=== PATIENT | female | born 1965 | race Caucasian/White ===

== ENCOUNTER 2018-03-03 23:07 | Observation (INO) | payer MEDICARE, MEDICAID, SELFPAY ==
[2018-03-03] MEDS: Normal Saline 250 ML IV (23:58)
[2018-03-04] MEDS: Ondansetron 4 MG/2 ML VIAL (00:45)
[2018-03-04] MEDS: Furosemide 20 MG TAB PO (03:15)
[2018-03-04 07:25] VITALS: BP 114/46; PULSE 58; RESP 16; TEMP 36.3; O2SAT 94
[2018-03-04] MEDS: Normal Saline Flush 10 ML SYR IVP (09:42)
[2018-03-04 11:35] VITALS: BP 121/53; PULSE 62; RESP 18; TEMP 36.7; O2SAT 96
[2018-03-04 14:34] LABS: ALT 41 U/L (12-78); AST 103 U/L (15-37); Albumin 1.8 g/dL (3.4-5.0); Alkaline Phosphatase 138 U/L (46-116); Anion Gap 5.5 mmol/L (3-11); BUN 9 mg/dL (7-18); Bilirubin, Total 2.4 mg/dL (0.2-1.0); CO2 24.5 mmol/L (21.0-32.0); CREATININE 0.89 mg/dL (0.55-1.02); Chloride 109 mmol/L (98-107); Glucose 105 mg/dL (70-100); Lipase 314 U/L (73-393); Potassium 3.5 mmol/L (3.5-5.1); Sodium 139 mmol/L (136-145)
[2018-03-04 14:36] LABS: HCT 41.6 % (36.0-46.0); HGB 13.6 g/dL (12.0-15.5); INR 2.6 (1.0-3.5); Mean Corpuscular Volume 91.8 fL (80-95); Prothrombin Time 24.6 sec (9.3-10.8); RBC 4.53 m/cumm (4.00-5.20); White Blood Cell Count 6.29 k/cumm (4.4-10.8)
[2018-03-04 14:37] LABS: Absolute Basophil Count 0.02 k/cumm (0.0-0.2); Absolute Lymphocyte Count 0.53 k/cumm (1.2-3.4); Absolute Monocyte Count 0.43 k/cumm (0.11-0.7); Basophils % 0.3; Eosinophils % 1.6; Immature Grans % 0.2; Lymphocytes % 8.4; Mean Corp. HGB Concentration 32.7 g/dL (32.0-36.0); Monocytes % 6.8; Neutrophils % 82.7; RBC Distribution Width 17.5 % (11.7-14.6)
[2018-03-04 14:39] LABS: Clarity Sl Cloudy; Platelet Count 55 x1000/uL (130-400); Specific Gravity 1.015 (1.005-1.025)
[2018-03-04 14:40] LABS: Bilirubin Small (Negative); Blood Large (Negative); Glucose Negative (Negative); Ketones Negative (Negative); Leukocyte Esterase TR (Negative); Nitrite Negative (Negative); Urobilinogen 0.2 EU/dL (Up TO 0.2)
[2018-03-04 14:41] LABS: Bacteria Moderate HPF (Negative); C & S Indicated? No/Sq. Contamination; Casts Negative LPF (Negative); Crystals Negative HPF (Negative); Epithelial Cells Many HPF (Negative); Mucus Negative (Negative)
--- NOTE | 2018-03-04 15:07 | IN_ITS ---
Date of service: 03/04/18 PT Notes Inpatient Physical Therapy Evaluation Referring Doctor: Dr. Pickadr PT Orders: PT CONSULT: Evaluate and treat Precautions: Falls Patient Profile/Admitting Diagnosis: Patient is a 52-year-old female admitted with colitis PMHX: Refer to the problem list in Dr. Pickard H&P Social History/Home Situation: Lives with her parents, is on Social Security disability Current Functional Limitations: Independent with dressing meals, her mother assist her with bathing. It is on the first floor,. She has railings entering the house Equipment Owned/DME: Shower seat in the tub with grab bars, has flexible shower hose. Subjective: Glory complaints of intermittent right lower quadrant discomfort. Objective: General Observation: Pleasant cooperative no abnormal pain behavior noted. Mental Status: Alert and oriented ?3 Pain: Intermittent right lower quadrant pain. Rates his #4-5 on a VAS. Vital Signs: Resting pulse is 17 bpm; 19 bpm following ambulation. Her resting respiratory rate is 14 breaths per minute; 24 breaths per minute following ambulation. ROM: Right Upper Extremity: Within normal limits Left Upper Extremity: Within normal limits Right Lower Extremity: Within normal limits Left Lower Extremity: Within normal limits Strength: Has full motor control throughout strength. Her strength is generally rated - 5/5 throughout Sensation: Intact to light touch and proprioception. Bed Mobility/Transfers: Independent with assuming the supine sitting to standing positions Gait: Ambulates independently without an assistive device for approximately 30 feet. Her respiratory rate increases to 24 breaths per minute following ambulation as noted above. Balance: A Haskins balance test was performed and she scored 48/56. Fall risk is a score of 45 and below Static Sitting: Normal Dynamic Sitting: Normal Static Standing: Normal Dynamic Standing: Normal Special Tests: Mobility Limitations Standardized Measure [facility] AM-PAC 6 clicks Basic Mobility Inpatient Short Form: Raw Score: 18 standardized Score: 43.63 CMS Score: 46.58% [facility] Modifier: CK Informed Consent/Education: Patient instructed in purpose of PT consult and plan of care. Assessment: Patient is a 52 next field female year old referred to physical therapy services with the diagnosis of colitis []. Patient presents with clinical signs and symptoms consistent with diagnosis as demonstrated by the following impairment level findings: Deconditioned and shortness of breath with distance walking. Impairments are contributing to the following functional limitations: AMPAC score. Patient is assessed as a X low 16260 complexity based on the following: History: Colitis Examination: Poor endurance and shortness of breath with walking Presentation: Evolving Decision Making: Low based on her clinical findings Goals: Goals X1 week 1. Supine-Sit independent 2. Sit-Supine independent 3. Sit-Stand independent 4. Stand-Sit independent 5. Bed-Chair independent 6. Chair-Bed independent 7. Gait independent with distances greater than 100 feet 8. Stairs 9. Independent with home exercise program 10. Balance Plan of Care/Treatment Plan: 1-2x/day, 7 days/week x 1 week. Plan of care has been reviewed with the BOARD LINING MACHINE OPERATOR providing the service under Physical Therapy direction. Initiate Physical Therapy intervention for strengthening, bed mobility, transfers, gait, stairs, balance training, use of assistive device. DISCHARGE RECOMMENDATIONS: [] Home G Codes in the area mobility of walking and moving around: current status [id number] [CK]; projected status GP [id number]. Discharge status (if discharging) GP [id number] CK. Disclaimer: This note was created using [employer] voice recognition software. It was reviewed for major content. However, there may be multiple small discrepancies and errors due to the voice recognition aspects of the software.
--- NOTE | 2018-03-04 17:59 | HPE_ITS ---
Date of service: 03/04/18 Time of Service: 06:28 Assessment and Plan (1) Acute abdominal pain: Current visit: No Status: Acute Is a 52-year-old lady who was admitted for abdominal pain with recurrence of diarrhea by history with C. difficile of stool in the past with colitis on CT scan secondary to C. difficile infection. She appears overall well though she states that she was having loose stools returned off vancomycin and and had more abdominal pain. She will be observed with clear fluids and restarting vancomycin p.o. while retesting her stool for C. difficile. If she has no diarrhea persisting abdominal pain is minimal she should go home for continued outpatient follow-up. Problem details: Clear fluid diet with symptom control and follow-up stool evaluation for C. difficile. (2) Diarrhea: Current visit: No Status: Acute This is been recurrent in this lady of the last month or so with the C. difficile infection and CT scan changes of colitis. Recheck for C. difficile antigen and restart oral vancomycin for now and adjust therapy to test and symptoms. Clear fluids with bowel rest for now. Problem details: This problem is recurring off oral vancomycin for 2 weeks. Recheck stool for C. difficile and consider continuing vancomycin p.o. as an outpatient with close follow-up. She does not appear to be acutely ill and should be able to be evaluated during this observation period. (3) Clostridium difficile colitis: Start date: 12/12/17 Current visit: No Status: Acute There is been a problem for the last month or so with this patient status post Keflex treatment for probable cellulitis of the left lung probably with chronic skin changes. We will repeat tests for C. difficile though obtain a stool since admission to the ED. Continue vancomycin orally for now with bowel rest and clear fluid diet. Problem details: C. difficile which need to be checked for clearing and oral vancomycin p.o. for now awaiting this test. If the test is positive continue oral vancomycin and follow-up as an outpatient with oral hydration. If negative consider stopping Vancomycin. History of Present Illness Chief Complaint: Abdominal pain with recurrent diarrhea. Narrative: This is a 52-year-old lady who is a poor historian and appears much older than stated age. Who had cellulitis of her left lower treatment which has chronic peripheral edema and venous stasis changes in December 2017. She received Keflex as an outpatient and after treatment began to have diarrhea which was severe with abdominal pain and was diagnosed with C. difficile colitis. She was hospitalized during that same month with records unavailable other than an old ED visit January 15, 2018 and the patient confused as to the timing of hospitalizations. She tested positive for C. difficile in December when she was treated with IV Flagyl and sent home on oral vancomycin and with recurrence of abdominal pain with fever and diarrhea in January 2018 with her second visit to the ED at [facility]. She states she was rehospitalized that ED visit January 15, 2018 but there was no bed for admission at [facility] and she was sent to [facility] where she received IV fluids and IV Flagyl again during the hospitalization and was discharged on oral vancomycin. With his ED visit the night prior to observation the patient had been off vancomycin for 2 weeks and began to have loose stools with abdominal pain and cramping 2 days prior to presentation. This time she does not have fever. Her stools were not as severe and in the ED when they tried to obtain C. difficile antigen test she was not producing stool which will be done later during this observation. She did receive IV fluids in the emergency room and is not on IV fluids now because of being fluid overloaded and being on Lasix chronically with some history of hypokalemia secondary to Lasix use. She usually is very sedentary and was living with family moving back with her parents recently appearing to require increased care at home. She is morbidly obese and not very active with chronic leg edema bilaterally over her ankles with the left leg which was thought to be cellulitis with the chronic skin changes from venous stasis with hyperpigmentation and erythema as well as atrophy of the skin. At the time I saw the patient she was comfortable though as stated the main poor historian and fatigued from the overnight workup in the ED. Review of Systems Review of Systems As per history of present illness the patient has had the GI symptoms recently. She denies any bloody stools. Her edema has been stable. Her respiratory status has been stable. She has chronic arthritis and poor mobility from her morbid obesity and arthritis. She has no focal neurological complaints. [facility] Family History Other Diabetes Secondary hypercoagulability disorder Medical History Edema extremities (Acute) Hyperlipidemia (Acute) Liver cirrhosis secondary to nonalcoholic steatohepatitis ([place]) (Acute) Morbid obesity (Acute) Secondary hypercoagulability disorder (Acute) Asthma (Chronic) Depression (Chronic) Osteoarthritis (Chronic) Social History household members: other details: Patient was living with her son and now lives with her parents marital status: Never but lives with father of her children who is . 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 She presently is on disability for psychiatric disease mostly but also physical deconditioning from her morbid obesity. Surgical History History of bilateral tubal ligation (Acute) Female Reproductive History Menstrual control method: permanent sterilization Total pregnancies: 3 Meds Home Medications Medication Instructions Recorded Confirmed Type albuterol sulfate 2 puff .ROUTE PRN PRN 03/15/15 12/13/17 History cholecalciferol (vitamin D3) 2,000 units PO DAILY 03/15/15 12/13/17 History escitalopram oxalate [Lexapro] 20 mg PO DAILY 03/15/15 12/13/17 History fluticasone-salmeterol [Advair HFA] 2 puff .ROUTE BID 03/15/15 12/13/17 History potassium chloride [Klor-Con M20] 20 meq PO DAILY 03/15/15 12/13/17 History warfarin [Coumadin] 2.5 - 5 mg PO DIRECTED 03/15/15 12/13/17 History topiramate 25 mg PO BID 03/23/17 12/13/17 History fluticasone-salmeterol [Advair 03/04/18 History Diskus] Allergies Allergy/AdvReac Type Severity Reaction Status Date / Time cephalexin monohydrate AdvReac Diarrhea Unverified 01/15/18 18:33 [From Keflex] Exam Narrative Exam Narrative: General: Patient appears older than stated age, flattened affect with poor eye contact slightly garbled speech though think she was very drowsy from the night. She appears to be in no acute distress and is alert and oriented to person place. HEENT: Normocephalic, coarsened features over her face with slight tightness, eyes pupils equal and reactive to light symmetrically and extraocular movement intact, sclera anicteric. Ears normal. Neck: Supple without JVD. Back: Stooped posture with no CVA tenderness. Lungs: Bronchovesicular breath sounds diffusely with fair aeration but no focal rales or rhonchi. No expiratory wheeze. Heart: Regular rate and rhythm with distant heart sounds. Breast: Exam deferred. Abdomen: Obese, soft with tenderness diffusely but no guarding or rebound. No palpable splenomegaly. Genitalia and rectal exam: Deferred. Extremities: Chronic nonpitting edema 2+ in the right and 3+ on left with hyperpigmented slightly erythematous skin of the left leg with atrophic skin. No ulcerations. No cyanosis or clubbing. Peripheral pulses are decreased over both lower extremity with fair capillary refill. Skin: Skin to the left lower extremity and generally unkempt skin with morbid obese body and intertriginous folds dry. Skin has reed color and slightly pale. Neuro: No focal motor deficits of the patient. The overall lack of ambulation or mobility at home. [place] nerves II through XII grossly intact. No sensory deficits noted. No Babinski's. DTRs and symmetrical. Results Labs : 03/03/18 23:58 03/03/18 23:58 Abnormal lab results 03/03/18 03/03/18 03/03/18 Range/Units 23:58 23:58 23:58 RDW 17.5 H (11.7-14.6) % Plt Count 55 L (130-400) x1000/uL Absolute Lymphocytes 0.53 L (1.2-3.4) k/cumm PT 24.6 H (9.3-10.8) sec Chloride 109 H (98-107) mmol/L Glucose 105 H (70-100) mg/dL Calcium 8.0 L (8.5-10.1) mg/dL Total Bilirubin 2.4 H (0.2-1.0) mg/dL AST 103 H (15-37) U/L Alkaline Phosphatase 138 H (46-116) U/L Albumin 1.8 L (3.4-5.0) g/dL Urine Protein (Negative) mg/dL Urine Blood (Negative) Urine Bilirubin (Negative) Urine RBC (0-2) 03/03/18 Range/Units 23:58 RDW (11.7-14.6) % Plt Count (130-400) x1000/uL Absolute Lymphocytes (1.2-3.4) k/cumm PT (9.3-10.8) sec Chloride (98-107) mmol/L Glucose (70-100) mg/dL Calcium (8.5-10.1) mg/dL Total Bilirubin (0.2-1.0) mg/dL AST (15-37) U/L Alkaline Phosphatase (46-116) U/L Albumin (3.4-5.0) g/dL Urine Protein Trace H (Negative) mg/dL Urine Blood Large H (Negative) Urine Bilirubin Small H (Negative) Urine RBC 10-20 H (0-2) Diabetes panel 03/03/18 Range/Units 23:58 Sodium 139 (136-145) mmol/L Potassium 3.5 (3.5-5.1) mmol/L Chloride 109 H (98-107) mmol/L Carbon Dioxide 24.5 (21.0-32.0) mmol/L BUN 9 (7-18) mg/dL Creatinine 0.89 (0.55-1.02) mg/dL Glucose 105 H (70-100) mg/dL Calcium 8.0 L (8.5-10.1) mg/dL AST 103 H (15-37) U/L ALT 41 (12-78) U/L Alkaline Phosphatase 138 H (46-116) U/L Total Protein 7.0 (6.4-8.2) g/dL Albumin 1.8 L (3.4-5.0) g/dL Calcium panel 03/03/18 Range/Units 23:58 Calcium 8.0 L (8.5-10.1) mg/dL Albumin 1.8 L (3.4-5.0) g/dL Pituitary panel 03/03/18 Range/Units 23:58 Sodium 139 (136-145) mmol/L Potassium 3.5 (3.5-5.1) mmol/L Chloride 109 H (98-107) mmol/L Carbon Dioxide 24.5 (21.0-32.0) mmol/L BUN 9 (7-18) mg/dL Creatinine 0.89 (0.55-1.02) mg/dL Glucose 105 H (70-100) mg/dL Calcium 8.0 L (8.5-10.1) mg/dL Adrenal panel 03/03/18 Range/Units 23:58 Sodium 139 (136-145) mmol/L Potassium 3.5 (3.5-5.1) mmol/L Chloride 109 H (98-107) mmol/L Carbon Dioxide 24.5 (21.0-32.0) mmol/L BUN 9 (7-18) mg/dL Creatinine 0.89 (0.55-1.02) mg/dL Glucose 105 H (70-100) mg/dL Calcium 8.0 L (8.5-10.1) mg/dL Total Bilirubin 2.4 H (0.2-1.0) mg/dL AST 103 H (15-37) U/L ALT 41 (12-78) U/L Alkaline Phosphatase 138 H (46-116) U/L Total Protein 7.0 (6.4-8.2) g/dL Albumin 1.8 L (3.4-5.0) g/dL Laboratory Tests 03/03/18 03/03/18 03/03/18 23:58 23:58 23:58 WBC 6.29 RBC 4.53 Hgb 13.6 Hct 41.6 MCV 91.8 MCH 30.0 MCHC 32.7 RDW 17.5 H Plt Count 55 L MPV 11.0 Immature Gran % 0.2 Neutrophils % 82.7 Lymphocytes % 8.4 Monocytes % 6.8 Eosinophils % 1.6 Basophils % 0.3 Absolute Neutrophils 5.20 Absolute Lymphocytes 0.53 L Absolute Monocytes 0.43 Absolute Eosinophils 0.10 Absolute Basophils 0.02 PT 24.6 H INR 2.6 Sodium 139 Potassium 3.5 Chloride 109 H Carbon Dioxide 24.5 Anion Gap 5.5 BUN 9 Creatinine 0.89 Estimated GFR/1.73 m2 >= 60.00 Glucose 105 H Calcium 8.0 L Total Bilirubin 2.4 H AST 103 H ALT 41 Alkaline Phosphatase 138 H Total Protein 7.0 Albumin 1.8 L Lipase 314 Urine Color Urine Clarity Urine pH Ur Specific [place] Urine Protein Urine Ketones Urine Blood Urine Nitrite Urine Bilirubin Urine Urobilinogen Ur Leukocyte Esterase Urine RBC Urine WBC Ur Epithelial Cells Urine Crystals Urine Bacteria Urine Casts Urine Mucus Ur Culture Indicated? Urine Glucose 03/03/18 23:58 WBC RBC Hgb Hct MCV MCH MCHC RDW Plt Count MPV Immature Gran % Neutrophils % Lymphocytes % Monocytes % Eosinophils % Basophils % Absolute Neutrophils Absolute Lymphocytes Absolute Monocytes Absolute Eosinophils Absolute Basophils PT INR Sodium Potassium Chloride Carbon Dioxide Anion Gap BUN Creatinine Estimated GFR/1.73 m2 Glucose Calcium Total Bilirubin AST ALT Alkaline Phosphatase Total Protein Albumin Lipase Urine Color Yellow Urine Clarity Sl cloudy Urine pH 7.0 Ur Specific [place] 1.015 Urine Protein Trace H Urine Ketones Negative Urine Blood Large H Urine Nitrite Negative Urine Bilirubin Small H Urine Urobilinogen 0.2 Ur Leukocyte Esterase Tr Urine RBC 10-20 H Urine WBC 10-20 Ur Epithelial Cells Many Urine Crystals Negative Urine Bacteria Moderate Urine Casts Negative Urine Mucus Negative Ur Culture Indicated? No/sq. contamination Urine Glucose Negative
--- NOTE | 2018-03-04 18:00 | W.PM.DS.N ---
DS: Diagnosis Discharge Diagnosis (1) Abdominal pain: Status: Acute Asessment and Plan: Patient presented with abdominal pain. She was fearful she had a recurrence of C. difficile colitis. Repeat testing of her stool showed no evidence of C. difficile colitis. Her abdominal pain was improved and she was taking p.o. well. (2) Clostridium difficile colitis: Status: Acute Asessment and Plan: Patient had several episodes of C. difficile colitis and completed a long-term course of vancomycin. Currently no evidence of C. difficile colitis (3) Nonalcoholic steatohepatitis ([place]): Status: Chronic Asessment and Plan: Cirrhosis is stable. No evidence of decompensated liver failure at this time. Discharge Plan Discharge Details Reason For Visit: weakness Admit Date/Time: 03/04/18 03:26 Admit Provider: Aamir Villarreal Attending Provider: Aamir Villarreal Primary Care Provider: Gavi Adames Disposition Patient Disposition: HOME Condition: Fair Discharge Instructions Activity:: Activity as Tolerated Equipment/Supplies:: No Equipment Needed Diet:: As Tolerated Discharge Orders Discharge Orders: Discharge Order (Routine); Ordered 03/04/18 Ordered By: Balta Pickard Discharge Data Discharge Date/Time-TO BE ENTERED AT DEPARTURE: 03/04/18 15:04 DS: Summary Status at Discharge Functional status at discharge: independent ambulation Overall status at discharge: patient is back to baseline Time Spent with Patient Greater than 30 minutes Exam Narrative Exam Narrative: Her exam on the day of discharge was benign. She is morbidly obese her abdomen was overall soft and nontender to palpation no guarding or rebound. DS: Data Completed studies during hospitalization [Text1]: Procedures COLONOSCOPY (10/18/00) Labs on day of discharge: Labs from last 24 hours 03/03/18 03/03/18 03/03/18 23:58 23:58 23:58 WBC 6.29 RBC 4.53 Hgb 13.6 Hct 41.6 MCV 91.8 MCH 30.0 MCHC 32.7 RDW 17.5 H Plt Count 55 L MPV 11.0 Immature Gran % 0.2 Neutrophils % 82.7 Lymphocytes % 8.4 Monocytes % 6.8 Eosinophils % 1.6 Basophils % 0.3 Absolute Neutrophils 5.20 Absolute Lymphocytes 0.53 L Absolute Monocytes 0.43 Absolute Eosinophils 0.10 Absolute Basophils 0.02 PT INR Sodium 139 Potassium 3.5 Chloride 109 H Carbon Dioxide 24.5 Anion Gap 5.5 BUN 9 Creatinine 0.89 Estimated GFR/1.73 m2 >= 60.00 Glucose 105 H Calcium 8.0 L Total Bilirubin 2.4 H AST 103 H ALT 41 Alkaline Phosphatase 138 H Total Protein 7.0 Albumin 1.8 L Lipase 314 Urine Color Yellow Urine Clarity Sl cloudy Urine pH 7.0 Ur Specific [place] 1.015 Urine Protein Trace H Urine Ketones Negative Urine Blood Large H Urine Nitrite Negative Urine Bilirubin Small H Urine Urobilinogen 0.2 Ur Leukocyte Esterase Tr Urine RBC 10-20 H Urine WBC 10-20 Ur Epithelial Cells Many Urine Crystals Negative Urine Bacteria Moderate Urine Casts Negative Urine Mucus Negative Ur Culture Indicated? No/sq. contamination Urine Glucose Negative 03/03/18 23:58 WBC RBC Hgb Hct MCV MCH MCHC RDW Plt Count MPV Immature Gran % Neutrophils % Lymphocytes % Monocytes % Eosinophils % Basophils % Absolute Neutrophils Absolute Lymphocytes Absolute Monocytes Absolute Eosinophils Absolute Basophils PT 24.6 H INR 2.6 Sodium Potassium Chloride Carbon Dioxide Anion Gap BUN Creatinine Estimated GFR/1.73 m2 Glucose Calcium Total Bilirubin AST ALT Alkaline Phosphatase Total Protein Albumin Lipase Urine Color Urine Clarity Urine pH Ur Specific [place] Urine Protein Urine Ketones Urine Blood Urine Nitrite Urine Bilirubin Urine Urobilinogen Ur Leukocyte Esterase Urine RBC Urine WBC Ur Epithelial Cells Urine Crystals Urine Bacteria Urine Casts Urine Mucus Ur Culture Indicated? Urine Glucose Date of service: 03/04/18 Time of Service: 18:01
--- NOTE | 2018-03-04 20:01 | DI.CT_ITS ---
SYMPTOMS/DIAGNOSIS: NAUSEA, DIARRHEA, ABDOMINAL PAIN X [address] OF THE ABDOMEN AND PELVIS: Comparison is made with January,. The exam is limited by the patient's body habitus. IV contrast was administered. A cirrhotic liver and enlarged spleen, as well as cholelithiasis, are again noted. There is no biliary dilatation. There is no evidence of acute cholecystitis. The kidneys, adrenals , bladder and uterus are unremarkable. There is a question of minimal stranding around the pancreas, as well as in the mesentery. Clinical correlation is recommended. There has been some interval improvement in the amount of inflammation involving the colon since the previous exam. Diverticulosis is again noted. There is no free air, or free fluid or abnormal bowel distention. A fatty-containing hernia is noted just above the level of the umbilicus. Scoliosis and degenerative changes are again noted in the spine. There is a filter in the IVC, which appears unchanged in position. The appendix appears normal. IMPRESSION: Limited exam due to patient body habitus and lack of oral contrast. There is a question of mild stranding around the pancreas. Clinical correlation is recommended. There is also a question of some inflammation involving the ascending colon and mesentery.
[2018-03-04] MEDS: Omnipaque 350 MG/ML 100 ML BTL IJ (20:12)
[2018-03-04] MEDS: Omnipaque 350 MG/ML 50 ML BTL IJ (20:14)
--- NOTE | 2018-03-05 02:31 | HPE_ITS ---
PFSH Family History Other Diabetes Secondary hypercoagulability disorder Medical History Edema extremities (Acute) Hyperlipidemia (Acute) Liver cirrhosis secondary to nonalcoholic steatohepatitis ([place]) (Acute) Morbid obesity (Acute) Secondary hypercoagulability disorder (Acute) Asthma (Chronic) Depression (Chronic) Osteoarthritis (Chronic) Social History household members: other details: Patient was living with her son and now lives with her parents marital status: Never but lives with father of her children who is . 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 She presently is on disability for psychiatric disease mostly but also physical deconditioning from her morbid obesity. Surgical History History of bilateral tubal ligation (Acute) Meds Home Medications Medication Instructions Recorded Confirmed Type albuterol sulfate 2 puff .ROUTE PRN PRN 03/15/15 12/13/17 History cholecalciferol (vitamin D3) 2,000 units PO DAILY 03/15/15 12/13/17 History escitalopram oxalate [Lexapro] 20 mg PO DAILY 03/15/15 12/13/17 History fluticasone-salmeterol [Advair HFA] 2 puff .ROUTE BID 03/15/15 12/13/17 History potassium chloride [Klor-Con M20] 20 meq PO DAILY 03/15/15 12/13/17 History warfarin [Coumadin] 2.5 - 5 mg PO DIRECTED 03/15/15 12/13/17 History topiramate 25 mg PO BID 03/23/17 12/13/17 History fluticasone-salmeterol [Advair 03/04/18 History Diskus] Allergies Allergy/AdvReac Type Severity Reaction Status Date / Time cephalexin monohydrate AdvReac Diarrhea Unverified 01/15/18 18:33 [From Keflex] Results Labs : 03/03/18 23:58 03/03/18 23:58 Abnormal lab results 03/03/18 03/03/18 03/03/18 Range/Units 23:58 23:58 23:58 RDW 17.5 H (11.7-14.6) % Plt Count 55 L (130-400) x1000/uL Absolute Lymphocytes 0.53 L (1.2-3.4) k/cumm PT 24.6 H (9.3-10.8) sec Chloride 109 H (98-107) mmol/L Glucose 105 H (70-100) mg/dL Calcium 8.0 L (8.5-10.1) mg/dL Total Bilirubin 2.4 H (0.2-1.0) mg/dL AST 103 H (15-37) U/L Alkaline Phosphatase 138 H (46-116) U/L Albumin 1.8 L (3.4-5.0) g/dL Urine Protein (Negative) mg/dL Urine Blood (Negative) Urine Bilirubin (Negative) Urine RBC (0-2) 03/03/18 Range/Units 23:58 RDW (11.7-14.6) % Plt Count (130-400) x1000/uL Absolute Lymphocytes (1.2-3.4) k/cumm PT (9.3-10.8) sec Chloride (98-107) mmol/L Glucose (70-100) mg/dL Calcium (8.5-10.1) mg/dL Total Bilirubin (0.2-1.0) mg/dL AST (15-37) U/L Alkaline Phosphatase (46-116) U/L Albumin (3.4-5.0) g/dL Urine Protein Trace H (Negative) mg/dL Urine Blood Large H (Negative) Urine Bilirubin Small H (Negative) Urine RBC 10-20 H (0-2) Diabetes panel 03/03/18 Range/Units 23:58 Sodium 139 (136-145) mmol/L Potassium 3.5 (3.5-5.1) mmol/L Chloride 109 H (98-107) mmol/L Carbon Dioxide 24.5 (21.0-32.0) mmol/L BUN 9 (7-18) mg/dL Creatinine 0.89 (0.55-1.02) mg/dL Glucose 105 H (70-100) mg/dL Calcium 8.0 L (8.5-10.1) mg/dL AST 103 H (15-37) U/L ALT 41 (12-78) U/L Alkaline Phosphatase 138 H (46-116) U/L Total Protein 7.0 (6.4-8.2) g/dL Albumin 1.8 L (3.4-5.0) g/dL Calcium panel 03/03/18 Range/Units 23:58 Calcium 8.0 L (8.5-10.1) mg/dL Albumin 1.8 L (3.4-5.0) g/dL Pituitary panel 03/03/18 Range/Units 23:58 Sodium 139 (136-145) mmol/L Potassium 3.5 (3.5-5.1) mmol/L Chloride 109 H (98-107) mmol/L Carbon Dioxide 24.5 (21.0-32.0) mmol/L BUN 9 (7-18) mg/dL Creatinine 0.89 (0.55-1.02) mg/dL Glucose 105 H (70-100) mg/dL Calcium 8.0 L (8.5-10.1) mg/dL Adrenal panel 03/03/18 Range/Units 23:58 Sodium 139 (136-145) mmol/L Potassium 3.5 (3.5-5.1) mmol/L Chloride 109 H (98-107) mmol/L Carbon Dioxide 24.5 (21.0-32.0) mmol/L BUN 9 (7-18) mg/dL Creatinine 0.89 (0.55-1.02) mg/dL Glucose 105 H (70-100) mg/dL Calcium 8.0 L (8.5-10.1) mg/dL Total Bilirubin 2.4 H (0.2-1.0) mg/dL AST 103 H (15-37) U/L ALT 41 (12-78) U/L Alkaline Phosphatase 138 H (46-116) U/L Total Protein 7.0 (6.4-8.2) g/dL Albumin 1.8 L (3.4-5.0) g/dL Laboratory Tests 03/03/18 03/03/18 03/03/18 23:58 23:58 23:58 WBC 6.29 RBC 4.53 Hgb 13.6 Hct 41.6 MCV 91.8 MCH 30.0 MCHC 32.7 RDW 17.5 H Plt Count 55 L MPV 11.0 Immature Gran % 0.2 Neutrophils % 82.7 Lymphocytes % 8.4 Monocytes % 6.8 Eosinophils % 1.6 Basophils % 0.3 Absolute Neutrophils 5.20 Absolute Lymphocytes 0.53 L Absolute Monocytes 0.43 Absolute Eosinophils 0.10 Absolute Basophils 0.02 PT 24.6 H INR 2.6 Sodium 139 Potassium 3.5 Chloride 109 H Carbon Dioxide 24.5 Anion Gap 5.5 BUN 9 Creatinine 0.89 Estimated GFR/1.73 m2 >= 60.00 Glucose 105 H Calcium 8.0 L Total Bilirubin 2.4 H AST 103 H ALT 41 Alkaline Phosphatase 138 H Total Protein 7.0 Albumin 1.8 L Lipase 314 Urine Color Urine Clarity Urine pH Ur Specific [place] Urine Protein Urine Ketones Urine Blood Urine Nitrite Urine Bilirubin Urine Urobilinogen Ur Leukocyte Esterase Urine RBC Urine WBC Ur Epithelial Cells Urine Crystals Urine Bacteria Urine Casts Urine Mucus Ur Culture Indicated? Urine Glucose 03/03/18 23:58 WBC RBC Hgb Hct MCV MCH MCHC RDW Plt Count MPV Immature Gran % Neutrophils % Lymphocytes % Monocytes % Eosinophils % Basophils % Absolute Neutrophils Absolute Lymphocytes Absolute Monocytes Absolute Eosinophils Absolute Basophils PT INR Sodium Potassium Chloride Carbon Dioxide Anion Gap BUN Creatinine Estimated GFR/1.73 m2 Glucose Calcium Total Bilirubin AST ALT Alkaline Phosphatase Total Protein Albumin Lipase Urine Color Yellow Urine Clarity Sl cloudy Urine pH 7.0 Ur Specific [place] 1.015 Urine Protein Trace H Urine Ketones Negative Urine Blood Large H Urine Nitrite Negative Urine Bilirubin Small H Urine Urobilinogen 0.2 Ur Leukocyte Esterase Tr Urine RBC 10-20 H Urine WBC 10-20 Ur Epithelial Cells Many Urine Crystals Negative Urine Bacteria Moderate Urine Casts Negative Urine Mucus Negative Ur Culture Indicated? No/sq. contamination Urine Glucose Negative
--- NOTE | 2018-03-05 09:45 | PDOC.CMDIS ---
LACE Index Scoring Tool - Questions: Length of Stay (in days): 1 Acuity (Admit via E.D.?): Yes Comorbidities: Diabetes w/o Complication E.D. Visits: 3 - Answers: Total Score: 8 Risk of Readmission: Low Risk Care Management Discharge Reason for Hospitalization: Diarrhea Discharge Plan: Home and no service needed. Parents will transport by car when medically cleared for discharge. Patient/Family Education Needs: Discharge instructions
--- NOTE | 2018-03-05 10:54 | PT.INIE ---
PT Notes Inpatient Physical Therapy Evaluation Referring Doctor: Dr. Pickard PT Orders: PT CONSULT: Evaluate and treat Precautions: Falls Patient Profile/Admitting Diagnosis: Patient is a 52-year-old female admitted with colitis PMHX: Refer to the problem list in Dr. Pickard H&P Social History/Home Situation: Lives with her parents, is on Social Security disability Current Functional Limitations: Independent with dressing meals, her mother assist her with bathing. It is on the first floor,. She has railings entering the house Equipment Owned/DME: Shower seat in the tub with grab bars, has flexible shower hose. Subjective: Glory complaints of intermittent right lower quadrant discomfort. Objective: General Observation: Pleasant cooperative no abnormal pain behavior noted. Mental Status: Alert and oriented ?3 Pain: Intermittent right lower quadrant pain. Rates his #4-5 on a VAS. Vital Signs: Resting pulse is 17 bpm; 19 bpm following ambulation. Her resting respiratory rate is 14 breaths per minute; 24 breaths per minute following ambulation. ROM: Right Upper Extremity: Within normal limits Left Upper Extremity: Within normal limits Right Lower Extremity: Within normal limits Left Lower Extremity: Within normal limits Strength: Has full motor control throughout strength. Her strength is generally rated -5/5 throughout Sensation: Intact to light touch and proprioception. Bed Mobility/Transfers: Independent with assuming the supine sitting to standing positions Gait: Ambulates independently without an assistive device for approximately 30 feet. Her respiratory rate increases to 24 breaths per minute following ambulation as noted above. Balance: A Hasknis balance test was performed and she scored 48/56. Fall risk is a score of 45 and below Static Sitting: Normal Dynamic Sitting: Normal Static Standing: Normal Dynamic Standing: Normal Special Tests: Mobility Limitations Standardized Measure [facility] AM-PAC 6 clicks Basic Mobility Inpatient Short Form: Raw Score: 18 standardized Score: 43.63 CMS Score: 46.58% [facility] Modifier: CK Informed Consent/Education: Patient instructed in purpose of PT consult and plan of care. Assessment: Patient is a 52 next field female year old referred to physical therapy services with the diagnosis of colitis []. Patient presents with clinical signs and symptoms consistent with diagnosis as demonstrated by the following impairment level findings: Deconditioned and shortness of breath with distance walking. Impairments are contributing to the following functional limitations: AMPAC score. Patient is assessed as a X low 20811 complexity based on the following: History: Colitis Examination: Poor endurance and shortness of breath with walking Presentation: Evolving Decision Making: Low based on her clinical findings Goals: Goals X1 week 1. Supine-Sit independent 2. Sit-Supine independent 3. Sit-Stand independent 4. Stand-Sit independent 5. Bed-Chair independent 6. Chair-Bed independent 7. Gait independent with distances greater than 100 feet 8. Stairs 9. Independent with home exercise program 10. Balance Plan of Care/Treatment Plan: 1-2x/day, 7 days/week x 1 week. Plan of care has been reviewed with the HAM STRIPPER providing the service under Physical Therapy direction. Initiate Physical Therapy intervention for strengthening, bed mobility, transfers, gait, stairs, balance training, use of assistive device. DISCHARGE RECOMMENDATIONS: [] Home G Codes in the area mobility of walking and moving around: current status [id number] [CK]; projected status GP [id number]. Discharge status (if discharging) GP [id number] CK. Disclaimer: This note was created using [employer] voice recognition software. It was reviewed for major content. However, there may be multiple small discrepancies and errors due to the voice recognition aspects of the software. Intake Vital Signs 03/04/18 07:25 03/04/18 11:35 03/04/18 15:47 Height 5 ft 7 in BP 114/46 L 121/53 L Respiration 16 18 Pulse 58 L 62 Temp 36.3 C L 36.7 C Temp Source Tympanic Tympanic Pulse Oximetry (%) 94 L 96 Oxygen Flow Rate 0 0
--- NOTE | 2018-03-05 10:58 | IN_ITS ---
PT Notes Inpatient Physical Therapy Evaluation Referring Doctor: Dr. Pickard PT Orders: PT CONSULT: Evaluate and treat Precautions: Falls Patient Profile/Admitting Diagnosis: Patient is a 52-year-old female admitted with colitis PMHX: Refer to the problem list in Dr. Pickard H&P Social History/Home Situation: Lives with her parents, is on Social Security disability Current Functional Limitations: Independent with dressing meals, her mother assist her with bathing. It is on the first floor,. She has railings entering the house Equipment Owned/DME: Shower seat in the tub with grab bars, has flexible shower hose. Subjective: Glory complaints of intermittent right lower quadrant discomfort. Objective: General Observation: Pleasant cooperative no abnormal pain behavior noted. Mental Status: Alert and oriented ?3 Pain: Intermittent right lower quadrant pain. Rates his #4-5 on a VAS. Vital Signs: Resting pulse is 17 bpm; 19 bpm following ambulation. Her resting respiratory rate is 14 breaths per minute; 24 breaths per minute following ambulation. ROM: Right Upper Extremity: Within normal limits Left Upper Extremity: Within normal limits Right Lower Extremity: Within normal limits Left Lower Extremity: Within normal limits Strength: Has full motor control throughout strength. Her strength is generally rated -5/ 5 throughout Sensation: Intact to light touch and proprioception. Bed Mobility/Transfers: Independent with assuming the supine sitting to standing positions Gait: Ambulates independently without an assistive device for approximately 30 feet. Her respiratory rate increases to 24 breaths per minute following ambulation as noted above. Balance: A Haskins balance test was performed and she scored 48/56. Fall risk is a score of 45 and below Static Sitting: Normal Dynamic Sitting: Normal Static Standing: Normal Dynamic Standing: Normal Special Tests: Mobility Limitations Standardized Measure [facility] AM-PAC 6 clicks Basic Mobility Inpatient Short Form: Raw Score: 18 standardized Score: 43.63 CMS Score: 46.58% [facility] Modifier: CK Informed Consent/Education: Patient instructed in purpose of PT consult and plan of care. Assessment: Patient is a 52 next field female year old referred to physical therapy services with the diagnosis of colitis []. Patient presents with clinical signs and symptoms consistent with diagnosis as demonstrated by the following impairment level findings: Deconditioned and shortness of breath with distance walking. Impairments are contributing to the following functional limitations: AMPAC score. Patient is assessed as a X low 00999 complexity based on the following: History: Colitis Examination: Poor endurance and shortness of breath with walking Presentation: Evolving Decision Making: Low based on her clinical findings Goals: Goals X1 week 1. Supine-Sit independent 2. Sit-Supine independent 3. Sit-Stand independent 4. Stand-Sit independent 5. Bed-Chair independent 6. Chair-Bed independent 7. Gait independent with distances greater than 100 feet 8. Stairs 9. Independent with home exercise program 10. Balance Plan of Care/Treatment Plan: 1-2x/day, 7 days/week x 1 week. Plan of care has been reviewed with the [employer] providing the service under Physical Therapy direction. Initiate Physical Therapy intervention for strengthening, bed mobility, transfers, gait, stairs, balance training, use of assistive device. DISCHARGE RECOMMENDATIONS: [] Home G Codes in the area mobility of walking and moving around: current status [id number] [CK]; projected status GP [id number]. Discharge status (if discharging) GP [id number] CK. Disclaimer: This note was created using [employer] voice recognition software. It was reviewed for major content. However, there may be multiple small discrepancies and errors due to the voice recognition aspects of the software. Intake Vital Signs 3 l l l l 03/04/18 07:25 l l 03/04/18 11:35 l l 03/04/18 15:47 l l Height 5 ft 7 in l l BP 114/46 L 121/53 L l l Respiration 16 18 l l Pulse 58 L 62 l l Temp 36.3 C L 36.7 C l l Temp Source Tympanic Tympanic l l Pulse Oximetry (%) 94 L 96 l l Oxygen Flow Rate 0 0
--- NOTE | 2018-03-07 08:16 | PT.INDS ---
PT Notes Inpatient Physical Therapy Discharge Summary Date: 03/07/18 Dates of service: 03/04/18 Pt was seen for PT eval only 03/04/18 see note for details. Pt was discharged to home. Pt did not meet therapy goals due to discharge. Goals X1 week 1. Supine-Sit independent 2. Sit-Supine independent 3. Sit-Stand independent 4. Stand-Sit independent 5. Bed-Chair independent 6. Chair-Bed independent 7. Gait independent with distances greater than 100 feet 8. Stairs 9. Independent with home exercise program 10. Balance Pt did not meet goals due to discharge. DISCHARGE RECOMMENDATIONS:Home G Codes in the area mobility of walking and moving around; projected status GP [id number]. Discharge status (if discharging) GP Deb Faust PT
--- NOTE | 2018-03-07 08:19 | INDS_ITS ---
PT Notes Inpatient Physical Therapy Discharge Summary Date: 03/07/18 Dates of service: 03/04/18 Pt was seen for PT eval only 03/04/18 see note for details. Pt was discharged to home. Pt did not meet therapy goals due to discharge. Goals X1 week 1. Supine-Sit independent 2. Sit-Supine independent 3. Sit-Stand independent 4. Stand-Sit independent 5. Bed-Chair independent 6. Chair-Bed independent 7. Gait independent with distances greater than 100 feet 8. Stairs 9. Independent with home exercise program 10. Balance Pt did not meet goals due to discharge. DISCHARGE RECOMMENDATIONS:Home G Codes in the area mobility of walking and moving around; projected status GP [id number]. Discharge status (if discharging) GP Deb Faust PT
--- NOTE | 2018-03-22 14:59 | PT.INIE ---
Date of service: 03/04/18 Time of Service: 10:00 PT Notes Inpatient Physical Therapy Evaluation Referring Doctor: Dr. Pickard PT Orders: PT CONSULT: Evaluate and treat Precautions: Falls Patient Profile/Admitting Diagnosis: Patient is a 52-year-old female admitted with colitis PMHX: Refer to the problem list in Dr. Pickard H&P Social History/Home Situation: Lives with her parents, is on Social Security disability Current Functional Limitations: Independent with dressing meals, her mother assist her with bathing. It is on the first floor,. She has railings entering the house Equipment Owned/DME: Shower seat in the tub with grab bars, has flexible shower hose. Subjective: Glory complaints of intermittent right lower quadrant discomfort. Objective: General Observation: Pleasant cooperative no abnormal pain behavior noted. Mental Status: Alert and oriented ?3 Pain: Intermittent right lower quadrant pain. Rates his #4-5 on a VAS. Vital Signs: Resting pulse is 17 bpm; 19 bpm following ambulation. Her resting respiratory rate is 14 breaths per minute; 24 breaths per minute following ambulation. ROM: Right Upper Extremity: Within normal limits Left Upper Extremity: Within normal limits Right Lower Extremity: Within normal limits Left Lower Extremity: Within normal limits Strength: Has full motor control throughout strength. Her strength is generally rated -5/5 throughout Sensation: Intact to light touch and proprioception. Bed Mobility/Transfers: Independent with assuming the supine sitting to standing positions Gait: Ambulates independently without an assistive device for approximately 30 feet. Her respiratory rate increases to 24 breaths per minute following ambulation as noted above. Balance: A Haskins balance test was performed and she scored 48/56. Fall risk is a score of 45 and below Static Sitting: Normal Dynamic Sitting: Normal Static Standing: Normal Dynamic Standing: Normal Special Tests: Mobility Limitations Standardized Measure [facility] AM-PAC 6 clicks Basic Mobility Inpatient Short Form: Raw Score: 18 standardized Score: 43.63 CMS Score: 46.58% [facility] Modifier: CK Informed Consent/Education: Patient instructed in purpose of PT consult and plan of care. Assessment: Patient is a 52 next field female year old referred to physical therapy services with the diagnosis of colitis []. Patient presents with clinical signs and symptoms consistent with diagnosis as demonstrated by the following impairment level findings: Deconditioned and shortness of breath with distance walking. Impairments are contributing to the following functional limitations: AMPAC score. Patient is assessed as a X low [id number] complexity based on the following: History: Colitis Examination: Poor endurance and shortness of breath with walking Presentation: Evolving Decision Making: Low based on her clinical findings Goals: Goals X1 week 1. Supine-Sit independent 2. Sit-Supine independent 3. Sit-Stand independent 4. Stand-Sit independent 5. Bed-Chair independent 6. Chair-Bed independent 7. Gait independent with distances greater than 100 feet 8. Stairs 9. Independent with home exercise program 10. Balance Plan of Care/Treatment Plan: 1-2x/day, 7 days/week x 1 week. Plan of care has been reviewed with the COUNTERINTELLIGENCE/HUMINT SPECIALIST providing the service under Physical Therapy direction. Initiate Physical Therapy intervention for strengthening, bed mobility, transfers, gait, stairs, balance training, use of assistive device. DISCHARGE RECOMMENDATIONS: [] Home G Codes in the area mobility of walking and moving around: current status [id number] [CK]; projected status GP [id number]. Discharge status (if discharging) GP [id number] CK. Disclaimer: This note was created using [employer] voice recognition software. It was reviewed for major content. However, there may be multiple small discrepancies and errors due to the voice recognition aspects of the software.
== END 2018-03-04 15:04 | disposition home or self-care (01) ==
LOC: ER 03-04 12:17 → MS 03-04 15:48
PROVIDERS: Admitting Provider Family Medicine; Emergency Provider Physician Assistant; PCP Family Medicine; Visit Provider Family Medicine
DX: R10.9 Unspecified abdominal pain (principal); A04.72 Enterocolitis due to Clostridium difficile, not specified as recurrent; K75.81 Nonalcoholic steatohepatitis (NASH); E66.01 Morbid (severe) obesity due to excess calories
CPT/HCPCS: 36415; 80053; 83690; 96361; 96374; 96375; 97161; 99220; 99239; 99285; 74177; 81003; 81015; 85025; 85610; 87324; J2405; J3490; Q9967

== ENCOUNTER 2018-03-10 12:06 | Outpatient (CLI) | payer MEDICARE, MEDICAID, SELFPAY ==
[2018-03-10 13:09] LABS: INR 2.4 (1.0-3.5); Prothrombin Time 22.3 sec (9.3-10.8)
== END 2018-03-10 12:26 ==
PROVIDERS: PCP Family Medicine; Visit Provider Family Medicine
DX: K52.9 Noninfective gastroenteritis and colitis, unspecified (principal); R53.1 Weakness
CPT/HCPCS: 36415; 85610

== ENCOUNTER 2018-03-11 11:59 | Emergency (ER) | payer MEDICARE, MEDICAID, SELFPAY ==
[2018-03-11 12:08] VITALS: BP 155/66; PULSE 69; RESP 20; TEMP 36.7; O2SAT 96
[2018-03-11 13:25] LABS: Abs Immature Grans 0.01 k/cumm (0.0-0.09); Absolute Basophil Count 0.02 k/cumm (0.0-0.2); Absolute Eosinophil Count 0.11 k/cumm (0.0-0.7); Absolute Lymphocyte Count 0.85 k/cumm (1.2-3.4); Absolute Monocyte Count 1.07 k/cumm (0.11-0.7); Absolute Neutrophil Count 4.19 k/cumm (1.2-6.7); Basophils % 0.3; Eosinophils % 1.8; HCT 38.6 % (36.0-46.0); HGB 12.7 g/dL (12.0-15.5); Immature Grans % 0.2; Lymphocytes % 13.6; Mean Corp. HGB Concentration 32.9 g/dL (32.0-36.0); Mean Corpuscular Hemoglobin 30.5 pg (27.0-33.0); Mean Corpuscular Volume 92.8 fL (80-95); Mean Platelet Volume 11.4 fL (8.0-11.0); Monocytes % 17.1; RBC 4.16 m/cumm (4.00-5.20); RBC Distribution Width 17.2 % (11.7-14.6); White Blood Cell Count 6.25 k/cumm (4.4-10.8)
[2018-03-11 13:40] LABS: ALT 28 U/L (12-78); AST 63 U/L (15-37); Albumin 1.5 g/dL (3.4-5.0); Alkaline Phosphatase 121 U/L (46-116); Anion Gap 5.2 mmol/L (3-11); BUN 9 mg/dL (7-18); Bilirubin, Total 2.2 mg/dL (0.2-1.0); CO2 24.8 mmol/L (21.0-32.0); CREATININE 1.05 mg/dL (0.55-1.02); Calcium 7.8 mg/dL (8.5-10.1); Chloride 108 mmol/L (98-107); Estimated GFR 54.61 (mL/min/1.73m2); Glucose 109 mg/dL (70-100); Lipase 114 U/L (73-393); Potassium 3.6 mmol/L (3.5-5.1); Sodium 138 mmol/L (136-145); Total Protein 6.1 g/dL (6.4-8.2)
[2018-03-11 13:41] LABS: INR 2.7 (1.0-3.5); PTT Activated 40.5 sec (21.0-31.4); Prothrombin Time 25.8 sec (9.3-10.8)
[2018-03-11 13:43] LABS: Platelet Count 64 x1000/uL (130-400)
[2018-03-11 13:44] LABS: Anisocytosis 1+; Diff Comment Diff Reviewed
[2018-03-11] MEDS: Normal Saline 1,000 ML 1000 ML IV (13:58)
--- NOTE | 2018-03-11 14:36 | DI.CT_ITS ---
SYMPTOM/DIAGNOSIS: LLQ ABD PAIN, DIARRHEA, HEME + ABDOMEN AND PELVIC CT: Comparison is made with 03/03/18. Images were performed from the lung bases through the ischial tuberosities after IV and without oral contrast. The exam is limited by the patient's body habitus. The lung bases show mild respiratory motion but are otherwise clear. The liver again has a cirrhotic appearance. The spleen is enlarged, unchanged. Varices are identified. There is again question of mild inhomogeneity of the pancreas which could be artifactual and could reflect mild pancreatitis. Multiple calcified stones are again demonstrated in the gallbladder. There is no gallbladder wall thickening or biliary dilatation. There is a normal quantity of stool. There is no evidence of bowel obstruction. There is questionable bowel wall thickening. An IVC filter is unchanged. The uterus and ovaries are unremarkable. There is no change in a fatty containing hernia just inferior to the umbilicus. IMPRESSION: Stable findings of cirrhosis and splenomegaly. There is cholelithiasis without evidence of acute cholecystitis or biliary dilatation. No definite acute abnormality is seen. The exam is limited by the patient's body habitus.
[2018-03-11] MEDS: Omnipaque 350 MG/ML 100 ML BTL IJ (15:20)
--- NOTE | 2018-03-11 15:50 | DI.VRAD_ITS ---
EXAM: CT Abdomen and Pelvis With Intravenous Contrast CLINICAL HISTORY: 52 years old, female; Pain; Abdominal pain; Localized; Left lower quadrant (llq); Patient HX: Llq abdominal pain, diarrhea, heme + TECHNIQUE: Axial computed tomography images of the abdomen and pelvis with intravenous contrast. Coronal and sagittal reformatted images were created and reviewed. COMPARISON: CT - ABD PELVIS WITH CONTRAST 03/04/2018 12:58 AM FINDINGS: Irregularity to the liver with irregular margins and slight inhomogeneity seen with intrinsic liver disease. Splenomegaly most likely are presenting portal hypertension with low. The varices in the splenic hilum. Cholelithiasis. Small fat-containing anterior abdominal wall hernia in the mid pelvis. Mild prominence to the colon wall which could represent a diffuse mild colitis however this can be seen in portal hypertension. Further clinical correlation is needed. A focal colitis is not seen. No evidence of bowel obstruction. No change in partially fragmented inferior vena cava filter. Persistent inhomogeneity to the pancreas, the possibility of pancreatitis cannot be excluded. No abscess or other abnormal fluid collection. No obstructive uropathy. IMPRESSION: Findings suggesting intrinsic liver disease with secondary portal hypertension. Cannot entirely exclude a mild diffuse colitis however this may be due to the portal hypertension. Persistent mild inhomogeneity to the pancreas. Pancreatitis cannot entirely be excluded. Dictated and Authenticated by: Tim Ricardo MD. Ordering:MARK MOONEY MD
--- NOTE | 2018-03-11 17:18 | W.ED.GENAD ---
Discharge Plan Disposition Patient Disposition: HOME Condition: Good Discharge Details Chief Complaint: Abd Prob Clinical Impression: C. difficile diarrhea Reason For Visit: ab Primary Care Provider: Gavi Adames ED Provider: Shade Quezada Home Meds and New Rx's Prescriptions: New vancomycin 125 mg capsule 125 mg PO QID 14 Days Qty: 56 RF: 0 No Action warfarin [Coumadin] 7.5 MG tablet 2.5 - 5 mg PO DIRECTED RF: 0 potassium chloride [Klor-Con M20] 20 MEQ tablet,ER particles/crystals 20 meq PO DAILY RF: 0 albuterol sulfate 8.5 GM HFA aerosol inhaler 2 puff .Route PRN PRNRF: 0 escitalopram oxalate [Lexapro] 20 MG tablet 20 mg PO DAILY RF: 0 fluticasone-salmeterol [Advair HFA] 60 PUFF HFA aerosol inhaler 2 puff .Route BID RF: 0 cholecalciferol (vitamin D3) 1,000 UNITS tablet 2,000 units PO DAILY RF: 0 topiramate 25 MG tablet 25 mg PO BID RF: 0 ranitidine HCl [Zantac] 150 MG tablet 150 mg PO DAILY Qty: 30 RF: 0 ibuprofen 400 MG tablet 400 mg PO DAILY AM PRNQty: 0 RF: 0 furosemide 20 MG tablet 20 mg PO BID PRNQty: 0 RF: 0 fluticasone-salmeterol [Advair Diskus] 500-50 mcg/dose Blister With Device RF: 0 Discharge Instructions Instructions: Clostridium Difficile Infection (ED) Additional Instructions: Please take the vancomycin as directed. Please use good handwashing techniques at all time. Please follow-up with your internet and e business project manager at your scheduled appointment later next week for potential evaluation for fecal transplant versus other options for this diarrhea. If you notice any worsening of your symptoms, or any new symptoms such as vomiting, diarrhea, fever, chills, shortness of breath, chest pain, numbness, weakness, or fainting , please return immediately to the emergency department for reevaluation. Please follow up with your primary care provider as soon as possible for reassessment and reevaluation. As always, it was a pleasure participating in your medical care today. Referrals: Gavi Adames MD [Primary Care Provider] - Medical Decision Making MDM Narrative Medical decision making narrative: This is a 52-year-old female with a past medical history of tubal ligation, warfarin use for PEs, liver cirrhosis, and multiple episodes of C. difficile. She is recently here 1 week ago where she was concern for her diarrhea, but per testing there is no evidence of Clostridium difficile. She is discharged home on no antibiotics. She did receive antibiotics while here in the hospital prophylactically. Since then she has had diarrhea consistently every day with roughly 6 episodes per day. She came in today to be evaluated as she has a relative who has immunosuppression coming to stay at their house. She wanted to be checked out for any infectious etiology. Physical exam demonstrates mild generalized tenderness in the abdomen, particularly in the lower abdominal quadrants bilaterally. No guarding or rebound. Patient's laboratory workup demonstrates no significant leukocytosis, and a severe left shift or bandemia. INR is therapeutic. Electrolytes are normal, kidney function is normal. The patient's CT scan of the abdomen demonstrates potential mild diffuse colitis, no evidence of an abscess. With no significant abdominal pain, no white count, no fever, no tachycardia, feel that the patient's colitis is very mild. C. difficile testing was performed, and it has returned positive for both toxin and antigen. The only mild colitis at this point I do feel that oral vancomycin is reasonable. Patient is able to tolerate p.o. well and does appear clinically well. No evidence of toxic megacolon on exam or CT scan. We have recommended to the patient that she avoid contact with her immunocompromise family member. We discussed red flags which to return, as well as the importance of close follow-up with her internet and e business project manager at her scheduled appointment so is her primary care provider. We have given her first dose of vancomycin here in the ED, she will need the remainder of the prescription at the pharmacy for which I have already called and confirmed that they do a vancomycin in stock. I have extensively reviewed the treatment plan and discharge instructions with the patient and their family. I have addressed all patient concerns at this time. The patient and family was made aware of what symptoms to monitor for that would warrant a return to the emergency department. Discussed the plan with the patient and family, they demonstrate verbal understanding and agreement with our assessment and plan at this time. CT scan demonstrates findings suggesting intrinsic liver disease with secondary portal hypertension. Cannot entirely exclude mild diffuse colitis however this may be due to portal hypertension. Persistent mild in homogeneity to the pancreas. Pancreatitis cannot entirely be excluded. Lab Data Lab Results 03/11/18 03/11/18 03/11/18 Range/Units 13:20 13:20 13:20 WBC 6.25 (4.4-10.8) k/cumm RBC 4.16 (4.00-5.20) m/cumm Hgb 12.7 (12.0-15.5) g/dL Hct 38.6 (36.0-46.0) % MCV 92.8 (80-95) fL MCH 30.5 (27.0-33.0) pg MCHC 32.9 (32.0-36.0) g/dL RDW 17.2 H (11.7-14.6) % Plt Count 64 L (130-400) x1000/uL MPV 11.4 H (8.0-11.0) fL Immature Gran % 0.2 Neutrophils % 67.0 Lymphocytes % 13.6 Monocytes % 17.1 Eosinophils % 1.8 Basophils % 0.3 Absolute Neutrophils 4.19 (1.2-6.7) k/cumm Absolute Lymphocytes 0.85 L (1.2-3.4) k/cumm Absolute Monocytes 1.07 H (0.11-0.7) k/cumm Absolute Eosinophils 0.11 (0.0-0.7) k/cumm Absolute Basophils 0.02 (0.0-0.2) k/cumm Differential Comment Diff reviewed RBC Morphology See below Anisocytosis 1+ PT 25.8 H (9.3-10.8) sec INR 2.7 (1.0-3.5) APTT 40.5 H (21.0-31.4) sec Sodium 138 (136-145) mmol/L Potassium 3.6 (3.5-5.1) mmol/L Chloride 108 H (98-107) mmol/L Carbon Dioxide 24.8 (21.0-32.0) mmol/L Anion Gap 5.2 (3-11) mmol/L BUN 9 (7-18) mg/dL Creatinine 1.05 H (0.55-1.02) mg/dL Estimated GFR/1.73 m2 54.61 (mL/min/1.73m2) Glucose 109 H (70-100) mg/dL Calcium 7.8 L (8.5-10.1) mg/dL Total Bilirubin 2.2 H (0.2-1.0) mg/dL AST 63 H (15-37) U/L ALT 28 (12-78) U/L Alkaline Phosphatase 121 H (46-116) U/L Total Protein 6.1 L (6.4-8.2) g/dL Albumin 1.5 L (3.4-5.0) g/dL Lipase 114 (73-393) U/L HPI - General Adult General Date/Time Provider Initiated Documentation: 03/11/18 12:31. HPI Narrative: This is a 52-year-old female with past medical history of morbid obesity, nonalcoholic liver cirrhosis, pulmonary embolisms for which he takes warfarin, tubal ligation, multiple episodes of C. difficile, most recent being in January for which she received a prolonged treatment phase of antibiotics. One week ago she was here in the ED for evaluation of diarrhea. She was given prophylactic antibiotics at that time, admitted to the floor, (this was during the downtime/[employer] transition) however her culture results came back negative for Clostridium difficile and she was discharged home. Since then the patient states that she has had constant diarrhea with roughly 6-7 episodes per day. She has mild crampiness in the lower abdomen which she describes is mildly achy. She does have an appointment with a internet and e business project manager coming up within the next 2 weeks, however she has a family member who is planning on coming to the house who has MS and who is on immunosuppressants, they wanted to come to the ER to get checked out to see if she had any infectious etiology as to the cause of her diarrhea prior to him arriving. She denies any vomiting, melena, hematemesis, hematochezia, acholic stool. She denies any antibiotics and she was discharged. She has no other complaints at this time. Related Data Home Medications Medication Instructions Recorded Confirmed albuterol sulfate 2 puff .ROUTE PRN PRN 03/15/15 03/11/18 cholecalciferol (vitamin D3) 2,000 units PO DAILY 03/15/15 03/11/18 escitalopram oxalate [Lexapro] 20 mg PO DAILY 03/15/15 03/11/18 fluticasone-salmeterol [Advair HFA] 2 puff .ROUTE BID 09/12/15 09/08/18 potassium chloride [Klor-Con M20] 20 meq PO DAILY 03/15/15 03/11/18 warfarin [Coumadin] 2.5 - 5 mg PO DIRECTED 03/15/15 03/11/18 topiramate 25 mg PO BID 03/23/17 03/11/18 fluticasone-salmeterol [Advair 03/04/18 Diskus] Previous Rx's Medication Instructions Recorded furosemide 20 mg PO BID PRN #0 12/20/17 ibuprofen 400 mg PO DAILY AM PRN #0 12/20/17 ranitidine HCl [Zantac] 150 mg PO DAILY #30 tab 12/20/17 vancomycin 125 mg PO QID 14 Days #56 cap 03/11/18 Allergies Allergy/AdvReac Type Severity Reaction Status Date / Time cephalexin monohydrate AdvReac Diarrhea Unverified 03/11/18 12:12 [From [facility]] General Stated Complaint: Abd Prob RAJAN: 3 Review of Systems Review of Systems 10 point review of systems was performed, pertinent positives and negatives are noted in the history of present illness. [facility] Female Reproductive History Menstrual control method: permanent sterilization Exam Narrative Exam Narrative: 1.Const: Well-nourished, Well-developed, appearing stated age. Morbidly obese 2.Eyes: PERRL, no conjunctival injection, and symmetrical lids. 3.ENT: Atraumatic external nose and ears. Moist MM. Neck: Symmetric, trachea midline, No thyromegaly. 4.CVS: +S1/S2, No murmurs or gallops. Peripheral pulses 2+ and equal in all extremities. Brisk capillary refill in all extremities. 5.RESP: Unlabored respiratory effort. Clear to auscultation bilaterally. No wheezes rales or rhonchi 6.GI: Soft, Nondistended, No hepatosplenomegaly. No guarding or rebound. Mild diffuse abdominal tenderness. No focality. Rectal exam was performed with female nurse at bedside. No evidence of melena. Bedside stool Hemoccult was negative for any significant bleeding. 7.MSK: Normocephalic/Atraumatic, Extremities w/o deformity or ttp No cyanosis or clubbing, Normal movement of all extremities 8.Skin: Warm, Dry. No rashes or lesions. 9.Neuro: clam bed laborer II-XII grossly intact. Sensation grossly intact, no focal neurologic deficits. 10.Psych: (AAO) x3. Appropriate mood and affect Course Vital Signs Temperature 36.7 C 03/11/18 12:08 Pulse 69 03/11/18 12:08 Respiratory Rate 20 03/11/18 12:08 Blood Pressure 155/66 H 03/11/18 12:08 Pulse Oximetry 96 03/11/18 12:08 Temperature 36.7 C 03/11/18 12:08 Pulse 69 03/11/18 12:08 Respiratory Rate 20 03/11/18 12:08 Blood Pressure 155/66 H 03/11/18 12:08 Pulse Oximetry 96 03/11/18 12:08 Lab/Test Results Lab/Test Results: Laboratory Tests 03/11/18 03/11/18 03/11/18 13:20 13:20 13:20 WBC 6.25 RBC 4.16 Hgb 12.7 Hct 38.6 MCV 92.8 MCH 30.5 MCHC 32.9 RDW 17.2 H Plt Count 64 L MPV 11.4 H Immature Gran % 0.2 Neutrophils % 67.0 Lymphocytes % 13.6 Monocytes % 17.1 Eosinophils % 1.8 Basophils % 0.3 Absolute Neutrophils 4.19 Absolute Lymphocytes 0.85 L Absolute Monocytes 1.07 H Absolute Eosinophils 0.11 Absolute Basophils 0.02 Differential Comment Diff reviewed RBC Morphology See below Anisocytosis 1+ PT 25.8 H INR 2.7 APTT 40.5 H Sodium 138 Potassium 3.6 Chloride 108 H Carbon Dioxide 24.8 Anion Gap 5.2 BUN 9 Creatinine 1.05 H Estimated GFR/1.73 m2 54.61 Glucose 109 H Calcium 7.8 L Total Bilirubin 2.2 H AST 63 H ALT 28 Alkaline Phosphatase 121 H Total Protein 6.1 L Albumin 1.5 L Lipase 114
[2018-03-11 17:32] VITALS: BP 168/72; PULSE 69; RESP 20; TEMP 37; O2SAT 96
[2018-03-14 10:47] LABS: Campylobacter PCR SEE COMMENTS; Salmonella PCR SEE COMMENTS; Shiga Toxin PCR SEE COMMENTS; Shigella/Enteroinvasive Ecoli SEE COMMENTS
== END 2018-03-11 17:48 | disposition home or self-care (01) ==
PROVIDERS: Emergency Provider Student in an Organized Health Care Education/Training Program; PCP Family Medicine
DX: A04.72 Enterocolitis due to Clostridium difficile, not specified as recurrent (principal)
CPT/HCPCS: 36415; 80053; 83690; 87505; 99285; 74177; 85025; 85610; 85730; 87324; 99284; J3490

== ENCOUNTER 2018-05-19 12:54 | Inpatient (IN) | payer MEDICARE, MEDICAID, SELFPAY ==
[2018-05-19] VITALS (40 sets, daily range): BP systolic 76–156; BP diastolic 42–115; PULSE 59–81; RESP 12–34; TEMP 36.9–37.9; O2SAT 89–100
--- NOTE | 2018-05-19 13:08 | DI.RAD_ITS ---
SYMPTOMS/DIAGNOSIS: SHORTNESS OF BREATH, ? ACUTE DISEASE PA AND LATERAL CHEST: Comparison 01/15/18. There is slight patient motion artifact present. The heart size and pulmonary vasculature are stable and within normal limits. The lungs are clear. No effusions or pneumothoraces are identified. The bones are intact with mild degenerative change present. IMPRESSION: No acute pulmonary process.
--- NOTE | 2018-05-19 13:14 | W.ED.GENAD ---
Discharge Plan Disposition Patient Disposition: [facility] INPATIENT Condition: Stable Discharge Details Chief Complaint: GenMedical Clinical Impression: Fever, Diarrhea, Bandemia, Back pain, Bacteriuria, Thrombocytopenia Primary Care Provider: Gavi Adames ED Provider: Bethany Bell Home Meds and New Rx's Prescriptions: No Action warfarin [Coumadin] 7.5 MG tablet 2.5 - 5 mg PO DIRECTED RF: 0 potassium chloride [Klor-Con M20] 20 MEQ tablet,ER particles/crystals 20 meq PO BID RF: 0 albuterol sulfate 8.5 GM HFA aerosol inhaler 2 puff .Route PRN PRNRF: 0 escitalopram oxalate [Lexapro] 20 MG tablet 20 mg PO DAILY RF: 0 fluticasone-salmeterol [Advair HFA] 60 PUFF HFA aerosol inhaler 2 puff .Route BID RF: 0 cholecalciferol (vitamin D3) 1,000 UNITS tablet 2,000 units PO DAILY RF: 0 topiramate 25 MG tablet 50 mg PO BID RF: 0 ibuprofen 400 MG tablet 400 mg PO DAILY AM PRNQty: 0 RF: 0 fluticasone-salmeterol [Advair Diskus] 500-50 mcg/dose Blister With Device RF: 0 oxybutynin chloride 10 mg Tablet Extended Release 24hr 1 tab PO DAILY RF: 0 triamcinolone acetonide 0.1 % Cream 1 applic TOPICAL BID RF: 0 spironolactone 25 mg Tablet 25 mg PO DAILY RF: 0 vancomycin [Vancocin] 125 mg Capsule 125 mg PO QID RF: 0 simvastatin 40 mg Tablet 40 mg PO QPM RF: 0 magnesium oxide 400 mg Capsule 400 mg PO DAILY RF: 0 melatonin 10 mg Capsule 20 mg PO HS PRNRF: 0 furosemide 20 MG tablet 40 mg PO DAILY RF: 0 Medical Decision Making 53-year-old female with morbid obesity,chf, PE on Coumadin, liver cirrhosis, and 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 States symptom presentation appears consistent with previous episodes of C. difficile. Patient called PCP office today and was sent here for eval. Dr. Adames sent a fax which notes that patient is being followed by GI specialist Dr. Marcelino at [place] and there is possible plan for a fecal transplant. Blood pressure mildly hypertensive, remainder vitals within normal limits, afebrile. Patient appears to have dyspnea on exertion and generalized weakness but appears nontoxic. Differential diagnosis includes C. difficile colitis, acute abdominal process, AAA, dehydration. Suspect headache, fever, shortness of breath appears due to generalized weakness, dehydration which likely due to diarrhea. She denies any neck pain and no signs of meningismus, so doubt meningitis. Doubt ACS but due to patient's age and morbid obesity, will do a cardiac workup including troponin, chest x-ray, BNP. Will place an IV, bolus IV fluids, labs, urinalysis, CT abdomen and pelvis. 1505 -- Labs reviewed and notes a platelet count 46 - platelets have been 50s-60s in the past and she denies bleeding. White blood cell count 5.89, bands 11. INR therapeutic at 3.8. Creatinine 1.19, GFR 47. Magnesium 1.7. Total bili 3.8. BNP 391. Albumin 1.4. Urinalysis notes 20-50 WBCs but appears contaminated. 1525 -- d/w radiologist -cholelithiasis and gallbladder wall thickening noted. Cirrhosis, varices, large spleen noted; otherwise no acute abdominal or vascular abnormality. Will obtain an abdomen ultrasound as this patient had epigastric tenderness to r/o cholecystitis. 1545 -- GB US negative for cholecystitis. Will give dose of morphine and give another bolus IVF. C diff screen negative. 1645 -- patient feels better after morphine. She states her headache and right lower back pain have improved. As patient has 11 bands, and I am unsure of the source of infection at this time, will admit for further workup. Differential diagnosis can include another diarrheal illness, UTI, pyelonephritis, etc. Will obtain a straight cath urine and give a dose of gentamicin. 1715 -- d/w hospitalist - accepts pt for admission. HPI General Mode of arrival: ambulatory. Date/Time Provider Initiated Documentation: 05/19/18 13:08. Limitations to Documentation: no limitations. Information obtained by: patient. HPI Narrative: Patient is a 53-year-old female with a history of morbid obesity, diastolic heart failure, pulmonary embolism on Coumadin who presents with fever, headache and right lower back pain for the past 4 days as well as diarrhea since last night. Patient was first diagnosed with C. difficile colitis in December 2017 and has been taking vancomycin since then. She states she had a break from the diarrhea for the past 2 weeks and had more formed stool until last night. States she has had approximately 8 episodes of watery brown diarrhea but no bleeding. She admits to nausea and lower abdominal pain but denies any vomiting. She had a temp today of 100.9. She last took Tylenol at 9 AM. She also admits to shortness of breath worse with exertion and better with rest. She admits to decreased urine output. She denies chest pain. Past medical history: Morbid obesity, pulmonary embolism, GERD, obstructive sleep apnea, chronic diastolic heart failure Surgical history: Tubal ligation Social history: Former tobacco user Medications: See list Allergies: Cephalexin (diarrhea) PCP: Dr. Adames Related Data Home Medications Medication Instructions Recorded Confirmed albuterol sulfate 2 puff .ROUTE PRN PRN 03/15/15 05/19/18 cholecalciferol (vitamin D3) 2,000 units PO DAILY 03/15/15 05/19/18 escitalopram oxalate [Lexapro] 20 mg PO DAILY 03/15/15 05/19/18 fluticasone-salmeterol [Advair HFA] 2 puff .ROUTE BID 03/15/15 03/11/18 potassium chloride [Klor-Con M20] 20 meq PO BID 03/15/15 05/19/18 warfarin [Coumadin] 2.5 - 5 mg PO DIRECTED 03/15/15 05/19/18 topiramate 50 mg PO BID 03/23/17 05/19/18 ibuprofen 400 mg PO DAILY AM PRN #0 12/20/17 05/19/18 fluticasone-salmeterol [Advair 03/04/18 Diskus] furosemide 40 mg PO DAILY 05/19/18 05/19/18 magnesium oxide 400 mg PO DAILY 05/19/18 05/19/18 melatonin 20 mg PO HS PRN 05/19/18 05/19/18 oxybutynin chloride 1 tab PO DAILY 05/19/18 05/19/18 simvastatin 40 mg PO QPM 05/19/18 05/19/18 spironolactone 25 mg PO DAILY 05/19/18 05/19/18 triamcinolone acetonide 1 applic TOPICAL BID 05/19/18 05/19/18 vancomycin [Vancocin] 125 mg PO QID 05/19/18 05/19/18 Previous Rx's Medication Instructions Recorded ibuprofen 400 mg PO DAILY AM PRN #0 12/20/17 Allergies Allergy/AdvReac Type Severity Reaction Status Date / Time cephalexin monohydrate AdvReac Diarrhea Unverified 05/19/18 13:10 [From [address]] General Stated Complaint: GenMedical RAJAN: 3 Review of Systems Review of Systems All systems reviewed & are unremarkable except as noted in HPI and below Constitutional Denies chills, Denies excessive sweating, Denies fatigue, Reports fever(s), Reports headache(s), Denies weakness and Denies weight loss Eyes Reports system reviewed and no additional complaints, except as docu and Denies blurry vision ENT Denies vertigo, Denies dizziness, Denies otalgia, Reports headache(s), Denies nasal congestion, Denies sore throat and Denies throat swelling Cardiovascular Denies chest pain, Denies syncope, Denies rapid heart rate and Reports dyspnea Respiratory Reports dyspnea Gastrointestinal Reports abdominal pain, Reports diarrhea, Reports nausea and Denies vomiting Genitourinary Denies hematuria, Denies dysuria and Denies flank pain Musculoskeletal Denies back pain and Denies joint swelling Integumentary/Breasts Denies lesions and Denies rash Neurologic Denies behavioral changes, Denies confusion, Denies vertigo, Denies dizziness, Denies syncope, Reports headache(s) and Denies weakness Psychiatric Denies behavioral changes, Denies confusion and Denies depression Endocrine Denies excessive sweating and Denies fatigue Hematologic/Lymphatic Denies easy bruising and Denies lymphadenopathy Allergic/Immunologic Denies throat swelling PFSH Family History Other Diabetes Secondary hypercoagulability disorder Medical History Edema extremities (Acute) Hyperlipidemia (Acute) Liver cirrhosis secondary to nonalcoholic steatohepatitis ([place]) (Acute) Morbid obesity (Acute) Secondary hypercoagulability disorder (Acute) Asthma (Chronic) Depression (Chronic) Osteoarthritis (Chronic) Social History household members: other details: Patient was living with her son and now lives with her parents lives independently: No number of children: 3 Smoking/Tobacco Use Status: Former Tobacco Use additional social history: 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 She presently is on disability for psychiatric disease mostly but also physical deconditioning from her morbid obesity. Surgical History History of bilateral tubal ligation (Acute) Female Reproductive History Menstrual control method: permanent sterilization Exam Const General: cooperative Nutritional Appearance: obese morbidly obese Orientation: alert, awake and oriented x3 HENMT Head: normal to inspection Ears: hearing grossly normal bilaterally and external ears normal General nose exam: external nose normal Face and sinus: normal facial exam Eyes General: appearance normal, both eyes and all related structures Eyelids: eyelids normal EOM: EOM intact bilaterally Neck Neck: normal visual inspection Chest Chest: normal inspection of the chest Resp Effort & Inspection: other (dyspnea on exertion after walking back to room ) Auscultation: clear to auscultation bilaterally Cardio Rate: regular rate Rhythm: regular rhythm GI Inspection: normal to inspection Palpation: soft, not firm, no guarding, no hepatosplenomegaly, no masses and tender in the epigastrum and suprapubicly Auscultation: normal bowel sounds Back/Spine/Pelvis Back: no CVA tenderness Thoracic/Lumbar Spine: paraspinal tenderness (Right lumbar paraspinal region w/o ecchymoses, edema, erythema, rash) and No lumbar spinal tenderness Skin General skin exam: no rashes or lesions noted Neuro General: alert and awake Cognition: normal cognition Speech: speech normal Gait: normal gait Motor: muscle tone normal throughout Sensory Exam: no sensory deficits noted Extrem General: normal to inspection, full ROM and normal capillary refill Psych Appearance: grossly normal Mental Status: mental status grossly normal Speech and Movement: speech and movement normal Affect: normal affect Thought Process: normal Course Vital Signs Temperature 98.4 F 05/19/18 12:58 Pulse 68 05/19/18 12:58 Respiratory Rate 16 05/19/18 12:58 Blood Pressure 156/65 H 05/19/18 12:58 Pulse Oximetry 96 05/19/18 12:58 Temperature 98.4 F 05/19/18 12:58 Temperature Source Skin 05/19/18 12:58 Pulse 68 11/16/18 12:58 Respiratory Rate 16 05/19/18 12:58 Respiratory Effort 05/19/18 13:08 Blood Pressure 156/65 H 05/19/18 12:58 Blood Pressure Position Sitting 05/19/18 12:58 Pulse Oximetry 96 05/19/18 12:58 Oxygen Delivery Method Room Air 05/19/18 12:58 Oxygen Flow Rate 0 05/19/18 12:58
--- NOTE | 2018-05-19 13:20 | ED.GENADUL_ITS ---
Discharge Plan Disposition Patient Disposition: [facility] INPATIENT Condition: Stable Discharge Details Chief Complaint: GenMedical Clinical Impression: Fever, Diarrhea, Bandemia, Back pain, Bacteriuria, Thrombocytopenia Primary Care Provider: Gavi Adames ED Provider: Bethany Bell Home Meds and New Rx's Prescriptions: No Action warfarin [Coumadin] 7.5 MG tablet 2.5 - 5 mg PO DIRECTED RF: 0 potassium chloride [Klor-Con M20] 20 MEQ tablet,ER particles/crystals 20 meq PO BID RF: 0 albuterol sulfate 8.5 GM HFA aerosol inhaler 2 puff .Route PRN PRNRF: 0 escitalopram oxalate [Lexapro] 20 MG tablet 20 mg PO DAILY RF: 0 fluticasone-salmeterol [Advair HFA] 60 PUFF HFA aerosol inhaler 2 puff .Route BID RF: 0 cholecalciferol (vitamin D3) 1,000 UNITS tablet 2,000 units PO DAILY RF: 0 topiramate 25 MG tablet 50 mg PO BID RF: 0 ibuprofen 400 MG tablet 400 mg PO DAILY AM PRNQty: 0 RF: 0 fluticasone-salmeterol [Advair Diskus] 500-50 mcg/dose Blister With Device RF: 0 oxybutynin chloride 10 mg Tablet Extended Release 24hr 1 tab PO DAILY RF: 0 triamcinolone acetonide 0.1 % Cream 1 applic TOPICAL BID RF: 0 spironolactone 25 mg Tablet 25 mg PO DAILY RF: 0 vancomycin [Vancocin] 125 mg Capsule 125 mg PO QID RF: 0 simvastatin 40 mg Tablet 40 mg PO QPM RF: 0 magnesium oxide 400 mg Capsule 400 mg PO DAILY RF: 0 melatonin 10 mg Capsule 20 mg PO HS PRNRF: 0 furosemide 20 MG tablet 40 mg PO DAILY RF: 0 Medical Decision Making 53-year-old female with morbid obesity,chf, PE on Coumadin, liver cirrhosis, and 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 States symptom presentation appears consistent with previous episodes of C. difficile. Patient called PCP office today and was sent here for eval. Dr. Adames sent a fax which notes that patient is being followed by GI specialist Dr. Marcelino at [place] and there is possible plan for a fecal transplant. Blood pressure mildly hypertensive, remainder vitals within normal limits, afebrile. Patient appears to have dyspnea on exertion and generalized weakness but appears nontoxic. Differential diagnosis includes C. difficile colitis, acute abdominal process, AAA, dehydration. Suspect headache, fever, shortness of breath appears due to generalized weakness, dehydration which likely due to diarrhea. She denies any neck pain and no signs of meningismus, so doubt meningitis. Doubt ACS but due to patient's age and morbid obesity, will do a cardiac workup including troponin , chest x-ray, BNP. Will place an IV, bolus IV fluids, labs, urinalysis, CT abdomen and pelvis. 1505 -- Labs reviewed and notes a platelet count 46 - platelets have been 50s- 60s in the past and she denies bleeding. White blood cell count 5.89, bands 11. INR therapeutic at 3.8. Creatinine 1.19, GFR 47. Magnesium 1.7. Total bili 3.8. BNP 391. Albumin 1.4. Urinalysis notes 20-50 WBCs but appears contaminated. 1525 -- d/w radiologist -cholelithiasis and gallbladder wall thickening noted. Cirrhosis, varices, large spleen noted; otherwise no acute abdominal or vascular abnormality. Will obtain an abdomen ultrasound as this patient had epigastric tenderness to r/o cholecystitis. 1545 -- GB US negative for cholecystitis. Will give dose of morphine and give another bolus IVF. C diff screen negative. 1645 -- patient feels better after morphine. She states her headache and right lower back pain have improved. As patient has 11 bands, and I am unsure of the source of infection at this time, will admit for further workup. Differential diagnosis can include another diarrheal illness, UTI, pyelonephritis, etc. Will obtain a straight cath urine and give a dose of gentamicin. 1715 -- d/w hospitalist - accepts pt for admission. HPI General Mode of arrival: ambulatory . Date/Time Provider Initiated Documentation: 05/19/18 13:08 . Limitations to Documentation: no limitations . Information obtained by: patient . HPI Narrative: Patient is a 53-year-old female with a history of morbid obesity , diastolic heart failure, pulmonary embolism on Coumadin who presents with fever, headache and right lower back pain for the past 4 days as well as diarrhea since last night. Patient was first diagnosed with C. difficile colitis in December 2017 and has been taking vancomycin since then. She states she had a break from the diarrhea for the past 2 weeks and had more formed stool until last night. States she has had approximately 8 episodes of watery brown diarrhea but no bleeding. She admits to nausea and lower abdominal pain but denies any vomiting. She had a temp today of 100.9. She last took Tylenol at 9 AM. She also admits to shortness of breath worse with exertion and better with rest. She admits to decreased urine output. She denies chest pain. Past medical history: Morbid obesity, pulmonary embolism, GERD, obstructive sleep apnea, chronic diastolic heart failure Surgical history: Tubal ligation Social history: Former tobacco user Medications: See list Allergies: Cephalexin (diarrhea) PCP: Dr. Adames Related Data Home Medications Medication Instructions Recorded Confirmed albuterol sulfate 2 puff .ROUTE PRN PRN 03/15/15 05/19/18 cholecalciferol (vitamin D3) 2,000 units PO DAILY 03/15/15 05/19/18 escitalopram oxalate [Lexapro] 20 mg PO DAILY 03/15/15 05/19/18 fluticasone-salmeterol [Advair HFA] 2 puff .ROUTE BID 03/15/15 03/11/18 potassium chloride [Klor-Con M20] 20 meq PO BID 03/15/15 05/19/18 warfarin [Coumadin] 2.5 - 5 mg PO DIRECTED 03/15/15 05/19/18 topiramate 50 mg PO BID 03/23/17 05/19/18 ibuprofen 400 mg PO DAILY AM PRN #0 12/20/17 05/19/18 fluticasone-salmeterol [Advair 03/04/18 Diskus] furosemide 40 mg PO DAILY 05/19/18 05/19/18 magnesium oxide 400 mg PO DAILY 05/19/18 05/19/18 melatonin 20 mg PO HS PRN 05/19/18 05/19/18 oxybutynin chloride 1 tab PO DAILY 05/19/18 05/19/18 simvastatin 40 mg PO QPM 05/19/18 05/19/18 spironolactone 25 mg PO DAILY 05/19/18 05/19/18 triamcinolone acetonide 1 applic TOPICAL BID 05/19/18 05/19/18 vancomycin [Vancocin] 125 mg PO QID 05/19/18 05/19/18 Previous Rx's Medication Instructions Recorded ibuprofen 400 mg PO DAILY AM PRN #0 12/20/17 Allergies Allergy/AdvReac Type Severity Reaction Status Date / Time cephalexin monohydrate AdvReac Diarrhea Unverified 05/19/18 13:10 [From [facility]] General Stated Complaint: GenMedical RAJAN: 3 Review of Systems Review of Systems All systems reviewed & are unremarkable except as noted in HPI and below Constitutional Denies chills, Denies excessive sweating, Denies fatigue, Reports fever(s), Reports headache(s), Denies weakness and Denies weight loss Eyes Reports system reviewed and no additional complaints, except as docu and Denies blurry vision ENT Denies vertigo, Denies dizziness, Denies otalgia, Reports headache(s), Denies nasal congestion, Denies sore throat and Denies throat swelling Cardiovascular Denies chest pain, Denies syncope, Denies rapid heart rate and Reports dyspnea Respiratory Reports dyspnea Gastrointestinal Reports abdominal pain, Reports diarrhea, Reports nausea and Denies vomiting Genitourinary Denies hematuria, Denies dysuria and Denies flank pain Musculoskeletal Denies back pain and Denies joint swelling Integumentary/Breasts Denies lesions and Denies rash Neurologic Denies behavioral changes, Denies confusion, Denies vertigo, Denies dizziness, Denies syncope, Reports headache(s) and Denies weakness Psychiatric Denies behavioral changes, Denies confusion and Denies depression Endocrine Denies excessive sweating and Denies fatigue Hematologic/Lymphatic Denies easy bruising and Denies lymphadenopathy Allergic/Immunologic Denies throat swelling PFSH Family History Other Diabetes Secondary hypercoagulability disorder Medical History Edema extremities (Acute) Hyperlipidemia (Acute) Liver cirrhosis secondary to nonalcoholic steatohepatitis ([place]) (Acute) Morbid obesity (Acute) Secondary hypercoagulability disorder (Acute) Asthma (Chronic) Depression (Chronic) Osteoarthritis (Chronic) Social History household members: other details: Patient was living with her son and now lives with her parents lives independently: No number of children: 3 Smoking/Tobacco Use Status: Former Tobacco Use additional social history: 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 She presently is on disability for psychiatric disease mostly but also physical deconditioning from her morbid obesity. Surgical History History of bilateral tubal ligation (Acute) Female Reproductive History Menstrual control method: permanent sterilization Exam Const General: cooperative Nutritional Appearance: obese morbidly obese Orientation: alert, awake and oriented x3 HENMT Head: normal to inspection Ears: hearing grossly normal bilaterally and external ears normal General nose exam: external nose normal Face and sinus: normal facial exam Eyes General: appearance normal, both eyes and all related structures Eyelids: eyelids normal EOM: EOM intact bilaterally Neck Neck: normal visual inspection Chest Chest: normal inspection of the chest Resp Effort & Inspection: other (dyspnea on exertion after walking back to room ) Auscultation: clear to auscultation bilaterally Cardio Rate: regular rate Rhythm: regular rhythm GI Inspection: normal to inspection Palpation: soft, not firm, no guarding, no hepatosplenomegaly, no masses and tender in the epigastrum and suprapubicly Auscultation: normal bowel sounds Back/Spine/Pelvis Back: no CVA tenderness Thoracic/Lumbar Spine: paraspinal tenderness (Right lumbar paraspinal region w/ o ecchymoses, edema, erythema, rash) and No lumbar spinal tenderness Skin General skin exam: no rashes or lesions noted Neuro General: alert and awake Cognition: normal cognition Speech: speech normal Gait: normal gait Motor: muscle tone normal throughout Sensory Exam: no sensory deficits noted Extrem General: normal to inspection, full ROM and normal capillary refill Psych Appearance: grossly normal Mental Status: mental status grossly normal Speech and Movement: speech and movement normal Affect: normal affect Thought Process: normal Course Vital Signs Temperature 98.4 F 05/19/18 12:58 Pulse 68 05/19/18 12:58 Respiratory Rate 16 05/19/18 12:58 Blood Pressure 156/65 H 05/19/18 12:58 Pulse Oximetry 96 05/19/18 12:58 Temperature 98.4 F 05/19/18 12:58 Temperature Source Skin 05/19/18 12:58 Pulse 68 11/16/18 12:58 Respiratory Rate 16 05/19/18 12:58 Respiratory Effort 05/19/18 13:08 Blood Pressure 156/65 H 05/19/18 12:58 Blood Pressure Position Sitting 05/19/18 12:58 Pulse Oximetry 96 05/19/18 12:58 Oxygen Delivery Method Room Air 05/19/18 12:58 Oxygen Flow Rate 0 05/19/18 12:58
[2018-05-19 13:33] LABS: HCT 38.8 % (36.0-46.0); HGB 13.1 g/dL (12.0-15.5); Mean Corp. HGB Concentration 33.8 g/dL (32.0-36.0); Mean Corpuscular Hemoglobin 31.7 pg (27.0-33.0); Mean Corpuscular Volume 93.9 fL (80-95); Mean Platelet Volume 11.8 fL (8.0-11.0); RBC 4.13 m/cumm (4.00-5.20); White Blood Cell Count 5.89 k/cumm (4.4-10.8)
[2018-05-19] MEDS: Normal Saline 250 ML 500 ML IV (13:45)
[2018-05-19 13:48] LABS: INR 3.8 (1.0-3.5); Prothrombin Time 35.5 sec (9.3-10.8)
[2018-05-19 14:00] LABS: Absolute Basophil Count 0.06 k/cumm (0.0-0.2); Absolute Lymphocyte Count 0.65 k/cumm (1.2-3.4); Absolute Monocyte Count 0.41 k/cumm (0.11-0.7); Absolute Neutrophil Count 4.77 k/cumm (1.2-6.7); Atypical Lymphocytes % 5; Diff Comment Manual Differential; Platelet Count 46 x1000/uL (130-400)
[2018-05-19 14:01] LABS: Anisocytosis 2+; Polychromasia Present
[2018-05-19 14:22] LABS: ALT 48 U/L (12-78); AST 127 U/L (15-37); Albumin 1.4 g/dL (3.4-5.0); Alkaline Phosphatase 102 U/L (46-116); Anion Gap 6.9 mmol/L (3-11); BUN 17 mg/dL (7-18); Bilirubin, Total 3.8 mg/dL (0.2-1.0); CO2 24.1 mmol/L (21.0-32.0); CREATININE 1.19 mg/dL (0.55-1.02); Calcium 8.2 mg/dL (8.5-10.1); Chloride 106 mmol/L (98-107); Estimated GFR 47.09 (mL/min/1.73m2); Glucose 107 mg/dL (70-100); Magnesium 1.7 mg/dL (1.8-2.4); NT-proBNP 391 pg/mL; Potassium 3.5 mmol/L (3.5-5.1); Sodium 137 mmol/L (136-145); Total Protein 5.8 g/dL (6.4-8.2); Troponin I 0.03 ng/mL (0.00-0.06)
[2018-05-19 14:45] LABS: Bilirubin Large (Negative); Blood Moderate (Negative); Clarity Cloudy; Glucose Negative (Negative); Ketones Negative (Negative); Leukocyte Esterase Negative (Negative); Nitrite Negative (Negative); Specific Gravity >= 1.030 (1.005-1.025); Urobilinogen 0.2 EU/dL (Up TO 0.2); pH 5.5 (5-8)
[2018-05-19 15:02] LABS: Epithelial Cells Many HPF (Negative); Other Cells Few Renal (Negative); RBC 20-50 (0-2); WBC 20-50 HPF (0-5)
[2018-05-19 15:03] LABS: Bacteria Moderate HPF (Negative); C & S Indicated? No/Sq. Contamination; Casts 3-5 Coarse Granular LPF (Negative); Crystals Negative HPF (Negative); Mucus Moderate (Negative)
[2018-05-19] MEDS: Omnipaque 350 MG/ML 100 ML BTL 75 ML IJ (15:20)
--- NOTE | 2018-05-19 15:20 | DI.CT_ITS ---
SYMPTOMS/DIAGNOSIS: LOWER ABD PAIN, ? ACUTE PROCESS, H/O CHRONIC C DIFF COLITIS , DIARRHEA CT SCAN OF THE ABDOMEN AND PELVIS: Due to the patient's size there is artifact present. Dependent atelectatic changes are in the lung bases. The liver has a lobulated contour. There is an enlarged left lobe. The spleen is enlarged measuring almost 20 cm craniocaudally. Varices are seen in the upper abdomen. The findings are all consistent with hepatic cirrhosis. There are multiple stones seen within the gallbladder. There does appear to be gallbladder wall thickening. No definite biliary ductal dilatation is seen. The pancreas is unremarkable as are the adrenal glands. The kidneys show normal and symmetric enhancement. There is a nonobstructing 2 mm stone in the mid pole of the left kidney. The urinary bladder is intact. The reproductive organs are unremarkable as visualized. The patient appears to be status post bilateral tubal ligation. The abdominal aorta is of normal caliber. No aneurysmal dilatation is seen. No significant abdominal or pelvic adenopathy, ascites or pneumoperitoneum is present. Note is made of a moderate sized fat containing umbilical hernia. The bowel shows no evidence of obstruction or inflammation. Degenerative changes are seen throughout the spine. IMPRESSION: 1. Cholelithiasis with gallbladder wall thickening. This raises the question of acute cholecystitis. Right upper quadrant ultrasound may be obtained for further evaluation. 2. Findings consistent with hepatic cirrhosis and splenomegaly. These findings were discussed with Dr. Bell of the emergency department on the date of the examination.
--- NOTE | 2018-05-19 15:29 | DI.US_ITS ---
SYMPTOMS/DIAGNOSIS: CHOLELITHIASIS, GB WALL THICKENING, ? CHOLECYSTITIS LIMITED ABDOMINAL ULTRASOUND: There are multiple mobile stones seen within the gallbladder. There is gallbladder wall thickening up to 1 cm. No pericholecystic fluid is seen. The common duct is within normal limits at .6 cm. No definite stones are seen within the duct. IMPRESSION: Cholelithiasis and gallbladder wall thickening. No biliary ductal dilatation. The findings were discussed with Dr. Bell of the emergency department on the date of the examination.
[2018-05-19] MEDS: Normal Saline 500 ML IV (16:00)
[2018-05-19] MEDS: MORPHine 10 MG/ML VIAL 4 MG IVP (16:05)
[2018-05-19] MEDS: Normal Saline 250 ML IV (16:49)
[2018-05-19 17:57] LABS: Bilirubin Moderate (Negative); Blood Large (Negative); Clarity Clear; Glucose Negative (Negative); Ketones Negative (Negative); Leukocyte Esterase Negative (Negative); Nitrite Negative (Negative); Specific Gravity 1.015 (1.005-1.025); Urobilinogen 0.2 EU/dL (Up TO 0.2)
[2018-05-19 18:08] LABS: Bacteria Negative HPF (Negative); C & S Indicated? Yes; Casts Negative LPF (Negative); Crystals Negative HPF (Negative); Epithelial Cells Negative HPF (Negative); Mucus Negative (Negative); Other Cells Negative (Negative); RBC >50 (0-2); WBC 20-50 HPF (0-5)
--- NOTE | 2018-05-19 18:08 | W.PM.HP.N ---
Date of service: 05/19/18 Time of Service: 18:08 Assessment and Plan (1) Fever: Current visit: No Status: Acute Fever, or at any rate patient report of fever. I think there is probably some infectious issue here but unclear what specifically in this regard the bandemia is noted and certainly of concern although the patient is hemodynamically stable and appears nontoxic at any rate 1 would consider flare of C. difficile though negative serology is reassured UTI certainly possible with flank pain and pyuria, though as mentioned we need to see a cathed urine patient may have simply a nonspecific viral syndrome. 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 She comes to the emergency room tonight with a variety of symptoms over the last 4 days. This includes fever, anorexia, right flank pain, diffuse abdominal discomfort, several episodes of diarrhea, headache and general malaise. In the emergency room initial evaluation of note for patient's being afebrile and labs showing normal white count but with 11% bandemia, CT of the abdomen showing cholelithiasis but no shift signs of an stool specimen negative for C. difficile antigen and toxin. Initial urinalysis showed hematuria and pyuria but was contaminated and a cath urine is pending. Review of Systems Review of Systems All systems reviewed & are unremarkable except as noted in HPI and below PFSH Family History Other Diabetes Secondary hypercoagulability disorder Medical History Edema extremities (Acute) Hyperlipidemia (Acute) Liver cirrhosis secondary to nonalcoholic steatohepatitis ([place]) (Acute) Morbid obesity (Acute) Secondary hypercoagulability disorder (Acute) Asthma (Chronic) Depression (Chronic) Osteoarthritis (Chronic) Social History household members: other details: Patient was living with her son and now lives with her parents lives independently: No number of children: 3 Smoking/Tobacco Use Status: Former Tobacco Use additional social history: 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 She presently is on disability for psychiatric disease mostly but also physical deconditioning from her morbid obesity. Surgical History History of bilateral tubal ligation (Acute) Female Reproductive History Menstrual control method: permanent sterilization Meds Home Medications Medication Instructions Recorded Confirmed Type albuterol sulfate 2 puff .ROUTE PRN PRN 03/15/15 05/19/18 History cholecalciferol (vitamin D3) 2,000 units PO DAILY 03/15/15 05/19/18 History escitalopram oxalate [Lexapro] 20 mg PO DAILY 03/15/15 05/19/18 History fluticasone-salmeterol [Advair HFA] 2 puff .ROUTE BID 03/15/15 03/11/18 History potassium chloride [Klor-Con M20] 20 meq PO BID 03/15/15 05/19/18 History warfarin [Coumadin] 2.5 - 5 mg PO DIRECTED 03/15/15 05/19/18 History topiramate 50 mg PO BID 03/23/17 05/19/18 History ibuprofen 400 mg PO DAILY AM PRN #0 12/20/17 05/19/18 Rx fluticasone-salmeterol [Advair 03/04/18 History Diskus] furosemide 40 mg PO DAILY 05/19/18 05/19/18 History magnesium oxide 400 mg PO DAILY 05/19/18 05/19/18 History melatonin 20 mg PO HS PRN 05/19/18 05/19/18 History oxybutynin chloride 1 tab PO DAILY 05/19/18 05/19/18 History simvastatin 40 mg PO QPM 05/19/18 05/19/18 History spironolactone 25 mg PO DAILY 05/19/18 05/19/18 History triamcinolone acetonide 1 applic TOPICAL BID 05/19/18 05/19/18 History vancomycin [Vancocin] 125 mg PO QID 05/19/18 05/19/18 History Allergies Allergy/AdvReac Type Severity Reaction Status Date / Time cephalexin monohydrate AdvReac Diarrhea Unverified 05/19/18 13:10 [From Keflex] Exam Narrative Exam Narrative: Temp 37 blood pressure 156/65, pulse in the 60s, respirations 18. HEENT is unremarkable. Neck is supple. Lungs are diminished but clear. Heart is distant but regular rate and rhythm there is perhaps right CVA tenderness. Pelvic and rectal exams are deferred external extremities shows chronic lymphedema neurological patient is alert and oriented and moves all 4 extremities. Results Labs : 05/19/18 13:20 05/19/18 13:50 Laboratory Results - last 24 hr 05/19/18 05/19/18 05/19/18 13:20 13:20 13:20 WBC 5.89 RBC 4.13 Hgb 13.1 Hct 38.8 MCV 93.9 MCH 31.7 MCHC 33.8 RDW 18.0 H Plt Count 46 L MPV 11.8 H Immature Gran % 0.0 Neutrophils % 70.0 Lymphocytes % 6.0 Monocytes % 7.0 Eosinophils % 0.0 Basophils % 1.0 Absolute Neutrophils 4.77 Band Neutrophils 11.0 Absolute Lymphocytes 0.65 L Absolute Monocytes 0.41 Absolute Eosinophils 0.00 Absolute Basophils 0.06 Differential Comment Manual differential Atypical Lymphocytes 5 RBC Morphology See below Polychromasia Present Anisocytosis 2+ PT 35.5 H INR 3.8 H Sodium Cancelled Potassium Cancelled Chloride Cancelled Carbon Dioxide Cancelled Anion Gap Cancelled BUN Cancelled Creatinine Cancelled Estimated GFR/1.73 m2 Cancelled Glucose Cancelled Calcium Cancelled Magnesium Cancelled Total Bilirubin Cancelled AST Cancelled ALT Cancelled Alkaline Phosphatase Cancelled Troponin I Cancelled NT-Pro-B Natriuret Pep Cancelled Total Protein Cancelled Albumin Cancelled Urine Color Urine Clarity Urine pH Ur Specific [place] Urine Protein Urine Ketones Urine Blood Urine Nitrite Urine Bilirubin Urine Urobilinogen Ur Leukocyte Esterase Urine RBC Urine WBC Ur Epithelial Cells Urine Crystals Urine Bacteria Urine Casts Urine Mucus Urine Other Ur Culture Indicated? Urine Glucose 05/19/18 05/19/18 05/19/18 13:50 14:25 17:45 WBC RBC Hgb Hct MCV MCH MCHC RDW Plt Count MPV Immature Gran % Neutrophils % Lymphocytes % Monocytes % Eosinophils % Basophils % Absolute Neutrophils Band Neutrophils Absolute Lymphocytes Absolute Monocytes Absolute Eosinophils Absolute Basophils Differential Comment Atypical Lymphocytes RBC Morphology Polychromasia Anisocytosis PT INR Sodium 137 Potassium 3.5 Chloride 106 Carbon Dioxide 24.1 Anion Gap 6.9 BUN 17 Creatinine 1.19 H Estimated GFR/1.73 m2 47.09 Glucose 107 H Calcium 8.2 L Magnesium 1.7 L Total Bilirubin 3.8 H AST 127 H ALT 48 Alkaline Phosphatase 102 Troponin I 0.03 NT-Pro-B Natriuret Pep 391 H Total Protein 5.8 L Albumin 1.4 L Urine Color [place] Urine Clarity Cloudy Clear Urine pH 5.5 6.0 Ur Specific [place] >= 1.030 H 1.015 Urine Protein 100 H 30 H Urine Ketones Negative Negative Urine Blood Moderate H Large H Urine Nitrite Negative Negative Urine Bilirubin Large H Moderate H Urine Urobilinogen 0.2 0.2 Ur Leukocyte Esterase Negative Negative Urine RBC 20-50 H Urine WBC 20-50 Ur Epithelial Cells Many Urine Crystals Negative Urine Bacteria Moderate Urine Casts 3-5 coarse granular Urine Mucus Moderate Urine Other Few renal Ur Culture Indicated? No/sq. contamination Urine Glucose Negative Negative Last Vital Signs Temp 36.9 C 05/19/18 12:58 Pulse 68 05/19/18 12:58 Resp 18 05/19/18 15:10 BP 156/65 H 05/19/18 12:58 Pulse Ox 96 05/19/18 12:58
[2018-05-19] MEDS: Lactated Ringers 1,000 ML 100 ML IV (20:17)
[2018-05-19] MEDS: Vancomycin 125 MG CAP PO (20:18)
[2018-05-19] MEDS: Topiramate 25 MG TAB 50 MG PO (20:18)
[2018-05-19] MEDS: Potassium Chloride 20 MEQ TABCR PO (20:18)
[2018-05-19] MEDS: AMPICILLIN/SULBACTAM 1.5 GM in Normal Saline 50 ML IVPB (20:37)
[2018-05-20 00:10] VITALS: BP 123/56; PULSE 62; RESP 16; TEMP 37.7; O2SAT 96
[2018-05-20] MEDS: AMPICILLIN/SULBACTAM 1.5 GM in Normal Saline 50 ML IVPB ×2 (02:08→08:23)
[2018-05-20] MEDS: Normal Saline Flush 10 ML SYR IVP ×3 (02:46→15:46)
[2018-05-20 07:30] VITALS: BP 116/72; PULSE 65; RESP 20; TEMP 38; O2SAT 100
[2018-05-20 07:57] LABS: INR 3.3 (1.0-3.5); Prothrombin Time 31.2 sec (9.3-10.8)
--- NOTE | 2018-05-20 08:05 | PDOC.CMIN ---
Care Management Initial Assess REASON FOR HOSPITALIZATION:: Fever: abdominal pain PAST MEDICAL HISTORY/PAST SURGICAL HISTORY:: Asthma, Depression, Edema extremities, Hyperlipidemia, lver cirrhoisis secondary to nonalcoholic steatohepatitis ([place]), Morbid obesity, osteoarthritis, secondary hypercoagulability disorder, warfarin-inducted coagulopathy, hypokalemia, chonic diastolic heart failure, GERD, hx of PE, acute kidney injury, bilat tubal ligation, C-Diff, colitis, PREVIOUS FUNCTIONAL STATUS/SOCIAL/FAMILY SUPPORTS:: Michelle resides with her mother, Janie in [place], [place]. On her last admission she resided with her daughter, Minnie in [facility] but her daughter is working three jobs and unable to provide her much support. Michelle shares that she remains homeless and is thankful to be living with her mother. She shares that her cats are still with her daughter at this time. CURRENT FUNCTIONAL STATUS:: Michelle reports being in pain and reports she may have a kidney stone. Her mother and daughter, Nuha are at her bedside. Michelle shares she has been in pain for about four days. ADVANCE DIRECTIVES:: None on file at [facility]-document provided to Michelle. Has patient been provided with information about the portal?: Yes Did the patient sign up for the portal?: No CODE STATUS:: Full Code INSURANCE COVERAGE / FINANCIAL ISSUES:: Medicare. Medicaid CURRENT HOME/COMMUNITY SERVICES/EQUIPMENT:: Unable to attain; Michelle was discharged from [facility] in December with referrals for [facility] as well as was trying to secure a commode for use. PRIMARY CARE PHYSICIAN:: Gavi Adames POTENTIAL DISCHARGE NEEDS:: Evaluation of further needs; discussion around current and needed community based supports; [facility] referral, follow up appointment with PCP. PATIENT/FAMILY EDUCATION NEEDS:: Review discharge instructions, discuss [facility] [employer]. ANTICIPATED BARRIERS TO DISCHARGE:: None identified. TRANSPORTATION:: Via private vehicle with family. PLAN:: Michelle will return home when ready per MD. Undetermined if she will have recommendations for increased services; CM will continue to follow. She will follow up with her PCP and plan of care as prescribed.
--- NOTE | 2018-05-20 08:16 | INITIAL_ITS ---
Care Management Initial Assess REASON FOR HOSPITALIZATION:: Fever: abdominal pain PAST MEDICAL HISTORY/PAST SURGICAL HISTORY:: Asthma, Depression, Edema extremities, Hyperlipidemia, lver cirrhoisis secondary to nonalcoholic steatohepatitis ([place]), Morbid obesity, osteoarthritis, secondary hypercoagulability disorder, warfarin-inducted coagulopathy, hypokalemia, chonic diastolic heart failure, GERD, hx of PE, acute kidney injury, bilat tubal ligation, C-Diff, colitis, PREVIOUS FUNCTIONAL STATUS/SOCIAL/FAMILY SUPPORTS:: Michelle resides with her mother, Janie in [place], [place]. On her last admission she resided with her daughter, Minnie in [facility] but her daughter is working three jobs and unable to provide her much support. Michelle shares that she remains homeless and is thankful to be living with her mother. She shares that her cats are still with her daughter at this time. CURRENT FUNCTIONAL STATUS:: Michelle reports being in pain and reports she may have a kidney stone. Her mother and daughter, Nuha are at her bedside. Michelle shares she has been in pain for about four days. ADVANCE DIRECTIVES:: None on file at [facility]-document provided to Michelle. Has patient been provided with information about the portal?: Yes Did the patient sign up for the portal?: No CODE STATUS:: Full Code INSURANCE COVERAGE / FINANCIAL ISSUES:: Medicare. Medicaid CURRENT HOME/COMMUNITY SERVICES/EQUIPMENT:: Unable to attain; Michelle was discharged from [facility] in December with referrals for [facility] as well as was trying to secure a commode for use. PRIMARY CARE PHYSICIAN:: Gavi Adames POTENTIAL DISCHARGE NEEDS:: Evaluation of further needs; discussion around current and needed community based supports; [facility] referral, follow up appointment with PCP. PATIENT/FAMILY EDUCATION NEEDS:: Review discharge instructions, discuss Ask Me [employer]. ANTICIPATED BARRIERS TO DISCHARGE:: None identified. TRANSPORTATION:: Via private vehicle with family. PLAN:: Michelle will return home when ready per MD. Undetermined if she will have recommendations for increased services; CM will continue to follow. She will follow up with her PCP and plan of care as prescribed.
[2018-05-20] MEDS: Oxybutynin-CR 5 MG TABCR 10 MG PO (08:21)
[2018-05-20] MEDS: Lactated Ringers 1,000 ML 100 ML IV ×2 (08:21→20:23)
[2018-05-20] MEDS: Potassium Chloride 20 MEQ TABCR PO ×2 (08:21→20:22)
[2018-05-20] MEDS: Vancomycin 125 MG CAP PO ×4 (08:21→20:22)
[2018-05-20] MEDS: Escitalopram 20 MG TAB PO (08:21)
[2018-05-20] MEDS: Topiramate 25 MG TAB 50 MG PO ×2 (08:21→20:22)
[2018-05-20 08:38] LABS: HCT 38.8 % (36.0-46.0); HGB 13.1 g/dL (12.0-15.5); Mean Corp. HGB Concentration 33.8 g/dL (32.0-36.0); Mean Corpuscular Hemoglobin 31.6 pg (27.0-33.0); Mean Corpuscular Volume 93.5 fL (80-95); Mean Platelet Volume 11.4 fL (8.0-11.0); RBC 4.15 m/cumm (4.00-5.20); RBC Distribution Width 18.2 % (11.7-14.6); White Blood Cell Count 5.43 k/cumm (4.4-10.8)
[2018-05-20 08:51] LABS: Anion Gap 7.4 mmol/L (3-11); BUN 17 mg/dL (7-18); CO2 23.6 mmol/L (21.0-32.0); CREATININE 1.18 mg/dL (0.55-1.02); Calcium 8.3 mg/dL (8.5-10.1); Chloride 107 mmol/L (98-107); Estimated GFR 47.56 (mL/min/1.73m2); Glucose 82 mg/dL (70-100); Sodium 138 mmol/L (136-145)
[2018-05-20 08:56] LABS: ALT 52 U/L (12-78); AST 129 U/L (15-37); Absolute Eosinophil Count 0.11 k/cumm (0.0-0.7); Absolute Lymphocyte Count 0.87 k/cumm (1.2-3.4); Absolute Monocyte Count 0.81 k/cumm (0.11-0.7); Absolute Neutrophil Count 3.64 k/cumm (1.2-6.7); Albumin 1.5 g/dL (3.4-5.0); Alkaline Phosphatase 102 U/L (46-116); Anisocytosis 2+; Atypical Lymphocytes % 4; Bilirubin, Direct 2.32 mg/dL (0.00-0.20); Bilirubin, Total 3.2 mg/dL (0.2-1.0); Diff Comment Manual Differential; Platelet Count 45 x1000/uL (130-400); Total Protein 5.7 g/dL (6.4-8.2)
[2018-05-20 08:57] LABS: Poikilocytes 1+; Polychromasia Present
[2018-05-20 10:20] VITALS: O2SAT 92
[2018-05-20 10:40] VITALS: TEMP 36.1
[2018-05-20] MEDS: Spironolactone 25 MG TAB PO (10:40)
[2018-05-20] MEDS: Magnesium Oxide 400 MG TAB PO (10:40)
[2018-05-20] MEDS: Lactobacillus Acidophilus CAP 1 CAP PO ×3 (10:40→20:22)
[2018-05-20] MEDS: CEFEPIME 2 GM in Normal Saline 100 ML IVPB ×2 (12:37→20:21)
[2018-05-20] MEDS: Budesonide/Formoterol 160/4.5 6 GM 60 PUFF INH IH ×2 (12:38→20:20)
--- NOTE | 2018-05-20 13:19 | PHARADMIT ---
Addendum entered by Leti Spears 05/27/18 11:25: Pharmacy Note Subjective pt needs 2 weeks antibiotics for proteus mirabilis in blood and urine Objective pain 0, INR 2.7 Assessment Iv Cipro switched to PO, warfarin held last night due to nosebleeds(MDA), warfarin is to be continued, vanco PO continues Plan pt to be discharged Original Note: Addendum entered by Beltran Adams III 05/26/18 10:00: Pharmacy Note Subjective Abd pain 9/10 overnight, Zero presently. (Cholecystits?) Experiencing multiple nose bleeds while on ASA/Warfarin, Surgilube to nares). Rash on right arm MD not concerned Objective VS-OK INR-2.7 Mag-1.6 other labs-WNL BM yesterday. Assessment IV Cipro continues, (blood-Proteus sensitive) Plan MD was hoping for no pain and possible discharge Original Note: Addendum entered by Beltran Adams III 05/24/18 11:27: Pharmacy Note Subjective Still no infection source Objective VS-OK Pain: 9/10 (bowel) INR-2.2 BS-91 Last BM 05/22 Assessment Warfarin restarted, Cefepime continues as does PO Vancomycin. Plan Awaiting identification of organisms Original Note: Addendum entered by Beltran Adams III 05/22/18 16:48: Pharmacy Note Subjective Urine/blood show Gram neg rods, source uknown. (? Ureteal stone) Objective VS-OK Mag-1.6 Plts-44 INR-2.8 Had BM today. Assessment Cefepime continues Plan awaiting HYDA scan results. Original Note: Admission Pharmacy Clinical Review fever Code Status Full Code Current Weight 161.5 kg Renally Cleared and Narrow Therapeutic Index Meds Crcl ~86.4 mL/min using adjusted body weight current meds okay QTc Value / Action Taken QTc 469 BP Control, Fever BP 116/72 Tmax 38.0 Electrolytes reviewed mag 1.7 DVT Prophylaxis no, INR was 3.8 on admit Opiate Usage / Scheduled Bowel Regimen Ordered prn/no Plt/SCr for Heparin / Enoxaparin plt 45 SCr 1.18 INR for Warfarin INR 3.3 H/H stable, WBC/Bands h/h 13.1/38.8 wbc 5.43 Antibiotic appropriateness cefepime Cultures and Sensitivities blood and urine culture growing gram negative ramila, one blood culture still pending, C.diff negative Surgical ABX d/c within 24 hr n/a DM control / Insulin Dosing BG 82 none Heart Failure (Check EF%) (ASHLEIGH's, B-Block, Diuretics) spironolactone, furosemide(home med) IV to PO Switch n/a Home Meds Reviewed -oxybutynin may enhance the ulcerogenic effect of potassium -ibuprofen may diminish the diuretic effect of furosemide -increased risk of bleeding due to use of warfarin, escitalopram, and ibuprofen together -potassium may increase the risk of hyperkalemia when used with spironolactone Home Meds Not Ordered advair(has symbicort ordered), furosemide, ibuprofen, triamcinolone(topical), warfarin Comments
--- NOTE | 2018-05-20 15:08 | W.PM.PROGNOT ---
Date of Service Date of service: 05/20/18 Time of Service: 15:12 Assessment and Plan (1) Fever: Current visit: No Status: Acute Unsure of source, but patient now with GNR growth both on blood and urine cultures, but with negative LE and Nitrite on Urinalysis even on repeat study. Given right flank pain consideration was given for potential right sided retained ureteral stone as cause for both pain and infection. However, review of CT and Ultrasound with evidence of a nonobstructive 2mm stone in the left kidney but no hydronephrosis or evidence of other stones. Also potential for systemic infection that is now infecting the urine - patient with evidence of GB wall thickening and gallstones, which may at best represent chronic cholecystitis per review of imaging with surgery. C.Diff negative - PCR is pending. Of note, patient remains on oral vancomycin. Given potential Gram Negative Bacteremia antibiotic regimen was expanded to IV Cefepime. Monitor culture results and sensitivities. Plan on further discussion with both ID and surgery following outcome of the above. (2) Acute abdominal pain: Current visit: No Status: Acute As above. Also on prn morphine. (3) Chronic diastolic heart failure: Current visit: No Status: Chronic Holding lasix at this time, but will resume Spironolactone. Monitor fluid status. (4) LUDY (obstructive sleep apnea): Current visit: No Status: Chronic Restart nightly CPAP. (5) GERD (gastroesophageal reflux disease): Current visit: No Status: Chronic Avoid PPI therapy in setting of recurrent C.Diff. Start H2 micah now. (6) Nonalcoholic steatohepatitis (HAYWOOD): Current visit: No Status: Chronic Noted - possibly based on chronic fatty liver disease. (7) History of pulmonary embolism: Current visit: No Status: Chronic On chronic anticoagulation with Coumadin currently on hold due to supratherapeutic INR. Monitor INR daily. (8) DVT prophylaxis: Current visit: Yes Status: Acute Monitor daily INR and resume coumadin when appropriate. Subjective Interval history since last seen: 53-year-old Obese woman with a prior medical history of HAYWOOD/Cirrhosis, Recurrent C.Diff, and Diastolic Heart Failure admitted from [facility] ED on 05/19 with reported fever and abdominal pain. Ms. Arthur has a prior history of recurrent C. difficile colitis for which she remains on oral Vancomycin. She reported to the emergency department with multiple complaints that included fever, anorexia, right flank pain with somewhat diffuse abdominal discomfort, several episodes of diarrhea, headache and general malaise. Evaluation in the emergency room was noteworthy for fever, normal WBC but with 11% bandemia, and a CT of the abdomen and subsequent ultrasound that showed cholelithiasis with Gall Bladder wall thickening. Her urinalysis was also positive for pyuria, but with negative Leukocyte Esterase and Nitrite. Following admission the patient's blood culture shows evidence of bacteremia with a GNR, which is also growing in patient's urine. Today she reports continued abdominal discomfort. No other events reported, other than that the patient is tolerating oral intake well. She is currently afebrile. Exam Narrative Exam Narrative: General: Patient appears uncomfortable but not acutely ill or toxic, AAOX3, morbidly obese Neck: Supple CV: Regular, nontachycardic, S1S2, No rubs, murmurs, or gallops. Pulmonary: Clear to auscultation bilaterally, no crackles, wheezing, or rhonchi Abdomen: + Bowel Sounds, soft, obese in contour but nondistended, Right flank pain on plapation, mild discomfort withpalpation of lower abdomen/suprapubic region. Exam somewhat limited secondary to body habitus. Vascular: +1-2 b/l LE edema with chronic hyperpigmentation noted bilaterally Psych: Normal mood and affect. Objective Objective Clinical Data: Abnormal lab results 05/19/18 05/20/18 05/20/18 Range/Units 17:45 07:35 07:35 RDW (11.7-14.6) % Plt Count (130-400) x1000/uL MPV (8.0-11.0) fL Absolute Lymphocytes (1.2-3.4) k/cumm Absolute Monocytes (0.11-0.7) k/cumm PT 31.2 H (9.3-10.8) sec Creatinine 1.18 H (0.55-1.02) mg/dL Calcium 8.3 L (8.5-10.1) mg/dL Total Bilirubin (0.2-1.0) mg/dL Conjugated Bilirubin (0.00-0.20) mg/dL AST (15-37) U/L Total Protein (6.4-8.2) g/dL Albumin (3.4-5.0) g/dL Urine Protein 30 H (Negative) mg/dL Urine Blood Large H (Negative) Urine Bilirubin Moderate H (Negative) Urine RBC >50 H (0-2) 05/20/18 05/20/18 Range/Units 07:35 07:35 RDW 18.2 H (11.7-14.6) % Plt Count 45 L (130-400) x1000/uL MPV 11.4 H (8.0-11.0) fL Absolute Lymphocytes 0.87 L (1.2-3.4) k/cumm Absolute Monocytes 0.81 H (0.11-0.7) k/cumm PT (9.3-10.8) sec Creatinine (0.55-1.02) mg/dL Calcium (8.5-10.1) mg/dL Total Bilirubin 3.2 H (0.2-1.0) mg/dL Conjugated Bilirubin 2.32 H (0.00-0.20) mg/dL AST 129 H (15-37) U/L Total Protein 5.7 L (6.4-8.2) g/dL Albumin 1.5 L (3.4-5.0) g/dL Urine Protein (Negative) mg/dL Urine Blood (Negative) Urine Bilirubin (Negative) Urine RBC (0-2) Vital Signs Temperature 36.1 C L 05/20/18 10:40 Temperature Source Tympanic 05/20/18 10:40 Pulse 65 05/20/18 07:30 Pulse Rhythm Regular 05/19/18 19:42 Pulse 69 05/19/18 19:00 Respiratory Rate 20 05/20/18 07:30 Respiratory Effort 05/19/18 19:42 Respiratory Depth Shallow 05/19/18 19:42 Respiratory Pattern Tachypnea 05/19/18 19:42 Blood Pressure 116/72 05/20/18 07:30 Blood Pressure Mean 54 05/19/18 18:02 Blood Pressure Position Sitting 05/19/18 12:58 Pulse Oximetry 92 L 05/20/18 10:20 Oxygen Delivery Method Room Air 05/20/18 10:20 Oxygen Flow Rate 0 05/20/18 10:20 Pain Level 3 05/20/18 09:22 Intake & Output 05/19/18 05/20/18 05/20/18 23:59 11:59 23:59 Intake Total 1162 / 1162 1580 / 1580 340 / 340 Output Total 600 / 600 Balance 1162 / 1162 980 / 980 340 / 340 Weight 161.5 kg Intake: IV 1162 / 1162 1100 / 1100 100 / 100 Oral 480 / 480 240 / 240 Output: Urine 600 / 600 Other: Urine Color Dark Daphney Urine Appearance Cloudy Sediment Laboratory Results WBC 5.43 k/cumm (4.4-10.8) 05/20/18 07:35 RBC 4.15 m/cumm (4.00-5.20) 05/20/18 07:35 Hgb 13.1 g/dL (12.0-15.5) 05/20/18 07:35 Hct 38.8 % (36.0-46.0) 05/20/18 07:35 MCV 93.5 fL (80-95) 05/20/18 07:35 MCH 31.6 pg (27.0-33.0) 05/20/18 07:35 MCHC 33.8 g/dL (32.0-36.0) 05/20/18 07:35 RDW 18.2 % (11.7-14.6) H 05/20/18 07:35 Plt Count 45 x1000/uL (130-400) L 05/20/18 07:35 MPV 11.4 fL (8.0-11.0) H 05/20/18 07:35 Immature Gran % 0.0 05/20/18 07:35 Neutrophils % 60.0 05/20/18 07:35 Lymphocytes % 12.0 05/20/18 07:35 Monocytes % 15.0 05/20/18 07:35 Eosinophils % 2.0 05/20/18 07:35 Basophils % 0.0 05/20/18 07:35 Absolute Neutrophils 3.64 k/cumm (1.2-6.7) 05/20/18 07:35 Band Neutrophils 7.0 % 05/20/18 07:35 Absolute Lymphocytes 0.87 k/cumm (1.2-3.4) L 05/20/18 07:35 Absolute Monocytes 0.81 k/cumm (0.11-0.7) H 05/20/18 07:35 Absolute Eosinophils 0.11 k/cumm (0.0-0.7) 05/20/18 07:35 Absolute Basophils 0.00 k/cumm (0.0-0.2) 05/20/18 07:35 Differential Comment Manual differential 05/20/18 07:35 Atypical Lymphocytes 4 05/20/18 07:35 RBC Morphology See below 05/20/18 07:35 Polychromasia Present 05/20/18 07:35 Poikilocytosis 1+ 05/20/18 07:35 Anisocytosis 2+ 05/20/18 07:35 PT 31.2 sec (9.3-10.8) H 05/20/18 07:35 INR 3.3 (1.0-3.5) 05/20/18 07:35 Sodium 138 mmol/L (136-145) 05/20/18 07:35 Potassium 4.0 mmol/L (3.5-5.1) 05/20/18 07:35 Chloride 107 mmol/L (98-107) 05/20/18 07:35 Carbon Dioxide 23.6 mmol/L (21.0-32.0) 05/20/18 07:35 Anion Gap 7.4 mmol/L (3-11) 05/20/18 07:35 BUN 17 mg/dL (7-18) 05/20/18 07:35 Creatinine 1.18 mg/dL (0.55-1.02) H 05/20/18 07:35 Estimated GFR/1.73 m2 47.56 (mL/min/1.73m2) 05/20/18 07:35 Glucose 82 mg/dL (70-100) 05/20/18 07:35 Calcium 8.3 mg/dL (8.5-10.1) L 05/20/18 07:35 Magnesium 1.7 mg/dL (1.8-2.4) L 05/19/18 13:50 Total Bilirubin 3.2 mg/dL (0.2-1.0) H 05/20/18 07:35 Conjugated Bilirubin 2.32 mg/dL (0.00-0.20) H 05/20/18 07:35 AST 129 U/L (15-37) H 05/20/18 07:35 ALT 52 U/L (12-78) 05/20/18 07:35 Alkaline Phosphatase 102 U/L (46-116) 05/20/18 07:35 Troponin I 0.03 ng/mL (0.00-0.06) 05/19/18 13:50 NT-Pro-B Natriuret Pep 391 pg/mL (-299) H 05/19/18 13:50 Total Protein 5.7 g/dL (6.4-8.2) L 05/20/18 07:35 Albumin 1.5 g/dL (3.4-5.0) L 05/20/18 07:35 Urine Color Daphnye (Yellow) 05/19/18 17:45 Urine Clarity Clear 05/19/18 17:45 Urine pH 6.0 (5-8) 05/19/18 17:[address] [place] 1.015 (1.005-1.025) 05/19/18 17:45 Urine Protein 30 mg/dL (Negative) H 05/19/18 17:45 Urine Ketones Negative mg/dL (Negative) 05/19/18 17:45 Urine Blood Large (Negative) H 05/19/18 17:45 Urine Nitrite Negative (Negative) 05/19/18 17:45 Urine Bilirubin Moderate (Negative) H 05/19/18 17:45 Urine Urobilinogen 0.2 EU/dL (Up TO 0.2) 05/19/18 17:45 Ur Leukocyte Esterase Negative (Negative) 05/19/18 17:45 Urine RBC >50 (0-2) H 05/19/18 17:45 Urine WBC 20-50 HPF (0-5) 05/19/18 17:45 Ur Epithelial Cells Negative HPF (Negative) 05/19/18 17:45 Urine Crystals Negative HPF (Negative) 05/19/18 17:45 Urine Bacteria Negative HPF (Negative) 05/19/18 17:45 Urine Casts Negative LPF (Negative) 05/19/18 17:45 Urine Mucus Negative (Negative) 05/19/18 17:45 Urine Other Negative (Negative) 05/19/18 17:45 Ur Culture Indicated? Yes 05/19/18 17:45 Urine Glucose Negative mg/dL (Negative) 05/19/18 17:45 Blood Culture ( Age => 10 Yrs) Preliminary 05/20/18-1017 05/20/18 Pediatric bottle positive; gram stain shows GRAM NEGATIVE RODS. Gram stain results called to and read back from Peyman Brennan RN at 0912 by JOSE F.MARKO Organism 1 GRAM NEGATIVE JOE Urine Culture Preliminary 05/20/18-1005 Day 1 Result ISOLATES BELOW ISOLATE 1 COLONY COUNT >100,000 COLONIES/ML ISOLATE 1 APPEARANCE Gram Negative Joe ISOLATE 1 ACTION ID AND SUSCEPTIBILITY TO FOLLOW Organism 1 GRAM NEGATIVE JOE COLONY COUNT >100,000 COLONIES/ML C Difficile Screen Final 05/19/18-1542 C Difficile Antigen Negative C Difficile Toxin Negative Interpretation Negative for toxigenic Clostridium difficile Objective Narrative Objective Narrative: xam(s) a US:US abdomen limited SYMPTOMS/DIAGNOSIS: CHOLELITHIASIS, GB WALL THICKENING, ? CHOLECYSTITIS LIMITED ABDOMINAL ULTRASOUND: There are multiple mobile stones seen within the gallbladder. There is gallbladder wall thickening up to 1 cm. No pericholecystic fluid is seen. The common duct is within normal limits at .6 cm. No definite stones are seen within the duct. IMPRESSION: Cholelithiasis and gallbladder wall thickening. No biliary ductal dilatation. Exam(s) a CT:CT abdomen & pelvis CTA SYMPTOMS/DIAGNOSIS: LOWER ABD PAIN, ? ACUTE PROCESS, H/O CHRONIC C DIFF COLITIS, DIARRHEA CT SCAN OF THE ABDOMEN AND PELVIS: Due to the patient's size there is artifact present. Dependent atelectatic changes are in the lung bases. The liver has a lobulated contour. There is an enlarged left lobe. The spleen is enlarged measuring almost 20 cm craniocaudally. Varices are seen in the upper abdomen. The findings are all consistent with hepatic cirrhosis. There are multiple stones seen within the gallbladder. There does appear to be gallbladder wall thickening. No definite biliary ductal dilatation is seen. The pancreas is unremarkable as are the adrenal glands. The kidneys show normal and symmetric enhancement. There is a nonobstructing 2 mm stone in the mid pole of the left kidney. The urinary bladder is intact. The reproductive organs are unremarkable as visualized. The patient appears to be status post bilateral tubal ligation. The abdominal aorta is of normal caliber. No aneurysmal dilatation is seen. No significant abdominal or pelvic adenopathy, ascites or pneumoperitoneum is present. Note is made of a moderate sized fat containing umbilical hernia. The bowel shows no evidence of obstruction or inflammation. Degenerative changes are seen throughout the spine. IMPRESSION: 1. Cholelithiasis with gallbladder wall thickening. This raises the question of acute cholecystitis. Right upper quadrant ultrasound may be obtained for further evaluation. 2. Findings consistent with hepatic cirrhosis and splenomegaly. Exam(s) a RAD:XR chest 2V PA & lateral SYMPTOMS/DIAGNOSIS: SHORTNESS OF BREATH, ? ACUTE DISEASE PA AND LATERAL CHEST: Comparison 01/15/18. There is slight patient motion artifact present. The heart size and pulmonary vasculature are stable and within normal limits. The lungs are clear. No effusions or pneumothoraces are identified. The bones are intact with mild degenerative change present. IMPRESSION: No acute pulmonary process.
[2018-05-20 16:15] VITALS: BP 131/72; PULSE 71; RESP 12; TEMP 37; O2SAT 94
[2018-05-20] MEDS: Normal Saline Flush 10 ML SYR (20:20)
[2018-05-20] MEDS: Simvastatin 40 MG TAB PO (20:22)
[2018-05-20] MEDS: Albuterol/Ipratropium 3 ML UPD VIAL UPD (20:22)
[2018-05-21 00:52] VITALS: BP 119/70; PULSE 70; RESP 24; TEMP 36.7; O2SAT 94
[2018-05-21] MEDS: CEFEPIME 2 GM in Normal Saline 100 ML IVPB ×3 (04:13→19:53)
[2018-05-21] MEDS: Lactated Ringers 1,000 ML 100 ML IV (07:07)
[2018-05-21 07:56] LABS: Abs Immature Grans 0.01 k/cumm (0.0-0.09); Absolute Basophil Count 0.04 k/cumm (0.0-0.2); Absolute Eosinophil Count 0.13 k/cumm (0.0-0.7); Absolute Lymphocyte Count 1.04 k/cumm (1.2-3.4); Absolute Monocyte Count 0.94 k/cumm (0.11-0.7); Absolute Neutrophil Count 2.31 k/cumm (1.2-6.7); Basophils % 0.9; Eosinophils % 2.9; HCT 34.6 % (36.0-46.0); HGB 11.4 g/dL (12.0-15.5); Immature Grans % 0.2; Lymphocytes % 23.3; Mean Corp. HGB Concentration 32.9 g/dL (32.0-36.0); Mean Corpuscular Hemoglobin 30.9 pg (27.0-33.0); Mean Corpuscular Volume 93.8 fL (80-95); Neutrophils % 51.7; RBC 3.69 m/cumm (4.00-5.20); White Blood Cell Count 4.47 k/cumm (4.4-10.8)
[2018-05-21 07:57] LABS: ALT 39 U/L (12-78); AST 79 U/L (15-37); Albumin 1.2 g/dL (3.4-5.0); Alkaline Phosphatase 88 U/L (46-116); Anion Gap 6.1 mmol/L (3-11); BUN 14 mg/dL (7-18); Bilirubin, Total 2.4 mg/dL (0.2-1.0); CO2 24.9 mmol/L (21.0-32.0); CREATININE 1.04 mg/dL (0.55-1.02); Calcium 7.7 mg/dL (8.5-10.1); Chloride 105 mmol/L (98-107); Estimated GFR 55.02 (mL/min/1.73m2); Glucose 81 mg/dL (70-100); INR 2.9 (1.0-3.5); Potassium 3.5 mmol/L (3.5-5.1); Sodium 136 mmol/L (136-145); Total Protein 5.3 g/dL (6.4-8.2)
[2018-05-21 08:05] LABS: Anisocytosis 1+; Diff Comment PLT Morph Reviewed; Platelet Count 44 x1000/uL (130-400)
[2018-05-21 08:06] LABS: Poikilocytes 1+
[2018-05-21] MEDS: Vancomycin 125 MG CAP PO ×4 (08:43→19:54)
[2018-05-21] MEDS: Spironolactone 25 MG TAB PO (08:43)
[2018-05-21] MEDS: Escitalopram 20 MG TAB PO (08:44)
[2018-05-21] MEDS: Lactobacillus Acidophilus CAP 1 CAP PO ×3 (08:44→19:55)
[2018-05-21] MEDS: Magnesium Oxide 400 MG TAB PO ×2 (08:44)
[2018-05-21] MEDS: Potassium Chloride 20 MEQ TABCR PO ×3 (08:45→19:54)
[2018-05-21] MEDS: Topiramate 25 MG TAB 50 MG PO ×2 (08:45→19:55)
[2018-05-21] MEDS: Oxybutynin-CR 5 MG TABCR 10 MG PO (08:45)
[2018-05-21 08:56] VITALS: BP 123/57; PULSE 60; RESP 16; TEMP 36; O2SAT 97
--- NOTE | 2018-05-21 09:54 | PDOC.CMPRO ---
- If Service Date Differs Date of service: 05/21/18 Time of Service: 09:54 Care Management Progress Note S/O: Michelle is sitting on the edge of her bed when CM visits this morning. She is engaged in conversation and is talkative. Michelle reports that she continues to have abdominal pain and is SOB. She currently has an order for clear liquids which she is tolerating well. Per MD, Michelle will need two weeks of antibiotics. Question of cholecystectomy with concerns due to Michelle's BMI of 55.8. Michelle utilizes a CPAP at home which will need to be brought in. A: 53 year old female admitted with fever. P: Michelle will discharge home when medically ready per MD. Anticipate patient will discharge with no services and follow up wither her PCP. Michelle will transport via private vehicle with her family. CM will continue to offer support to patient, family, and care team regarding discharge planning and disposition.
[2018-05-21 10:00] VITALS: O2SAT 97
[2018-05-21] MEDS: Budesonide/Formoterol 160/4.5 6 GM 60 PUFF INH IH ×2 (10:13→19:55)
[2018-05-21] MEDS: Normal Saline Flush 10 ML SYR IVP ×3 (13:13→20:03)
[2018-05-21] MEDS: Potassium Chloride 10 MEQ TABCR PO (16:16)
[2018-05-21 16:19] VITALS: BP 132/78; PULSE 54; RESP 18; TEMP 36.4; O2SAT 95
--- NOTE | 2018-05-21 18:06 | PGE_ITS ---
Date of Service Date of service: 05/21/18 Time of Service: 18:02 Assessment and Plan (1) Fever: Current visit: No Status: Acute Unsure of source, but patient now with GNR growth both on blood and urine cultures, but with negative LE and Nitrite on Urinalysis even on repeat study. Given right flank pain consideration was given for potential right sided retained ureteral stone as cause for both pain and infection. However, review of CT and Ultrasound with evidence of a nonobstructive 2mm stone in the left kidney but no hydronephrosis or evidence of other stones. Also potential for systemic infection that is now infecting the urine - patient with evidence of GB wall thickening and gallstones, which may at best represent chronic cholecystitis per review of imaging with surgery. C.Diff negative - PCR is pending. Of note, patient remains on oral vancomycin. Given potential Gram Negative Bacteremia antibiotic regimen was expanded to IV Cefepime. Plan on checking a nuclear Hepatobiliary scan in the morning when imaging is available. Monitor culture results and sensitivities. Plan on further discussion with both ID and surgery following outcome of the above. (2) Acute abdominal pain: Current visit: No Status: Acute As above. Also on prn morphine. (3) Chronic diastolic heart failure: Current visit: No Status: Chronic Holding lasix at this time with plans on reinitiation tomorrow. Continue Spironolactone. Monitor fluid status. (4) LUDY (obstructive sleep apnea): Current visit: No Status: Chronic Continue nightly CPAP. (5) GERD (gastroesophageal reflux disease): Current visit: No Status: Chronic Avoid PPI therapy in setting of recurrent C.Diff. Previously started H2 micah now. (6) Nonalcoholic steatohepatitis (HAYWOOD): Current visit: No Status: Chronic Noted - possibly based on chronic fatty liver disease. (7) History of pulmonary embolism: Current visit: No Status: Chronic On chronic anticoagulation with Coumadin currently on hold due to prior supratherapeutic INR. Monitor INR daily. (8) DVT prophylaxis: Current visit: Yes Status: Acute Monitor daily INR and resume coumadin when appropriate. Subjective Interval history since last seen: 53-year-old Obese woman with a prior medical history of HAYWOOD/Cirrhosis, Recurrent C.Diff, and Diastolic Heart Failure admitted from [facility] ED on 05/19 with reported fever and abdominal pain. Ms. Arthur has a prior history of recurrent C. difficile colitis for which she remains on oral Vancomycin. She reported to the emergency department with multiple complaints that included fever, anorexia, right flank pain with somewhat diffuse abdominal discomfort, several episodes of diarrhea, headache and general malaise. Evaluation in the emergency room was noteworthy for fever , normal WBC but with 11% bandemia, and a CT of the abdomen and subsequent ultrasound that showed cholelithiasis with Gall Bladder wall thickening. Her urinalysis was also positive for pyuria, but with negative Leukocyte Esterase and Nitrite. Following admission the patient's blood culture shows evidence of bacteremia with a GNR, which is also growing in patient's urine. Today she reports decrease in abdominal discomfort and nausea, requesting increase in diet. No other events reported, other than that the patient continuing to tolerate oral intake well. She is currently afebrile. Exam Narrative Exam Narrative: General: Patient appears more comfortable, not acutely ill or toxic, AAOX3, morbidly obese Neck: Supple CV: Regular, nontachycardic, S1S2, No rubs, murmurs, or gallops. Pulmonary: Clear to auscultation bilaterally, no crackles, wheezing, or rhonchi Abdomen: + Bowel Sounds, soft, obese in contour but nondistended, Right flank pain on plapation, mild discomfort withpalpation of lower abdomen/suprapubic region. Exam somewhat limited secondary to body habitus. Vascular: +1-2 b/l LE edema with chronic hyperpigmentation noted bilaterally Psych: Normal mood and affect. Objective Objective Clinical Data: Abnormal lab results 05/21/18 05/21/18 05/21/18 Range/Units 07:22 07:22 07:22 RBC 3.69 L (4.00-5.20) m/cumm Hgb 11.4 L (12.0-15.5) g/dL Hct 34.6 L (36.0-46.0) % RDW 18.0 H (11.7-14.6) % Plt Count 44 L (130-400) x1000/uL Absolute Lymphocytes 1.04 L (1.2-3.4) k/cumm Absolute Monocytes 0.94 H (0.11-0.7) k/cumm PT 27.0 H (9.3-10.8) sec Creatinine 1.04 H (0.55-1.02) mg/dL Calcium 7.7 L (8.5-10.1) mg/dL Total Bilirubin 2.4 H (0.2-1.0) mg/dL Conjugated Bilirubin 1.60 H (0.00-0.20) mg/dL AST 79 H (15-37) U/L Total Protein 5.3 L (6.4-8.2) g/dL Albumin 1.2 L (3.4-5.0) g/dL Vital Signs Temperature 36.4 C L 05/21/18 16:19 Temperature Source Tympanic 05/21/18 16:19 Pulse 54 L 05/21/18 16:19 Pulse Rhythm Regular 05/21/18 08:35 Pulse 69 05/19/18 19:00 Respiratory Rate 18 05/21/18 16:19 Respiratory Effort Non-Labored 05/21/18 08:35 Respiratory Depth Normal 05/21/18 08:35 Respiratory Pattern Normal 05/21/18 08:35 Blood Pressure 132/78 05/21/18 16:19 Blood Pressure Mean 54 05/19/18 18:02 Blood Pressure Position Sitting 05/19/18 12:58 Pulse Oximetry 95 05/21/18 16:19 Oxygen Delivery Method Room Air 05/21/18 16:19 Oxygen Flow Rate 1 05/21/18 16:38 Pain Level 5 05/21/18 14:12 Comment 05/21/18 08:56 Intake & Output 05/20/18 05/21/18 05/21/18 23:59 11:59 23:59 Intake Total 2820 / 2820 1745 / 1745 380 / 380 Output Total 450 / 450 1500 / 1500 750 / 750 Balance 2370 / 2370 245 / 245 -370 / -370 Intake: IV 1200 / 1200 1495 / 1495 130 / 130 Oral 1620 / 1620 250 / 250 250 / 250 Output: Urine 450 / 450 1500 / 1500 750 / 750 Other: Urine Color Light Daphney Straw Straw Urine Appearance Clear Clear Clear Urine Odor None Comment toilet x 1 Voiding Methods Bedside Commode Bedside Commode Bedside Commode Laboratory Results WBC 4.47 k/cumm (4.4-10.8) 05/21/18 07:22 RBC 3.69 m/cumm (4.00-5.20) L 05/21/18 07:22 Hgb 11.4 g/dL (12.0-15.5) L 05/21/18 07:22 Hct 34.6 % (36.0-46.0) L 05/21/18 07:22 MCV 93.8 fL (80-95) 05/21/18 07:22 MCH 30.9 pg (27.0-33.0) 05/21/18 07:22 MCHC 32.9 g/dL (32.0-36.0) 05/21/18 07:22 RDW 18.0 % (11.7-14.6) H 05/21/18 07:22 Plt Count 44 x1000/uL (130-400) L 05/21/18 07:22 MPV fL (8.0-11.0) 05/21/18 07:22 Immature Gran % 0.2 05/21/18 07:22 Neutrophils % 51.7 05/21/18 07:22 Lymphocytes % 23.3 05/21/18 07:22 Monocytes % 21.0 05/21/18 07:22 Eosinophils % 2.9 05/21/18 07:22 Basophils % 0.9 05/21/18 07:22 Absolute Neutrophils 2.31 k/cumm (1.2-6.7) 05/21/18 07:22 Band Neutrophils 7.0 % 05/20/18 07:35 Absolute Lymphocytes 1.04 k/cumm (1.2-3.4) L 05/21/18 07:22 Absolute Monocytes 0.94 k/cumm (0.11-0.7) H 05/21/18 07:22 Absolute Eosinophils 0.13 k/cumm (0.0-0.7) 05/21/18 07:22 Absolute Basophils 0.04 k/cumm (0.0-0.2) 05/21/18 07:22 Differential Comment Plt morph reviewed 05/21/18 07:22 Atypical Lymphocytes 4 05/20/18 07:35 RBC Morphology See below 05/21/18 07:22 Polychromasia Present 05/20/18 07:35 Poikilocytosis 1+ 05/21/18 07:22 Anisocytosis 1+ 05/21/18 07:22 PT 27.0 sec (9.3-10.8) H 05/21/18 07:22 INR 2.9 (1.0-3.5) 05/21/18 07:22 Sodium 136 mmol/L (136-145) 05/21/18 07:22 Potassium 3.5 mmol/L (3.5-5.1) 05/21/18 07:22 Chloride 105 mmol/L (98-107) 05/21/18 07:22 Carbon Dioxide 24.9 mmol/L (21.0-32.0) 05/21/18 07:22 Anion Gap 6.1 mmol/L (3-11) 05/21/18 07:22 BUN 14 mg/dL (7-18) 05/21/18 07:22 Creatinine 1.04 mg/dL (0.55-1.02) H 05/21/18 07:22 Estimated GFR/1.73 m2 55.02 (mL/min/1.73m2) 05/21/18 07:22 Glucose 81 mg/dL (70-100) 05/21/18 07:22 Calcium 7.7 mg/dL (8.5-10.1) L 05/21/18 07:22 Magnesium 1.7 mg/dL (1.8-2.4) L 05/19/18 13:50 Total Bilirubin 2.4 mg/dL (0.2-1.0) H 05/21/18 07:22 Conjugated Bilirubin 1.60 mg/dL (0.00-0.20) H 05/21/18 07:22 AST 79 U/L (15-37) H 05/21/18 07:22 ALT 39 U/L (12-78) 05/21/18 07:22 Alkaline Phosphatase 88 U/L (46-116) 05/21/18 07:22 Troponin I 0.03 ng/mL (0.00-0.06) 05/19/18 13:50 NT-Pro-B Natriuret Pep 391 pg/mL (-299) H 05/19/18 13:50 Total Protein 5.3 g/dL (6.4-8.2) L 05/21/18 07:22 Albumin 1.2 g/dL (3.4-5.0) L 05/21/18 07:22 Urine Color Daphney (Yellow) 05/19/18 17:45 Urine Clarity Clear 05/19/18 17:45 Urine pH 6.0 (5-8) 05/19/18 17:45 Ur Specific [place] 1.015 (1.005-1.025) 05/19/18 17:45 Urine Protein 30 mg/dL (Negative) H 05/19/18 17:45 Urine Ketones Negative mg/dL (Negative) 05/19/18 17:45 Urine Blood Large (Negative) H 05/19/18 17:45 Urine Nitrite Negative (Negative) 05/19/18 17:45 Urine Bilirubin Moderate (Negative) H 05/19/18 17:45 Urine Urobilinogen 0.2 EU/dL (Up TO 0.2) 05/19/18 17:45 Ur Leukocyte Esterase Negative (Negative) 05/19/18 17:45 Urine RBC >50 (0-2) H 05/19/18 17:45 Urine WBC 20-50 HPF (0-5) 05/19/18 17:45 Ur Epithelial Cells Negative HPF (Negative) 05/19/18 17:45 Urine Crystals Negative HPF (Negative) 05/19/18 17:45 Urine Bacteria Negative HPF (Negative) 05/19/18 17:45 Urine Casts Negative LPF (Negative) 05/19/18 17:45 Urine Mucus Negative (Negative) 05/19/18 17:45 Urine Other Negative (Negative) 05/19/18 17:45 Ur Culture Indicated? Yes 05/19/18 17:45 Urine Glucose Negative mg/dL (Negative) 05/19/18 17:45
[2018-05-21] MEDS: Simvastatin 40 MG TAB PO (19:54)
[2018-05-21 23:48] VITALS: BP 125/66; PULSE 60; RESP 20; TEMP 37.3; O2SAT 96
[2018-05-22] MEDS: CEFEPIME 2 GM in Normal Saline 100 ML IVPB ×3 (04:13→20:17)
[2018-05-22] MEDS: Normal Saline Flush 10 ML SYR IVP ×4 (04:14→21:24)
[2018-05-22 07:22] LABS: Abs Immature Grans 0.02 k/cumm (0.0-0.09); Absolute Basophil Count 0.02 k/cumm (0.0-0.2); Absolute Eosinophil Count 0.16 k/cumm (0.0-0.7); Absolute Lymphocyte Count 0.94 k/cumm (1.2-3.4); Absolute Monocyte Count 0.93 k/cumm (0.11-0.7); Absolute Neutrophil Count 2.08 k/cumm (1.2-6.7); Basophils % 0.5; Eosinophils % 3.9; HCT 36.6 % (36.0-46.0); HGB 12.1 g/dL (12.0-15.5); Immature Grans % 0.5; Lymphocytes % 22.7; Mean Corp. HGB Concentration 33.1 g/dL (32.0-36.0); Mean Corpuscular Volume 93.8 fL (80-95); Mean Platelet Volume 10.2 fL (8.0-11.0); Monocytes % 22.4; RBC Distribution Width 17.5 % (11.7-14.6); White Blood Cell Count 4.15 k/cumm (4.4-10.8)
[2018-05-22 07:25] VITALS: BP 155/76; PULSE 57; RESP 19; TEMP 36.8; O2SAT 97
[2018-05-22 07:39] LABS: ALT 44 U/L (12-78); AST 92 U/L (15-37); Albumin 1.4 g/dL (3.4-5.0); Alkaline Phosphatase 105 U/L (46-116); Bilirubin, Direct 1.87 mg/dL (0.00-0.20); Bilirubin, Total 2.8 mg/dL (0.2-1.0); Magnesium 1.6 mg/dL (1.8-2.4)
[2018-05-22] MEDS: Budesonide/Formoterol 160/4.5 6 GM 60 PUFF INH IH ×2 (07:40→20:16)
[2018-05-22 07:41] LABS: INR 2.8 (1.0-3.5)
[2018-05-22 08:14] LABS: Platelet Count 47 x1000/uL (130-400)
[2018-05-22 08:15] LABS: Diff Comment PLT Morph Reviewed
[2018-05-22 08:16] LABS: Anisocytosis 1+; Polychromasia Present
[2018-05-22 08:17] LABS: Poikilocytes 1+
[2018-05-22] MEDS: Lactobacillus Acidophilus CAP 1 CAP PO ×3 (08:49→20:11)
[2018-05-22] MEDS: Spironolactone 25 MG TAB PO (08:49)
[2018-05-22] MEDS: Potassium Chloride 20 MEQ TABCR PO ×2 (08:49→20:11)
[2018-05-22] MEDS: Escitalopram 20 MG TAB PO (08:49)
[2018-05-22] MEDS: Magnesium Oxide 400 MG TAB PO (08:49)
[2018-05-22] MEDS: Oxybutynin-CR 5 MG TABCR 10 MG PO (08:49)
[2018-05-22] MEDS: Topiramate 25 MG TAB 50 MG PO ×2 (08:50→20:11)
[2018-05-22] MEDS: Vancomycin 125 MG CAP PO ×4 (08:50→20:11)
[2018-05-22] MEDS: Furosemide 40 MG TAB PO (09:44)
--- NOTE | 2018-05-22 10:48 | CMPROGNOTE_ITS ---
- If Service Date Differs Date of service: 05/22/18 Time of Service: 10:46 Care Management Progress Note S/O: Michelle is lying in bed when this writer technical publications visits this morning. She states that she has not been able to eat as she has a HIDA Scan today. Michelle states that she is unsure of the time of the scan, though is hopeful it is early as she is hungry. Michelle's mom is visiting with her this morning as well, both are pleasant throughout discussion. Reviewed CM role, and DC plan which remains unchanged at this time. A: 53 year old female admitted 05/19/18 with fever. P: Michelle will discharge home when medically ready per MD. Anticipate patient will discharge with no services and follow up wither her PCP. Michelle will transport via private vehicle with her family. CM will continue to offer support to patient, family, and care team regarding discharge planning and disposition.
--- NOTE | 2018-05-22 10:48 | W.PM.PROGNOT ---
Date of Service Date of service: 05/22/18 Time of Service: 10:48 Assessment and Plan (1) Fever: Current visit: No Status: Acute Urine and blood cultures growing gram negative rods, however infectious source remains unkown. Initially presumed to be secondary to ureteral stone, although this was shown to be non-obstructive on imaging. It is possible this is related to chronic cholecystitis with systemic infection resulting in + urine cultures. Continue IV cefepime. HIDA scan pending. (2) Acute abdominal pain: Current visit: No Status: Acute As above. Also on prn morphine. (3) Chronic diastolic heart failure: Current visit: No Status: Chronic Lasix resumed this morning. Will continue to monitor for HF symptoms. (4) LUDY (obstructive sleep apnea): Current visit: No Status: Chronic Continue nightly CPAP. (5) GERD (gastroesophageal reflux disease): Current visit: No Status: Chronic Continue H2 micah (6) Nonalcoholic steatohepatitis (HAYWOOD): Current visit: No Status: Chronic Likely secondary to chronic fatty liver disease. (7) History of pulmonary embolism: Current visit: No Status: Chronic On chronic anticoagulation with Coumadin currently on hold due to prior supratherapeutic INR. Monitor INR daily. (8) DVT prophylaxis: Current visit: Yes Status: Acute Monitor daily INR and resume coumadin when appropriate. Subjective Patient reports: no new complaints Interval history since last seen: Michelle is a 53 yo woman with morbid obesity, HAYWOOD/Cirrhosis, recurrent C Diff currently being treated with po vancomycin and HFpEF who was admitted with abd pain and fever. Bloodwork in the ER showed bandemia without leukocytosis. CT of the abdomen showed gallbladder thickening consistent with cholelithiasis which surgery believes is chronic. They recommended treatment with abx and outpatient cholecystectomy. Blood and urine cultures grew gram negative rods. Today Michelle reports fatigue. Apparently has not been sleeping well. Is waiting for a HIDA scan this morning and has been NPO. Continues to have some epigastric and R upper quadrant discomfort, otherwise nausea and vomiting has resolved. Was tolerating PO intake fine yesterday. has been NPO since midnight. Had a few episodes of diarrhea, however nothing today. Exam Narrative Exam Narrative: General: Patient appears comfortable, not acutely ill or toxic, AAOX3, morbidly obese Neck: Supple CV: Regular, nontachycardic, S1S2, No rubs, murmurs, or gallops. Pulmonary: Clear to auscultation bilaterally, no crackles, wheezing, or rhonchi Abdomen: + Bowel Sounds, soft, obese in contour but nondistended, Right upper quadrant discomfort on plapation, mild discomfort with palpation of epigastric area. Exam somewhat limited secondary to body habitus. Vascular: +1-2 b/l LE edema with chronic hyperpigmentation noted bilaterally Psych: Normal mood and affect. Objective Objective Clinical Data: Abnormal lab results 05/22/18 05/22/18 05/22/18 Range/Units 06:30 06:30 06:30 WBC 4.15 L (4.4-10.8) k/cumm RBC 3.90 L (4.00-5.20) m/cumm RDW 17.5 H (11.7-14.6) % Plt Count 47 L (130-400) x1000/uL Absolute Lymphocytes 0.94 L (1.2-3.4) k/cumm Absolute Monocytes 0.93 H (0.11-0.7) k/cumm PT 26.0 H (9.3-10.8) sec Magnesium 1.6 L (1.8-2.4) mg/dL Total Bilirubin 2.8 H (0.2-1.0) mg/dL Conjugated Bilirubin 1.87 H (0.00-0.20) mg/dL AST 92 H (15-37) U/L Total Protein 6.0 L (6.4-8.2) g/dL Albumin 1.4 L (3.4-5.0) g/dL Vital Signs Temperature 36.8 C 05/22/18 07:25 Temperature Source Tympanic 05/22/18 07:25 Pulse 57 L 05/22/18 07:25 Pulse Rhythm Regular 05/22/18 08:50 Pulse 69 05/19/18 19:00 Respiratory Rate 19 05/22/18 07:25 Respiratory Effort Non-Labored 05/22/18 08:50 Respiratory Depth Normal 05/22/18 08:50 Respiratory Pattern Normal 05/22/18 08:50 Blood Pressure 155/76 H 05/22/18 07:25 Blood Pressure Mean 54 05/19/18 18:02 Blood Pressure Position Sitting 05/19/18 12:58 Pulse Oximetry 97 05/22/18 07:25 Oxygen Delivery Method Nasal Cannula 05/22/18 07:25 Oxygen Flow Rate 1 05/22/18 07:25 Pain Level 8 05/22/18 07:25 Comment 05/21/18 08:56 Intake & Output 05/21/18 05/21/18 05/22/18 11:59 23:59 11:59 Intake Total 1745 / 1745 480 / 480 280 / 280 Output Total 1500 / 1500 1600 / 1600 1100 / 1100 Balance 245 / 245 -1120 / -1120 -820 / -820 Intake: IV 1495 / 1495 230 / 230 100 / 100 Oral 250 / 250 250 / 250 180 / 180 Output: Urine 1500 / 1500 1600 / 1600 1100 / 1100 Other: Urine Color Straw Angier Light Daphney Urine Appearance Clear Clear Clear Urine Odor None Strong Comment urine with few tiny blood streaks. Stool Size Moderate Stool Characteristics Liquid Brown Voiding Methods Bedside Commode Bedside Commode Bedside Commode Laboratory Results WBC 4.15 k/cumm (4.4-10.8) L 05/22/18 06:30 RBC 3.90 m/cumm (4.00-5.20) L 05/22/18 06:30 Hgb 12.1 g/dL (12.0-15.5) 05/22/18 06:30 Hct 36.6 % (36.0-46.0) 05/22/18 06:30 MCV 93.8 fL (80-95) 05/22/18 06:30 MCH 31.0 pg (27.0-33.0) 05/22/18 06:30 MCHC 33.1 g/dL (32.0-36.0) 05/22/18 06:30 RDW 17.5 % (11.7-14.6) H 05/22/18 06:30 Plt Count 47 x1000/uL (130-400) L 05/22/18 06:30 MPV 10.2 fL (8.0-11.0) 05/22/18 06:30 Immature Gran % 0.5 05/22/18 06:30 Neutrophils % 50.0 05/22/18 06:30 Lymphocytes % 22.7 05/22/18 06:30 Monocytes % 22.4 05/22/18 06:30 Eosinophils % 3.9 05/22/18 06:30 Basophils % 0.5 05/22/18 06:30 Absolute Neutrophils 2.08 k/cumm (1.2-6.7) 05/22/18 06:30 Band Neutrophils 7.0 % 05/20/18 07:35 Absolute Lymphocytes 0.94 k/cumm (1.2-3.4) L 05/22/18 06:30 Absolute Monocytes 0.93 k/cumm (0.11-0.7) H 05/22/18 06:30 Absolute Eosinophils 0.16 k/cumm (0.0-0.7) 05/22/18 06:30 Absolute Basophils 0.02 k/cumm (0.0-0.2) 05/22/18 06:30 Differential Comment Plt morph reviewed 05/22/18 06:30 Atypical Lymphocytes 4 05/20/18 07:35 RBC Morphology See below 05/22/18 06:30 Polychromasia Present 05/22/18 06:30 Poikilocytosis 1+ 05/22/18 06:30 Anisocytosis 1+ 05/22/18 06:30 PT 26.0 sec (9.3-10.8) H 05/22/18 06:30 INR 2.8 (1.0-3.5) 05/22/18 06:30 Sodium 136 mmol/L (136-145) 05/21/18 07:22 Potassium 3.5 mmol/L (3.5-5.1) 05/21/18 07:22 Chloride 105 mmol/L (98-107) 05/21/18 07:22 Carbon Dioxide 24.9 mmol/L (21.0-32.0) 05/21/18 07:22 Anion Gap 6.1 mmol/L (3-11) 05/21/18 07:22 BUN 14 mg/dL (7-18) 05/21/18 07:22 Creatinine 1.04 mg/dL (0.55-1.02) H 05/21/18 07:22 Estimated GFR/1.73 m2 55.02 (mL/min/1.73m2) 05/21/18 07:22 Glucose 81 mg/dL (70-100) 05/21/18 07:22 Calcium 7.7 mg/dL (8.5-10.1) L 05/21/18 07:22 Magnesium 1.6 mg/dL (1.8-2.4) L 05/22/18 06:30 Total Bilirubin 2.8 mg/dL (0.2-1.0) H 05/22/18 06:30 Conjugated Bilirubin 1.87 mg/dL (0.00-0.20) H 05/22/18 06:30 AST 92 U/L (15-37) H 05/22/18 06:30 ALT 44 U/L (12-78) 05/22/18 06:30 Alkaline Phosphatase 105 U/L (46-116) 05/22/18 06:30 Troponin I 0.03 ng/mL (0.00-0.06) 05/19/18 13:50 NT-Pro-B Natriuret Pep 391 pg/mL (-299) H 05/19/18 13:50 Total Protein 6.0 g/dL (6.4-8.2) L 05/22/18 06:30 Albumin 1.4 g/dL (3.4-5.0) L 05/22/18 06:30 Urine Color Daphney (Yellow) 05/19/18 17:45 Urine Clarity Clear 05/19/18 17:45 Urine pH 6.0 (5-8) 05/19/18 17:45 Ur Specific [place] 1.015 (1.005-1.025) 05/19/18 17:45 Urine Protein 30 mg/dL (Negative) H 05/19/18 17:45 Urine Ketones Negative mg/dL (Negative) 05/19/18 17:45 Urine Blood Large (Negative) H 05/19/18 17:45 Urine Nitrite Negative (Negative) 05/19/18 17:45 Urine Bilirubin Moderate (Negative) H 05/19/18 17:45 Urine Urobilinogen 0.2 EU/dL (Up TO 0.2) 05/19/18 17:45 Ur Leukocyte Esterase Negative (Negative) 05/19/18 17:45 Urine RBC >50 (0-2) H 05/19/18 17:45 Urine WBC 20-50 HPF (0-5) 05/19/18 17:45 Ur Epithelial Cells Negative HPF (Negative) 05/19/18 17:45 Urine Crystals Negative HPF (Negative) 05/19/18 17:45 Urine Bacteria Negative HPF (Negative) 05/19/18 17:45 Urine Casts Negative LPF (Negative) 05/19/18 17:45 Urine Mucus Negative (Negative) 05/19/18 17:45 Urine Other Negative (Negative) 05/19/18 17:45 Ur Culture Indicated? Yes 05/19/18 17:45 Urine Glucose Negative mg/dL (Negative) 05/19/18 17:45
[2018-05-22 11:17] LABS: Campylobacter PCR SEE COMMENTS; Salmonella PCR SEE COMMENTS; Shiga Toxin PCR SEE COMMENTS; Shigella/Enteroinvasive Ecoli SEE COMMENTS
[2018-05-22 11:30] LABS: Anion Gap 7.4 mmol/L (3-11); BUN 13 mg/dL (7-18); CO2 24.6 mmol/L (21.0-32.0); Calcium 8.4 mg/dL (8.5-10.1); Chloride 106 mmol/L (98-107); Estimated GFR 51.57 (mL/min/1.73m2); Glucose 74 mg/dL (70-100); Potassium 3.9 mmol/L (3.5-5.1); Sodium 138 mmol/L (136-145)
--- NOTE | 2018-05-22 14:00 | DI.NM_ITS ---
SYMPTOM/DIAGNOSIS: SUSPECTED CHOLECYSTITIS HEPATOBILIARY SCAN: The study was conducted according to the usual protocol with an intravenous administration of 4.0 mCi Tc99 Mebrofenin. There is a region of photopenia involving the lateral margin of the right hepatic lobe which is certainly suggestive of a focal hepatic abnormality. The recent CT revealed findings consistent with cirrhosis with no gross localized abnormalities seen at that time. There is pharmaceutical in the gallbladder at approximately 26 minutes. Activity is identified in the proximal small bowel on the delayed images at 90 minutes. SUMMARY: No evidence of acute cholecystitis. A recent CT revealed changes consistent with cirrhosis and on the nuclear medicine examination an area of photopenia in the lateral border of the right hepatic lobe could represent a localized mass. Further assessment of this patient with an MRI is recommended.
[2018-05-22 17:34] VITALS: BP 142/89; PULSE 63; RESP 24; TEMP 37.2; O2SAT 95
--- NOTE | 2018-05-22 18:55 | DI.VRAD_ITS ---
EXAM: [facility] Hepatobiliary Imaging including Gallbladder When Present With Pharmacological intervention EXAM DATE/TIME: 05/22/2018 6:00 PM CLINICAL HISTORY: 53 years old, female; Pain; Ruq pain; Patient HX: Ruq pain x 4 days. TECHNIQUE: Frontal dynamic images of the abdomen and pelvis were obtained over 60 minutes following the intravenous administration of 4 mCi Tc99m mebrofenin. COMPARISON: Vascular^CTA ABD PEL (Adult) 05/19/2018 3:02 PM FINDINGS: Liver: Unremarkable. Homogeneous radiotracer uptake. Gallbladder: Unremarkable. Clearly visualized. Tracer uptake within the gallbladder is seen at approximately 20 minutes. Bile Ducts: Unremarkable. Clearly visualized. Stomach and bowel: Unremarkable. Radiotracer activity is seen in the small bowel. IMPRESSION: Unremarkable study. No evidence of acute cholecystitis. Dictated and Authenticated by: Antoine Avalos MD. Ordering:RADHA EMERY MD
[2018-05-22] MEDS: Simvastatin 40 MG TAB PO (20:19)
[2018-05-22 21:01] VITALS: BP 132/68; PULSE 61; RESP 20; TEMP 37.3; O2SAT 97
[2018-05-22 23:36] VITALS: BP 130/69; PULSE 61; RESP 16; TEMP 37.4; O2SAT 96
[2018-05-23] MEDS: Normal Saline Flush 10 ML SYR IVP ×6 (03:45→19:23)
[2018-05-23] MEDS: CEFEPIME 2 GM in Normal Saline 100 ML IVPB ×2 (03:45→16:06)
[2018-05-23 07:24] LABS: Abs Immature Grans 0.08 k/cumm (0.0-0.09); Absolute Basophil Count 0.02 k/cumm (0.0-0.2); Absolute Eosinophil Count 0.19 k/cumm (0.0-0.7); Absolute Lymphocyte Count 1.45 k/cumm (1.2-3.4); Absolute Neutrophil Count 2.89 k/cumm (1.2-6.7); Basophils % 0.4; Eosinophils % 3.4; HCT 36.8 % (36.0-46.0); HGB 12.1 g/dL (12.0-15.5); Immature Grans % 1.4; Lymphocytes % 26.2; Mean Corp. HGB Concentration 32.9 g/dL (32.0-36.0); Mean Corpuscular Hemoglobin 30.8 pg (27.0-33.0); Mean Corpuscular Volume 93.6 fL (80-95); Monocytes % 16.3; Neutrophils % 52.3; RBC 3.93 m/cumm (4.00-5.20); RBC Distribution Width 17.6 % (11.7-14.6); White Blood Cell Count 5.53 k/cumm (4.4-10.8)
[2018-05-23 07:25] VITALS: BP 128/66; PULSE 63; RESP 20; TEMP 36.4; O2SAT 97
[2018-05-23 07:25] LABS: INR 2.5 (1.0-3.5); Prothrombin Time 23.7 sec (9.3-10.8)
[2018-05-23] MEDS: Escitalopram 20 MG TAB PO (07:36)
[2018-05-23] MEDS: Topiramate 25 MG TAB 50 MG PO ×2 (07:36→19:57)
[2018-05-23] MEDS: Oxybutynin-CR 5 MG TABCR 10 MG PO (07:36)
[2018-05-23] MEDS: Potassium Chloride 20 MEQ TABCR PO ×2 (07:36→19:58)
[2018-05-23] MEDS: Lactobacillus Acidophilus CAP 1 CAP PO ×3 (07:36→19:57)
[2018-05-23] MEDS: Magnesium Oxide 400 MG TAB PO (07:36)
[2018-05-23] MEDS: Spironolactone 25 MG TAB PO ×2 (07:36→19:58)
[2018-05-23] MEDS: Furosemide 40 MG TAB PO (07:36)
[2018-05-23] MEDS: Vancomycin 125 MG CAP PO ×4 (07:36→19:57)
[2018-05-23 07:38] LABS: Anion Gap 7.7 mmol/L (3-11); BUN 14 mg/dL (7-18); CO2 24.3 mmol/L (21.0-32.0); CREATININE 1.16 mg/dL (0.55-1.02); Calcium 8.1 mg/dL (8.5-10.1); Chloride 104 mmol/L (98-107); Glucose 87 mg/dL (70-100); Potassium 3.7 mmol/L (3.5-5.1); Sodium 136 mmol/L (136-145)
[2018-05-23 07:45] VITALS: O2SAT 94
[2018-05-23] MEDS: Budesonide/Formoterol 160/4.5 6 GM 60 PUFF INH IH ×2 (07:47→20:01)
[2018-05-23 07:56] LABS: ALT 47 U/L (12-78); AST 102 U/L (15-37); Albumin 1.4 g/dL (3.4-5.0); Alkaline Phosphatase 118 U/L (46-116); Bilirubin, Direct 1.85 mg/dL (0.00-0.20); Bilirubin, Total 3.2 mg/dL (0.2-1.0); Magnesium 1.4 mg/dL (1.8-2.4); Total Protein 6.2 g/dL (6.4-8.2)
[2018-05-23 08:16] LABS: Platelet Count 57 x1000/uL (130-400)
[2018-05-23] MEDS: MAGNESIUM SULFATE 2 GM/50 ML BAG IVPB (09:35)
--- NOTE | 2018-05-23 11:42 | PDOC.CMPRO ---
- If Service Date Differs Date of service: 05/23/18 Time of Service: 11:42 Care Management Progress Note S/O: Michelle is sitting up on the edge of her bed when this marine underwriter visits this morning. She states that she is feeling well and has been able to tolerate her diet. Michelle had a HIDA scan yesterday which showed no acute changes. Michelle continues on IV antibiotics at this time. A: 53 year old female admitted 05/19/18 with fever. P: Michelle will discharge home when medically ready per MD. Anticipate patient will discharge with no services and follow up wither her PCP. Michelle will transport via private vehicle with her family. CM will continue to offer support to patient, family, and care team regarding discharge planning and disposition.
--- NOTE | 2018-05-23 12:39 | CMPROGNOTE_ITS ---
- If Service Date Differs Date of service: 05/23/18 Time of Service: 11:42 Care Management Progress Note S/O: Michelle is sitting up on the edge of her bed when this pattern chart writer visits this morning. She states that she is feeling well and has been able to tolerate her diet. Michelle had a HIDA scan yesterday which showed no acute changes. Michelle continues on IV antibiotics at this time. A: 53 year old female admitted 05/19/18 with fever. P: Michelle will discharge home when medically ready per MD. Anticipate patient will discharge with no services and follow up wither her PCP. Michelle will transport via private vehicle with her family. CM will continue to offer support to patient, family, and care team regarding discharge planning and disposition.
--- NOTE | 2018-05-23 14:55 | CHAPLAIN ---
Michelle was resting in bed when I visited. She said daughter, Neelam would be in to visit later this afternoon when she finished working in [employer]. Michelle was experience cramping in her fingers and toes while I was speaking with her. She said her hand are more painful than her feet. I explained my role and offered support.
--- NOTE | 2018-05-23 15:46 | PGE_ITS ---
Date of Service Date of service: 05/23/18 Time of Service: 15:31 Assessment and Plan (1) Fever: Current visit: No Status: Acute Urine and blood cultures growing gram negative rods. We still do not have exact organism or sensitivities. Midline was placed given we will likely need 2 weeks of IV therapy with bacteremia. Infectious source remains unclear. Initially presumed to be secondary to ureteral stone, although this was shown to be non-obstructive on imaging. Concern for chronic cholecystitis with systemic infection resulting in + urine cultures, but right upper quadrant ultrasound as well as HIDA scan both negative for cholecystitis. CT did not show abdominal abscess or to just other infectious source. Pain pattern in association with bowel changes suggest large bowel as the source for the pain, though we did not see findings consistent with diverticulitis or colitis on CT. I think for now, we have to assume that N is the source given the positive urine cultures. Continue cefepime. (2) Acute abdominal pain: Current visit: No Status: Acute As above. There may be a functional component of the abdominal pain, but this would not explain the fevers of the culture. Continue prn morphine. (3) Chronic diastolic heart failure: Current visit: No Status: Chronic Back on furosemide. I will increase spironolactone to help with hypokalemia. We will continue to monitor for HF symptoms. (4) LUDY (obstructive sleep apnea): Current visit: No Status: Chronic Continue nightly CPAP. (5) GERD (gastroesophageal reflux disease): Current visit: No Status: Chronic Continue H2 micah. She is at risk for significant GI bleed with varices noted on CT related to cirrhosis. (6) Cirrhosis of liver: Current visit: Yes Status: Acute Nonalcoholic, secondary to steatohepatitis. LFTs are concerning including low albumin and elevated bilirubin, but do appear stable and likely reflect her chronic cirrhosis. Child Torres score at least 9, without counting INR given warfarin therapy, suggesting poor long-term prognosis related to her cirrhosis. Varices also noted on CT scan. Her pulse is already in the 60s, so I will not initiate beta-micah therapy at this point. I am adjusting her diuretics as above. (7) History of pulmonary embolism: Current visit: No Status: Chronic On chronic anticoagulation with Coumadin currently on hold due to prior supratherapeutic INR, restart today at 2.5 mg as INR back in therapeutic range. Monitor INR daily. (8) DVT prophylaxis: Current visit: Yes Status: Acute Monitor daily INR and resume coumadin when appropriate. Subjective Patient reports: still having pain and fever; denies no new complaints, diarrhea , blood in stool and vomiting Interval history since last seen: Still feels feverish at night, but no fevers today. She is eating and drinking some. She continues to have pain in the right upper quadrant. This pain does get relieved with the bowel movement, and when it comes it seems to be associated with changes in her bowels. She sometimes has it on the left side of the upper abdomen. She is not having pain with urination or hematuria. Exam Narrative Exam Narrative: General: Patient appears comfortable, not acutely ill or toxic, AAOX3, morbidly obese Neck: Supple CV: Regular, nontachycardic, S1S2, No rubs, murmurs, or gallops. Pulmonary: Clear to auscultation bilaterally, no crackles, wheezing, or rhonchi Abdomen: + Bowel Sounds, soft, obese in contour but nondistended, Right upper quadrant discomfort on plapation, mild discomfort with palpation of epigastric area. Exam somewhat limited secondary to body habitus. Vascular: +1-2 b/l LE edema with chronic hyperpigmentation noted bilaterally Psych: Normal mood and affect. Objective Objective Clinical Data: Abnormal lab results 05/23/18 05/23/18 05/23/18 Range/Units 06:20 06:20 06:20 RBC 3.93 L (4.00-5.20) m/cumm RDW 17.6 H (11.7-14.6) % Plt Count 57 L (130-400) x1000/uL Absolute Monocytes 0.90 H (0.11-0.7) k/cumm PT (9.3-10.8) sec Creatinine 1.16 H (0.55-1.02) mg/dL Calcium 8.1 L (8.5-10.1) mg/dL Magnesium 1.4 L (1.8-2.4) mg/dL Total Bilirubin 3.2 H (0.2-1.0) mg/dL Conjugated Bilirubin 1.85 H (0.00-0.20) mg/dL AST 102 H (15-37) U/L Alkaline Phosphatase 118 H (46-116) U/L Total Protein 6.2 L (6.4-8.2) g/dL Albumin 1.4 L (3.4-5.0) g/dL 05/23/18 Range/Units 06:20 RBC (4.00-5.20) m/cumm RDW (11.7-14.6) % Plt Count (130-400) x1000/uL Absolute Monocytes (0.11-0.7) k/cumm PT 23.7 H (9.3-10.8) sec Creatinine (0.55-1.02) mg/dL Calcium (8.5-10.1) mg/dL Magnesium (1.8-2.4) mg/dL Total Bilirubin (0.2-1.0) mg/dL Conjugated Bilirubin (0.00-0.20) mg/dL AST (15-37) U/L Alkaline Phosphatase (46-116) U/L Total Protein (6.4-8.2) g/dL Albumin (3.4-5.0) g/dL Vital Signs Temperature 36.4 C L 05/23/18 07:25 Temperature Source Tympanic 05/23/18 07:25 Pulse 63 05/23/18 07:25 Pulse Rhythm Regular 05/23/18 07:35 Pulse 69 05/19/18 19:00 Respiratory Rate 20 05/23/18 07:25 Respiratory Effort Non-Labored 05/23/18 07:35 Respiratory Depth Normal 05/23/18 07:35 Respiratory Pattern Normal 05/23/18 07:35 Blood Pressure 128/66 05/23/18 07:25 Blood Pressure Mean 54 05/19/18 18:02 Blood Pressure Position Sitting 05/19/18 12:58 Pulse Oximetry 94 L 05/23/18 07:45 Oxygen Delivery Method Room Air 05/23/18 07:45 Oxygen Flow Rate 0 05/23/18 07:45 Pain Level 8 05/23/18 14:59 Comment 05/21/18 08:56 Intake & Output 05/22/18 05/23/18 05/23/18 23:59 11:59 23:59 Intake Total 386.667 / 386.667 957.083 / 957.083 250 / 250 Output Total 2450 / 2450 1100 / 1100 Balance -2063.333 / -2063.333 -142.917 / -142.917 250 / 250 Intake: IV 146.667 / 146.667 147.083 / 147.083 Oral 240 / 240 810 / 810 250 / 250 Output: Urine 2450 / 2450 1100 / 1100 Other: Urine Color Straw Straw Urine Appearance Cloudy Clear Sediment Urine Odor Normal Normal Stool Size Moderate Stool Characteristics Liquid Voiding Methods Bedside Commode Bedside Commode Laboratory Results WBC 5.53 k/cumm (4.4-10.8) D 05/23/18 06:20 RBC 3.93 m/cumm (4.00-5.20) L 05/23/18 06:20 Hgb 12.1 g/dL (12.0-15.5) 05/23/18 06:20 Hct 36.8 % (36.0-46.0) 05/23/18 06:20 MCV 93.6 fL (80-95) 05/23/18 06:20 MCH 30.8 pg (27.0-33.0) 05/23/18 06:20 MCHC 32.9 g/dL (32.0-36.0) 05/23/18 06:20 RDW 17.6 % (11.7-14.6) H 05/23/18 06:20 Plt Count 57 x1000/uL (130-400) L 05/23/18 06:20 MPV 11.0 fL (8.0-11.0) 05/23/18 06:20 Immature Gran % 1.4 05/23/18 06:20 Neutrophils % 52.3 05/23/18 06:20 Lymphocytes % 26.2 05/23/18 06:20 Monocytes % 16.3 05/23/18 06:20 Eosinophils % 3.4 05/23/18 06:20 Basophils % 0.4 05/23/18 06:20 Absolute Neutrophils 2.89 k/cumm (1.2-6.7) 05/23/18 06:20 Band Neutrophils 7.0 % 05/20/18 07:35 Absolute Lymphocytes 1.45 k/cumm (1.2-3.4) 05/23/18 06:20 Absolute Monocytes 0.90 k/cumm (0.11-0.7) H 05/23/18 06:20 Absolute Eosinophils 0.19 k/cumm (0.0-0.7) 05/23/18 06:20 Absolute Basophils 0.02 k/cumm (0.0-0.2) 05/23/18 06:20 Differential Comment Plt morph reviewed 05/22/18 06:30 Atypical Lymphocytes 4 05/20/18 07:35 RBC Morphology See below 05/22/18 06:30 Polychromasia Present 05/22/18 06:30 Poikilocytosis 1+ 05/22/18 06:30 Anisocytosis 1+ 05/22/18 06:30 PT 23.7 sec (9.3-10.8) H 05/23/18 06:20 INR 2.5 (1.0-3.5) 05/23/18 06:20 Sodium 136 mmol/L (136-145) 05/23/18 06:20 Potassium 3.7 mmol/L (3.5-5.1) 05/23/18 06:20 Chloride 104 mmol/L (98-107) 05/23/18 06:20 Carbon Dioxide 24.3 mmol/L (21.0-32.0) 05/23/18 06:20 Anion Gap 7.7 mmol/L (3-11) 05/23/18 06:20 BUN 14 mg/dL (7-18) 05/23/18 06:20 Creatinine 1.16 mg/dL (0.55-1.02) H 05/23/18 06:20 Estimated GFR/1.73 m2 48.50 (mL/min/1.73m2) 05/23/18 06:20 Glucose 87 mg/dL (70-100) 05/23/18 06:20 Calcium 8.1 mg/dL (8.5-10.1) L 05/23/18 06:20 Magnesium 1.4 mg/dL (1.8-2.4) L 05/23/18 06:20 Total Bilirubin 3.2 mg/dL (0.2-1.0) H 05/23/18 06:20 Conjugated Bilirubin 1.85 mg/dL (0.00-0.20) H 05/23/18 06:20 AST 102 U/L (15-37) H 05/23/18 06:20 ALT 47 U/L (12-78) 05/23/18 06:20 Alkaline Phosphatase 118 U/L (46-116) H 05/23/18 06:20 Troponin I 0.03 ng/mL (0.00-0.06) 05/19/18 13:50 NT-Pro-B Natriuret Pep 391 pg/mL (-299) H 05/19/18 13:50 Total Protein 6.2 g/dL (6.4-8.2) L 05/23/18 06:20 Albumin 1.4 g/dL (3.4-5.0) L 05/23/18 06:20 Urine Color Daphney (Yellow) 05/19/18 17:45 Urine Clarity Clear 05/19/18 17:45 Urine pH 6.0 (5-8) 05/19/18 17:45 Ur Specific [place] 1.015 (1.005-1.025) 05/19/18 17:45 Urine Protein 30 mg/dL (Negative) H 05/19/18 17:45 Urine Ketones Negative mg/dL (Negative) 05/19/18 17:45 Urine Blood Large (Negative) H 05/19/18 17:45 Urine Nitrite Negative (Negative) 05/19/18 17:45 Urine Bilirubin Moderate (Negative) H 05/19/18 17:45 Urine Urobilinogen 0.2 EU/dL (Up TO 0.2) 05/19/18 17:45 Ur Leukocyte Esterase Negative (Negative) 05/19/18 17:45 Urine RBC >50 (0-2) H 05/19/18 17:45 Urine WBC 20-50 HPF (0-5) 05/19/18 17:45 Ur Epithelial Cells Negative HPF (Negative) 05/19/18 17:45 Urine Crystals Negative HPF (Negative) 05/19/18 17:45 Urine Bacteria Negative HPF (Negative) 05/19/18 17:45 Urine Casts Negative LPF (Negative) 05/19/18 17:45 Urine Mucus Negative (Negative) 05/19/18 17:45 Urine Other Negative (Negative) 05/19/18 17:45 Ur Culture Indicated? Yes 05/19/18 17:45 Urine Glucose Negative mg/dL (Negative) 05/19/18 17:45 Stool Campylobacter PCR See comments 05/19/18 14:25 Stool Salmonella PCR See comments 05/19/18 14:25 Stool Shigella PCR See comments 05/19/18 14:25 Shiga Toxin (PCR) See comments 05/19/18 14:25
[2018-05-23 18:51] VITALS: BP 143/72; PULSE 66; RESP 20; TEMP 36.2; O2SAT 93
[2018-05-23] MEDS: Simvastatin 40 MG TAB PO (19:58)
[2018-05-23 20:51] VITALS: BP 130/77; PULSE 58; RESP 20; TEMP 36.3; O2SAT 97
[2018-05-23 23:59] VITALS: BP 122/80; PULSE 72; RESP 22; TEMP 36.8; O2SAT 92
[2018-05-24] MEDS: CEFEPIME 2 GM in Normal Saline 100 ML IVPB ×2 (00:14→11:14)
[2018-05-24] MEDS: Normal Saline Flush 10 ML SYR IVP ×5 (00:15→23:10)
[2018-05-24 07:37] LABS: INR 2.2 (1.0-3.5); Prothrombin Time 21.3 sec (9.3-10.8)
[2018-05-24 07:39] VITALS: BP 124/78; PULSE 62; RESP 19; TEMP 36.2; O2SAT 94
[2018-05-24 07:41] LABS: Anion Gap 3.7 mmol/L (3-11); BUN 13 mg/dL (7-18); CO2 27.3 mmol/L (21.0-32.0); CREATININE 1.09 mg/dL (0.55-1.02); Chloride 105 mmol/L (98-107); Estimated GFR 52.11 (mL/min/1.73m2); Glucose 91 mg/dL (70-100); Magnesium 1.7 mg/dL (1.8-2.4); Potassium 3.7 mmol/L (3.5-5.1); Sodium 136 mmol/L (136-145)
[2018-05-24 08:00] VITALS: O2SAT 96
[2018-05-24] MEDS: Budesonide/Formoterol 160/4.5 6 GM 60 PUFF INH IH ×2 (08:01→19:36)
[2018-05-24] MEDS: Oxybutynin-CR 5 MG TABCR 10 MG PO (08:36)
[2018-05-24] MEDS: Magnesium Oxide 400 MG TAB PO ×2 (08:36→19:38)
[2018-05-24] MEDS: Furosemide 40 MG TAB PO (08:36)
[2018-05-24] MEDS: Vancomycin 125 MG CAP PO ×4 (08:36→19:39)
[2018-05-24] MEDS: Lactobacillus Acidophilus CAP 1 CAP PO ×3 (08:36→19:38)
[2018-05-24] MEDS: Spironolactone 25 MG TAB PO (08:37)
[2018-05-24] MEDS: Potassium Chloride 20 MEQ TABCR PO (08:37)
[2018-05-24] MEDS: Topiramate 25 MG TAB 50 MG PO ×2 (08:37→19:38)
[2018-05-24] MEDS: Escitalopram 20 MG TAB PO (08:37)
[2018-05-24] MEDS: MAGNESIUM SULFATE 2 GM/50 ML BAG IVPB (08:42)
--- NOTE | 2018-05-24 13:07 | PGE_ITS ---
Date of Service Date of service: 05/24/18 Time of Service: 12:54 Assessment and Plan (1) Fever: Current visit: No Status: Acute Urine and blood cultures growing Proteus, sensitive to all antibiotics other than nitrofurantoin, which is not an option for systemic infection. I will stop the cefepime, and treat with IV ampicillin to narrow the spectrum. Monitor to sure she is still responding to this, repeat white count tomorrow. I do think the source was urinary given her presentation and a typical organism on the cultures. (2) Acute abdominal pain: Current visit: No Status: Acute After reviewing the history again and discussing history of recurrent C. difficile infection, I think her pain is related to her diarrhea in this setting. Ischemic bowel is in the differential, but this would be more likely in the area of the splenic flexure. Multiple modalities of imaging do not suggest cholecystitis. CT scan did not suggest ischemic bowel, abscess, active colitis, or other acute inflammatory process in the right upper quadrant, and she did not have a white count. Continue to monitor and treat with prn morphine. She is improving. (3) Chronic diastolic heart failure: Current visit: No Status: Chronic Back on furosemide. I will increase spironolactone again to help with hypokalemia, ratio appropriate for cirrhosis. We will continue to monitor for HF symptoms. (4) LUDY (obstructive sleep apnea): Current visit: No Status: Chronic Continue nightly CPAP. (5) GERD (gastroesophageal reflux disease): Current visit: No Status: Chronic Continue H2 micah. She is at risk for significant GI bleed with varices noted on CT related to cirrhosis. (6) Cirrhosis of liver: Current visit: Yes Status: Acute Nonalcoholic, secondary to steatohepatitis. I am adjusting her diuretics as above. (7) History of pulmonary embolism: Current visit: No Status: Chronic On chronic anticoagulation with Coumadin was hold due to prior supratherapeutic INR, restarted yesterday at 2.5 mg as INR back in therapeutic range. INR trending down so will give 5 mg a day.. (8) DVT prophylaxis: Current visit: Yes Status: Acute Monitor daily INR on Coumadin. Subjective Patient reports: no new complaints, pain is less, tolerating liquids well, tolerating a regular diet and diarrhea; denies blood in stool, nausea, vomiting and shortness of breath Interval history since last seen: Still having epigastric and right upper quadrant pain. She feels the pain more when she has loose stools. Stools are loose and sometimes watery. She has had these off and on for months related to Clostridium difficile infection. She does have a plan fecal transplant with GI as an outpatient, and has been on vancomycin to hold her over per her combat control manager Dr. Huynh. She still feels sweaty at night. The pain with urination has improved since admission. Overall, she is feeling better. Exam Narrative Exam Narrative: General: Patient appears comfortable, not acutely ill or toxic, AAOX3, morbidly obese Neck: Supple CV: Regular, nontachycardic, S1S2, No rubs, murmurs, or gallops. Pulmonary: Clear to auscultation bilaterally, no crackles, wheezing, or rhonchi Abdomen: + Bowel Sounds, soft, obese in contour but nondistended, Right upper quadrant discomfort on plapation, mild discomfort with palpation of epigastric area. Exam somewhat limited secondary to body habitus. Vascular: +1-2 b/l LE edema with chronic hyperpigmentation noted bilaterally, but worse on the left Psych: Normal mood and affect. Objective Objective Clinical Data: Abnormal lab results 05/24/18 05/24/18 Range/Units 07:10 07:10 PT 21.3 H (9.3-10.8) sec Creatinine 1.09 H (0.55-1.02) mg/dL Calcium 8.0 L (8.5-10.1) mg/dL Magnesium 1.7 L (1.8-2.4) mg/dL Vital Signs Temperature 36.2 C L 05/24/18 07:39 Temperature Source Tympanic 05/24/18 07:39 Pulse 62 05/24/18 07:39 Pulse Rhythm Regular 05/24/18 11:49 Pulse 69 05/19/18 19:00 Respiratory Rate 19 05/24/18 07:39 Respiratory Effort 05/24/18 11:49 Respiratory Depth Shallow 05/24/18 11:49 Respiratory Pattern Normal 05/24/18 11:49 Blood Pressure 124/78 05/24/18 07:39 Blood Pressure Mean 54 05/19/18 18:02 Blood Pressure Position Sitting 05/19/18 12:58 Pulse Oximetry 96 05/24/18 08:00 Oxygen Delivery Method Room Air 05/24/18 08:00 Oxygen Flow Rate 0 05/24/18 08:00 Pain Level 9 05/24/18 01:03 Comment 05/21/18 08:56 Intake & Output 05/23/18 05/24/18 05/24/18 23:59 11:59 23:59 Intake Total 862.917 / 045.113 5653 / 1500 Output Total 600 / 600 250 / 250 Balance 862.917 / 862.917 900 / 900 -250 / -250 Intake: IV 132.917 / 132.917 100 / 100 Oral 730 / 730 1400 / 1400 Output: Urine 600 / 600 250 / 250 Other: Urine Color Light Daphney Light Daphney Urine Appearance Clear Clear Clear Urine Odor Normal Normal Comment some pain prior to urination Stool Size Small Stool Characteristics Soft Formed Voiding Methods Bedside Commode Bedside Commode Laboratory Results WBC 5.53 k/cumm (4.4-10.8) D 05/23/18 06:20 RBC 3.93 m/cumm (4.00-5.20) L 05/23/18 06:20 Hgb 12.1 g/dL (12.0-15.5) 05/23/18 06:20 Hct 36.8 % (36.0-46.0) 05/23/18 06:20 MCV 93.6 fL (80-95) 05/23/18 06:20 MCH 30.8 pg (27.0-33.0) 05/23/18 06:20 MCHC 32.9 g/dL (32.0-36.0) 05/23/18 06:20 RDW 17.6 % (11.7-14.6) H 05/23/18 06:20 Plt Count 57 x1000/uL (130-400) L 05/23/18 06:20 MPV 11.0 fL (8.0-11.0) 05/23/18 06:20 Immature Gran % 1.4 05/23/18 06:20 Neutrophils % 52.3 05/23/18 06:20 Lymphocytes % 26.2 05/23/18 06:20 Monocytes % 16.3 05/23/18 06:20 Eosinophils % 3.4 05/23/18 06:20 Basophils % 0.4 05/23/18 06:20 Absolute Neutrophils 2.89 k/cumm (1.2-6.7) 05/23/18 06:20 Band Neutrophils 7.0 % 05/20/18 07:35 Absolute Lymphocytes 1.45 k/cumm (1.2-3.4) 05/23/18 06:20 Absolute Monocytes 0.90 k/cumm (0.11-0.7) H 05/23/18 06:20 Absolute Eosinophils 0.19 k/cumm (0.0-0.7) 05/23/18 06:20 Absolute Basophils 0.02 k/cumm (0.0-0.2) 05/23/18 06:20 Differential Comment Plt morph reviewed 05/22/18 06:30 Atypical Lymphocytes 4 05/20/18 07:35 RBC Morphology See below 05/22/18 06:30 Polychromasia Present 05/22/18 06:30 Poikilocytosis 1+ 05/22/18 06:30 Anisocytosis 1+ 05/22/18 06:30 PT 21.3 sec (9.3-10.8) H 05/24/18 07:10 INR 2.2 (1.0-3.5) 05/24/18 07:10 Sodium 136 mmol/L (136-145) 05/24/18 07:10 Potassium 3.7 mmol/L (3.5-5.1) 05/24/18 07:10 Chloride 105 mmol/L (98-107) 05/24/18 07:10 Carbon Dioxide 27.3 mmol/L (21.0-32.0) 05/24/18 07:10 Anion Gap 3.7 mmol/L (3-11) 05/24/18 07:10 BUN 13 mg/dL (7-18) 05/24/18 07:10 Creatinine 1.09 mg/dL (0.55-1.02) H 05/24/18 07:10 Estimated GFR/1.73 m2 52.11 (mL/min/1.73m2) 05/24/18 07:10 Glucose 91 mg/dL (70-100) 05/24/18 07:10 Calcium 8.0 mg/dL (8.5-10.1) L 05/24/18 07:10 Magnesium 1.7 mg/dL (1.8-2.4) L 05/24/18 07:10 Total Bilirubin 3.2 mg/dL (0.2-1.0) H 05/23/18 06:20 Conjugated Bilirubin 1.85 mg/dL (0.00-0.20) H 05/23/18 06:20 AST 102 U/L (15-37) H 05/23/18 06:20 ALT 47 U/L (12-78) 05/23/18 06:20 Alkaline Phosphatase 118 U/L (46-116) H 05/23/18 06:20 Troponin I 0.03 ng/mL (0.00-0.06) 05/19/18 13:50 NT-Pro-B Natriuret Pep 391 pg/mL (-299) H 05/19/18 13:50 Total Protein 6.2 g/dL (6.4-8.2) L 05/23/18 06:20 Albumin 1.4 g/dL (3.4-5.0) L 05/23/18 06:20 Urine Color Daphney (Yellow) 05/19/18 17:45 Urine Clarity Clear 05/19/18 17:45 Urine pH 6.0 (5-8) 05/19/18 17:45 Ur Specific [place] 1.015 (1.005-1.025) 05/19/18 17:45 Urine Protein 30 mg/dL (Negative) H 05/19/18 17:45 Urine Ketones Negative mg/dL (Negative) 05/19/18 17:45 Urine Blood Large (Negative) H 05/19/18 17:45 Urine Nitrite Negative (Negative) 05/19/18 17:45 Urine Bilirubin Moderate (Negative) H 05/19/18 17:45 Urine Urobilinogen 0.2 EU/dL (Up TO 0.2) 05/19/18 17:45 Ur Leukocyte Esterase Negative (Negative) 05/19/18 17:45 Urine RBC >50 (0-2) H 05/19/18 17:45 Urine WBC 20-50 HPF (0-5) 05/19/18 17:45 Ur Epithelial Cells Negative HPF (Negative) 05/19/18 17:45 Urine Crystals Negative HPF (Negative) 05/19/18 17:45 Urine Bacteria Negative HPF (Negative) 05/19/18 17:45 Urine Casts Negative LPF (Negative) 05/19/18 17:45 Urine Mucus Negative (Negative) 05/19/18 17:45 Urine Other Negative (Negative) 05/19/18 17:45 Ur Culture Indicated? Yes 05/19/18 17:45 Urine Glucose Negative mg/dL (Negative) 05/19/18 17:45 Stool Campylobacter PCR See comments 05/19/18 14:25 Stool Salmonella PCR See comments 05/19/18 14:25 Stool Shigella PCR See comments 05/19/18 14:25 Shiga Toxin (PCR) See comments 05/19/18 14:25
--- NOTE | 2018-05-24 13:34 | PDOC.CMPRO ---
- If Service Date Differs Date of service: 05/24/18 Time of Service: 13:34 Care Management Progress Note S/O: Michelle is sitting up in bed when this chief writer visits this morning. She states that she believes her mom Janie will be in to see her either today or tomorrow for Thanksgiving. Michelle continues to receive IV antibiotics at this time. Reviewed CM role and DC plan with Michelle which remain unchanged at this time. A: 53 year old female admitted 05/19/18 with fever. P: Michelle will discharge home when medically ready per MD. Anticipate patient will discharge with no services and follow up wither her PCP. Michelle will transport via private vehicle with her family. CM will continue to offer support to patient, family, and care team regarding discharge planning and disposition.
[2018-05-24] MEDS: Warfarin 5 MG TAB PO (13:45)
[2018-05-24] MEDS: CIPROFLOXACIN 400 MG/200 ML BAG 200 MG IVPB (13:46)
--- NOTE | 2018-05-24 15:00 | PT.INIE ---
Date of service: 05/24/18 Time of Service: 15:00 PT Notes Inpatient Physical Therapy Evaluation Date: 05/24/18 Referring Doctor: Joey Moon PT Orders: PT CONSULT: strengthening Precautions: Standard precautions Patient Profile/Admitting Diagnosis: Pt is a 53yr old female admitted with fever and abdominal pain PMHX: recurrent c. difficile, asthma, obstructive sleep apnea, morbid obesity, osteoarthritis, lower extremity edema, pulmonary embolism, diastolic heart failure, acute kidney injury, depression, liver cirrhosis, hyperlipidemia, hypokalemia, hypercoagulability disorder, hypokalemia, gastroesophageal reflux disease, tubal ligation Social History/Home Situation: Lives with her mother in a house, 3 steps with railing to enter, one level inside home. Baseline mobility independent gait with FWW, independent with ADLS Equipment Owned/DME: FWW, commode, shower chair Subjective: Pt sitting at edge of bed, states she feels that she has gotten weaker since she has been in the hospital and she would like to increase her strength and mobility so she can return home. Reports her left hip is weak, shares she is short of breath at home but does not use oxygen. Objective: General Observation: IV L UE, edema bilateral LE's Mental Status: A& O x3 Pain: no c/o pain Vital Signs: on room air 02 sats 95% after exertion, pt short of breath, recovers with rest break ROM: Right Upper Extremity: AROM WNL Left Upper Extremity: AROM WNL Right Lower Extremity: AROM WNL Left Lower Extremity: AROM WNL Strength: Right Upper Extremity: 5/5 throughout Left Upper Extremity: 5/5 throughout Right Lower Extremity: 4/5 hip flexion, 5/5 quad, 5/5 DF/PF Left Lower Extremity: 3/5 hip flexion, 5/5 quad, 5/5 DF/PF Bed Mobility/Transfers: Sit-stand: SBA with bariatric FWW Stand-sit: SBA Gait: SBA with bariatric FWW 20ftx2, pt short of breath with exertion, 02 sats 95% on room air. Reports left hip weakness. Pt left at edge of bed at end of session. Balance: Static Sitting: normal Dynamic Sitting: nnormal Static Standing: fair Dynamic Standing: fair Special Tests: Mobility Limitations [facility] Basic Mob[facility] In[facility] Short Form: Raw Score: 18 Standardized Score: 43.63 CMS Score: 46.58% CMS Modifier: CK Informed Consent/Education: Patient instructed in purpose of PT consult and plan of care. Assessment: Pt is a 53yr old female admitted with fever and abdominal pain in setting of recurrent c. difficile, asthma, obstructive sleep apnea, morbid obesity, osteoarthritis, lower extremity edema, pulmonary embolism, diastolic heart failure. Patient presents with the following impairment level findings: dyspnea on exertion, decreased left hip strength, decreased strength with transfers and gait mobility requiring bariatric FWW for gait stability,decreased static and dynamic standing balance. Pt will benefit from skilled therapy intervention in hospital setting for strengthening and progressive mobility training. Anticipate return to home setting when medically cleared. Impairments are contributing to the following functional limitations: AMPAC score CMS Score: 46.58% Patient is assessed as Moderate 62852 complexity based on the following: History: see above Examination:see above Presentation: evolving Decision Making: AMPAC score CMS Score: 46.58% Goals: Goals X1 week 1. Supine-Sit : independent 2. Sit-Supine : independent 3. Sit-Stand : independent with bariatric FWW 4. Stand-Sit : independent 5. Bed-Chair : supervision with bariatric FWW 6. Chair-Bed : supervision with bariatric FWW 7. Gait : SBA with bariatric FWW 50ftx2 8. Stairs: up/down 3 steps with railing, SBA Plan of Care/Treatment Plan: 1-2x/day, 7 days/week x 1 week. Plan of care has been reviewed with the LOGISTICS SPECIALIST providing the service under Physical Therapy direction. Initiate Physical Therapy intervention for strengthening, bed mobility, transfers, gait, stairs, balance training, use of assistive device. DISCHARGE RECOMMENDATIONS: Home, pt has all DME TREATMENT CODE/TIME: 25min IE 1500 G Codes in the area mobility of walking and moving around: current status [id number] -CK; projected status GP [id number]. Discharge status (if discharging) GP [id number] CK based on AMPAC score CMS Score: 46.58% Deb Faust PT.
--- NOTE | 2018-05-24 15:14 | IN_ITS ---
Date of service: 05/24/18 Time of Service: 15:00 PT Notes Inpatient Physical Therapy Evaluation Date: 05/24/18 Referring Doctor: Joey Moon PT Orders: PT CONSULT: strengthening Precautions: Standard precautions Patient Profile/Admitting Diagnosis: Pt is a 53yr old female admitted with fever and abdominal pain PMHX: recurrent c. difficile, asthma, obstructive sleep apnea, morbid obesity, osteoarthritis, lower extremity edema, pulmonary embolism, diastolic heart failure, acute kidney injury, depression, liver cirrhosis, hyperlipidemia, hypokalemia, hypercoagulability disorder, hypokalemia, gastroesophageal reflux disease, tubal ligation Social History/Home Situation: Lives with her mother in a house, 3 steps with railing to enter, one level inside home. Baseline mobility independent gait with FWW, independent with ADLS Equipment Owned/DME: FWW, commode, shower chair Subjective: Pt sitting at edge of bed, states she feels that she has gotten weaker since she has been in the hospital and she would like to increase her strength and mobility so she can return home. Reports her left hip is weak, shares she is short of breath at home but does not use oxygen. Objective: General Observation: IV L UE, edema bilateral LE's Mental Status: A& O x3 Pain: no c/o pain Vital Signs: on room air 02 sats 95% after exertion, pt short of breath, recovers with rest break ROM: Right Upper Extremity: AROM WNL Left Upper Extremity: AROM WNL Right Lower Extremity: AROM WNL Left Lower Extremity: AROM WNL Strength: Right Upper Extremity: 5/5 throughout Left Upper Extremity: 5/5 throughout Right Lower Extremity: 4/5 hip flexion, 5/5 quad, 5/5 DF/PF Left Lower Extremity: 3/5 hip flexion, 5/5 quad, 5/5 DF/PF Bed Mobility/Transfers: Sit-stand: SBA with bariatric FWW Stand-sit: SBA Gait: SBA with bariatric FWW 20ftx2, pt short of breath with exertion, 02 sats 95% on room air. Reports left hip weakness. Pt left at edge of bed at end of session. Balance: Static Sitting: normal Dynamic Sitting: nnormal Static Standing: fair Dynamic Standing: fair Special Tests: Mobility Limitations [facility] Mob[facility] In[facility] Short Form: Raw Score: 18 Standardized Score: 43.63 CMS Score: 46.58% CMS Modifier: CK Informed Consent/Education: Patient instructed in purpose of PT consult and plan of care. Assessment: Pt is a 53yr old female admitted with fever and abdominal pain in setting of recurrent c. difficile, asthma, obstructive sleep apnea, morbid obesity, osteoarthritis, lower extremity edema, pulmonary embolism, diastolic heart failure. Patient presents with the following impairment level findings: dyspnea on exertion, decreased left hip strength, decreased strength with transfers and gait mobility requiring bariatric FWW for gait stability, decreased static and dynamic standing balance. Pt will benefit from skilled therapy intervention in hospital setting for strengthening and progressive mobility training. Anticipate return to home setting when medically cleared. Impairments are contributing to the following functional limitations: AMPAC score CMS Score: 46.58% Patient is assessed as Moderate 48180 complexity based on the following: History: see above Examination:see above Presentation: evolving Decision Making: AMPAC score CMS Score: 46.58% Goals: Goals X1 week 1. Supine-Sit : independent 2. Sit-Supine : independent 3. Sit-Stand : independent with bariatric FWW 4. Stand-Sit : independent 5. Bed-Chair : supervision with bariatric FWW 6. Chair-Bed : supervision with bariatric FWW 7. Gait : SBA with bariatric FWW 50ftx2 8. Stairs: up/down 3 steps with railing, SBA Plan of Care/Treatment Plan: 1-2x/day, 7 days/week x 1 week. Plan of care has been reviewed with the MARKETING DIRECTOR ASSISTED LIVING providing the service under Physical Therapy direction. Initiate Physical Therapy intervention for strengthening, bed mobility, transfers, gait, stairs, balance training, use of assistive device. DISCHARGE RECOMMENDATIONS: Home, pt has all DME TREATMENT CODE/TIME: 25min IE 1500 G Codes in the area mobility of walking and moving around: current status [id number] -CK; projected status GP [id number]. Discharge status (if discharging) GP [id number] CK based on AMPAC score CMS Score: 46.58% Deb Faust PT.
[2018-05-24 16:27] VITALS: BP 145/73; PULSE 58; RESP 20; TEMP 35.8; O2SAT 97
[2018-05-24] MEDS: Spironolactone 25 MG TAB 50 MG PO (19:37)
[2018-05-24] MEDS: Simvastatin 40 MG TAB PO (19:37)
[2018-05-24] MEDS: Melatonin 3 MG TAB 21 MG PO (21:25)
--- NOTE | 2018-05-25 01:25 | NUR.NOTE ---
Nursing Note: Pt was found by HEAD WORKER having a nose bleed. The HEAD WORKER notified the nurse. This marine underwriter went to assess the patient and found the front of the patient's gown covered in blood and the patient holding pressure to her nose. This marine underwriter switched tissues and held pressure to the patient's nose while doing so, it was noticed the blood was coming out of the tear duct of the right eye. Pressure was held for 5 minutes. when reassessed the patient's nose immediately started bleeding again, blood was no longer coming out of her tear duct. Pressure was then held for 10 minutes. When reassessed patients nose started bleeding after about 2 minutes with no pressure. Pressure was held for 15 minutes with ice. When reassessed patient's nose had stopped bleeding. Will continue to monitor.
[2018-05-25] MEDS: CIPROFLOXACIN 400 MG/200 ML BAG 200 MG IVPB ×2 (02:23→14:11)
[2018-05-25] MEDS: Normal Saline Flush 10 ML SYR IVP (02:24)
[2018-05-25 02:41] VITALS: BP 123/53; PULSE 67; RESP 20; TEMP 36.9; O2SAT 94
[2018-05-25 07:15] VITALS: O2SAT 95
[2018-05-25] MEDS: Budesonide/Formoterol 160/4.5 6 GM 60 PUFF INH IH ×2 (07:15→20:18)
[2018-05-25 07:29] LABS: INR 2.2 (1.0-3.5); Prothrombin Time 20.6 sec (9.3-10.8)
--- NOTE | 2018-05-25 07:52 | CMPROGNOTE_ITS ---
Care Management Progress Note S/O: Michelle is up ambulating with use of FWW, she reports looking forward to seeing family today for Thanksgiving; she remains on IV ABX at this time. Per MD she could be ready for discharge as soon as tomorrow. No change to overall plan. A: 53 year old female admitted to [facility] 05/19/18 with fever. P: Michelle will discharge back to her mother's home when medically ready per MD. She will resume community based supports and follow up wither her PCP. Michelle will transport via private vehicle with her family. will continue to offer support to patient, family, and care team regarding discharge planning and disposition.
[2018-05-25 09:10] VITALS: BP 134/63; PULSE 60; RESP 20; TEMP 36.8; O2SAT 97
[2018-05-25] MEDS: Spironolactone 25 MG TAB 50 MG PO ×2 (09:31→16:18)
[2018-05-25] MEDS: Potassium Chloride 20 MEQ TABCR PO (09:31)
[2018-05-25] MEDS: Lactobacillus Acidophilus CAP 1 CAP PO ×3 (09:31→20:17)
[2018-05-25] MEDS: Vancomycin 125 MG CAP PO ×4 (09:31→20:18)
[2018-05-25] MEDS: Oxybutynin-CR 5 MG TABCR 10 MG PO (09:31)
[2018-05-25] MEDS: Escitalopram 20 MG TAB PO (09:31)
[2018-05-25] MEDS: Furosemide 40 MG TAB PO (09:31)
[2018-05-25] MEDS: Topiramate 25 MG TAB 50 MG PO ×2 (09:32→20:18)
[2018-05-25] MEDS: Magnesium Oxide 400 MG TAB PO ×2 (09:32→20:17)
--- NOTE | 2018-05-25 12:54 | W.PM.PROGNOT ---
Date of Service Date of service: 05/25/18 Time of Service: 12:54 Assessment and Plan (1) Fever: Current visit: No Status: Acute Urine and blood cultures growing Proteus, now status post 1 day off of cefepime. Decided to treat with ciprofloxacin given history of reaction to cephalexin. Given blood infection, I will continue IV, though we may be able to finish the course orally with the floroquinolone given its oral bioavailability. Will review with ID before making this long-term plan. Does appear she is continuing to improve on this, repeat white count tomorrow. I do think the source was urinary given her presentation and a typical organism on the cultures. (2) Acute abdominal pain: Current visit: No Status: Acute Multiple modalities of imaging do not suggest cholecystitis. CT scan did not suggest ischemic bowel, abscess, active colitis, or other acute inflammatory process in the right upper quadrant, and she did not have a white count. Continue to monitor. She is improving. (3) Chronic diastolic heart failure: Current visit: No Status: Chronic Back on furosemide and increased dose of spironolactone to help with hypokalemia. She is diuresing well according to ends and outs, so though I see more signs of edema today we will not adjust her medication, other than change the timing of the spironolactone to earlier in the afternoon as it does appear to be causing a notable diuresis. Follow BMP tomorrow. (4) LUDY (obstructive sleep apnea): Current visit: No Status: Chronic Continue nightly CPAP. (5) GERD (gastroesophageal reflux disease): Current visit: No Status: Chronic Continue H2 micah. She is at risk for significant GI bleed with varices noted on CT related to cirrhosis. (6) Cirrhosis of liver: Current visit: Yes Status: Acute Nonalcoholic, secondary to steatohepatitis. Continue diuretics as above. (7) History of pulmonary embolism: Current visit: No Status: Chronic On chronic anticoagulation with Coumadin, was held due to prior supratherapeutic INR, restarted 05/23 at 2.5 mg as INR back in therapeutic range. She did have a nosebleed, but it was self-limited. Will give 5 mg a day as this does maintain her INR yesterday. We will have to be careful with her INR while on ciprofloxacin. (8) Rash: Current visit: Yes Status: Acute Unclear cause. Does not appear to be cellulitis or thrombophlebitis. Localized currently, may have been local exposure. Will monitor, if spreads consider allergic reaction to ciprofloxacin. He also has Candidal infection in her pannus, will give nystatin. (9) DVT prophylaxis: Current visit: Yes Status: Acute Monitor daily INR on Coumadin. Subjective Patient reports: pain is less and tolerating a regular diet; denies nausea, vomiting, shortness of breath and fever Interval history since last seen: Still having abdominal pain across the epigastrium, but it is a little better. No longer with pain with urination. Her stools are still loose, but better than when she came in. No fevers, but still some sweats at night. This has not gotten worse over the past day. She just noticed this morning rash on her right forearm. It seemed to start while she was leaning on it on the tray. It felt a little wet, then she saw some redness, but she does not think she got something on her skin. She also mentions a rash in her left pannus and the pain is feeling a little harder. She would like to not have to take her diuretic before bed. She did have a nosebleed this morning. The IV line in her left arm also feels a little sore, especially when occasions going in. Exam Narrative Exam Narrative: General: Patient appears comfortable, not acutely ill or toxic, AAOX3, morbidly obese CV: Regular, nontachycardic, S1S2, No rubs, murmurs, or gallops. Pulmonary: Clear to auscultation bilaterally, no crackles, wheezing, or rhonchi Abdomen: + Bowel Sounds, soft, obese in contour but nondistended, less right upper quadrant to epigastric discomfort on palpation. Vascular: +2 b/l LE edema with chronic hyperpigmentation noted bilaterally, but worse on the left with some weeping the left bailey and some edema noted in the pannus. Skin: [place] to red patch beneath left side of pannus. Blanching pink nonpalpable patch on ulnar aspect of right forearm extending just proximal to elbow on medial aspect of arm. No cords or associated lymphadenopathy. Not tender. Psych: Normal mood and affect. Objective Objective Clinical Data: Abnormal lab results 05/25/18 Range/Units 07:00 PT 20.6 H (9.3-10.8) sec Vital Signs Temperature 36.8 C 05/25/18 09:10 Temperature Source Tympanic 05/25/18 09:10 Pulse 60 05/25/18 09:10 Pulse Rhythm Regular 05/25/18 11:15 Pulse 69 05/19/18 19:00 Respiratory Rate 20 05/25/18 09:10 Respiratory Effort 05/25/18 11:15 Respiratory Depth Shallow 05/25/18 11:15 Respiratory Pattern Normal 05/25/18 11:15 Blood Pressure 134/63 05/25/18 09:10 Blood Pressure Mean 54 05/19/18 18:02 Blood Pressure Position Sitting 05/19/18 12:58 Pulse Oximetry 97 05/25/18 09:10 Oxygen Delivery Method Room Air 05/25/18 09:10 Oxygen Flow Rate 0 05/25/18 09:10 Pain Level 9 05/25/18 10:57 Comment 05/21/18 08:56 Intake & Output 05/24/18 05/25/18 05/25/18 23:59 11:59 23:59 Intake Total 1290 / 1290 Output Total 1750 / 1750 2450 / 2450 Balance -460 / -460 -2450 / -2450 Intake: IV 300 / 300 Oral 990 / 990 Output: Urine 1750 / 1750 2450 / 2450 Other: Urine Color Light Daphney Dark Daphney Urine Appearance Clear Clear Urine Odor Normal Strong Comment patient self toilets flushes before it can be measured more in the toilet un measured Stool Size Small Small Stool Characteristics Soft Soft Formed Formed Voiding Methods Bedside Commode Toilet Laboratory Results WBC 5.53 k/cumm (4.4-10.8) D 05/23/18 06:20 RBC 3.93 m/cumm (4.00-5.20) L 05/23/18 06:20 Hgb 12.1 g/dL (12.0-15.5) 05/23/18 06:20 Hct 36.8 % (36.0-46.0) 05/23/18 06:20 MCV 93.6 fL (80-95) 05/23/18 06:20 MCH 30.8 pg (27.0-33.0) 05/23/18 06:20 MCHC 32.9 g/dL (32.0-36.0) 05/23/18 06:20 RDW 17.6 % (11.7-14.6) H 05/23/18 06:20 Plt Count 57 x1000/uL (130-400) L 05/23/18 06:20 MPV 11.0 fL (8.0-11.0) 05/23/18 06:20 Immature Gran % 1.4 05/23/18 06:20 Neutrophils % 52.3 05/23/18 06:20 Lymphocytes % 26.2 05/23/18 06:20 Monocytes % 16.3 05/23/18 06:20 Eosinophils % 3.4 05/23/18 06:20 Basophils % 0.4 05/23/18 06:20 Absolute Neutrophils 2.89 k/cumm (1.2-6.7) 05/23/18 06:20 Band Neutrophils 7.0 % 05/20/18 07:35 Absolute Lymphocytes 1.45 k/cumm (1.2-3.4) 05/23/18 06:20 Absolute Monocytes 0.90 k/cumm (0.11-0.7) H 05/23/18 06:20 Absolute Eosinophils 0.19 k/cumm (0.0-0.7) 05/23/18 06:20 Absolute Basophils 0.02 k/cumm (0.0-0.2) 05/23/18 06:20 Differential Comment Plt morph reviewed 05/22/18 06:30 Atypical Lymphocytes 4 05/20/18 07:35 RBC Morphology See below 05/22/18 06:30 Polychromasia Present 05/22/18 06:30 Poikilocytosis 1+ 05/22/18 06:30 Anisocytosis 1+ 05/22/18 06:30 PT 20.6 sec (9.3-10.8) H 05/25/18 07:00 INR 2.2 (1.0-3.5) 05/25/18 07:00 Sodium 136 mmol/L (136-145) 05/24/18 07:10 Potassium 3.7 mmol/L (3.5-5.1) 05/24/18 07:10 Chloride 105 mmol/L (98-107) 05/24/18 07:10 Carbon Dioxide 27.3 mmol/L (21.0-32.0) 05/24/18 07:10 Anion Gap 3.7 mmol/L (3-11) 05/24/18 07:10 BUN 13 mg/dL (7-18) 05/24/18 07:10 Creatinine 1.09 mg/dL (0.55-1.02) H 05/24/18 07:10 Estimated GFR/1.73 m2 52.11 (mL/min/1.73m2) 05/24/18 07:10 Glucose 91 mg/dL (70-100) 05/24/18 07:10 Calcium 8.0 mg/dL (8.5-10.1) L 05/24/18 07:10 Magnesium 1.7 mg/dL (1.8-2.4) L 05/24/18 07:10 Total Bilirubin 3.2 mg/dL (0.2-1.0) H 05/23/18 06:20 Conjugated Bilirubin 1.85 mg/dL (0.00-0.20) H 05/23/18 06:20 AST 102 U/L (15-37) H 05/23/18 06:20 ALT 47 U/L (12-78) 05/23/18 06:20 Alkaline Phosphatase 118 U/L (46-116) H 05/23/18 06:20 Troponin I 0.03 ng/mL (0.00-0.06) 05/19/18 13:50 NT-Pro-B Natriuret Pep 391 pg/mL (-299) H 05/19/18 13:50 Total Protein 6.2 g/dL (6.4-8.2) L 05/23/18 06:20 Albumin 1.4 g/dL (3.4-5.0) L 05/23/18 06:20 Urine Color Daphney (Yellow) 05/19/18 17:45 Urine Clarity Clear 05/19/18 17:45 Urine pH 6.0 (5-8) 05/19/18 17:45 Ur Specific [place] 1.015 (1.005-1.025) 05/19/18 17:45 Urine Protein 30 mg/dL (Negative) H 05/19/18 17:45 Urine Ketones Negative mg/dL (Negative) 05/19/18 17:45 Urine Blood Large (Negative) H 05/19/18 17:45 Urine Nitrite Negative (Negative) 05/19/18 17:45 Urine Bilirubin Moderate (Negative) H 05/19/18 17:45 Urine Urobilinogen 0.2 EU/dL (Up TO 0.2) 05/19/18 17:45 Ur Leukocyte Esterase Negative (Negative) 05/19/18 17:45 Urine RBC >50 (0-2) H 05/19/18 17:45 Urine WBC 20-50 HPF (0-5) 05/19/18 17:45 Ur Epithelial Cells Negative HPF (Negative) 05/19/18 17:45 Urine Crystals Negative HPF (Negative) 05/19/18 17:45 Urine Bacteria Negative HPF (Negative) 05/19/18 17:45 Urine Casts Negative LPF (Negative) 05/19/18 17:45 Urine Mucus Negative (Negative) 05/19/18 17:45 Urine Other Negative (Negative) 05/19/18 17:45 Ur Culture Indicated? Yes 05/19/18 17:45 Urine Glucose Negative mg/dL (Negative) 05/19/18 17:45 Stool Campylobacter PCR See comments 05/19/18 14:25 Stool Salmonella PCR See comments 05/19/18 14:25 Stool Shigella PCR See comments 05/19/18 14:25 Shiga Toxin (PCR) See comments 05/19/18 14:25
[2018-05-25] MEDS: Warfarin 5 MG TAB PO (14:12)
[2018-05-25 15:58] VITALS: BP 150/72; PULSE 60; RESP 20; TEMP 36.5; O2SAT 97
[2018-05-25] MEDS: Nystatin POWDER 60 GM JAR TP ×2 (16:18→20:18)
--- NOTE | 2018-05-25 17:24 | NUR.NOTE ---
Nursing Note: patient has 3 concerns today, first about 1030 patient presents with a nose bleed it takes with direct pressure and ice , about 12 minutes to control the bleeding. patient did get a now dose 5 mg warfarin sodium on the 21. this was brought to the providers attention. Also prior to lunch, she started to present with a rash on her right arm. Her allergies and new medications received were checked, and the question of the reaction to cipro was brought to the providers attention. the provider wants to continue cipro and monitor the rash, and he felt with patient s medical history the nose bleed would be self limiting and worth with patients hx of pe. Patient also questioned if her pain medication could be changed from MS to either APAP or motrin. She has had a family hx of addiction and expresses concern. due to hx of cirrohis of the liver apap would not be ordered, provider will be asked about the motrin
[2018-05-25 19:30] VITALS: BP 112/68; PULSE 59; RESP 20; TEMP 37; O2SAT 97
[2018-05-25] MEDS: Simvastatin 40 MG TAB PO (20:18)
[2018-05-26] VITALS: BP 115/67; PULSE 69; RESP 19; TEMP 37; O2SAT 92
[2018-05-26] MEDS: Normal Saline Flush 10 ML SYR IVP ×3 (00:21→14:36)
[2018-05-26] MEDS: CIPROFLOXACIN 400 MG/200 ML BAG 200 MG IVPB (02:10)
[2018-05-26 07:45] VITALS: BP 130/83; PULSE 55; RESP 20; TEMP 36.8; O2SAT 96
[2018-05-26 07:57] LABS: Abs Immature Grans 0.21 k/cumm (0.0-0.09); HCT 35.1 % (36.0-46.0); HGB 11.3 g/dL (12.0-15.5); Mean Corp. HGB Concentration 32.2 g/dL (32.0-36.0); Mean Corpuscular Volume 96.2 fL (80-95); Mean Platelet Volume 10.1 fL (8.0-11.0); Platelet Count 92 x1000/uL (130-400); RBC 3.65 m/cumm (4.00-5.20); RBC Distribution Width 17.5 % (11.7-14.6); White Blood Cell Count 6.95 k/cumm (4.4-10.8)
[2018-05-26 08:05] LABS: INR 2.7 (1.0-3.5); Prothrombin Time 25.9 sec (9.3-10.8)
[2018-05-26 08:24] LABS: ALT 57 U/L (12-78); AST 119 U/L (15-37); Albumin 1.4 g/dL (3.4-5.0); Alkaline Phosphatase 115 U/L (46-116); Anion Gap 5.7 mmol/L (3-11); BUN 13 mg/dL (7-18); Bilirubin, Total 2.8 mg/dL (0.2-1.0); CO2 27.3 mmol/L (21.0-32.0); CREATININE 1.05 mg/dL (0.55-1.02); Chloride 106 mmol/L (98-107); Estimated GFR 54.41 (mL/min/1.73m2); Glucose 71 mg/dL (70-100); Magnesium 1.6 mg/dL (1.8-2.4); Potassium 3.7 mmol/L (3.5-5.1); Sodium 139 mmol/L (136-145); Total Protein 6.4 g/dL (6.4-8.2)
[2018-05-26 08:26] LABS: Absolute Eosinophil Count 0.42 k/cumm (0.0-0.7); Absolute Lymphocyte Count 1.39 k/cumm (1.2-3.4); Absolute Monocyte Count 0.49 k/cumm (0.11-0.7); Absolute Neutrophil Count 4.45 k/cumm (1.2-6.7); Atypical Lymphocytes % 1
[2018-05-26 08:27] LABS: Diff Comment Manual Differential
[2018-05-26 08:28] LABS: Anisocytosis 3+; Poikilocytes 1+
[2018-05-26] MEDS: Escitalopram 20 MG TAB PO (09:07)
[2018-05-26] MEDS: Magnesium Oxide 400 MG TAB PO ×2 (09:07→19:45)
[2018-05-26] MEDS: Nystatin POWDER 60 GM JAR TP ×3 (09:07→19:45)
[2018-05-26] MEDS: Spironolactone 25 MG TAB 50 MG PO ×2 (09:08→15:04)
[2018-05-26] MEDS: Oxybutynin-CR 5 MG TABCR 10 MG PO (09:08)
[2018-05-26] MEDS: Furosemide 40 MG TAB PO (09:08)
[2018-05-26] MEDS: Topiramate 25 MG TAB 50 MG PO ×2 (09:08→19:45)
[2018-05-26] MEDS: Lactobacillus Acidophilus CAP 1 CAP PO ×3 (09:08→19:45)
[2018-05-26] MEDS: Vancomycin 125 MG CAP PO ×4 (09:08→19:45)
[2018-05-26] MEDS: Potassium Chloride 20 MEQ TABCR PO (09:09)
[2018-05-26] MEDS: Budesonide/Formoterol 160/4.5 6 GM 60 PUFF INH IH ×2 (09:53→19:46)
--- NOTE | 2018-05-26 09:53 | PT.INTREAT ---
Date of service: 05/26/18 Time of Service: 09:30 PT Notes Inpatient Physical Therapy Treatment Note Date: 05/26/18 PRECAUTIONS: standard precautions SUBJECTIVE: Pt lying in bed, states she has been getting up to bathroom with nursing with walker. Reports she feels stronger today. OBJECTIVE: PAIN: no c/o pain BED MOBILITY/TRANSFERS Rolling L/R: independent Supine-sit: independent Sit-stand: independent with bariatric FWW Stand-sit: independent GAIT Assistive Device: bariatric FWW Assist: supervision Distance: 50ftx2 Deviation: steady step through gait pattern, no loss of balance. No shortness of breath with exertion. Pt instructed in pacing and energy conservation techniques with activity, pt applied them without difficulty. Pt returned to room and sitting at edge of bed, prefers to sit at bedside. RT in room with patient. THEREX: Performed ankle pumps x 20 reps, LAQ and hip flexion x 10 reps. Pt tires easily with therex due to LE weakness 2nd deconditioning, particularly left hip. Will benefit from continued strengthening. ASSESSMENT: Pt performing transfers independently with use of bariatric FWW, progressed gait distance with no shortness of breath on room air. PLAN: Progress gait distance Progress strengthening Progress to stair training TREATMENT CODE/TIME: 24 TAx1 TP x1 9:30 Deb Faust PT
--- NOTE | 2018-05-26 11:18 | W.PM.PROGNOT ---
Date of Service Date of service: 05/26/18 Time of Service: 11:00 Assessment and Plan (1) Urinary tract infection: Current visit: Yes Status: Acute Urine and blood cultures both positive for 2 strains Proteus mirabilis both sensitive to Cipro day 3 which she has been down stepped to. She has remained fever free with normal white count. (2) Cirrhosis of liver: Current visit: Yes Status: Acute Stable (3) DVT prophylaxis: Current visit: Yes Status: Acute Is fully anticoagulated on Coumadin (4) Rash: Current visit: Yes Status: Acute Improved, will continue to monitor (5) Clostridium difficile colitis: Current visit: No Status: Acute Continue oral vancomycin, no diarrhea (6) GERD (gastroesophageal reflux disease): Current visit: No Status: Chronic Stable on ranitidine (7) History of pulmonary embolism: Current visit: No Status: Chronic Continue Coumadin will decrease dose and closely follow INR while on Cipro (8) Acute abdominal pain: Current visit: No Status: Acute Is tolerating a regular diet. Abdominal exam is benign. 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 Her antibiotics have been narrowed to cipro. she is tolerating oral fluids and food. hemodynamically she has been stable, with no ongoing fevers. white count remains normal. she has had some nose bleeds overnight, states she gets them intermittently. has improved with moisture. no new c/o Exam Const General: cooperative and no acute distress Nutritional Appearance: obese Orientation: alert, awake and oriented x3 HENOK Mouth: moist mucous membranes Chest Chest: normal inspection of the chest Resp Effort & Inspection: normal respiratory effort Auscultation: clear to auscultation bilaterally Cardio Rate: regular rate Rhythm: regular rhythm GI Palpation: soft Auscultation: normal bowel sounds Skin General skin exam: no rashes or lesions noted Neuro General: alert, awake and oriented x3 Cognition: normal cognition Speech: speech normal Extrem General: normal to inspection and full ROM Objective Objective Clinical Data: Abnormal lab results 05/26/18 05/26/18 05/26/18 Range/Units 06:20 06:20 06:20 RBC 3.65 L (4.00-5.20) m/cumm Hgb 11.3 L (12.0-15.5) g/dL Hct 35.1 L (36.0-46.0) % MCV 96.2 H (80-95) fL RDW 17.5 H (11.7-14.6) % Plt Count 92 L D (130-400) x1000/uL PT 25.9 H (9.3-10.8) sec Creatinine 1.05 H (0.55-1.02) mg/dL Calcium 8.0 L (8.5-10.1) mg/dL Magnesium 1.6 L (1.8-2.4) mg/dL Total Bilirubin 2.8 H (0.2-1.0) mg/dL AST 119 H (15-37) U/L Albumin 1.4 L (3.4-5.0) g/dL Vital Signs Temperature 36.8 C 05/26/18 07:45 Temperature Source Tympanic 05/26/18 07:45 Pulse 55 L 05/26/18 07:45 Pulse Rhythm Regular 05/25/18 19:44 Pulse 69 05/19/18 19:00 Respiratory Rate 20 05/26/18 07:45 Respiratory Effort Non-Labored 05/25/18 19:44 Respiratory Depth Normal 05/25/18 19:44 Respiratory Pattern Normal 05/25/18 19:44 Blood Pressure 130/83 05/26/18 07:45 Blood Pressure Mean 54 05/19/18 18:02 Blood Pressure Position Sitting 05/19/18 12:58 Pulse Oximetry 96 05/26/18 07:45 Oxygen Delivery Method Room Air 05/26/18 07:45 Oxygen Flow Rate 0 05/26/18 07:45 Pain Level 0 05/26/18 07:45 Comment 05/21/18 08:56 Intake & Output 05/25/18 05/25/18 05/26/18 11:59 23:59 11:59 Intake Total 560 / 560 1080 / 1080 1290 / 1290 Output Total 2450 / 2450 700 / 700 2150 / 2150 Balance -1890 / -1890 380 / 380 -860 / -860 Intake: IV 200 / 200 200 / 200 200 / 200 Oral 360 / 360 880 / 880 1090 / 1090 Output: Urine 2450 / 2450 700 / 700 2150 / 2150 Other: Urine Color Dark Daphney Straw Straw Urine Appearance Clear Clear Clear Urine Odor Strong Normal Comment more in the toilet un measured Stool Size Small Large Stool Characteristics Soft Soft Formed Liquid Voiding Methods Toilet Toilet Bedside Commode Bedside Commode Laboratory Results WBC 6.95 k/cumm (4.4-10.8) 05/26/18 06:20 RBC 3.65 m/cumm (4.00-5.20) L 05/26/18 06:20 Hgb 11.3 g/dL (12.0-15.5) L 05/26/18 06:20 Hct 35.1 % (36.0-46.0) L 05/26/18 06:20 MCV 96.2 fL (80-95) H 05/26/18 06:20 MCH 31.0 pg (27.0-33.0) 05/26/18 06:20 MCHC 32.2 g/dL (32.0-36.0) 05/26/18 06:20 RDW 17.5 % (11.7-14.6) H 05/26/18 06:20 Plt Count 92 x1000/uL (130-400) L D 05/26/18 06:20 MPV 10.1 fL (8.0-11.0) 05/26/18 06:20 Immature Gran % See Differential 05/26/18 06:20 Neutrophils % 61.0 05/26/18 06:20 Lymphocytes % 19.0 05/26/18 06:20 Monocytes % 7.0 05/26/18 06:20 Eosinophils % 6.0 05/26/18 06:20 Basophils % 0.0 05/26/18 06:20 Absolute Neutrophils 4.45 k/cumm (1.2-6.7) 05/26/18 06:20 Band Neutrophils 3.0 % 05/26/18 06:20 Absolute Lymphocytes 1.39 k/cumm (1.2-3.4) 05/26/18 06:20 Absolute Monocytes 0.49 k/cumm (0.11-0.7) 05/26/18 06:20 Absolute Eosinophils 0.42 k/cumm (0.0-0.7) 05/26/18 06:20 Absolute Basophils 0.00 k/cumm (0.0-0.2) 05/26/18 06:20 Metamyelocytes 3.0 % 05/26/18 06:20 Differential Comment Manual differential 05/26/18 06:20 Atypical Lymphocytes 1 05/26/18 06:20 RBC Morphology See below 05/26/18 06:20 Polychromasia Present 05/22/18 06:30 Poikilocytosis 1+ 05/26/18 06:20 Anisocytosis 3+ 05/26/18 06:20 PT 25.9 sec (9.3-10.8) H 05/26/18 06:20 INR 2.7 (1.0-3.5) 05/26/18 06:20 Sodium 139 mmol/L (136-145) 05/26/18 06:20 Potassium 3.7 mmol/L (3.5-5.1) 05/26/18 06:20 Chloride 106 mmol/L (98-107) 05/26/18 06:20 Carbon Dioxide 27.3 mmol/L (21.0-32.0) 05/26/18 06:20 Anion Gap 5.7 mmol/L (3-11) 05/26/18 06:20 BUN 13 mg/dL (7-18) 05/26/18 06:20 Creatinine 1.05 mg/dL (0.55-1.02) H 05/26/18 06:20 Estimated GFR/1.73 m2 54.41 (mL/min/1.73m2) 05/26/18 06:20 Glucose 71 mg/dL (70-100) 05/26/18 06:20 Calcium 8.0 mg/dL (8.5-10.1) L 05/26/18 06:20 Magnesium 1.6 mg/dL (1.8-2.4) L 05/26/18 06:20 Total Bilirubin 2.8 mg/dL (0.2-1.0) H 05/26/18 06:20 Conjugated Bilirubin 1.85 mg/dL (0.00-0.20) H 05/23/18 06:20 AST 119 U/L (15-37) H 05/26/18 06:20 ALT 57 U/L (12-78) 05/26/18 06:20 Alkaline Phosphatase 115 U/L (46-116) 05/26/18 06:20 Troponin I 0.03 ng/mL (0.00-0.06) 05/19/18 13:50 NT-Pro-B Natriuret Pep 391 pg/mL (-299) H 05/19/18 13:50 Total Protein 6.4 g/dL (6.4-8.2) 05/26/18 06:20 Albumin 1.4 g/dL (3.4-5.0) L 05/26/18 06:20 Urine Color Daphney (Yellow) 05/19/18 17:45 Urine Clarity Clear 05/19/18 17:45 Urine pH 6.0 (5-8) 05/19/18 17:45 Ur Specific [place] 1.015 (1.005-1.025) 05/19/18 17:45 Urine Protein 30 mg/dL (Negative) H 05/19/18 17:45 Urine Ketones Negative mg/dL (Negative) 05/19/18 17:45 Urine Blood Large (Negative) H 05/19/18 17:45 Urine Nitrite Negative (Negative) 05/19/18 17:45 Urine Bilirubin Moderate (Negative) H 05/19/18 17:45 Urine Urobilinogen 0.2 EU/dL (Up TO 0.2) 05/19/18 17:45 Ur Leukocyte Esterase Negative (Negative) 05/19/18 17:45 Urine RBC >50 (0-2) H 05/19/18 17:45 Urine WBC 20-50 HPF (0-5) 05/19/18 17:45 Ur Epithelial Cells Negative HPF (Negative) 05/19/18 17:45 Urine Crystals Negative HPF (Negative) 05/19/18 17:45 Urine Bacteria Negative HPF (Negative) 05/19/18 17:45 Urine Casts Negative LPF (Negative) 05/19/18 17:45 Urine Mucus Negative (Negative) 05/19/18 17:45 Urine Other Negative (Negative) 05/19/18 17:45 Ur Culture Indicated? Yes 05/19/18 17:45 Urine Glucose Negative mg/dL (Negative) 05/19/18 17:45 Stool Campylobacter PCR See comments 05/19/18 14:25 Stool Salmonella PCR See comments 05/19/18 14:25 Stool Shigella PCR See comments 05/19/18 14:25 Shiga Toxin (PCR) See comments 05/19/18 14:25
[2018-05-26] MEDS: MAGNESIUM SULFATE 2 GM/50 ML BAG IVPB (12:07)
--- NOTE | 2018-05-26 14:30 | PT.INNT ---
Date of service: 05/26/18 Time of Service: 14:30 PT Notes PHYSICAL THERAPY NOTE 05/26/18 Attempted to see for therapy session, pt in bed sleeping soundly, did not disturb. Will continue therapy 05/27. Deb Faust PT
--- NOTE | 2018-05-26 15:14 | PDOC.CMPRO ---
- If Service Date Differs Date of service: 05/26/18 Time of Service: 15:14 Care Management Progress Note S/O: Michelle is doing well when this mortgage underwriter visits this afternoon. CM spoke with OLIMPIA Levine, whom states that Michelle has transitioned to PO Cipro and will potentially be ready to DC home tomorrow. Michelle states that her mom Janie will be caring for her at time of DC, and she is calling her today to alert her that she will potentially be ready for DC tomorrow. A: 53 year old female admitted to [facility] 05/19/18 with fever. P: Michelle will discharge back to her mother's home when medically ready per MD. She will resume community based supports and follow up wither her PCP. Michelle will transport via private vehicle with her family. CM will continue to offer support to patient, family, and care team regarding discharge planning and disposition.
--- NOTE | 2018-05-26 15:22 | CMPROGNOTE_ITS ---
- If Service Date Differs Date of service: 05/26/18 Time of Service: 15:14 Care Management Progress Note S/O: Michelle is doing well when this principal technical writer visits this afternoon. CM spoke with OLIMPIA Levine, whom states that Michelle has transitioned to PO Cipro and will potentially be ready to DC home tomorrow. Michelle states that her mom Janie will be caring for her at time of DC, and she is calling her today to alert her that she will potentially be ready for DC tomorrow. A: 53 year old female admitted to [facility] 05/19/18 with fever. P: Michelle will discharge back to her mother's home when medically ready per MD. She will resume community based supports and follow up wither her PCP. Michelle will transport via private vehicle with her family. CM will continue to offer support to patient, family, and care team regarding discharge planning and disposition.
[2018-05-26 16:35] VITALS: BP 132/69; PULSE 59; RESP 20; TEMP 37; O2SAT 98
[2018-05-26] MEDS: Simvastatin 40 MG TAB PO (19:45)
[2018-05-26] MEDS: Ciprofloxacin 500 MG TAB PO (19:45)
[2018-05-26] MEDS: Melatonin 3 MG TAB 21 MG PO (22:32)
[2018-05-27 04:27] VITALS: BP 132/72; PULSE 61; RESP 20; TEMP 37; O2SAT 94
[2018-05-27] MEDS: Normal Saline Flush 10 ML SYR IVP ×2 (05:00→08:16)
[2018-05-27 07:35] LABS: Abs Immature Grans 0.15 k/cumm (0.0-0.09); Absolute Basophil Count 0.05 k/cumm (0.0-0.2); Absolute Eosinophil Count 0.24 k/cumm (0.0-0.7); Absolute Lymphocyte Count 1.31 k/cumm (1.2-3.4); Absolute Monocyte Count 1.04 k/cumm (0.11-0.7); Absolute Neutrophil Count 5.43 k/cumm (1.2-6.7); Basophils % 0.6; Eosinophils % 2.9; HCT 33.4 % (36.0-46.0); HGB 10.9 g/dL (12.0-15.5); Immature Grans % 1.8; Lymphocytes % 15.9; Mean Corp. HGB Concentration 32.6 g/dL (32.0-36.0); Mean Corpuscular Hemoglobin 30.9 pg (27.0-33.0); Mean Corpuscular Volume 94.6 fL (80-95); Monocytes % 12.7; Neutrophils % 66.1; RBC 3.53 m/cumm (4.00-5.20); RBC Distribution Width 17.7 % (11.7-14.6); White Blood Cell Count 8.22 k/cumm (4.4-10.8)
[2018-05-27 07:37] VITALS: BP 124/55; PULSE 61; RESP 20; TEMP 36.6; O2SAT 97
[2018-05-27 07:37] LABS: Platelet Count 89 x1000/uL (130-400)
[2018-05-27 07:38] LABS: INR 2.7 (1.0-3.5); Prothrombin Time 25.9 sec (9.3-10.8)
[2018-05-27 07:41] LABS: ALT 60 U/L (12-78); AST 133 U/L (15-37); Albumin 1.4 g/dL (3.4-5.0); Alkaline Phosphatase 118 U/L (46-116); Anion Gap 4.7 mmol/L (3-11); BUN 15 mg/dL (7-18); Bilirubin, Total 2.4 mg/dL (0.2-1.0); CO2 26.3 mmol/L (21.0-32.0); Calcium 8.3 mg/dL (8.5-10.1); Chloride 107 mmol/L (98-107); Glucose 78 mg/dL (70-100); Sodium 138 mmol/L (136-145); Total Protein 6.3 g/dL (6.4-8.2)
[2018-05-27] MEDS: Topiramate 25 MG TAB 50 MG PO (08:09)
[2018-05-27] MEDS: Potassium Chloride 20 MEQ TABCR PO (08:10)
[2018-05-27] MEDS: Spironolactone 25 MG TAB 50 MG PO (08:10)
[2018-05-27] MEDS: Furosemide 40 MG TAB PO (08:10)
[2018-05-27] MEDS: Oxybutynin-CR 5 MG TABCR 10 MG PO (08:10)
[2018-05-27] MEDS: Lactobacillus Acidophilus CAP 1 CAP PO (08:10)
[2018-05-27] MEDS: Escitalopram 20 MG TAB PO (08:10)
[2018-05-27] MEDS: Ciprofloxacin 500 MG TAB PO (08:10)
[2018-05-27] MEDS: Magnesium Oxide 400 MG TAB PO (08:10)
[2018-05-27] MEDS: Vancomycin 125 MG CAP PO ×2 (08:10→11:21)
[2018-05-27] MEDS: Nystatin POWDER 60 GM JAR TP (08:11)
[2018-05-27] MEDS: Budesonide/Formoterol 160/4.5 6 GM 60 PUFF INH IH (08:22)
--- NOTE | 2018-05-27 08:22 | PDOC.CMDIS ---
- If Service Date Differs Date of service: 05/27/18 Time of Service: 08:22 LACE Index Scoring Tool - Questions: Length of Stay (in days): 7 - 13 Acuity (Admit via E.D.?): Yes Comorbidities: Liver or Renal Disease E.D. Visits: 6 - Answers: Total Score: 17 Risk of Readmission: High Risk Care Management Discharge Reason for Hospitalization: Fever: abdominal pain Discharge Plan: Michelle will return home today and complete a course of oral antibiotics. No barriers to returning home her mom will transport her. Michelle will resume her community supports and no addtional services needed at this time. Patient/Family Education Needs: Discharge education, limitations, follow-up plan of care. Ask me 3 discussion and self-management. Services Needed at Discharge: DME Agency
--- NOTE | 2018-05-27 11:05 | DSE_ITS ---
Date of service: 05/27/18 Time of Service: 10:00 DS: Diagnosis Discharge Diagnosis (1) Urinary tract infection: Status: Acute (2) Cirrhosis of liver: Status: Acute (3) DVT prophylaxis: Status: Acute (4) Rash: Status: Acute (5) Clostridium difficile colitis: Status: Acute (6) GERD (gastroesophageal reflux disease): Status: Chronic (7) History of pulmonary embolism: Status: Chronic (8) Acute abdominal pain: Status: Acute Discharge Plan Disposition Patient Disposition: HOME Condition: Stable Discharge Details Reason For Visit: FEVER Admit Date/Time: 05/19/18 18:20 Admit Provider: Aamir Aj Attending Provider: Jacky Do Primary Care Provider: Gavi Adames [facility] Course Hospital Course: Patient is a 53-year-old female with multiple medical problems including recurrent C. difficile colitis for which she is on vancomycin. She comes to the emergency room with complaints of fever, anorexia, right flank pain, diffuse abdominal discomfort, several episodes of diarrhea, headache and general malaise. In the emergency room initial evaluation of note for patient' s being afebrile and labs showing normal white count but with 11% bandemia, CT of the abdomen showing cholelithiasis but no shift signs of an stool specimen negative for C. difficile antigen and toxin. She was placed empirically on a broad spectrum antibiotic pending further work up and evaluation. Differentials included UTI, a flare of cdiff and possible cholecystitis. She was admitted to med/surg under hospitalist services. Her urine and blood both grew 2 strains of proteus mirabilis and antibiotics were narrowed to cipro, which both are senstive to. She did undergo a HIDA scan and gall bladder disease was excluded, but there was evidence of a localized mass on right hepatic lobe and recommendations are for further assessment with MRI, this will be deferred to primary care provider as outpatient work up. She also experienced several nose bleeds while hospitalized, which were easily controlled with direct pressure. Her coumadin was placed on hold for goal of 2- 2.5. Today she is 2.7, she will be advised to hold her coumadin for one more day and to have her INR drawn on tuesday morning with resumption of coumadin as directed by her primary care provider. She will also need to complete 7 more days of cipro to complete a 14 day course. She has a blood culture from that showed no growth. Home Meds and New Rx's Prescriptions: New furosemide 40 mg Tablet 40 mg PO DAILY Qty: 30 RF: 0 ciprofloxacin HCl 500 mg Tablet 500 mg PO BID Qty: 15 RF: 0 spironolactone 25 mg Tablet 50 mg PO BID@0830,1600 Qty: 120 RF: 0 ranitidine HCl 150 mg Tablet 150 mg PO BID Qty: 60 RF: 0 acidophilus-pectin, citrus 25 million cell -100 mg Tablet 1 cap PO TID Qty: 90 RF: 0 Continue potassium chloride [Klor-Con M20] 20 MEQ tablet,ER particles/crystals 20 meq PO BID RF: 0 albuterol sulfate 8.5 GM HFA aerosol inhaler 2 puff .Route PRN PRNRF: 0 escitalopram oxalate [Lexapro] 20 MG tablet 20 mg PO DAILY RF: 0 fluticasone-salmeterol [Advair HFA] 60 PUFF HFA aerosol inhaler 2 puff .Route BID RF: 0 cholecalciferol (vitamin D3) 1,000 UNITS tablet 2,000 units PO DAILY RF: 0 topiramate 25 MG tablet 50 mg PO BID RF: 0 ibuprofen 400 MG tablet 400 mg PO DAILY AM PRNQty: 0 RF: 0 fluticasone-salmeterol [Advair Diskus] 500-50 mcg/dose Blister With Device RF: 0 oxybutynin chloride 10 mg Tablet Extended Release 24hr 1 tab PO DAILY RF: 0 triamcinolone acetonide 0.1 % Cream 1 applic TOPICAL BID RF: 0 spironolactone 25 mg Tablet 25 mg PO DAILY RF: 0 vancomycin [Vancocin] 125 mg Capsule 125 mg PO QID RF: 0 simvastatin 40 mg Tablet 40 mg PO QPM RF: 0 magnesium oxide 400 mg Capsule 400 mg PO DAILY RF: 0 melatonin 10 mg Capsule 20 mg PO HS PRNRF: 0 Discontinued warfarin [Coumadin] 7.5 MG tablet 2.5 - 5 mg PO DIRECTED RF: 0 furosemide 20 MG tablet 40 mg PO DAILY RF: 0 Discharge Instructions Instructions: Urinary Tract Infection in Women (DC), Bacteremia (DC) Additional Instructions: hold your coumadin until directed by your primary care provider Continue antibiotics for 7 more days to complete a 14 day course. Blood work for Tuesday, May 29, 2018: CBC, PT/INR, CMP Call your primary care providers office Tuesday, May 29, 2018 for a follow up appointment in 2-3 days Stand Alone Forms: Nursing Discharge Form Activity:: Activity as Tolerated Equipment/Supplies:: No Equipment Needed Diet:: Normal Diet Discharge Orders Discharge Orders: Discharge Order (Routine); Ordered 05/27/18 Ordered By: Julianna Peters Discharge Data Discharge Date/Time-TO BE ENTERED AT DEPARTURE: 05/27/18 13:25 Exam Const General: cooperative, no acute distress, disheveled and ill appearing chronically Nutritional Appearance: obese Resp Effort & Inspection: normal respiratory effort Auscultation: clear to auscultation bilaterally Cardio Rate: regular rate Rhythm: regular rhythm GI Inspection: large pannus and obesity Palpation: soft Neuro General: alert, awake and oriented x3 Cognition: normal cognition Speech: speech normal Extrem General: edema Laterality: bilateral DS: Data Vitals/I&O Vitals and I&O: Vital Signs Temperature 36.6 C 05/27/18 07:37 Temperature Source Tympanic 05/27/18 07:37 Pulse 61 05/27/18 07:37 Pulse Rhythm Regular 05/27/18 08:10 Pulse 69 05/19/18 19:00 Respiratory Rate 20 05/27/18 07:37 Respiratory Effort Non-Labored 05/27/18 08:10 Respiratory Depth Normal 05/27/18 08:10 Respiratory Pattern Normal 05/27/18 08:10 Blood Pressure 124/55 L 05/27/18 07:37 Blood Pressure Mean 54 05/19/18 18:02 Blood Pressure Position Sitting 05/19/18 12:58 Pulse Oximetry 97 05/27/18 07:37 Oxygen Delivery Method Room Air 05/27/18 07:37 Oxygen Flow Rate 0 05/27/18 07:37 Pain Level 0 05/27/18 07:37 Comment 05/21/18 08:56 Intake & Output 05/26/18 05/26/18 05/27/18 11:59 23:59 11:59 Intake Total 1290 / 1290 240 / 240 510 / 510 Output Total 2150 / 2150 600 / 600 Balance -860 / -860 240 / 240 -90 / -90 Intake: IV 200 / 200 10 / 10 Oral 1090 / 1090 240 / 240 500 / 500 Output: Urine 2150 / 2150 600 / 600 Other: Urine Color Straw Yellow Urine Appearance Clear Clear Clear Urine Odor Normal Stool Size Moderate Small Moderate Stool Characteristics Soft Soft Soft Formed Formed Voiding Methods Bedside Commode Bedside Commode Toilet Labs on day of discharge: Labs from last 24 hours 05/27/18 05/27/18 05/27/18 07:13 07:13 07:13 WBC 8.22 RBC 3.53 L Hgb 10.9 L Hct 33.4 L MCV 94.6 MCH 30.9 MCHC 32.6 RDW 17.7 H Plt Count 89 L MPV 10.0 Immature Gran % 1.8 Neutrophils % 66.1 Lymphocytes % 15.9 Monocytes % 12.7 Eosinophils % 2.9 Basophils % 0.6 Absolute Neutrophils 5.43 Absolute Lymphocytes 1.31 Absolute Monocytes 1.04 H Absolute Eosinophils 0.24 Absolute Basophils 0.05 PT 25.9 H INR 2.7 Sodium 138 Potassium 4.0 Chloride 107 Carbon Dioxide 26.3 Anion Gap 4.7 BUN 15 Creatinine 0.90 Estimated GFR/1.73 m2 >= 60.00 Glucose 78 Calcium 8.3 L Total Bilirubin 2.4 H AST 133 H ALT 60 Alkaline Phosphatase 118 H Total Protein 6.3 L Albumin 1.4 L PFSH Family History Other Diabetes Secondary hypercoagulability disorder Medical History Edema extremities (Acute) Hyperlipidemia (Acute) Liver cirrhosis secondary to nonalcoholic steatohepatitis ([place]) (Acute) Morbid obesity (Acute) Secondary hypercoagulability disorder (Acute) Asthma (Chronic) Depression (Chronic) Osteoarthritis (Chronic) Social History household members: other details: Patient was living with her son and now lives with her parents lives independently: No number of children: 3 Smoking/Tobacco Use Status: Former Tobacco Use additional social history: 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 She presently is on disability for psychiatric disease mostly but also physical deconditioning from her morbid obesity. 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 She presently is on disability for psychiatric disease mostly but also physical deconditioning from her morbid obesity. Female Reproductive History Menstrual control method: permanent sterilization
[2018-05-27] MEDS: Bacitracin 1 PACKET (11:35)
--- NOTE | 2018-05-30 08:15 | PT.INDS ---
Date of service: 05/30/18 Time of Service: 08:15 PT Notes Inpatient Physical Therapy Discharge Summary Date: 05/30/18 for 05/27/18 Dates of Service: 05/24/18-05/26/18 SUBJECTIVE: NT OBJECTIVE: 05/24/18-05/26/18 Bed Mobility/Transfers: Supine-sit: independent Sit-supine: independent Sit-stand: independent Stand-sit: independent Gait: supervision with bariatric FWW [id number] Balance: Static Sitting: normal Dynamic Sitting: normal Static Standing: fair Dynamic Standing: fair Assessment: Pt is a 53yr old female admitted with fever and abdominal pain in setting of recurrent c. difficile, asthma, obstructive sleep apnea, morbid obesity, osteoarthritis, lower extremity edema, pulmonary embolism, diastolic heart failure. Patient was seen for 2 PT visits. Progressed from SBA transfers to independent, from SBA gait with bariatric FWW 20ftx2 to 50ftx2. Pt was discharged to home setting 05/27 Goals: Goals X1 week 1. Supine-Sit : independent 2. Sit-Supine : independent 3. Sit-Stand : independent with bariatric FWW 4. Stand-Sit : independent 5. Bed-Chair : supervision with bariatric FWW 6. Chair-Bed : supervision with bariatric FWW 7. Gait : SBA with bariatric FWW 50ftx2 8. Stairs: up/down 3 steps with railing, SBA Pt met goals # 1, 2, 3, 4, 7 DISCHARGE RECOMMENDATIONS: Home, pt has all DME G Codes in the area mobility of walking and moving around:projected status GP [id number]. Discharge status (if discharging) GP [id number] CK Deb Faust PT.
--- NOTE | 2018-05-30 08:18 | INDS_ITS ---
Date of service: 05/30/18 Time of Service: 08:15 PT Notes Inpatient Physical Therapy Discharge Summary Date: 05/30/18 for 05/27/18 Dates of Service: 05/24/18-05/26/18 SUBJECTIVE: NT OBJECTIVE: 05/24/18-05/26/18 Bed Mobility/Transfers: Supine-sit: independent Sit-supine: independent Sit-stand: independent Stand-sit: independent Gait: supervision with bariatric FWW [id number] Balance: Static Sitting: normal Dynamic Sitting: normal Static Standing: fair Dynamic Standing: fair Assessment: Pt is a 53yr old female admitted with fever and abdominal pain in setting of recurrent c. difficile, asthma, obstructive sleep apnea, morbid obesity, osteoarthritis, lower extremity edema, pulmonary embolism, diastolic heart failure. Patient was seen for 2 PT visits. Progressed from SBA transfers to independent, from SBA gait with bariatric FWW 20ftx2 to 50ftx2. Pt was discharged to home setting 05/27 Goals: Goals X1 week 1. Supine-Sit : independent 2. Sit-Supine : independent 3. Sit-Stand : independent with bariatric FWW 4. Stand-Sit : independent 5. Bed-Chair : supervision with bariatric FWW 6. Chair-Bed : supervision with bariatric FWW 7. Gait : SBA with bariatric FWW 50ftx2 8. Stairs: up/down 3 steps with railing, SBA Pt met goals # 1, 2, 3, 4, 7 DISCHARGE RECOMMENDATIONS: Home, pt has all DME G Codes in the area mobility of walking and moving around:projected status GP [id number]. Discharge status (if discharging) GP [id number] CK Deb Faust PT.
--- NOTE | 2018-05-30 15:30 | PDOC.CMPRO ---
- If Service Date Differs Date of service: 05/30/18 Time of Service: 15:30 Care Management Progress Note CM contacted DI to follow up outpatient MRI. Per DI pcp was contacted and they will obtain prior auth from provider to complete the procedure as outpatient. DI will contact patient to set up once auth is approved. CM updated hospitalist.
== END 2018-05-27 13:25 | disposition home or self-care (01) | DRG 864 ==
LOC: ER 19:25 → MS 05-22 10:15
PROVIDERS: Family Medicine; Nurse Practitioner Acute Care; Admitting Provider General Practice; Emergency Provider Physician Assistant; PCP Family Medicine; Visit Provider Internal Medicine
DX: R50.9 Fever, unspecified (principal); N39.0 Urinary tract infection, site not specified; R78.81 Bacteremia; D68.69 Other thrombophilia; I50.32 Chronic diastolic (congestive) heart failure; Z68.43 Body mass index [BMI] 50.0-59.9, adult; D68.32 Hemorrhagic disorder due to extrinsic circulating anticoagulants; A04.71 Enterocolitis due to Clostridium difficile, recurrent; R16.0 Hepatomegaly, not elsewhere classified; R10.9 Unspecified abdominal pain; R79.1 Abnormal coagulation profile; T45.515A Adverse effect of anticoagulants, initial encounter; R21 Rash and other nonspecific skin eruption; K21.9 Gastro-esophageal reflux disease without esophagitis; Z86.711 Personal history of pulmonary embolism; B96.4 Proteus (mirabilis) (morganii) as the cause of diseases classified elsewhere; K75.81 Nonalcoholic steatohepatitis (NASH); K74.69 Other cirrhosis of liver; F32.9 Major depressive disorder, single episode, unspecified; G47.33 Obstructive sleep apnea (adult) (pediatric); Z79.01 Long term (current) use of anticoagulants; E66.9 Obesity, unspecified; K80.20 Calculus of gallbladder without cholecystitis without obstruction; R04.0 Epistaxis
CPT/HCPCS: 36415; 36569; 78227; 80048; 80053; 80076; 87040; 87077; 87505; 93005; 94640; 96361; 96365; 96375; 97110; 97162; 97530; 99222; 99232; 99233; 99238; 99285; 71046; 74174; 76705; 81003; 81015; 83735; 83880; 84484; 85025; 85610; 87086; 87186; 87324; 93010; J0295; J0744; J1580; J2270; J3490; J7620

== ENCOUNTER 2018-05-29 02:01 | Outpatient (CLI) | payer MEDICARE, MEDICAID, SELFPAY ==
[2018-05-29 14:11] LABS: Abs Immature Grans 0.08 k/cumm (0.0-0.09); Absolute Basophil Count 0.05 k/cumm (0.0-0.2); Absolute Eosinophil Count 0.24 k/cumm (0.0-0.7); Absolute Lymphocyte Count 1.38 k/cumm (1.2-3.4); Absolute Monocyte Count 1.17 k/cumm (0.11-0.7); Absolute Neutrophil Count 5.55 k/cumm (1.2-6.7); Basophils % 0.6; Eosinophils % 2.8; HCT 37.9 % (36.0-46.0); HGB 12.5 g/dL (12.0-15.5); Immature Grans % 0.9; Lymphocytes % 16.3; Mean Corpuscular Hemoglobin 31.6 pg (27.0-33.0); Mean Corpuscular Volume 95.9 fL (80-95); Mean Platelet Volume 10.4 fL (8.0-11.0); Monocytes % 13.8; Neutrophils % 65.6; Platelet Count 107 x1000/uL (130-400); RBC 3.95 m/cumm (4.00-5.20); White Blood Cell Count 8.47 k/cumm (4.4-10.8)
[2018-05-29 14:28] LABS: INR 2.3 (1.0-3.5)
[2018-05-29 15:29] LABS: ALT 81 U/L (12-78); AST 177 U/L (15-37); Albumin 1.8 g/dL (3.4-5.0); Alkaline Phosphatase 149 U/L (46-116); Anion Gap 8.6 mmol/L (3-11); BUN 14 mg/dL (7-18); Bilirubin, Direct 2.18 mg/dL (0.00-0.20); Bilirubin, Total 3.6 mg/dL (0.2-1.0); CO2 24.4 mmol/L (21.0-32.0); Calcium 8.4 mg/dL (8.5-10.1); Chloride 108 mmol/L (98-107); Estimated GFR 51.57 (mL/min/1.73m2); Glucose 84 mg/dL (70-100); Potassium 4.1 mmol/L (3.5-5.1); Sodium 141 mmol/L (136-145); Total Protein 7.2 g/dL (6.4-8.2)
== END 2018-05-29 02:21 ==
PROVIDERS: Nurse Practitioner Acute Care; PCP Family Medicine; Visit Provider Internal Medicine
DX: N39.0 Urinary tract infection, site not specified (principal); K74.60 Unspecified cirrhosis of liver; A04.72 Enterocolitis due to Clostridium difficile, not specified as recurrent; K21.9 Gastro-esophageal reflux disease without esophagitis; R21 Rash and other nonspecific skin eruption; Z86.711 Personal history of pulmonary embolism
CPT/HCPCS: 36415; 80048; 80076; 85025; 85610

== ENCOUNTER 2018-08-10 09:54 | Outpatient (CLI) | payer MEDICARE, MEDICAID, SELFPAY ==
[2018-08-10 10:39] LABS: Abs Immature Grans 0.01 k/cumm (0.0-0.09); Absolute Basophil Count 0.04 k/cumm (0.0-0.2); Absolute Eosinophil Count 0.19 k/cumm (0.0-0.7); Absolute Neutrophil Count 2.13 k/cumm (1.2-6.7); Eosinophils % 4.7; HCT 40.4 % (36.0-46.0); HGB 12.9 g/dL (12.0-15.5); Immature Grans % 0.2; Lymphocytes % 29.5; Mean Corp. HGB Concentration 31.9 g/dL (32.0-36.0); Mean Corpuscular Hemoglobin 29.5 pg (27.0-33.0); Mean Corpuscular Volume 92.2 fL (80-95); Monocytes % 12.3; Neutrophils % 52.3; RBC 4.38 m/cumm (4.00-5.20); RBC Distribution Width 16.5 % (11.7-14.6); White Blood Cell Count 4.07 k/cumm (4.4-10.8)
[2018-08-10 10:50] LABS: Platelet Count 56 x1000/uL (130-400)
[2018-08-10 12:02] LABS: ALT 58 U/L (12-78); AST 144 U/L (15-37); Albumin 1.7 g/dL (3.4-5.0); Alkaline Phosphatase 131 U/L (46-116); Anion Gap 4.9 mmol/L (3-11); BUN 13 mg/dL (7-18); Bilirubin, Total 2.4 mg/dL (0.2-1.0); CO2 27.1 mmol/L (21.0-32.0); CREATININE 1.17 mg/dL (0.55-1.02); Calcium 8.1 mg/dL (8.5-10.1); Chloride 110 mmol/L (98-107); Estimated GFR 48.02 (mL/min/1.73m2); Glucose 78 mg/dL (70-100); Magnesium 1.6 mg/dL (1.8-2.4); PHOSPHORUS 3.1 mg/dL (2.6-4.7); Potassium 3.7 mmol/L (3.5-5.1); Sodium 142 mmol/L (136-145); Total Protein 6.5 g/dL (6.4-8.2)
[2018-08-10 12:26] LABS: Vitamin D 25 Total 95.1 ng/ml (30-100)
[2018-08-10 20:49] LABS: Ionized Calcium 1.08 mmol/L (1.12-1.32)
[2018-08-11 13:23] LABS: Parathyroid Hormone,Intact 40 pg/ml (19-88)
== END 2018-08-10 10:14 ==
PROVIDERS: PCP Family Medicine; Visit Provider Family Medicine
DX: E83.51 Hypocalcemia (principal)
CPT/HCPCS: 36415; 80053; 82306; 82330; 83735; 83970; 84100; 85025

== ENCOUNTER 2018-12-08 11:45 | Emergency (ER) | payer MEDICARE, MEDICAID, SELFPAY ==
[2018-12-08] VITALS (35 sets, daily range): BP systolic 97–129; BP diastolic 40–69; PULSE 51–64; RESP 8–31; TEMP 36.2–37.2; O2SAT 92–98
--- NOTE | 2018-12-08 12:06 | W.ED.GENAD ---
Discharge Plan Disposition Patient Disposition: HOME Condition: Stable Discharge Details Chief Complaint: SOB Clinical Impression: Atypical chest pain, Epigastric abdominal pain, Chronic shortness of breath Primary Care Provider: Gavi Adames ED Provider: Bethany Bell Home Meds and New Rx's Prescriptions: Continued potassium chloride [Klor-Con M20] 20 MEQ tablet,ER particles/crystals 20 meq PO BID RF: 0 albuterol sulfate 8.5 GM HFA aerosol inhaler 2 puff .Route PRN PRNRF: 0 escitalopram oxalate [Lexapro] 20 MG tablet 20 mg PO DAILY RF: 0 Advair HFA 60 PUFF HFA aerosol inhaler 2 puff .Route BID RF: 0 cholecalciferol (vitamin D3) 1,000 UNITS tablet 2,000 units PO DAILY RF: 0 topiramate 25 MG tablet 50 mg PO BID RF: 0 ibuprofen 400 MG tablet 400 mg PO DAILY AM PRNQty: 0 RF: 0 warfarin 2.5 mg Tablet 2.5 - 5 mg PO DIRECTED RF: 0 miconazole nitrate 2 % Cream 1 applic topical DIRECTED RF: 0 fluticasone propion-salmeterol [Advair Diskus] 500-50 mcg/dose Blister With Device 2 inh Inhalation BID RF: 0 oxybutynin chloride 10 mg Tablet Extended Release 24hr 1 tab PO DAILY RF: 0 triamcinolone acetonide 0.1 % Cream 1 applic TOPICAL BID RF: 0 spironolactone 25 mg Tablet 25 mg PO DAILY RF: 0 vancomycin [Vancocin] 125 mg Capsule 125 mg PO QID RF: 0 simvastatin 40 mg Tablet 40 mg PO QHS RF: 0 magnesium oxide 400 mg Capsule 400 mg PO DAILY RF: 0 melatonin 10 mg Capsule 20 mg PO HS PRNRF: 0 furosemide 40 mg Tablet 40 mg PO DAILY Qty: 30 RF: 0 ciprofloxacin HCl 500 mg Tablet 500 mg PO BID Qty: 15 RF: 0 spironolactone 25 mg Tablet 50 mg PO BID@0830,1600 Qty: 120 RF: 0 ranitidine HCl 150 mg Tablet 150 mg PO BID Qty: 60 RF: 0 acidophilus-pectin, citrus 25 million cell -100 mg Tablet 1 cap PO TID Qty: 90 RF: 0 Discharge Instructions Instructions: Chest Pain (ED), Dyspnea (ED), Epigastric Pain (ED) Additional Instructions: Call your GI doctor at [facility] and your primary care doctor on Tuesday morning to schedule a follow-up appointment for reevaluation. Return immediately to the emergency department with any worsening or new concerning symptoms. Discharge Data Discharge Date/Time-TO BE ENTERED AT DEPARTURE: 12/08/18 19:46 Discharge Physician: Bethany Bell Medical Decision Making 53-year-old female with a history of morbid obesity, pulmonary embolism on Coumadin, C. difficile colitis on vancomycin, Jesus, cirrhosis who presents with increasing shortness of breath and chest heaviness over the past several days, worse since last night. Also complaining of bilateral lower extremity edema and fatigue that is worsening over the past few days. No relief with increase of Lasix from 10 to 20 mg over the past week. Vitals within normal limits. Patient appears nontoxic. She is speaking in full sentences. Lungs clear to auscultation. She has 2+ pitting edema bilateral lower extremities. EKG notes a rate of 64, sinus, right bundle branch block and left anterior fascicular block with no acute change from previous. Differential diagnosis includes ACS, acute CHF exacerbation, pneumonia, fluid overload due to cirrhosis. Will place an IV, labs, chest x-ray. 1300 --discussed with radiology -patient has an outpatient echocardiogram scheduled for 2 PM today which was ordered due to her leg edema by her primary care doctor. This can be done in the emergency department if the orders changed for here. 1415 --labs reviewed. Normal white blood cell count. Platelets 42 which appears close to her baseline. INR 3.6. T bili 4.9, patient has normally been around 2. Troponin negative. Lipase within normal limits. BNP 344. Chest x-ray negative. Patient states she feels slightly better. Urinalysis notes positive nitrite but appears consistent with contamination. Due to elevated T bili and complaint of epigastric pain, will obtain abdominal ultrasound Echo reviewed and notes an EF of 60 to 65% with normal systolic function. 1645 --abdominal ultrasound notes gallstones and gallbladder sludge with positive Perez sign, cholecystitis not excluded. Also notes cirrhosis and splenomegaly. Findings discussed with surgery -in the setting of normal white blood cell count, no fever, recommend to obtain CT abdomen and pelvis to determine if there is a common bile duct stone. If positive for common bile duct stone, recommends transfer to tertiary facility for ERCP. If no common bile duct stone, her elevated T bili which has been progressively increasing over the last few years may be due to her cirrhosis and would recommend follow-up with surgery. Patient is followed by GI at [facility]. 1830 --CT reviewed and negative for acute findings. CT chest negative for PE. CT abdomen notes gallstones without cholecystitis wall thickening in the gallbladder which could be related to gallbladder or liver disease. No noted CBD stones. Patient states she is feeling better and is requesting to go home. Patient is instructed to call her GI doctor at [facility] to schedule follow-up appointment for reevaluation and for recheck of her bilirubin. She is instructed to call her primary care doctor on Tuesday morning to schedule a follow-up appointment for reevaluation and to return here immediately with any worsening or new concerning symptoms. Medical Records Medical records reviewed: Yes I reviewed the patient's medical records. Imaging Data Radiologic Study: Radiologist's impression: AP AND LATERAL CHEST: Comparison is made with 05/19/18. There is poor inspiration. The cardiac silhouette appears within normal limits. Given the projection, pulmonary vasculature is unremarkable. No focal consolidating infiltrates or effusions are seen. Age related degenerative changes are seen in the spine. IMPRESSION: No acute pulmonary process. Radiologic Study #2: Radiologist's impression: Date of study: 12/08/2018 Transthoracic Echocardiography M-mode, complete 2D, complete spectral Doppler, and color Doppler *STUDY CONCLUSIONS* Summary: 1. Left ventricle: The cavity size was normal. Wall thickness was increased in a pattern of moderate LVH. Systolic function was normal. The estimated ejection fraction was 60-65%. Wall motion was normal; there were no regional wall motion abnormalities. Doppler parameters are consistent with high ventricular filling pressure. 2. Right ventricle: The cavity size was dilated. Systolic function was normal. 3. Left atrium: The atrium was moderately dilated. 4. Mitral valve: Mildly calcified annulus. Mildly thickened leaflets. There was mild regurgitation. 5. Inferior vena cava: The vessel was patent and normal in size. The respirophasic diameter changes were in the normal range (greater than Radiologic Study #3: Radiologist's impression: CT Angiography Chest With Contrast EXAM DATE/TIME: 12/08/2018 5:32 PM CLINICAL HISTORY: 53 years old, female; Abdominal pain; Generalized; Patient HX: Chest pain, SOB, abd pain, h/o cirrhosis TECHNIQUE: Imaging protocol: Axial computed tomographic angiography images of the chest with intravenous contrast using CT angiography protocol. Coronal and sagittal reformatted images were created and reviewed. 3D rendering: MIP reconstructed images were created and reviewed. COMPARISON: Vascular^CTA ABD PEL (Adult) 05/19/2018 3:02 PM FINDINGS: Pulmonary arteries: Normal. No pulmonary emboli. Aorta: Normal. No aortic aneurysm. No aortic dissection. Lungs: Groundglass nodule laterally in the right upper lobe measuring 1.4 cm. Groundglass nodule in the anterior segment of the right upper lobe measuring 1.7 cm. Groundglass nodule in the anterior segment of the left upper lobe measuring 1.2 cm. Mild pulmonary interstitial edema. Pleural space: Normal. No pneumothorax. No pleural effusion. Heart: Normal. No cardiomegaly. No pericardial effusion. Lymph nodes: Unremarkable. No enlarged lymph nodes. Bones/joints: Degenerative changes in the spine. Soft tissues: Unremarkable. IMPRESSION: 1. Pulmonary nodules. Recommend CT at 3-6 months. Subsequent management based on the most suspicious nodule(s). (Maikel et al., Fleischner Society, 2017) 2. No pulmonary embolism 3. No aortic dissection or aneurysm. 4. Mild interstitial edema in the lungs. CT Angiography Abdomen With Contrast EXAM DATE/TIME: 12/08/2018 5:32 PM CLINICAL HISTORY: 53 years old, female; Abdominal pain; Generalized; Patient HX: Chest pain, SOB, abd pain, h/o cirrhosis TECHNIQUE: Imaging protocol: Axial computed tomographic angiography images of the abdomen with intravenous contrast material. Coronal and sagittal reformatted images were created and reviewed. 3D rendering: MIP reconstructed images were created and reviewed. COMPARISON: Vascular^CTA ABD PEL (Adult) 05/19/2018 3:02 PM FINDINGS: Lungs: Unremarkable. No consolidation. VASCULATURE: Aorta: Atherosclerosis. Celiac trunk and mesenteric arteries: No occlusion or significant stenosis. Renal arteries: No occlusion or significant stenosis. Portal Venous System: Splenic varices. Inferior vena cava: IVC filter present ABDOMEN: Liver: Hepatic cirrhosis without masses. Gallbladder and bile ducts: Gallstones without acute cholecystitis. Wall thickening in the gallbladder measuring up to 1 cm which could be related to gallbladder disease or liver disease. Pancreas: Normal. No ductal dilation. Spleen: Splenomegaly indicating portal hypertension. Adrenals: Normal. No mass. Kidneys and ureters: 1 cm nonobstructive left renal stone. Stomach and bowel: Distal colonic diverticulosis without diverticulitis. Appendix: Unable to identify the appendix. Intraperitoneal space: Small amount of pelvic ascites. Mesenteric edema. Bones/joints: Unremarkable. No acute fracture. No dislocation. Soft tissues: Umbilical hernia containing fat that is slightly edematous. Lymph nodes: Unremarkable. No enlarged lymph nodes. IMPRESSION: 1. Hepatic cirrhosis without masses. 2. Gallstones without acute cholecystitis. 3. Umbilical hernia containing fat that is slightly edematous. 4. Small amount of pelvic ascites. 5. Distal colonic diverticulosis without diverticulitis. 6. Unable to identify the appendix. 7. Atherosclerosis. 8. IVC filter present. 9. Mesenteric edema. 10. Wall thickening in the gallbladder measuring up to 1 cm which could be related to gallbladder disease or liver disease. 11. Splenomegaly indicating portal hypertension. 12. Splenic varices. 13. 1 cm nonobstructive left renal stone. Lab Data Lab results reviewed: Yes I reviewed the patient's lab results. Laboratory Tests Range/Units 12/08/18 12/08/18 12/08/18 12:10 12:10 12:10 WBC (4.4-10.8) k/cumm 10.61 RBC (4.00-5.20) m/cumm 4.24 Hgb (12.0-15.5) g/dL 13.0 Hct (36.0-46.0) % 39.0 MCV (80-95) fL 92.0 MCH (27.0-33.0) pg 30.7 MCHC (32.0-36.0) g/dL 33.3 RDW (11.7-14.6) % 18.9 H Plt Count (130-400) x1000/uL 42 L MPV (8.0-11.0) fL Immature Gran % 0.3 Neutrophils % 84.5 Lymphocytes % 7.6 Monocytes % 6.3 Eosinophils % 0.9 Basophils % 0.4 Absolute Neutrophils (1.2-6.7) k/cumm 8.96 H Absolute Lymphocytes (1.2-3.4) k/cumm 0.81 L Absolute Monocytes (0.11-0.7) k/cumm 0.67 Absolute Eosinophils (0.0-0.7) k/cumm 0.10 Absolute Basophils (0.0-0.2) k/cumm 0.04 Differential Comment Rbc morph reviewed RBC Morphology See below Polychromasia Present Anisocytosis 2+ PT (9.3-11.0) sec INR (0.9-1.1) APTT (21.0-31.4) sec Sodium (136-145) mmol/L 138 Potassium (3.5-5.1) mmol/L 3.6 Chloride (98-107) mmol/L 107 Carbon Dioxide (21.0-32.0) mmol/L 23.2 Anion Gap (3-11) mmol/L 7.8 BUN (7-18) mg/dL 14 Creatinine (0.55-1.02) mg/dL 1.10 H Estimated GFR/1.73 m2 (mL/min/1.73m2) 51.57 Glucose (70-100) mg/dL 77 Calcium (8.5-10.1) mg/dL 8.0 L Magnesium (1.8-2.4) mg/dL 1.6 L Total Bilirubin (0.2-1.0) mg/dL 4.9 H AST (15-37) U/L 158 H ALT (12-78) U/L 65 Alkaline Phosphatase (46-116) U/L 119 H Troponin I (0.00-0.06) ng/mL 0.02 NT-Pro-B Natriuret Pep ( - 299) pg/mL 344 H Total Protein (6.4-8.2) g/dL 6.2 L Albumin (3.4-5.0) g/dL 1.5 L Lipase (73-393) U/L 149 Urine Color (Yellow) Urine Clarity Urine pH (5-8) Ur Specific [place] (1.005-1.025) Urine Protein (Negative) mg/dL Urine Ketones (Negative) mg/dL Urine Blood (Negative) Urine Nitrite (Negative) Urine Bilirubin (Negative) Urine Urobilinogen (Up TO 0.2) EU/dL Ur Leukocyte Esterase (Negative) Urine RBC (0-2) Urine WBC (0-5) HPF Ur Epithelial Cells (Negative) HPF Urine Crystals (Negative) HPF Urine Bacteria (Negative) HPF Urine Mucus (Negative) Ur Culture Indicated? Urine Glucose (Negative) mg/dL Range/Units 12/08/18 12/08/18 12:10 14:15 WBC (4.4-10.8) k/cumm RBC (4.00-5.20) m/cumm Hgb (12.0-15.5) g/dL Hct (36.0-46.0) % MCV (80-95) fL MCH (27.0-33.0) pg MCHC (32.0-36.0) g/dL RDW (11.7-14.6) % Plt Count (130-400) x1000/uL MPV (8.0-11.0) fL Immature Gran % Neutrophils % Lymphocytes % Monocytes % Eosinophils % Basophils % Absolute Neutrophils (1.2-6.7) k/cumm Absolute Lymphocytes (1.2-3.4) k/cumm Absolute Monocytes (0.11-0.7) k/cumm Absolute Eosinophils (0.0-0.7) k/cumm Absolute Basophils (0.0-0.2) k/cumm Differential Comment RBC Morphology Polychromasia Anisocytosis PT (9.3-11.0) sec 36.0 H INR (0.9-1.1) 3.6 H APTT (21.0-31.4) sec 47.2 H Sodium (136-145) mmol/L Potassium (3.5-5.1) mmol/L Chloride (98-107) mmol/L Carbon Dioxide (21.0-32.0) mmol/L Anion Gap (3-11) mmol/L BUN (7-18) mg/dL Creatinine (0.55-1.02) mg/dL Estimated GFR/1.73 m2 (mL/min/1.73m2) Glucose (70-100) mg/dL Calcium (8.5-10.1) mg/dL Magnesium (1.8-2.4) mg/dL Total Bilirubin (0.2-1.0) mg/dL AST (15-37) U/L ALT (12-78) U/L Alkaline Phosphatase (46-116) U/L Troponin I (0.00-0.06) ng/mL NT-Pro-B Natriuret Pep ( - 299) pg/mL Total Protein (6.4-8.2) g/dL Albumin (3.4-5.0) g/dL Lipase (73-393) U/L Urine Color (Yellow) [place] Urine Clarity Clear Urine pH (5-8) 5.5 Ur Specific [place] (1.005-1.025) >= 1.030 H Urine Protein (Negative) mg/dL Trace H Urine Ketones (Negative) mg/dL Negative Urine Blood (Negative) Moderate H Urine Nitrite (Negative) Positive H Urine Bilirubin (Negative) Moderate H Urine Urobilinogen (Up TO 0.2) EU/dL 0.2 Ur Leukocyte Esterase (Negative) Negative Urine RBC (0-2) 5-10 H Urine WBC (0-5) HPF 20-50 Ur Epithelial Cells (Negative) HPF Moderate Urine Crystals (Negative) HPF Negative Urine Bacteria (Negative) HPF Moderate Urine Mucus (Negative) Moderate Ur Culture Indicated? No/sq. contamination Urine Glucose (Negative) mg/dL Negative ECG Data Attestation: I personally reviewed and interpreted this ECG (s) as follows: Interpretation: Rate of 64, sinus, right bundle branch block, left anterior fascicular block. No acute change from previous. No acute ST elevation or depression. QTc 483. QRS 128. HPI General Mode of arrival: ambulatory. Date/Time Provider Initiated Documentation: 12/08/18 12:02. Limitations to Documentation: no limitations. Information obtained by: patient. HPI Narrative: Patient is a 53-year-old female with a history of morbid obesity, nonalcoholic steatohepatitis, cirrhosis, asthma, depression, GERD, pulmonary embolism on Coumadin and history of C. difficile colitis on vancomycin who presents with a complaint of shortness of breath, lower chest pain and abdominal pain for the past few days, worse since last night. She states that her lower chest pain and upper abdominal pain is aching and currently 8/10. She denies any radiation of pain. She states her shortness of breath is worse with exertion. She admits to fatigue and left frontal headache as well as right occipital headache. She states she usually develops headaches when her cellulitis in her legs recurs. She does also admit to increase in her lower extremity edema over the past few days. She denies any known fever, vomiting, diarrhea, recent hospital admission or falls. Related Data Home Medications Medication Instructions Recorded Confirmed Advair HFA 2 puff .ROUTE BID 03/15/15 12/08/18 albuterol sulfate 2 puff .ROUTE PRN PRN 03/15/15 12/08/18 cholecalciferol (vitamin D3) 2,000 units PO DAILY 03/15/15 12/08/18 escitalopram oxalate [Lexapro] 20 mg PO DAILY 03/15/15 12/08/18 potassium chloride [Klor-Con M20] 20 meq PO BID 03/15/15 12/08/18 topiramate 50 mg PO BID 03/23/17 12/08/18 ibuprofen 400 mg PO DAILY AM PRN #0 12/20/17 05/19/18 fluticasone propion-salmeterol 2 inh INHALATION BID 03/04/18 12/08/18 [Advair Diskus] magnesium oxide 400 mg PO DAILY 05/19/18 12/08/18 melatonin 20 mg PO HS PRN 05/19/18 12/08/18 oxybutynin chloride 1 tab PO DAILY 05/19/18 05/19/18 simvastatin 40 mg PO QHS 05/19/18 12/08/18 spironolactone 25 mg PO DAILY 05/19/18 05/19/18 triamcinolone acetonide 1 applic TOPICAL BID 05/19/18 12/08/18 vancomycin [Vancocin] 125 mg PO QID 05/19/18 12/08/18 acidophilus-pectin, citrus 1 cap PO TID #90 tab 05/27/18 12/08/18 ciprofloxacin HCl 500 mg PO BID #15 tab 05/27/18 furosemide 40 mg PO DAILY #30 tab 05/27/18 12/08/18 ranitidine HCl 150 mg PO BID #60 tab 05/27/18 spironolactone 50 mg PO BID@0830,1600 #120 tab 05/27/18 miconazole nitrate 1 applic TOPICAL DIRECTED 12/08/18 12/08/18 warfarin 2.5 - 5 mg PO DIRECTED 12/08/18 12/08/18 Previous Rx's Medication Instructions Recorded ibuprofen 400 mg PO DAILY AM PRN #0 12/20/17 acidophilus-pectin, citrus 1 cap PO TID #90 tab 11/24/18 ciprofloxacin HCl 500 mg PO BID #15 tab 05/27/18 furosemide 40 mg PO DAILY #30 tab 05/27/18 ranitidine HCl 150 mg PO BID #60 tab 05/27/18 spironolactone 50 mg PO BID@0830,1600 #120 tab 05/27/18 Allergies Allergy/AdvReac Type Severity Reaction Status Date / Time cephalexin monohydrate AdvReac Diarrhea Unverified 12/08/18 12:26 [From Keflex] General Stated Complaint: SOB RAJAN: 2 Review of Systems Review of Systems All systems reviewed & are unremarkable except as noted in HPI and below Constitutional Reports as per HPI, Denies chills, Reports fatigue and Denies fever(s) Eyes Denies blurry vision ENT Denies dizziness, Denies sore throat and Denies throat swelling Cardiovascular Reports chest pain and Reports dyspnea Respiratory Denies cough and Reports dyspnea Gastrointestinal Reports abdominal pain, Denies diarrhea and Denies vomiting Genitourinary Denies hematuria and Denies dysuria Musculoskeletal Denies back pain and Denies numbness Integumentary/Breasts Denies lesions and Denies rash Neurologic Denies dizziness, Denies focal weakness and Denies numbness Endocrine Reports fatigue Allergic/Immunologic Denies throat swelling [facility] Medical History Edema extremities (Acute) Hyperlipidemia (Acute) Liver cirrhosis secondary to nonalcoholic steatohepatitis (JSEUS) (Acute) Morbid obesity (Acute) Secondary hypercoagulability disorder (Acute) Asthma (Chronic) Depression (Chronic) Osteoarthritis (Chronic) Family History Other Diabetes Secondary hypercoagulability disorder Social History Smoking/Tobacco Use Status: Former Tobacco Use Alcohol Intake: never Drug use: Never Household members: other Details: Patient was living with her son and now lives with her parents Number of Children: 3 Do you feel safe at home: Yes Do you feel safe in your relationship?: Yes Additional Social history: 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 She presently is on disability for psychiatric disease mostly but also physical deconditioning from her morbid obesity. Female Reproductive History Menstrual control method: permanent sterilization History History 3 Para Hx # Term Pregnancies Multiple births Hx # Pregnancies Ectopic pregnancies AB induced Hx Number of Living Children AB spontaneous Exam Const General: cooperative, healthy appearing and no acute distress HENMT Head: normal to inspection Face and sinus: normal facial exam Eyes General: appearance normal, both eyes and all related structures EOM: EOM intact bilaterally Neck Neck: normal visual inspection and No submandibular swelling Lymphatic: no lymphadenopathy noted Chest Chest: normal inspection of the chest and no tenderness Resp Effort & Inspection: normal respiratory effort and able to speak in complete sentences Auscultation: clear to auscultation bilaterally Cardio Rate: regular rate Rhythm: regular rhythm GI Inspection: normal to inspection and obesity Palpation: soft, not firm, not rigid and nontender Auscultation: normal bowel sounds Back/Spine/Pelvis Thoracic/Lumbar Spine: thoracic and lumbar spine normal to inspection Skin General skin exam: no rashes or lesions noted Neuro General: alert, awake and oriented x3 Cognition: normal cognition Speech: speech normal Motor: muscle tone normal throughout Sensory Exam: no sensory deficits noted Extrem General: normal to inspection, full ROM, normal capillary refill, no calf tenderness bilaterally and edema (b/l lower extremities with chronic venous stasis skin changes/dusky/rubor) Laterality: bilateral (2+ pitting) Psych Appearance: grossly normal Mental Status: mental status grossly normal Speech and Movement: speech and movement normal Affect: normal affect Course Vital Signs Temperature 98.8 F 12/08/18 11:47 Pulse 64 12/08/18 11:47 Respiratory Rate 18 12/08/18 11:47 Blood Pressure 129/56 L 12/08/18 11:47 Pulse Oximetry 97 12/08/18 11:47 Temperature 98.8 F 12/08/18 11:47 Temperature Source Skin 12/08/18 11:47 Pulse 64 12/08/18 11:47 Respiratory Rate 18 12/08/18 11:47 Blood Pressure 129/56 L 12/08/18 11:47 Pulse Oximetry 97 12/08/18 11:47 Oxygen Delivery Method Room Air 12/08/18 11:47 Oxygen Flow Rate 0 12/08/18 11:47 Pain Level 8 12/08/18 11:47
[2018-12-08] MEDS: Normal Saline Flush 10 ML SYR IVP (12:10)
--- NOTE | 2018-12-08 12:22 | DI.RAD_ITS ---
SYMPTOM/DIAGNOSIS: SOB, CHEST PAIN AP AND LATERAL CHEST: Comparison is made with 05/19/18. There is poor inspiration. The cardiac silhouette appears within normal limits. Given the projection, pulmonary vasculature is unremarkable. No focal consolidating infiltrates or effusions are seen. Age related degenerative changes are seen in the spine. IMPRESSION: No acute pulmonary process.
[2018-12-08 12:44] LABS: Abs Immature Grans 0.03 k/cumm (0.0-0.09); Absolute Basophil Count 0.04 k/cumm (0.0-0.2); Absolute Lymphocyte Count 0.81 k/cumm (1.2-3.4); Absolute Monocyte Count 0.67 k/cumm (0.11-0.7); Absolute Neutrophil Count 8.96 k/cumm (1.2-6.7); Basophils % 0.4; Eosinophils % 0.9; Immature Grans % 0.3; Lymphocytes % 7.6; Mean Corp. HGB Concentration 33.3 g/dL (32.0-36.0); Mean Corpuscular Hemoglobin 30.7 pg (27.0-33.0); Monocytes % 6.3; Neutrophils % 84.5; RBC 4.24 m/cumm (4.00-5.20); RBC Distribution Width 18.9 % (11.7-14.6); White Blood Cell Count 10.61 k/cumm (4.4-10.8)
--- NOTE | 2018-12-08 12:45 | MERGE_ITS ---
*[facility]* *[facility]* [address] [place] [address] Date of study: 12/08/2018 Transthoracic Echocardiography M-mode, complete 2D, complete spectral Doppler, and color Doppler *STUDY CONCLUSIONS* Summary: 1. Left ventricle: The cavity size was normal. Wall thickness was increased in a pattern of moderate LVH. Systolic function was normal. The estimated ejection fraction was 60-65%. Wall motion was normal; there were no regional wall motion abnormalities. Doppler parameters are consistent with high ventricular filling pressure. 2. Right ventricle: The cavity size was dilated. Systolic function was normal. 3. Left atrium: The atrium was moderately dilated. 4. Mitral valve: Mildly calcified annulus. Mildly thickened leaflets. There was mild regurgitation. 5. Inferior vena cava: The vessel was patent and normal in size. The respirophasic diameter changes were in the normal range (greater than or equal to 50%), consistent with normal central venous pressure. *PATIENT PRESENTATION* Height: 172.7cm ((68in) ) S/D Pressure: 129 / 56 Weight: 161.5kg ((355.3lb) ) BSA: 2.88m^2 Test start time: 01:05 PM. Test stop time: 02:05 PM. CONSULTING Gavi Adames PERFORMING Unknown PERFORMING [facility] WEBMASTER RT Alfonso (Riya)(CT), [facility] ORDERING Bethany Bell Tara J REFERRING J, Do Bugbee Tara *PROCEDURE DATA* Procedure information: The patient was identified by two identifiers. This study was interpreted by [facility]. Pertinent images and digital data are archived for permanent storage and are available for subsequent review. Comparison was made to the study of 05/09/2016. Study status: STAT. Transthoracic echocardiography. M-mode, complete 2D, complete spectral Doppler, and color Doppler. A Transthoracic Echocardiogram was performed. Scanning was performed from the parasternal, apical, subcostal, and suprasternal notch acoustic windows. Images were obtained using an [id number] cardiac ultrasound machine. Image quality was adequate. Study completion: The patient tolerated the procedure well. There were no complications. History: PMH: Shortness of breath, r/o acute CHF. hx of HF, SOB leg edema. *CARDIAC ANATOMY* Left ventricle: The cavity size was normal. Wall thickness was increased in a pattern of moderate LVH. Systolic function was normal. The estimated ejection fraction was 60-65%. Wall motion was normal; there were no regional wall motion abnormalities. Findings consistent with diastolic dysfunction. Doppler parameters are consistent with high ventricular filling pressure. Aortic valve: Trileaflet; mildly thickened leaflets. Mobility was not restricted. Doppler: Transvalvular velocity was within the normal range. There was no stenosis. There was no significant regurgitation. VTI ratio of LVOT to aortic valve: 0.81. Valve area (VTI): 3.3cm^2. Indexed valve area (VTI): 1.2cm^2/m^2. Peak velocity ratio of LVOT to aortic valve: 0.73. Valve area (Vmax): 3cm^2. Indexed valve area (Vmax): 1cm^2/m^2. Mean velocity ratio of LVOT to aortic valve: 0.63. Valve area (Vmean): 2.6cm^2. Indexed valve area (Vmean): 0.9cm^2/m^2. Mean gradient (S): 9.4mm Hg. Peak gradient (S): 19.4mm Hg. Aorta: Aortic root: The aortic root was normal in size. Ascending aorta: The ascending aorta was normal in size. Mitral valve: Mildly calcified annulus. Mildly thickened leaflets. Mobility was not restricted. Doppler: Transvalvular velocity was within the normal range. There was no evidence for stenosis. There was mild regurgitation. Valve area by pressure half-time: 2.5cm^2. Indexed valve area by pressure half-time: 0.9cm^2/m^2. Peak gradient (D): 7mm Hg. Left atrium: The atrium was moderately dilated. Right ventricle: The cavity size was dilated. Systolic function was normal. Pulmonic valve: The pulmonary valve appears to be grossly normal. Doppler: Transvalvular velocity was within the normal range. There was no evidence for stenosis. There was trivial regurgitation. Tricuspid valve: Structurally normal valve. Doppler: Transvalvular velocity was within the normal range. There was no evidence for stenosis. There was trivial regurgitation. Pulmonary artery: Poorly visualized. Systolic pressure could not be accurately estimated. Right atrium: The atrium was dilated. Pericardium: There was no pericardial effusion. Systemic veins: Inferior vena cava: Well visualized. The vessel was patent and normal in size. The respirophasic diameter changes were in the normal range (greater than or equal to 50%), consistent with normal central venous pressure. Baseline ECG: Normal sinus rhythm. Measurements Left ventricle Value Reference LV ID, ED, PLAX 6.0 cm 3.5 - 6.0 LV ID, ES, PLAX 3.9 cm 2.1 - 4.0 LV PW thickness, ED, PLAX 1.3 cm LV end-diastolic volume, 1-p A2C 163 ml LV ejection fraction, 1-p A2C 65 % LV end-diastolic volume, 1-p A4C 171 ml LV ejection fraction, 1-p A4C 66 % LV e', lateral 0.104 m/sec LV E/e', lateral 13 LV e', medial 0.062 m/sec LV E/e', medial 22 LV e', average 0.083 m/sec LV E/e', average 16 Ventricular septum Value Reference IVS thickness, ED, PLAX 1.3 cm LVOT Value Reference LVOT ID, A-P 2.3 cm LVOT area 4.1 cm^2 LVOT peak velocity, S 1.61 m/sec LVOT mean velocity, S 0.91 m/sec LVOT VTI, S 34.7 cm LVOT peak gradient, S 10.4 mm Hg LVOT mean gradient, S 4.2 mm Hg Stroke volume (SV), LVOT DP 143 ml Stroke index (SV/bsa), LVOT DP 50 ml/m^2 Aortic valve Value Reference Aortic valve peak velocity, S 2.2 m/sec Aortic valve mean velocity, S 1.44 m/sec Aortic valve VTI, S 43.0 cm Aortic mean gradient, S 9.4 mm Hg Aortic peak gradient, S 19.4 mm Hg VTI ratio, LVOT/AV 0.81 Aortic valve area, VTI 3.3 cm^2 Velocity ratio, peak, LVOT/AV 0.73 Aortic valve area, peak velocity 3 cm^2 Velocity ratio, mean, LVOT/AV 0.63 Aortic valve area, mean velocity 2.6 cm^2 Aortic valve area/bsa, mean velocity 0.9 cm^2/m^2 Aorta Value Reference Aortic root ID, ED 3.4 cm Ascending aorta ID, A-P, S 3.2 cm Left atrium Value Reference LA area, ES, A4C (H) 34.8 cm^2 8.8 - 23.4 LA area, ES, A2C 27 cm^2 LA volume/bsa, ES, 1-p A4C 54 ml/m^2 LA volume, ES, 2-p 113 ml LA volume/bsa, ES, 2-p 39 ml/m^2 Mitral valve Value Reference Mitral E-wave peak velocity 1.33 m/sec Mitral A-wave peak velocity 1.06 m/sec Mitral deceleration time (H) 303 ms 150 - 230 Mitral pressure half-time 88 ms Mitral peak gradient, D 7 mm Hg Mitral E/A ratio, peak 1.25 Mitral valve area, PHT, DP 2.5 cm^2 Pulmonary veins Value Reference Pulmonary vein peak velocity, S 0.61 m/sec Pulmonary vein peak velocity, D 0.66 m/sec Pulmonary vein velocity ratio, peak, 0.93 S/D Pulmonary vein A-wave reversal peak 0.33 m/sec velocity Pulmonary vein A-wave reversal 144 ms duration Tricuspid valve Value Reference Tricuspid regurg peak velocity 3.5 m/sec Tricuspid peak RV-RA gradient 50.3 mm Hg Right atrium Value Reference RA area, ES, A4C (H) 32 cm^2 8.3 - 19.5 Pulmonic valve Value Reference Pulmonic regurg velocity, ED 1.15 m/sec Pulmonic regurg gradient, ED 5 mm Hg Legend: (L) and (H) marni values outside specified reference range. I have personally reviewed the images and have reviewed and edited the reported findings. Electronically signed by Bernardo Dexter 12/08/2018 15:20
[2018-12-08 13:05] LABS: ALT 65 U/L (12-78); AST 158 U/L (15-37); Albumin 1.5 g/dL (3.4-5.0); Alkaline Phosphatase 119 U/L (46-116); Anion Gap 7.8 mmol/L (3-11); BUN 14 mg/dL (7-18); CO2 23.2 mmol/L (21.0-32.0); Chloride 107 mmol/L (98-107); Estimated GFR 51.57 (mL/min/1.73m2); Glucose 77 mg/dL (70-100); Magnesium 1.6 mg/dL (1.8-2.4); Potassium 3.6 mmol/L (3.5-5.1); Sodium 138 mmol/L (136-145); Total Protein 6.2 g/dL (6.4-8.2); Troponin I 0.02 ng/mL (0.00-0.06)
[2018-12-08 13:10] LABS: Bilirubin, Total 4.9 mg/dL (0.2-1.0)
[2018-12-08 13:11] LABS: Lipase 149 U/L (73-393); NT-proBNP 344 pg/mL
[2018-12-08 13:14] LABS: Anisocytosis 2+; Diff Comment RBC Morph Reviewed; Platelet Count 42 x1000/uL (130-400)
[2018-12-08 13:15] LABS: Polychromasia Present
--- NOTE | 2018-12-08 13:31 | DI.US_ITS ---
SYMPTOM/DIAGNOSIS: UPPER ABD PAIN, H/O CIRRHOSIS, ELEVATED T BILI, ? CHOLECYSTITIS ABDOMEN ULTRASOUND: Routine examination was performed. There is an echogenic liver with a nodular surface consistent with hepatic cirrhosis. There are multiple stones seen within the gallbladder. No gallbladder wall thickening is seen. No pericholecystic fluid is present. There is a positive Perez's sign. The common duct is within normal limits. The pancreas and kidneys are unremarkable. The spleen is enlarged measuring 17 cm. The abdominal aorta and inferior vena cava are unremarkable. There is antegrade portal venous flow. IMPRESSION: 1. Cholelithiasis with a positive Perez's sign. Acute cholecystitis cannot be excluded. 2. Hepatic cirrhosis and splenomegaly.
[2018-12-08 13:36] LABS: INR 3.6 (0.9-1.1); PTT Activated 47.2 sec (21.0-31.4)
[2018-12-08 14:26] LABS: Bilirubin Moderate (Negative); Blood Moderate (Negative); Clarity Clear; Glucose Negative (Negative); Ketones Negative (Negative); Leukocyte Esterase Negative (Negative); Nitrite Positive (Negative); Specific Gravity >= 1.030 (1.005-1.025); Urobilinogen 0.2 EU/dL (Up TO 0.2); pH 5.5 (5-8)
[2018-12-08] MEDS: Acetaminophen 325 MG TAB 650 MG PO (14:38)
[2018-12-08 14:42] LABS: WBC 20-50 HPF (0-5)
[2018-12-08 14:43] LABS: Bacteria Moderate HPF (Negative); C & S Indicated? No/Sq. Contamination; Crystals Negative HPF (Negative); Epithelial Cells Moderate HPF (Negative); Mucus Moderate (Negative)
--- NOTE | 2018-12-08 16:45 | DI.VRAD_ITS ---
EXAM: US Abdomen Complete EXAM DATE/TIME: 12/08/2018 4:19 PM CLINICAL HISTORY: 53 years old, female; Other: Ruq pain; Patient HX: Upper abd pain, h/o of cirrhosis, t. Bili elevated. ; Additional info: Study severely limited due to patient habitus. TECHNIQUE: Imaging protocol: Real-time ultrasound of the abdomen with image documentation. COMPARISON: US abdomen limited 05/19/2018 8:20 PM FINDINGS: Liver: Echogenic liver with nodular surface suggesting cirrhosis. Gallbladder: Gallbladder sludge/stones. Gallbladder wall measures 2.5-3 mm. Positive Perez sign. No pericholecystic fluid. Common bile duct: Normal. No stones. No dilation. Pancreas: Visualized pancreas is unremarkable. Right kidney: Normal. No mass. No hydronephrosis. Left kidney: Left kidney measures 9 x 6 x 7 cm. Spleen: Splenomegaly measuring 17 cm. Aorta: Normal. No aneurysm. Inferior vena cava: Normal. Portal venous: Unable to obtain good portal venous flow. Other findings: Recognition a 12 x 5 x 6 cm. IMPRESSION: 1. Cirrhosis. 2. Gallstones/gallbladder sludge with positive Perez's sign. Cholecystitis is not excluded. 3. Splenomegaly. Dictated and Authenticated by: Conor Bahena MD. Ordering:WONG Sims MD
[2018-12-08] MEDS: FAMOTIDINE 20 MG/50 ML BAG 200 MG IVPB (16:57)
[2018-12-08 17:20] LABS: Bilirubin, Direct 2.25 mg/dL (0.00-0.20)
--- NOTE | 2018-12-08 17:30 | DI.CT_ITS ---
SYMPTOM/DIAGNOSIS: CHEST PAIN, SOB, ABD PAIN, H/O CIRRHOSIS CT CHEST, ABDOMEN AND PELVIS: Comparison is 05/19/18. CT SCAN ABDOMEN AND PELVIS: There are again seen sclerotic changes of the liver. No hepatic mass is seen. There are multiple stones seen within the gallbladder. There is gallbladder wall thickening up to almost 1 cm. There is no biliary ductal dilatation. The pancreas is unremarkable. The spleen is enlarged. No evidence of an adrenal mass is seen. Nonobstructing stones are seen in the left kidney. The largest measures 3 mm. The urinary bladder is intact. The reproductive organs are unremarkable. There is atherosclerosis of the abdominal aorta but no aneurysmal dilatation seen. Varices are seen in the upper abdomen consistent with portal hypertension. No significant abdominal or pelvic adenopathy or pneumoperitoneum is seen. There is a small amount of pelvic ascites and a small amount of perihepatic ascites. Note is made of a fat containing umbilical hernia. The bowel shows no evidence of obstruction or inflammation. There is diverticulosis of the colon but no evidence of acute diverticulitis. No right lower quadrant inflammatory process is seen to suggest an acute appendicitis. No acute osseous abnormalities identified. The inferior vena cava is unchanged in alignment. IMPRESSION: 1. Findings consistent with hepatic cirrhosis and portal hypertension. Splenomegaly and upper abdominal varices are noted. 2. Small amount of pelvic ascites 3. Cholelithiasis with gallbladder wall thickening. Ultrasound may be considered for further evaluation. 4. Left nephrolithiasis. No hydronephrosis. CT CHEST: There is no evidence of a pulmonary embolus, thoracic aortic dissection of aneurysm. Heart is within normal limits in size. No evidence of a significant pericardial effusion is seen. No findings to suggest right heart strain are noted. No significant thoracic adenopathy is seen. No pleural effusion or pneumothorax is identified. Nodular ground glass opacities are seen in the upper lobes bilaterally. Nodular opacity in the right upper lobe measures 1.4 cm. Nodular opacity in the left upper lobe measures 1.2 cm. No acute osseous abnormality is identified. IMPRESSION: 1. No evidence of a pulmonary embolus, thoracic aortic dissection or aneurysm. 2. Nodular ground glass opacities in the lungs. These may represent infectious or inflammatory process. Pulmonary nodules cannot be excluded. A follow up examination in 3-6 months is recommended for re-evaluation.
[2018-12-08] MEDS: Omnipaque 350 MG/ML 100 ML BTL IJ (18:12)
--- NOTE | 2018-12-08 18:34 | DI.VRAD_ITS ---
EXAM: CT Angiography Chest With Contrast EXAM DATE/TIME: 12/08/2018 5:32 PM CLINICAL HISTORY: 53 years old, female; Abdominal pain; Generalized; Patient HX: Chest pain, SOB, abd pain, h/o cirrhosis TECHNIQUE: Imaging protocol: Axial computed tomographic angiography images of the chest with intravenous contrast using CT angiography protocol. Coronal and sagittal reformatted images were created and reviewed. 3D rendering: MIP reconstructed images were created and reviewed. COMPARISON: Vascular^CTA ABD PEL (Adult) 05/19/2018 3:02 PM FINDINGS: Pulmonary arteries: Normal. No pulmonary emboli. Aorta: Normal. No aortic aneurysm. No aortic dissection. Lungs: Groundglass nodule laterally in the right upper lobe measuring 1.4 cm. Groundglass nodule in the anterior segment of the right upper lobe measuring 1.7 cm. Groundglass nodule in the anterior segment of the left upper lobe measuring 1.2 cm. Mild pulmonary interstitial edema. Pleural space: Normal. No pneumothorax. No pleural effusion. Heart: Normal. No cardiomegaly. No pericardial effusion. Lymph nodes: Unremarkable. No enlarged lymph nodes. Bones/joints: Degenerative changes in the spine. Soft tissues: Unremarkable. IMPRESSION: 1. Pulmonary nodules. Recommend CT at 3-6 months. Subsequent management based on the most suspicious nodule(s). (Maikel et al., Fleischner Society, 2017) 2. No pulmonary embolism 3. No aortic dissection or aneurysm. 4. Mild interstitial edema in the lungs. EXAM: CT Angiography Abdomen With Contrast EXAM DATE/TIME: 12/08/2018 5:32 PM CLINICAL HISTORY: 53 years old, female; Abdominal pain; Generalized; Patient HX: Chest pain, SOB, abd pain, h/o cirrhosis TECHNIQUE: Imaging protocol: Axial computed tomographic angiography images of the abdomen with intravenous contrast material. Coronal and sagittal reformatted images were created and reviewed. 3D rendering: MIP reconstructed images were created and reviewed. COMPARISON: Vascular^CTA ABD PEL (Adult) 05/19/2018 3:02 PM FINDINGS: Lungs: Unremarkable. No consolidation. VASCULATURE: Aorta: Atherosclerosis. Celiac trunk and mesenteric arteries: No occlusion or significant stenosis. Renal arteries: No occlusion or significant stenosis. Portal Venous System: Splenic varices. Inferior vena cava: IVC filter present ABDOMEN: Liver: Hepatic cirrhosis without masses. Gallbladder and bile ducts: Gallstones without acute cholecystitis. Wall thickening in the gallbladder measuring up to 1 cm which could be related to gallbladder disease or liver disease. Pancreas: Normal. No ductal dilation. Spleen: Splenomegaly indicating portal hypertension. Adrenals: Normal. No mass. Kidneys and ureters: 1 cm nonobstructive left renal stone. Stomach and bowel: Distal colonic diverticulosis without diverticulitis. Appendix: Unable to identify the appendix. Intraperitoneal space: Small amount of pelvic ascites. Mesenteric edema. Bones/joints: Unremarkable. No acute fracture. No dislocation. Soft tissues: Umbilical hernia containing fat that is slightly edematous. Lymph nodes: Unremarkable. No enlarged lymph nodes. IMPRESSION: 1. Hepatic cirrhosis without masses. 2. Gallstones without acute cholecystitis. 3. Umbilical hernia containing fat that is slightly edematous. 4. Small amount of pelvic ascites. 5. Distal colonic diverticulosis without diverticulitis. 6. Unable to identify the appendix. 7. Atherosclerosis. 8. IVC filter present. 9. Mesenteric edema. 10. Wall thickening in the gallbladder measuring up to 1 cm which could be related to gallbladder disease or liver disease. 11. Splenomegaly indicating portal hypertension. 12. Splenic varices. 13. 1 cm nonobstructive left renal stone. Dictated and Authenticated by: Conor Bahena MD. Ordering:WONG Sims MD
== END 2018-12-08 19:46 | disposition home or self-care (01) ==
PROVIDERS: Emergency Provider Physician Assistant; PCP Family Medicine
DX: R07.89 Other chest pain (principal); R10.13 Epigastric pain; R06.02 Shortness of breath; I45.10 Unspecified right bundle-branch block; I44.4 Left anterior fascicular block; Z86.711 Personal history of pulmonary embolism; Z79.01 Long term (current) use of anticoagulants; R60.0 Localized edema; R53.81 Other malaise
CPT/HCPCS: 36415; 71275; 74177; 80053; 83690; 93005; 93306; 96365; 99285; 71046; 76700; 81003; 81015; 82248; 83735; 83880; 84484; 85025; 85610; 85730; 93010; J3490

== ENCOUNTER 2018-12-17 09:36 | Emergency (ER) | payer MEDICARE, MEDICAID, SELFPAY ==
--- NOTE | 2018-12-17 09:51 | NUR.NOTE ---
Nursing Note: pt states i have cellulites on my right leg and the mess on my left leg pt refuses to let RN asses site. however from across the room both lower extremities are reddened and pt states they are painful to touch however once again will not let RN physically asses
[2018-12-17 09:53] VITALS: BP 148/115; PULSE 64; RESP 22; TEMP 36.6; O2SAT 95
--- NOTE | 2018-12-17 09:56 | ED.GENADUL_ITS ---
Discharge Plan Disposition Patient Disposition: HOME Condition: Fair Discharge Details Chief Complaint: Cellulitis Clinical Impression: Cellulitis Primary Care Provider: Gavi Adames ED Provider: Maggie Monzon Home Meds and New Rx's Prescriptions: New doxycycline hyclate 100 mg capsule 100 mg PO BID Qty: 14 RF: 0 Continued potassium chloride [Klor-Con M20] 20 MEQ tablet,ER particles/crystals 20 meq PO BID RF: 0 albuterol sulfate 8.5 GM HFA aerosol inhaler 2 puff .Route PRN PRNRF: 0 escitalopram oxalate [Lexapro] 20 MG tablet 20 mg PO DAILY RF: 0 Advair HFA 60 PUFF HFA aerosol inhaler 2 puff .Route BID RF: 0 cholecalciferol (vitamin D3) 1,000 UNITS tablet 2,000 units PO DAILY RF: 0 topiramate 25 MG tablet 50 mg PO BID RF: 0 ibuprofen 400 MG tablet 400 mg PO DAILY AM PRNQty: 0 RF: 0 warfarin 2.5 mg Tablet 2.5 - 5 mg PO DIRECTED RF: 0 miconazole nitrate 2 % Cream 1 applic topical DIRECTED RF: 0 fluticasone propion-salmeterol [Advair Diskus] 500-50 mcg/dose Blister With Device 2 inh Inhalation BID RF: 0 oxybutynin chloride 10 mg Tablet Extended Release 24hr 1 tab PO DAILY RF: 0 triamcinolone acetonide 0.1 % Cream 1 applic TOPICAL BID RF: 0 spironolactone 25 mg Tablet 25 mg PO DAILY RF: 0 vancomycin [Vancocin] 125 mg Capsule 125 mg PO QID RF: 0 simvastatin 40 mg Tablet 40 mg PO QHS RF: 0 magnesium oxide 400 mg Capsule 400 mg PO DAILY RF: 0 melatonin 10 mg Capsule 20 mg PO HS PRNRF: 0 furosemide 40 mg Tablet 40 mg PO DAILY Qty: 30 RF: 0 ciprofloxacin HCl 500 mg Tablet 500 mg PO BID Qty: 15 RF: 0 spironolactone 25 mg Tablet 50 mg PO BID@0830,1600 Qty: 120 RF: 0 ranitidine HCl 150 mg Tablet 150 mg PO BID Qty: 60 RF: 0 acidophilus-pectin, citrus 25 million cell -100 mg Tablet 1 cap PO TID Qty: 90 RF: 0 Discharge Instructions Instructions: Cellulitis (ED) Additional Instructions: Encourage hydration. Please elevate lower extremities as much as possible, please use compression hose. Take Doxycyline as prescribed, this will cause photosensitivity if in the sun as discussed. Separate your Doxycycline from your magnesium supplement by 4 hours. Please follow up with primary care this week for reevaluation. If you develop fevers/chills, shortness of breath, have spreading of the redness or other new/worsening symptoms please seek care urgently once again. Referrals: Gavi Adames MD [Primary Care Provider] - Discharge Data Discharge Date/Time-TO BE ENTERED AT DEPARTURE: 12/17/18 11:12 Medical Decision Making Patient is a 53-year-old female, well-known to myself, with chief complaint of cellulitis. Patient has multiple comorbidities including CHF, LUDY, history of PE with chronic anticoagulation, chronic C. difficile with long-term oral vancomycin treatment. She is presenting today endorsing erythema to the left side of her face as well as the right lower extremity. Reports that the erythema on the right lower extremity is consistent with her history of cellulitis. Patient reports that symptoms began yesterday and have been increasing. She denies any fevers or chills. Patient states that the redness in the face is unusual for her cellulitis. I did request the patient undressed that he may check the remaining skin given this patchy distribution of the erythema. Patient is adamantly refusing to have me assess her skin elsewhere. Will not change into account. I did discuss the risks associated with this. Particularly given the patient's morbid obesity, I am concerned that she may not be able to assess her skin well. She continues to refuse assessment. Patient has been taking her oral vancomycin. No other recent antibiotics. Reports she is been taking her anticoagulation as prescribed. Patient is known to be hypertensive at 148/115 but vital signs otherwise within normal limits. On exam, patient is morbidly obese. She has 2+ pitting edema bilaterally. She has chronic darkening of the skin consistent with peripheral vascular disease on the left. She is erythema on the right anterior tibia. She reports this is painful to palpation. No open areas, no discharge. No weeping of the area. Is slightly warm to palpation. Distal pulses are intact. No pain or swelling posteriorly to suggest DVT. The area of erythema on the left cheek, has area of soft tissue swelling. No area of fluctuance. No intraoral findings to suggest dental source. Patient is largely edentulous. Bedside fingerstick: 120 Patient will be treated for recurrent cellulitis. Plan to place on doxycycline. We did discuss side effects of this medication. Encourage prompt follow-up this week for reevaluation by primary care. She was given strict return precautions. Family is present and is aware of this plan. No other questions and concerns were addressed and she is in agreement this plan HPI General Mode of arrival: ambulatory . Date/Time Provider Initiated Documentation: 12/17/18 09:45 . Limitations to Documentation: no limitations . Information obtained by: patient, family (accompanied by mother) and RN notes reviewed . History of Present Illness 53 year old F presents to the emergency department with the chief complaint of cellulitis RLE and left side of face, described as severe and similar to prior episodes, with intensity rated at 10. Quality is described as burning, and is localized to the face, right and lower extremity. Patient reports no radiation. Patient started experiencing this day(s) (3) and it has been constant. other things that improve symptom(s), (elevating RLE) No exacerbating factors reported . Patient notes rash; denies chest pain, cough, diaphoresis, fever/chills, loss of appetite, nausea/vomiting, shortness of breath and weakness. Patient did receive the following treatments prior to arrival, none Related Data Home Medications Medication Instructions Recorded Confirmed Advair HFA 2 puff .ROUTE BID 03/15/15 12/17/18 albuterol sulfate 2 puff .ROUTE PRN PRN 03/15/15 12/17/18 cholecalciferol (vitamin D3) 2,000 units PO DAILY 03/15/15 12/17/18 escitalopram oxalate [Lexapro] 20 mg PO DAILY 03/15/15 12/17/18 potassium chloride [Klor-Con M20] 20 meq PO BID 03/15/15 12/17/18 topiramate 50 mg PO BID 03/23/17 12/17/18 ibuprofen 400 mg PO DAILY AM PRN #0 12/20/17 12/17/18 fluticasone propion-salmeterol 2 inh INHALATION BID 03/04/18 12/17/18 [Advair Diskus] magnesium oxide 400 mg PO DAILY 05/19/18 12/17/18 melatonin 20 mg PO HS PRN 05/19/18 12/17/18 oxybutynin chloride 1 tab PO DAILY 05/19/18 12/17/18 simvastatin 40 mg PO QHS 05/19/18 12/17/18 spironolactone 25 mg PO DAILY 05/19/18 12/17/18 triamcinolone acetonide 1 applic TOPICAL BID 05/19/18 12/17/18 vancomycin [Vancocin] 125 mg PO QID 05/19/18 12/17/18 acidophilus-pectin, citrus 1 cap PO TID #90 tab 05/27/18 12/17/18 ciprofloxacin HCl 500 mg PO BID #15 tab 05/27/18 12/17/18 furosemide 40 mg PO DAILY #30 tab 05/27/18 12/17/18 ranitidine HCl 150 mg PO BID #60 tab 05/27/18 12/17/18 spironolactone 50 mg PO BID@0830,1600 #120 tab 05/27/18 12/17/18 miconazole nitrate 1 applic TOPICAL DIRECTED 12/08/18 12/17/18 warfarin 2.5 - 5 mg PO DIRECTED 12/08/18 12/17/18 doxycycline hyclate 100 mg PO BID #14 cap 12/17/18 Previous Rx's Medication Instructions Recorded ibuprofen 400 mg PO DAILY AM PRN #0 12/20/17 acidophilus-pectin, citrus 1 cap PO TID #90 tab 05/27/18 ciprofloxacin HCl 500 mg PO BID #15 tab 05/27/18 furosemide 40 mg PO DAILY #30 tab 05/27/18 ranitidine HCl 150 mg PO BID #60 tab 05/27/18 spironolactone 50 mg PO BID@0830,1600 #120 tab 05/27/18 doxycycline hyclate 100 mg PO BID #14 cap 12/17/18 Allergies Allergy/AdvReac Type Severity Reaction Status Date / Time cephalexin monohydrate AdvReac Diarrhea Unverified 12/17/18 09:56 [From Keflex] General RAJAN: 2 Review of Systems Constitutional Reports as per HPI, Denies chills and Denies fever(s) Cardiovascular Denies chest pain, Denies palpitations, Denies dyspnea and Denies dyspnea on exertion Respiratory Denies cough, Denies dyspnea and Denies dyspnea on exertion Gastrointestinal Denies abdominal pain, Denies nausea and Denies vomiting Musculoskeletal Reports as per HPI Integumentary/Breasts Reports as per HPI, Reports erythema, Reports skin pain, Denies sores and Denies wounds Neurologic Reports as per HPI, Denies sensory deficit and Denies paresthesias Endocrine Denies palpitations [facility] Medical History Edema extremities (Acute) Hyperlipidemia (Acute) Liver cirrhosis secondary to nonalcoholic steatohepatitis ([place]) (Acute) Morbid obesity (Acute) Secondary hypercoagulability disorder (Acute) Asthma (Chronic) Depression (Chronic) Osteoarthritis (Chronic) Surgical History History of bilateral tubal ligation (Acute) Social History Smoking/Tobacco Use Status: Former Tobacco Use Alcohol Intake: never Drug use: Never Substance use type: does not use Household members: other Details: Patient was living with her son and now lives with her parents Number of Children: 3 Do you feel safe at home: Yes Do you feel safe in your relationship?: Yes Additional Social history: 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 She presently is on disability for psychiatric disease mostly but also physical deconditioning from her morbid obesity. Female Reproductive History Menstrual control method: permanent sterilization History History 3 Para Hx # Term Pregnancies Multiple births Hx # Pregnancies Ectopic pregnancies AB induced Hx Number of Living Children AB spontaneous Exam Const General: cooperative, healthy appearing, comfortable, no acute distress and well developed Nutritional Appearance: well nourished and obese Orientation: alert and awake [facility] [place] Head: normal to inspection, normocephalic and atraumatic Face and sinus: abnormal facial exam (erythema as below to left side of jaw with associated soft tissue swelling) Face images: 1. area of erythema, inferior aspect soft tissue swelling. No fluctuance. No intraoral lesions, no dental abscess Mouth: oral mucosae normal and lip normal Teeth and gingiva: gingiva normal and poor dentition Throat: posterior oropharynx normal, tonsils normal and uvula midline Neck Neck: normal visual inspection, full ROM, no lymphadenopathy and no meningeal signs Resp Effort & Inspection: normal respiratory effort, able to speak in complete sentences and no respiratory distress Auscultation: clear to auscultation bilaterally, no rales, no rhonchi and no wheezes Cardio Rate: regular rate Rhythm: regular rhythm Heart Sounds: S1 normal and S2 normal Skin General skin exam: erythema (as above and to right lower extremity) Full body images: 1. area of erythema and warmth Neuro General: alert and awake Cognition: normal cognition Speech: speech normal Gait: normal gait Sensory Exam: no sensory deficits noted Extrem General: full ROM, normal capillary refill, no joint enlargement, normal gait (baseline for patient), calf tenderness on the right (pain along area of erythema anteriorly, no posterior pain, -Homanns), edema Laterality: bilateral, limp and pedal edema Psych Appearance: grossly normal and well kempt Mental Status: mental status grossly normal Speech and Movement: speech and movement normal
[2018-12-17 11:11] VITALS: BP 148/115; PULSE 64; RESP 22; TEMP 36.6; O2SAT 95
--- NOTE | 2018-12-17 11:24 | NUR.NOTE ---
pt states that her nausea has resolved Nursing Note:
== END 2018-12-17 11:12 | disposition home or self-care (01) ==
PROVIDERS: Emergency Provider Physician Assistant; PCP Family Medicine
DX: L03.811 Cellulitis of head [any part, except face] (principal); R60.0 Localized edema; I50.9 Heart failure, unspecified; I26.99 Other pulmonary embolism without acute cor pulmonale; Z79.01 Long term (current) use of anticoagulants
CPT/HCPCS: 36416; 82962; 99283

== ENCOUNTER 2019-01-16 13:31 | Inpatient (IN) | payer MEDICARE, MEDICAID, SELFPAY ==
[2019-01-16] VITALS (63 sets, daily range): BP systolic 72–157; BP diastolic 31–115; PULSE 58–161; RESP 14–36; TEMP 36.3–36.8; O2SAT 86–99
--- NOTE | 2019-01-16 13:34 | DI.RAD_ITS ---
SYMPTOMS/DIAGNOSIS: SHORTNESS OF BREATH CHEST: Frontal and lateral views. Comparison 05/19/18. The heart size and pulmonary vasculature are within normal limits. There are increased lung markings in the right base. The left lung is clear. No effusions or pneumothoraces are identified. Degenerative changes are seen in the spine. IMPRESSION: Right basilar infiltrate. This may represent atelectasis or pneumonia. The findings were discussed with Dr. Buckner of the emergency department on the date of the examination.
--- NOTE | 2019-01-16 13:48 | DI.CT_ITS ---
SYMPTOMS/DIAGNOSIS: HEADACHE CT BRAIN: Noncontrast. There are no priors for comparison. The ventricles and sulci are consistent with the patient's age. There is normal reed/white matter differentiation. No evidence of an acute territorial infarct, hemorrhage, midline shift or mass effect is identified. The ventricles are intact. The basilar cisterns are patent. The visualized paranasal sinuses are clear as are the mastoid air cells. The calvarium is intact. IMPRESSION: No acute intracranial process. The findings were discussed with the emergency department on the date of the examination.
--- NOTE | 2019-01-16 13:50 | ED.GENADUL_ITS ---
Discharge Plan Disposition Patient Disposition: [facility] INPATIENT Condition: Serious Discharge Details Chief Complaint: SOB Clinical Impression: Pneumonia, Supratherapeutic INR, Headache, Thrombocytopenia Primary Care Provider: Gavi Adames ED Provider: Juan Buckner Home Meds and New Rx's Prescriptions: No Action potassium chloride [Klor-Con M20] 20 MEQ tablet,ER particles/crystals 20 meq PO BID RF: 0 albuterol sulfate 8.5 GM HFA aerosol inhaler 2 puff .Route PRN PRNRF: 0 escitalopram oxalate [Lexapro] 20 MG tablet 20 mg PO DAILY RF: 0 Advair HFA 60 PUFF HFA aerosol inhaler 2 puff .Route BID RF: 0 cholecalciferol (vitamin D3) 1,000 UNITS tablet 2,000 units PO DAILY RF: 0 topiramate 25 MG tablet 50 mg PO BID RF: 0 ibuprofen 400 MG tablet 400 mg PO DAILY AM PRNQty: 0 RF: 0 warfarin 2.5 mg Tablet 2.5 - 5 mg PO DIRECTED RF: 0 miconazole nitrate 2 % Cream 1 applic topical DIRECTED RF: 0 fluticasone propion-salmeterol [Advair Diskus] 500-50 mcg/dose Blister With Device 2 inh Inhalation BID RF: 0 oxybutynin chloride 10 mg Tablet Extended Release 24hr 1 tab PO DAILY RF: 0 triamcinolone acetonide 0.1 % Cream 1 applic TOPICAL BID RF: 0 spironolactone 25 mg Tablet 25 mg PO DAILY RF: 0 vancomycin [Vancocin] 125 mg Capsule 125 mg PO QID RF: 0 simvastatin 40 mg Tablet 40 mg PO QHS RF: 0 magnesium oxide 400 mg Capsule 400 mg PO DAILY RF: 0 melatonin 10 mg Capsule 20 mg PO HS PRNRF: 0 furosemide 40 mg Tablet 40 mg PO DAILY Qty: 30 RF: 0 ciprofloxacin HCl 500 mg Tablet 500 mg PO BID Qty: 15 RF: 0 spironolactone 25 mg Tablet 50 mg PO BID@0830,1600 Qty: 120 RF: 0 ranitidine HCl 150 mg Tablet 150 mg PO BID Qty: 60 RF: 0 acidophilus-pectin, citrus 25 million cell -100 mg Tablet 1 cap PO TID Qty: 90 RF: 0 doxycycline hyclate 100 mg capsule 100 mg PO BID Qty: 14 RF: 0 Medical Decision Making 13:50 --53-year-old female with multiple medical problems including history of nonalcoholic cirrhosis of the liver, chronic diastolic heart failure, GERD, pulmonary embolism, on Coumadin, status post IVC filter, C. difficile colitis, here with severe headache 4-5 days, fever and cough. Recent supratherapeutic INR. Patient also with which she states is chronic shortness of breath, hypoxic today, improved with nasal cannula oxygen. No meningeal signs on exam. Consider acute life-threatening intracranial hemorrhage. Plan to obtain CT of the head. --CT head interpreted by radiology: Negative --Chest x-ray reviewed and interpreted by me: Question right lower lobe opacity, I called and spoke with radiology who reviewed the x-ray and agrees right lower lobe opacity new compared to prior chest xray. Patient has had shortness of breath and recent cough. She is afebrile with no leukocytosis. Consider pneumonia. Urinalysis reviewed and consistent with UTI. Plan to treat with ceftriaxone. Supratherapeutic INR noted. Thrombocytopenia noted -this appears to be chronic. Patient reassessed and continues to have severe headache. Lumbar puncture is indicated. Given coagulopathy and obesity patient is high risk for complications of LP. Will give vitamin K 5mg PO. 16:00 -- [place] [facility] [place]. 17:25 -- I spoke with ED provider who declined to accept and recommended patient be transferred to hospitalist. I spoke with hospitalist and I requested transfer. I was just informed [place] [facility] [place] to accommodate transfer. Call to [facility] to request transfer. 18:00 --I spoke with [facility] ED physician Dr. Chua who noted that patient would likely not have interventional radiology procedure tonight and until more further reversed and recommended admission here. Transfer center confirmed with IR that procedure would not be done tonight. 18:25 --I spoke with Dr. Aj who will admit the patient. Care transition to Dr. Aj. Plan to treat with ceftriaxone to cover PNA, potential UTI. ECG Data Attestation: I personally reviewed and interpreted this ECG (s) as follows: (Regular rhythm with rate of 72, QRS duration 133, left axis deviation, no significant change from prior ECG 12/08/18) HPI General Mode of arrival: ambulatory . Date/Time Provider Initiated Documentation: 01/16/19 13:34 . Limitations to Documentation: no limitations . Information obtained by: patient . HPI Narrative: 53-year-old female with multiple medical problems including history of nonalcoholic cirrhosis of the liver, chronic diastolic heart failure, GERD, pulmonary embolism, on Coumadin, here with headache. Pain is severe. No modifiers. Pain localized to behind her eyes and frontal. She does not typically have headaches. She notes headache started approximately 5 days ago and has persisted. No associated neck pain or stiffness. Patient also notes associated fever over the past 5 days. She also notes that she has had cough. She has chronic shortness of breath. Patient states Coumadin has been elevated recently and she is currently holding dosing today and tomorrow. Related Data Home Medications Medication Instructions Recorded Confirmed Advair HFA 2 puff .ROUTE BID 03/15/15 01/16/19 albuterol sulfate 2 puff .ROUTE PRN PRN 03/15/15 01/16/19 cholecalciferol (vitamin D3) 2,000 units PO DAILY 03/15/15 01/16/19 escitalopram oxalate [Lexapro] 20 mg PO DAILY 03/15/15 01/16/19 potassium chloride [Klor-Con M20] 20 meq PO BID 03/15/15 01/16/19 topiramate 50 mg PO BID 03/23/17 01/16/19 ibuprofen 400 mg PO DAILY AM PRN #0 12/20/17 01/16/19 fluticasone propion-salmeterol 2 inh INHALATION BID 03/04/18 01/16/19 [Advair Diskus] magnesium oxide 400 mg PO DAILY 05/19/18 01/16/19 melatonin 20 mg PO HS PRN 05/19/18 01/16/19 oxybutynin chloride 1 tab PO DAILY 05/19/18 01/16/19 simvastatin 40 mg PO QHS 05/19/18 01/16/19 spironolactone 25 mg PO DAILY 05/19/18 01/16/19 triamcinolone acetonide 1 applic TOPICAL BID 05/19/18 01/16/19 vancomycin [Vancocin] 125 mg PO QID 05/19/18 01/16/19 acidophilus-pectin, citrus 1 cap PO TID #90 tab 05/27/18 01/16/19 ciprofloxacin HCl 500 mg PO BID #15 tab 05/27/18 01/16/19 furosemide 40 mg PO DAILY #30 tab 05/27/18 01/16/19 ranitidine HCl 150 mg PO BID #60 tab 05/27/18 01/16/19 spironolactone 50 mg PO BID@0830,1600 #120 tab 05/27/18 01/16/19 miconazole nitrate 1 applic TOPICAL DIRECTED 12/08/18 01/16/19 warfarin 2.5 - 5 mg PO DIRECTED 12/08/18 01/16/19 doxycycline hyclate 100 mg PO BID #14 cap 12/17/18 01/16/19 Previous Rx's Medication Instructions Recorded ibuprofen 400 mg PO DAILY AM PRN #0 12/20/17 acidophilus-pectin, citrus 1 cap PO TID #90 tab 05/27/18 ciprofloxacin HCl 500 mg PO BID #15 tab 05/27/18 furosemide 40 mg PO DAILY #30 tab 05/27/18 ranitidine HCl 150 mg PO BID #60 tab 05/27/18 spironolactone 50 mg PO BID@0830,1600 #120 tab 05/27/18 doxycycline hyclate 100 mg PO BID #14 cap 12/17/18 Allergies Allergy/AdvReac Type Severity Reaction Status Date / Time cephalexin monohydrate AdvReac Diarrhea Unverified 01/16/19 14:38 [From Keflex] General Stated Complaint: SOB RAJAN: 2 Review of Systems Review of Systems All systems reviewed & are unremarkable except as noted in HPI and below Constitutional Reports fever(s) and Reports headache(s) ENT Reports headache(s) Cardiovascular Reports dyspnea Respiratory Reports cough and Reports dyspnea Neurologic Reports headache(s) [facility] Medical History Asthma (Chronic) Depression (Chronic) Edema extremities (Acute) Hyperlipidemia (Acute) Liver cirrhosis secondary to nonalcoholic steatohepatitis ([place]) (Acute) Morbid obesity (Acute) Osteoarthritis (Chronic) Secondary hypercoagulability disorder (Acute) Surgical History History of bilateral tubal ligation (Acute) Family History Other Diabetes Secondary hypercoagulability disorder Social History Smoking/Tobacco Use Status: Former Tobacco Use Alcohol Intake: never Drug use: Never Substance use type: does not use Household members: other Details: Patient was living with her son and now lives with her parents Number of Children: 3 Do you feel safe at home: Yes Do you feel safe in your relationship?: Yes Additional Social history: 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 She presently is on disability for psychiatric disease mostly but also physical deconditioning from her morbid obesity. Female Reproductive History Menstrual control method: permanent sterilization History History 3 Para Hx # Term Pregnancies Multiple births Hx # Pregnancies Ectopic pregnancies AB induced Hx Number of Living Children AB spontaneous Exam Const General: cooperative Nutritional Appearance: obese Orientation: alert and awake HENMT Head: normocephalic and atraumatic Mouth: moist mucous membranes Eyes Conjunctivae: normal conjunctivae Sclera: normal sclerae Neck Neck: full ROM (no pain), trachea midline, supple and no JVD Resp Effort & Inspection: not labored and tachypneic Auscultation: clear to auscultation bilaterally, no rales, no rhonchi and no wheezes Cardio Jugular venous pressure: no JVD Rate: regular rate and not tachycardic Rhythm: regular rhythm GI Palpation: soft, not firm, no guarding, no masses, not rigid and nontender Skin General skin exam: no rashes or lesions noted Neuro General: alert, awake, oriented x3 and tone normal Extrem General: no edema Psych Appearance: grossly normal Mental Status: mental status grossly normal Speech and Movement: speech and movement normal Course Vital Signs Respiratory Rate 36 H 01/16/19 13:28 Pulse Oximetry 94 L 01/16/19 13:28 Temperature Source Temporal Artery Scan 01/16/19 13:35 Pulse 71 01/16/19 13:35 Pulse 68 01/16/19 13:40 Respiratory Rate 25 H 01/16/19 13:40 Blood Pressure 145/74 H 01/16/19 13:35 Blood Pressure Mean 91 01/16/19 13:31 Blood Pressure Position Supine 01/16/19 13:35 Pulse Oximetry 99 01/16/19 13:40 Oxygen Delivery Method Room Air 01/16/19 13:35 Oxygen Flow Rate 0 01/16/19 13:35
[2019-01-16 13:52] LABS: Abs Immature Grans 0.05 k/cumm (0.0-0.09); Absolute Basophil Count 0.02 k/cumm (0.0-0.2); Absolute Eosinophil Count 0.02 k/cumm (0.0-0.7); Absolute Lymphocyte Count 0.43 k/cumm (1.2-3.4); Absolute Monocyte Count 0.64 k/cumm (0.11-0.7); Absolute Neutrophil Count 4.61 k/cumm (1.2-6.7); Basophils % 0.3; Eosinophils % 0.3; HCT 41.9 % (36.0-46.0); Immature Grans % 0.9; Lymphocytes % 7.5; Mean Corp. HGB Concentration 33.4 g/dL (32.0-36.0); Mean Corpuscular Hemoglobin 31.2 pg (27.0-33.0); Mean Corpuscular Volume 93.3 fL (80-95); Monocytes % 11.1; Neutrophils % 79.9; RBC 4.49 m/cumm (4.00-5.20); RBC Distribution Width 19.6 % (11.7-14.6); White Blood Cell Count 5.77 k/cumm (4.4-10.8)
[2019-01-16 14:11] LABS: Anisocytosis 2+; Diff Comment RBC Morph Reviewed; Platelet Count 39 x1000/uL (130-400); Polychromasia Present
[2019-01-16 14:16] LABS: ALT 83 U/L (12-78); AST 225 U/L (15-37); Albumin 1.3 g/dL (3.4-5.0); Alkaline Phosphatase 120 U/L (46-116); Anion Gap 9.5 mmol/L (3-11); BUN 30 mg/dL (7-18); Bilirubin, Total 4.3 mg/dL (0.2-1.0); CO2 21.5 mmol/L (21.0-32.0); CREATININE 1.64 mg/dL (0.55-1.02); Calcium 8.3 mg/dL (8.5-10.1); Chloride 106 mmol/L (98-107); Estimated GFR 32.53 (mL/min/1.73m2); Glucose 115 mg/dL (70-100); Magnesium 1.9 mg/dL (1.8-2.4); NT-proBNP 457 pg/mL; Potassium 3.5 mmol/L (3.5-5.1); Sodium 137 mmol/L (136-145); Total Protein 6.2 g/dL (6.4-8.2)
[2019-01-16 14:16] LABS: Ammonia 36 umol/L (11-32)
[2019-01-16 14:18] LABS: Troponin I < 0.05 ng/mL (0.00-0.06)
[2019-01-16 14:33] LABS: PTT Activated 59.7 sec (21.0-31.4); Prothrombin Time 45.8 sec (9.3-11.0)
[2019-01-16 14:38] LABS: INR 4.5 (0.9-1.1)
[2019-01-16 14:58] LABS: Bilirubin Large (Negative); Blood Moderate (Negative); Clarity Clear (Clear); Glucose Negative (Negative); Ketones Trace mg/dL (Negative); Leukocyte Esterase Small (Negative); Nitrite Positive (Negative); Urobilinogen 0.2 EU/dL (Up TO 0.2); pH 5.5 (5-8)
[2019-01-16 15:15] LABS: *AMPHETAMINES SCREEN URINE Negative (Negative); *BARBITURATES SCREEN URINE Negative (Negative); *BENZODIAZEPINES SCREEN URINE Negative (Negative); Cannabinoids THC Negative (Negative); Cocaine Screen,Urine Negative (Negative); METHADONE URINE SCREEN Negative (Negative); OPIATES URINE SCREEN Negative (Negative)
[2019-01-16 15:16] LABS: Tricyclic Antidepressants Negative (Negative)
[2019-01-16 15:19] LABS: Bacteria Many HPF (Negative); Epithelial Cells Many HPF (Negative)
[2019-01-16 15:20] LABS: Crystals Negative HPF (Negative); Mucus Negative (Negative); WBC >50 HPF (0-5)
[2019-01-16 15:21] LABS: C & S Indicated? Yes
[2019-01-16] MEDS: Phytonadione 5 MG TABLET PO (16:46)
--- NOTE | 2019-01-16 19:06 | W.PM.HP.N ---
Date of service: 01/16/19 Time of Service: 19:06 Assessment and Plan (1) Pneumonia: Current visit: Yes Status: Acute Pneumonia. Unclear if possible meningeal involvement given headache, though exam is negative for meningismus. Given the issues with coagulopathy, and further that Rocephin has good WIRE STITCHER OPERATOR penetration and would cover the usual pulmonary organisms that might encompass meningeal involvement -- given these factors I think it reasonable to continue empiric treatment as is. Once coagulopathy reverses we can consider obtaining spinal fluid to further guide treatment but I do not see that this needs to be done emergently . Reviewed Advance Directives, patient requests full code. History of Present Illness Chief Complaint: fever, cough, headache Narrative: 53 female with multiple problems, here witth fever, cough, SOB and headache x five days; additionally 1-2 days of urinary urgency. In ER RLL infiltratee noted, head CT negative and supratherapeutic INR of 4.5. Becuase of DE LOS SANTOS there was consideration of LP, but due to coagulopathy and baseline thrombocytopenia ti was deemed relatively contraindicated at this time, abd afterr ER discussion with [facility] at [facility] patient ordered for dose of Rocephin and admitted for further management. Review of Systems Review of Systems All systems reviewed & are unremarkable except as noted in HPI and below PFSH Medical History Asthma (Chronic) Depression (Chronic) Edema extremities (Acute) Hyperlipidemia (Acute) Liver cirrhosis secondary to nonalcoholic steatohepatitis ([place]OD) (Acute) Morbid obesity (Acute) Osteoarthritis (Chronic) Secondary hypercoagulability disorder (Acute) Surgical History History of bilateral tubal ligation (Acute) Family History Other Diabetes Secondary hypercoagulability disorder Social History Smoking/Tobacco Use Status: Former Tobacco Use Alcohol Intake: never Drug use: Never Substance use type: does not use Household members: other Details: Patient was living with her son and now lives with her parents Number of Children: 3 Do you feel safe at home: Yes Do you feel safe in your relationship?: Yes Additional Social history: 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 She presently is on disability for psychiatric disease mostly but also physical deconditioning from her morbid obesity. Female Reproductive History Menstrual control method: permanent sterilization History History 3 Para Hx # Term Pregnancies Multiple births Hx # Pregnancies Ectopic pregnancies AB induced Hx Number of Living Children AB spontaneous Meds Home Medications Medication Instructions Recorded Confirmed Type Advair HFA 2 puff .ROUTE BID 03/15/15 01/16/19 History albuterol sulfate 2 puff .ROUTE PRN PRN 03/15/15 01/16/19 History cholecalciferol (vitamin D3) 2,000 units PO DAILY 03/15/15 01/16/19 History escitalopram oxalate [Lexapro] 20 mg PO DAILY 03/15/15 01/16/19 History potassium chloride [Klor-Con M20] 20 meq PO BID 03/15/15 01/16/19 History topiramate 50 mg PO BID 03/23/17 01/16/19 History ibuprofen 400 mg PO DAILY AM PRN #0 12/20/17 01/16/19 Rx fluticasone propion-salmeterol 2 inh INHALATION BID 03/04/18 01/16/19 History [Advair Diskus] magnesium oxide 400 mg PO DAILY 05/19/18 01/16/19 History melatonin 20 mg PO HS PRN 05/19/18 01/16/19 History oxybutynin chloride 1 tab PO DAILY 05/19/18 01/16/19 History simvastatin 40 mg PO QHS 05/19/18 01/16/19 History spironolactone 25 mg PO DAILY 05/19/18 01/16/19 History triamcinolone acetonide 1 applic TOPICAL BID 05/19/18 01/16/19 History vancomycin [Vancocin] 125 mg PO QID 05/19/18 01/16/19 History acidophilus-pectin, citrus 1 cap PO TID #90 tab 05/27/18 01/16/19 Rx ciprofloxacin HCl 500 mg PO BID #15 tab 05/27/18 01/16/19 Rx furosemide 40 mg PO DAILY #30 tab 05/27/18 01/16/19 Rx ranitidine HCl 150 mg PO BID #60 tab 05/27/18 01/16/19 Rx spironolactone 50 mg PO BID@0830,1600 #120 tab 05/27/18 01/16/19 Rx miconazole nitrate 1 applic TOPICAL DIRECTED 12/08/18 01/16/19 History warfarin 2.5 - 5 mg PO DIRECTED 12/08/18 01/16/19 History doxycycline hyclate 100 mg PO BID #14 cap 12/17/18 01/16/19 Rx Allergies Allergy/AdvReac Type Severity Reaction Status Date / Time cephalexin monohydrate AdvReac Diarrhea Unverified 01/16/19 14:38 [From Keflex] Exam Narrative Exam Narrative: 94/31 (Note that cuff is on forearm due to body habitus), 60, 28, 36.4, 97%. HEENT unremarkabke; neck supple; lungs few rales right base; heart RRR 1/6 systolic murmur LSB; abdomen soft NT, extr chronic stasis changes; neiro Ox3, non-focal Results Labs : 01/16/19 13:40 01/16/19 13:48 Laboratory Results - last 24 hr 01/16/19 01/16/19 01/16/19 13:40 13:40 13:40 WBC 5.77 RBC 4.49 Hgb 14.0 Hct 41.9 MCV 93.3 MCH 31.2 MCHC 33.4 RDW 19.6 H Plt Count 39 L MPV Immature Gran % 0.9 Neutrophils % 79.9 Lymphocytes % 7.5 Monocytes % 11.1 Eosinophils % 0.3 Basophils % 0.3 Absolute Neutrophils 4.61 Absolute Lymphocytes 0.43 L Absolute Monocytes 0.64 Absolute Eosinophils 0.02 Absolute Basophils 0.02 Differential Comment Rbc morph reviewed RBC Morphology See below Polychromasia Present Anisocytosis 2+ PT 45.8 H INR 4.5 H* APTT 59.7 H Sodium 137 Potassium 3.5 Chloride 106 Carbon Dioxide 21.5 Anion Gap 9.5 BUN 30 H Creatinine 1.64 H Estimated GFR/1.73 m2 32.53 Glucose 115 H Calcium 8.3 L Magnesium 1.9 Total Bilirubin 4.3 H AST 225 H ALT 83 H Alkaline Phosphatase 120 H Ammonia Troponin I < 0.05 NT-Pro-B Natriuret Pep 457 H Total Protein 6.2 L Albumin 1.3 L Urine Color Urine Clarity Urine pH Ur Specific [place] Urine Protein Urine Ketones Urine Blood Urine Nitrite Urine Bilirubin Urine Urobilinogen Ur Leukocyte Esterase Urine RBC Urine WBC Ur Epithelial Cells Urine Crystals Urine Bacteria Urine Mucus Ur Culture Indicated? Urine Glucose Urine Opiates Screen Urine Methadone Screen Ur Barbiturates Screen Ur Tricyclics Screen Ur Amphetamines Screen U Benzodiazepines Scrn Urine Cocaine Screen Ur THC Screen 01/16/19 01/16/19 01/16/19 13:48 13:52 14:00 WBC RBC Hgb Hct MCV MCH MCHC RDW Plt Count MPV Immature Gran % Neutrophils % Lymphocytes % Monocytes % Eosinophils % Basophils % Absolute Neutrophils Absolute Lymphocytes Absolute Monocytes Absolute Eosinophils Absolute Basophils Differential Comment RBC Morphology Polychromasia Anisocytosis PT INR APTT Sodium Cancelled Potassium Cancelled Chloride Cancelled Carbon Dioxide Cancelled Anion Gap Cancelled BUN Cancelled Creatinine Cancelled Estimated GFR/1.73 m2 Cancelled Glucose Cancelled Calcium Cancelled Magnesium Total Bilirubin Cancelled AST Cancelled ALT Cancelled Alkaline Phosphatase Cancelled Ammonia 36 H Troponin I Cancelled NT-Pro-B Natriuret Pep Cancelled Total Protein Cancelled Albumin Cancelled Urine Color Urine Clarity Urine pH Ur Specific [place] Urine Protein Urine Ketones Urine Blood Urine Nitrite Urine Bilirubin Urine Urobilinogen Ur Leukocyte Esterase Urine RBC Urine WBC Ur Epithelial Cells Urine Crystals Urine Bacteria Urine Mucus Ur Culture Indicated? Urine Glucose Urine Opiates Screen Urine Methadone Screen Ur Barbiturates Screen Ur Tricyclics Screen Ur Amphetamines Screen U Benzodiazepines Scrn Urine Cocaine Screen Ur THC Screen 01/16/19 01/16/19 14:53 14:53 WBC RBC Hgb Hct MCV MCH MCHC RDW Plt Count MPV Immature Gran % Neutrophils % Lymphocytes % Monocytes % Eosinophils % Basophils % Absolute Neutrophils Absolute Lymphocytes Absolute Monocytes Absolute Eosinophils Absolute Basophils Differential Comment RBC Morphology Polychromasia Anisocytosis PT INR APTT Sodium Potassium Chloride Carbon Dioxide Anion Gap BUN Creatinine Estimated GFR/1.73 m2 Glucose Calcium Magnesium Total Bilirubin AST ALT Alkaline Phosphatase Ammonia Troponin I NT-Pro-B Natriuret Pep Total Protein Albumin Urine Color Yellow Urine Clarity Clear Urine pH 5.5 Ur Specific [place] 1.020 Urine Protein 100 H Urine Ketones Trace H Urine Blood Moderate H Urine Nitrite Positive H Urine Bilirubin Large H Urine Urobilinogen 0.2 Ur Leukocyte Esterase Small H Urine RBC Urine WBC >50 Ur Epithelial Cells Many Urine Crystals Negative Urine Bacteria Many Urine Mucus Negative Ur Culture Indicated? Yes Urine Glucose Negative Urine Opiates Screen Negative Urine Methadone Screen Negative Ur Barbiturates Screen Negative Ur Tricyclics Screen Negative Ur Amphetamines Screen Negative U Benzodiazepines Scrn Negative Urine Cocaine Screen Negative Ur THC Screen Negative Last Vital Signs Temp 36.8 C 01/16/19 18:00 Pulse 60 01/16/19 17:46 Resp 28 H 01/16/19 18:00 BP 94/31 L 01/16/19 17:46 Pulse Ox 97 01/16/19 18:00
[2019-01-16] MEDS: cefTRIAXone 2 GM/50 ML BAG 100 GM (19:47)
[2019-01-16] MEDS: Vancomycin 125 MG CAP PO (21:15)
[2019-01-16] MEDS: Acetaminophen 325 MG TAB 650 MG PO (21:15)
[2019-01-16] MEDS: Simvastatin 40 MG TAB PO (21:15)
[2019-01-16] MEDS: Potassium Chloride 20 MEQ TABCR PO (21:15)
[2019-01-16] MEDS: Topiramate 25 MG TAB 50 MG PO (21:15)
[2019-01-16] MEDS: Melatonin 3 MG TAB 21 MG PO (22:00)
[2019-01-17] VITALS (8 sets, daily range): BP systolic 104–138; BP diastolic 57–74; PULSE 59–89; RESP 18–23; TEMP 35.9–36.9; O2SAT 92–99
[2019-01-17] MEDS: Acetaminophen 325 MG TAB 650 MG PO ×3 (05:04→16:50)
[2019-01-17 07:24] LABS: Prothrombin Time 47.8 sec (9.3-11.0)
[2019-01-17 07:38] LABS: INR 4.7 (0.9-1.1)
[2019-01-17] MEDS: Budesonide/Formoterol 160/4.5 6 GM 60 PUFF INH IH ×2 (08:27→19:46)
[2019-01-17] MEDS: Topiramate 50 MG TAB PO ×2 (08:37→19:45)
[2019-01-17] MEDS: Oxybutynin-CR 5 MG TABCR 10 MG PO (08:37)
[2019-01-17] MEDS: Escitalopram 20 MG TAB PO (08:37)
[2019-01-17] MEDS: Furosemide 40 MG TAB PO (08:37)
[2019-01-17] MEDS: Magnesium Oxide 400 MG TAB PO (08:38)
[2019-01-17] MEDS: Potassium Chloride 20 MEQ TABCR PO ×2 (08:38→19:45)
[2019-01-17] MEDS: Spironolactone 25 MG TAB PO (08:38)
[2019-01-17] MEDS: Vancomycin 125 MG CAP PO ×4 (08:38→19:45)
[2019-01-17 10:30] LABS: Absolute Basophil Count 0.04 k/cumm (0.0-0.2); Absolute Eosinophil Count 0.12 k/cumm (0.0-0.7); Absolute Lymphocyte Count 0.99 k/cumm (1.2-3.4); Absolute Monocyte Count 0.87 k/cumm (0.11-0.7); Absolute Neutrophil Count 4.18 k/cumm (1.2-6.7); Basophils % 0.6; Eosinophils % 1.9; HCT 39.4 % (36.0-46.0); HGB 12.9 g/dL (12.0-15.5); Immature Grans % 1.6; Lymphocytes % 15.7; Mean Corp. HGB Concentration 32.7 g/dL (32.0-36.0); Mean Corpuscular Hemoglobin 30.6 pg (27.0-33.0); Mean Corpuscular Volume 93.6 fL (80-95); Mean Platelet Volume 10.1 fL (8.0-11.0); Monocytes % 13.8; Neutrophils % 66.4; RBC 4.21 m/cumm (4.00-5.20); RBC Distribution Width 19.3 % (11.7-14.6)
--- NOTE | 2019-01-17 10:39 | INITIAL_ITS ---
- If Service Date Differs Date of service: 01/17/19 Time of Service: 10:39 Care Management Initial Assess REASON FOR HOSPITALIZATION:: Pneumonia PAST MEDICAL HISTORY/PAST SURGICAL HISTORY:: Medical History: Asthma (Chronic). Depression (Chronic). Edema extremities (Acute). Hyperlipidemia (Acute). Liver cirrhosis secondary to nonalcoholic steatohepatitis ([place]) (Acute). Morbid obesity (Acute). Osteoarthritis (Chronic). Secondary hypercoagulability disorder (Acute). Surgical History: History of bilateral tubal ligation (Acute) PREVIOUS FUNCTIONAL STATUS/SOCIAL/FAMILY SUPPORTS:: Michelle lives in a mobile home with her parents in [place], [place] She has 2 children who are very supportive. Michelle is disabled and receives social security. She has been unable to work for quite some time. She is independent with her care and activities. CURRENT FUNCTIONAL STATUS:: Michelle was sitting up in bed when CM came to visit. Her daughter and her fiancee had just left. Michelle shared that they were to be soon and that she would be moving into their new house with them.She was pleasant and cooperative with answering questions and engaged readily in conversation. ADVANCE DIRECTIVES:: None on file at [facility] Has patient been provided with information about the portal?: No Did the patient sign up for the portal?: No CODE STATUS:: Full Code INSURANCE COVERAGE / FINANCIAL ISSUES:: Medicare. Medicaid CURRENT HOME/COMMUNITY SERVICES/EQUIPMENT:: walker and cane available and uses prn PRIMARY CARE PHYSICIAN:: Gavi Adames POTENTIAL DISCHARGE NEEDS:: Follow up with PCP and discharge plan of care PATIENT/FAMILY EDUCATION NEEDS:: Discharge plan, limitations, follow up plan, Ask Me Three. ANTICIPATED BARRIERS TO DISCHARGE:: none identified TRANSPORTATION:: via private vehicle with friends or family at discharge PLAN:: Michelle is receiving treatment for pneumonia.. She will likely be discharged home with no additional services when ready. CM will continue to provide support to patient and family and assess and address discharge planning needs.
[2019-01-17 10:40] LABS: Anion Gap 8.1 mmol/L (3-11); BUN 30 mg/dL (7-18); CO2 22.9 mmol/L (21.0-32.0); CREATININE 1.53 mg/dL (0.55-1.02); Calcium 8.3 mg/dL (8.5-10.1); Chloride 106 mmol/L (98-107); Estimated GFR 35.24 (mL/min/1.73m2); Glucose 104 mg/dL (70-100); Magnesium 2.1 mg/dL (1.8-2.4); Potassium 3.5 mmol/L (3.5-5.1); Sodium 137 mmol/L (136-145)
[2019-01-17 10:57] LABS: Diff Comment RBC Morph Reviewed; Platelet Count 42 x1000/uL (130-400)
[2019-01-17 10:58] LABS: Anisocytosis 2+; Poikilocytes 1+; Polychromasia Present
[2019-01-17] MEDS: Normal Saline Flush 10 ML SYR IVP (11:42)
[2019-01-17] MEDS: cefTRIAXone 2 GM/50 ML BAG IVPB (11:43)
[2019-01-17] MEDS: Normal Saline 500 ML IV (11:47)
--- NOTE | 2019-01-17 12:12 | PHARADMIT ---
Addendum entered by Beltran Adams III 01/19/19 17:10: Pharmacy Note Subjective Aspiration pneumonia, Patient needs to wear her CPAP. MD feels patient may be fluid overloaded, drip ordered. Kidney function slowly improving. Objective VS-OK K+3.6 INR-4.5 SCr-1.46 Plts-40 H&H,WBC-OK Assessment Warfarin remains on hold, Lasix drip started, Zosyn continues Plan MD states patient requires hospitalization Original Note: Admission Pharmacy Clinical Review Code Status Full Code Current Weight 165.8 kg Renally Cleared and Narrow Therapeutic Index Meds CrCl ~67.8 QTc Value / Action Taken QTc 495, escitalopram (consider switch to lower risk SSRI like fluoxetine or sertraline) BP Control, Fever BP 104/57 Tmax 36 Electrolytes reviewed Na 137, K+ 3.5, Mg 2.1 DVT Prophylaxis Opiate Usage / Scheduled Bowel Regimen Ordered Plt/SCr for Heparin / Enoxaparin Plt 42 Scr 1.53 INR for Warfarin INR 4.7 H/H stable, WBC/Bands H/H 39.4/12.9 Antibiotic appropriateness Ceftriaxone q12h (for pulmonary&MEDICAL SUPPORT SPECIALIST penetration) Vanco PO--could not find recent case of c diff warranting oral vanco (most recent hx seems to be december of 2017) -- notified hopitalist 01/17 @2pm that I suspect this was copy and pasted from home med list and not thoroughly reviewed Cultures and Sensitivities Urine prelimary: gram+ and gram- ashanti Surgical ABX d/c within 24 hr DM control / Insulin Dosing Heart Failure (Check EF%) (ASHLEIGH's, B-Block, Diuretics) furosemide, spironolactone IV to PO Switch n/a Home Meds Reviewed Contraindication with Oxybutynin and oral potassium tablets (pt prev on both)-- can delay passage of potassium resulting in GI lesions -- recommended changing to KCl powder packets (warfarin further increases risk of GI bleed) Spironolactone and oral potassium -- hyperkalemia Simvastatin and Warfarin -- In patients receiving oral anticoagulant therapy with warfarin, the prothrombin time ratio or international normalized ratio (INR) should be closely monitored with the addition, dose change, or withdrawal of simvastatin, and should be reassessed periodically during concurrent therapy (Prod Info Malenacor, 2004). Adjustments of the warfarin dose may be necessary in order to maintain the desired level of anticoagulation. Also monitor the patient for signs and symptoms of myopathy or rhabdomyolysis (muscle pain, tenderness, or weakness). Monitor creatine kinase (CK) levels and discontinue use if CK levels show a marked increase, or if myopathy or rhabdomyolysis is diagnosed or suspected. --Atorvastatin would be a better option Home Meds Not Ordered All ordered -- warfarin is on hold. Comments Med Change Recommendations: DC oral Vanco unless recent hx of c diff can be verified Consider switching escitalopram to another sertraline or fluoxetine due to QTc value Concurrent use of Simvastatin and warfarin could have been resulted in patient's elevated INR, consider switching to atorvastatin Concurrent use of oxbutynin and oral potassium tablets could result in GI lesions due to anticholinergic properties of oxybutynin -- switch to powder formulation of potassium chloride Ceftriaxone started for UTI, possible pneumonia and meningitis as pt was complaining of severe DE LOS SANTOS per ED note
--- NOTE | 2019-01-17 18:17 | W.PM.PROGNOT ---
Date of Service Date of service: 01/17/19 Time of Service: 18:17 Assessment and Plan (1) Aspiration pneumonia: Current visit: Yes Status: Acute Change antibiotics to zosyn. IS. Wean O2 as tolerated. (2) Urinary tract infection: Current visit: No Status: Acute present on admission. Growing GNR on c&S. Abx changed to zosyn today to better cover for aspiration pneumonia. Await speciation. (3) Cirrhosis of liver: Current visit: No Status: Chronic Continue home therapy (4) Diarrhea: Current visit: No Status: Acute Check for c.diff. Add lactobacilli. Continue empiric PO vanco given h/o C. Diff. Likely reaction to cephalosporin. (5) Chronic diastolic heart failure: Current visit: No Status: Chronic There is no evidence of pulmonary edema clinically. Continue aldactone/lasix. Edema is likely chronic and has more to do with pulmonary hypertension/cirrhosis/hypoalbuminemic state. (6) LUDY (obstructive sleep apnea): Current visit: No Status: Chronic provide CPAP (7) GERD (gastroesophageal reflux disease): Current visit: No Status: Chronic Continue ranitidine (8) History of pulmonary embolism: Current visit: No Status: Chronic INR supratherapeutic - hold coumadin (9) Acute kidney injury (nontraumatic): Current visit: No Status: Acute The patient is on both lasix and aldactone, yet I feel that her PINKY likely has to do with dehydratoin of n/v/diarrhea. It may also have to do with her UTI. At this time, her kidney function is improving without any intervention. Continue lasix, aldactone. (10) DVT prophylaxis: Current visit: No Status: Acute On coumadin with supratherapeutic INR (11) Discharge planning issues: Current visit: Yes Status: Acute Full code Subjective Interval history since last seen: Ms Arthur states she is feeling a little better. She reports nausea/vomiting at home. She had diarrhea today x3 - per her, it didn't look like C.Diff. No abdominal pain. Headache got a lot better with tylenol, is being described as L-sided, worse with cough. She chronically takes PO vancomycin at home for C. Diff suppression. Nauseated this morning at the hospital, but feels better now. Denies dizziness, chest pain. Shortness of breath is still there, especially when moving. Exam Narrative Exam Narrative: General: obese, very pleasant female, A&Ox3, sitting up in a chair, wearing NC (1L), no respiratory distress noted HEENT: EOMI, MMM Heart: RRR, no m/r/g Lungs: CTAB GI: abdomen is soft, nontender, nondistended Extremities: 2+ BLE edema, chronic venous stasis, no c/c Objective Objective Clinical Data: Abnormal lab results 01/17/19 01/17/19 01/17/19 Range/Units 06:28 10:25 10:25 RDW 19.3 H (11.7-14.6) % Plt Count 42 L (130-400) x1000/uL Absolute Lymphocytes 0.99 L (1.2-3.4) k/cumm Absolute Monocytes 0.87 H (0.11-0.7) k/cumm PT 47.8 H (9.3-11.0) sec INR 4.7 H* (0.9-1.1) BUN 30 H (7-18) mg/dL Creatinine 1.53 H (0.55-1.02) mg/dL Glucose 104 H (70-100) mg/dL Calcium 8.3 L (8.5-10.1) mg/dL Vital Signs Temperature 36.9 C 01/17/19 16:08 Temperature Source Tympanic 01/17/19 16:08 Pulse 63 01/17/19 16:08 Pulse Rhythm Regular 01/17/19 09:20 Pulse 63 01/16/19 20:20 Respiratory Rate 19 01/17/19 16:08 Respiratory Effort Incrsd Work of Breathing 01/17/19 09:20 Respiratory Depth Shallow 01/17/19 09:20 Respiratory Pattern Tachypnea 01/17/19 09:20 Blood Pressure 121/67 01/17/19 16:08 Blood Pressure Mean 57 01/16/19 20:16 Blood Pressure Position Supine 01/16/19 13:35 Pulse Oximetry 97 01/17/19 16:08 Oxygen Delivery Method Nasal Cannula 01/17/19 16:08 Oxygen Flow Rate 1 01/17/19 16:08 Pain Level 9 01/17/19 16:50 Comment 01/17/19 16:08 Intake & Output 01/16/19 01/17/19 01/17/19 23:59 11:59 23:59 Intake Total 120 / 120 850 / 933.333 83.333 / 933.333 Output Total 100 / 100 775 / 775 Balance 75 / 158.333 83.333 / 158.333 Weight 165.8 kg Intake: IV 83.333 / 93.333 Oral 120 / 120 840 / 840 Output: Urine 100 / 100 775 / 775 Other: Urine Color Dark Daphney Yellow Yellow Urine Appearance Clear Clear Clear Urine Odor None Comment pT half voided in the hat/ toilet. Stool Size Large Moderate Stool Characteristics Liquid Liquid Brown Brown Voiding Methods Toilet Toilet Toilet Laboratory Results WBC 6.30 k/cumm (4.4-10.8) 01/17/19 10:25 RBC 4.21 m/cumm (4.00-5.20) 01/17/19 10:25 Hgb 12.9 g/dL (12.0-15.5) 01/17/19 10:25 Hct 39.4 % (36.0-46.0) 01/17/19 10:25 MCV 93.6 fL (80-95) 01/17/19 10:25 MCH 30.6 pg (27.0-33.0) 01/17/19 10:25 MCHC 32.7 g/dL (32.0-36.0) 01/17/19 10:25 RDW 19.3 % (11.7-14.6) H 01/17/19 10:25 Plt Count 42 x1000/uL (130-400) L 01/17/19 10:25 MPV 10.1 fL (8.0-11.0) 01/17/19 10:25 Immature Gran % 1.6 01/17/19 10:25 66.4 01/17/19 10:25 15.7 01/17/19 10:25 13.8 01/17/19 10:25 1.9 01/17/19 10:25 0.6 01/17/19 10:25 Absolute Neutrophils 4.18 k/cumm (1.2-6.7) 01/17/19 10:25 Absolute Lymphocytes 0.99 k/cumm (1.2-3.4) L 01/17/19 10:25 Absolute Monocytes 0.87 k/cumm (0.11-0.7) H 01/17/19 10:25 Absolute Eosinophils 0.12 k/cumm (0.0-0.7) 01/17/19 10:25 Absolute Basophils 0.04 k/cumm (0.0-0.2) 01/17/19 10:25 Rbc morph reviewed 01/17/19 10:25 RBC Morphology See below 01/17/19 10:25 Present 01/17/19 10:25 1+ 01/17/19 10:25 2+ 01/17/19 10:25 PT 47.8 sec (9.3-11.0) H 01/17/19 06:28 INR 4.7 (0.9-1.1) H* 01/17/19 06:28 APTT 59.7 sec (21.0-31.4) H 01/16/19 13:40 Sodium 137 mmol/L (136-145) 01/17/19 10:25 Potassium 3.5 mmol/L (3.5-5.1) 01/17/19 10:25 Chloride 106 mmol/L (98-107) 01/17/19 10:25 Carbon Dioxide 22.9 mmol/L (21.0-32.0) 01/17/19 10:25 8.1 mmol/L (3-11) 01/17/19 10:25 BUN 30 mg/dL (7-18) H 01/17/19 10:25 1.53 mg/dL (0.55-1.02) H 01/17/19 10:25 35.24 (mL/min/1.73m2) 01/17/19 10:25 Glucose 104 mg/dL (70-100) H 01/17/19 10:25 Calcium 8.3 mg/dL (8.5-10.1) L 01/17/19 10:25 Magnesium 2.1 mg/dL (1.8-2.4) 01/17/19 10:25 Cancelled 01/16/19 13:48 AST Cancelled 01/16/19 13:48 ALT Cancelled 01/16/19 13:48 Cancelled 01/16/19 13:48 36 umol/L (11-32) H 01/16/19 14:00 Cancelled 01/16/19 13:48 NT-Pro-B Natriuret Pep Cancelled 01/16/19 13:52 Cancelled 01/16/19 13:48 Cancelled 01/16/19 13:48 4.0 ng/mL 01/17/19 10:25 Yellow (Yellow) 01/16/19 14:53 Clear (Clear) 01/16/19 14:53 5.5 (5-8) 01/16/19 14:53 Ur Specific [place] 1.020 (1.005-1.025) 01/16/19 14:53 100 mg/dL (Negative) H 01/16/19 14:53 Trace mg/dL (Negative) H 01/16/19 14:53 Moderate (Negative) H 01/16/19 14:53 Positive (Negative) H 01/16/19 14:53 Large (Negative) H 01/16/19 14:53 0.2 EU/dL (Up TO 0.2) 01/16/19 14:53 Ur Leukocyte Esterase Small (Negative) H 01/16/19 14:53 (0-2) 01/16/19 14:53 >50 HPF (0-5) 01/16/19 14:53 Ur Epithelial Cells Many HPF (Negative) 01/16/19 14:53 Negative HPF (Negative) 01/16/19 14:53 Many HPF (Negative) 01/16/19 14:53 Negative (Negative) 01/16/19 14:53 Ur Culture Indicated? Yes 01/16/19 14:53 Negative mg/dL (Negative) 01/16/19 14:53 Negative (Negative) 01/16/19 14:53 Negative (Negative) 01/16/19 14:53 Ur Barbiturates Screen Negative (Negative) 01/16/19 14:53 Ur Tricyclics Screen Negative (Negative) 01/16/19 14:53 Ur Amphetamines Screen Negative (Negative) 01/16/19 14:53 U Benzodiazepines Scrn Negative (Negative) 01/16/19 14:53 Negative (Negative) 01/16/19 14:53 Ur THC Screen Negative (Negative) 01/16/19 14:53
[2019-01-17] MEDS: guaiFENesin 600 MG TABCR PO (19:45)
[2019-01-17] MEDS: Lactobacillus Acidophilus CAP 1 CAP PO (19:46)
[2019-01-17] MEDS: PIPERACILLIN/TAZO 3.375 GM in Normal Saline 50 ML IVPB (20:11)
[2019-01-17] MEDS: Simvastatin 40 MG TAB PO (22:37)
[2019-01-18] MEDS: PIPERACILLIN/TAZO 3.375 GM in Normal Saline 50 ML IVPB ×4 (02:09→21:11)
[2019-01-18] MEDS: Normal Saline Flush 10 ML SYR IVP ×4 (02:11→21:35)
[2019-01-18 03:40] VITALS: BP 105/63; PULSE 62; RESP 20; TEMP 36.5; O2SAT 95
[2019-01-18 06:55] LABS: HCT 36.8 % (36.0-46.0); HGB 11.9 g/dL (12.0-15.5); Mean Corp. HGB Concentration 32.3 g/dL (32.0-36.0); Mean Corpuscular Hemoglobin 30.4 pg (27.0-33.0); Mean Corpuscular Volume 93.9 fL (80-95); Mean Platelet Volume 12.7 fL (8.0-11.0); RBC 3.92 m/cumm (4.00-5.20); White Blood Cell Count 5.36 k/cumm (4.4-10.8)
[2019-01-18 07:08] LABS: BUN 31 mg/dL (7-18); CREATININE 1.69 mg/dL (0.55-1.02); Chloride 107 mmol/L (98-107); Estimated GFR 31.42 (mL/min/1.73m2); Glucose 86 mg/dL (70-100); Potassium 3.7 mmol/L (3.5-5.1); Sodium 138 mmol/L (136-145)
--- NOTE | 2019-01-18 07:19 | PDOC.CMPRO ---
- If Service Date Differs Date of service: 01/18/19 Time of Service: 07:20 Care Management Progress Note S/O:Michelle was sitting up in a chair visiting with her mother when CM entered the room. CM had difficulty engaging Michelle in conversation today. She presented with blow affect as she was devoid of facial expression. She also failed to provide a verbal response when asked direct questions, such as how are you feeling today? CM discussed the potential for discharge today and Michelle did not seem to have considered that. She did state that yesterday was a difficult day due to personal issues. Michelle has remained afebrile. Her vital signs are stable and her O2 saturation is at 97% on 1 L of oxygen. She is ambulating in the room unassisted. A: Michelle is a 53 year old woman admitted to [facility] on 01/16/19 with pneumonia. P:Michelle continues to receive treatment for pneumonia. She will likely be discharged home with no additional services when ready. Transport will be via private vehicle with family. CM will continue to provide support to patient and family regarding discharge planning needs.
[2019-01-18 07:25] LABS: Prothrombin Time 45.6 sec (9.3-11.0)
[2019-01-18 07:32] LABS: INR 4.5 (0.9-1.1)
[2019-01-18 07:33] LABS: Platelet Count 40 x1000/uL (130-400); Procalcitonin 3.2 ng/mL
[2019-01-18 07:34] LABS: Absolute Neutrophil Count 4.23 k/cumm (1.2-6.7)
[2019-01-18 07:35] VITALS: BP 125/73; PULSE 59; RESP 20; TEMP 36.4; O2SAT 93
[2019-01-18 07:35] LABS: Absolute Eosinophil Count 0.05 k/cumm (0.0-0.7); Absolute Monocyte Count 0.32 k/cumm (0.11-0.7); Anisocytosis 2+; Atypical Lymphocytes % 3; Diff Comment Manual Differential; Nucleated RBC 1 /100WBC; Polychromasia Present
[2019-01-18 07:36] LABS: Poikilocytes 1+
[2019-01-18] MEDS: Budesonide/Formoterol 160/4.5 6 GM 60 PUFF INH IH ×2 (08:11→21:12)
[2019-01-18] MEDS: Escitalopram 20 MG TAB PO (08:21)
[2019-01-18] MEDS: Magnesium Oxide 400 MG TAB PO (08:21)
[2019-01-18] MEDS: Vancomycin 125 MG CAP PO ×4 (08:21→21:12)
[2019-01-18] MEDS: Furosemide 40 MG TAB PO (08:21)
[2019-01-18] MEDS: Topiramate 50 MG TAB PO ×2 (08:21→21:12)
[2019-01-18] MEDS: Potassium Chloride 20 MEQ TABCR PO (08:21)
[2019-01-18] MEDS: Oxybutynin-CR 5 MG TABCR 10 MG PO (08:21)
[2019-01-18] MEDS: guaiFENesin 600 MG TABCR PO ×2 (08:22→21:12)
[2019-01-18] MEDS: Spironolactone 25 MG TAB PO (08:22)
[2019-01-18] MEDS: Lactobacillus Acidophilus CAP 1 CAP PO ×3 (08:22→21:12)
[2019-01-18] MEDS: traMADol 50 MG TAB PO (09:21)
[2019-01-18 11:15] VITALS: BP 118/63; PULSE 60; RESP 18; TEMP 36; O2SAT 97
--- NOTE | 2019-01-18 12:37 | DI.US_ITS ---
SYMPTOMS/DIAGNOSIS: PINKY RENAL ULTRASOUND: The left kidney measures 12.9 x 6.3 x 6.7 cm. There are multiple small echogenic foci. The largest measuring approximately 4 mm which are presumably calcifications. There is no evidence of hydronephrosis. The right kidney measures 13 x 5.1 x 5.6 cm and is unremarkable. The bladder is not distended. SUMMARY: Apparent left nephrolithiasis. No evidence of right or left hydronephrosis.
--- NOTE | 2019-01-18 15:24 | CHAPLAIN ---
Michelle was sitting in her chair when I visited. I introduced myself and explained my role. It was difficult to tell if Michelle was interested in further conversation, but she responded to a few questions and told me that both her daughter and niece are planning weddings, and someone is expecting a baby.
[2019-01-18 15:48] VITALS: BP 111/48; PULSE 68; RESP 22; TEMP 36.1; O2SAT 94
--- NOTE | 2019-01-18 17:33 | W.PM.PROGNOT ---
Date of Service Date of service: 01/18/19 Time of Service: 17:35 Assessment and Plan (1) Aspiration pneumonia: Current visit: Yes Status: Acute Continue zosyn. I am wondering if the worsening breathing I saw today is positional. Encourage IS. Wean O2 as tolerated. (2) Urinary tract infection: Current visit: No Status: Acute present on admission. Due to E. Coli. Continue zosyn (day 2). (3) Cirrhosis of liver: Current visit: No Status: Chronic aldactone and lasix on hold due to PINKY. Hope to resume tomorrow. (4) Diarrhea: Current visit: No Status: Acute C. diff pending. Continue lactobacilli. On prophylactic PO vanco given h/o C. Diff. (5) Chronic diastolic heart failure: Current visit: No Status: Chronic There is no evidence of pulmonary edema clinically Diuretics on hold given PINKY. Edema is likely chronic and has more to do with pulmonary hypertension/cirrhosis/hypoalbuminemic state. (6) LUDY (obstructive sleep apnea): Current visit: No Status: Chronic Continue CPAP (7) GERD (gastroesophageal reflux disease): Current visit: No Status: Chronic Continue ranitidine (8) History of pulmonary embolism: Current visit: No Status: Chronic INR supratherapeutic - hold coumadin (9) Acute kidney injury (nontraumatic): Current visit: No Status: Acute The patient is on both lasix and aldactone, yet I feel that her PINKY likely has to do with dehydratoin of n/v/diarrhea. It may also have to do with her UTI. Kidney function worse; lasix, aldactone on hold. US kidneys does not show any obstructive stones/hydronephrosis. Monitor off diuretics. (10) DVT prophylaxis: Current visit: No Status: Acute On coumadin with supratherapeutic INR (11) Discharge planning issues: Current visit: Yes Status: Acute Full code Subjective Interval history since last seen: States her headache is better today, but that the breathing is not really better. Nauseated and had diarrhea earlier today. Denies chest pain, abdominal pain. Continues to have a cough productive of brownish sputum. States her legs are not normally this swollen. Exam Narrative Exam Narrative: General: obese, very pleasant female, A&Ox3, laying in bed and appears more short of breath to me in that position. HEENT: EOMI, MMM Heart: RRR, no m/r/g Lungs: CTAB GI: abdomen is soft, nontender, nondistended Extremities: 2+ BLE edema, chronic venous stasis, no c/c Objective Objective Clinical Data: Abnormal lab results 01/18/19 01/18/19 01/18/19 Range/Units 06:20 06:20 06:20 RBC 3.92 L (4.00-5.20) m/cumm Hgb 11.9 L (12.0-15.5) g/dL RDW 19.0 H (11.7-14.6) % Plt Count 40 L (130-400) x1000/uL MPV 12.7 H (8.0-11.0) fL Absolute Lymphocytes 0.70 L (1.2-3.4) k/cumm PT 45.6 H (9.3-11.0) sec INR 4.5 H* (0.9-1.1) BUN 31 H (7-18) mg/dL Creatinine 1.69 H (0.55-1.02) mg/dL Calcium 8.0 L (8.5-10.1) mg/dL Vital Signs Temperature 36.1 C L 01/18/19 15:48 Temperature Source Tympanic 01/18/19 15:48 Pulse 68 01/18/19 15:48 Pulse Rhythm Regular 01/18/19 09:20 Pulse 63 01/16/19 20:20 Respiratory Rate 22 01/18/19 15:48 Respiratory Effort Non-Labored 01/18/19 09:20 Respiratory Depth Normal 01/18/19 09:20 Respiratory Pattern Normal 01/18/19 09:20 Blood Pressure 111/48 L 01/18/19 15:48 Blood Pressure Mean 57 01/16/19 20:16 Blood Pressure Position Supine 01/16/19 13:35 Pulse Oximetry 94 L 01/18/19 15:48 Oxygen Delivery Method Nasal Cannula 01/18/19 15:48 Oxygen Flow Rate 1 01/18/19 15:48 Pain Level 0 01/18/19 15:48 Comment 01/18/19 03:40 Intake & Output 01/17/19 01/18/19 01/18/19 23:59 11:59 23:59 Intake Total 733.333 / 1583.333 263.333 / 263.333 Output Total 800 / 800 Balance 733.333 / 808.333 -536.667 / -536.667 Weight 166.1 kg Intake: IV 133.333 / 143.333 163.333 / 163.333 Oral 600 / 1440 100 / 100 Output: Urine 600 / 600 Stool 200 / 200 Other: Urine Color Yellow Yellow Urine Appearance Clear Clear Urine Odor Normal Stool Size Moderate Small Stool Characteristics Liquid Liquid Brown Voiding Methods Toilet Toilet Laboratory Results WBC 5.36 k/cumm (4.4-10.8) 01/18/19 06:20 RBC 3.92 m/cumm (4.00-5.20) L 01/18/19 06:20 Hgb 11.9 g/dL (12.0-15.5) L 01/18/19 06:20 Hct 36.8 % (36.0-46.0) 01/18/19 06:20 MCV 93.9 fL (80-95) 01/18/19 06:20 MCH 30.4 pg (27.0-33.0) 01/18/19 06:20 MCHC 32.3 g/dL (32.0-36.0) 01/18/19 06:20 RDW 19.0 % (11.7-14.6) H 01/18/19 06:20 Plt Count 40 x1000/uL (130-400) L 01/18/19 06:20 MPV 12.7 fL (8.0-11.0) H 01/18/19 06:20 Immature Gran % See Differential 01/18/19 06:20 76.0 01/18/19 06:20 3.0 % 01/18/19 06:20 10.0 01/18/19 06:20 Atypical Lymphs % 3 01/18/19 06:20 6.0 01/18/19 06:20 1.0 01/18/19 06:20 0.0 01/18/19 06:20 1.0 % 01/18/19 06:20 Absolute Neutrophils 4.23 k/cumm (1.2-6.7) 01/18/19 06:20 Absolute Lymphocytes 0.70 k/cumm (1.2-3.4) L 01/18/19 06:20 Absolute Monocytes 0.32 k/cumm (0.11-0.7) 01/18/19 06:20 Absolute Eosinophils 0.05 k/cumm (0.0-0.7) 01/18/19 06:20 Absolute Basophils 0.00 k/cumm (0.0-0.2) 01/18/19 06:20 Nucleated RBCs 1 /100WBC 01/18/19 06:20 Manual differential 01/18/19 06:20 RBC Morphology See below 01/18/19 06:20 Present 01/18/19 06:20 1+ 01/18/19 06:20 2+ 01/18/19 06:20 PT 45.6 sec (9.3-11.0) H 01/18/19 06:20 INR 4.5 (0.9-1.1) H* 01/18/19 06:20 APTT 59.7 sec (21.0-31.4) H 01/16/19 13:40 Sodium 138 mmol/L (136-145) 01/18/19 06:20 Potassium 3.7 mmol/L (3.5-5.1) 01/18/19 06:20 Chloride 107 mmol/L (98-107) 01/18/19 06:20 Carbon Dioxide 25.0 mmol/L (21.0-32.0) 01/18/19 06:20 6.0 mmol/L (3-11) 01/18/19 06:20 BUN 31 mg/dL (7-18) H 01/18/19 06:20 1.69 mg/dL (0.55-1.02) H 01/18/19 06:20 31.42 (mL/min/1.73m2) 01/18/19 06:20 Glucose 86 mg/dL (70-100) 01/18/19 06:20 Calcium 8.0 mg/dL (8.5-10.1) L 01/18/19 06:20 Magnesium 2.0 mg/dL (1.8-2.4) 01/18/19 06:20 Cancelled 01/16/19 13:48 AST Cancelled 01/16/19 13:48 ALT Cancelled 01/16/19 13:48 Cancelled 01/16/19 13:48 36 umol/L (11-32) H 01/16/19 14:00 Cancelled 01/16/19 13:48 NT-Pro-B Natriuret Pep Cancelled 01/16/19 13:52 Cancelled 01/16/19 13:48 Cancelled 01/16/19 13:48 3.2 ng/mL 01/18/19 06:20 Yellow (Yellow) 01/16/19 14:53 Clear (Clear) 01/16/19 14:53 5.5 (5-8) 01/16/19 14:53 Ur Specific [place] 1.020 (1.005-1.025) 01/16/19 14:53 100 mg/dL (Negative) H 01/16/19 14:53 Trace mg/dL (Negative) H 01/16/19 14:53 Moderate (Negative) H 01/16/19 14:53 Positive (Negative) H 01/16/19 14:53 Large (Negative) H 01/16/19 14:53 0.2 EU/dL (Up TO 0.2) 01/16/19 14:53 Ur Leukocyte Esterase Small (Negative) H 01/16/19 14:53 (0-2) 01/16/19 14:53 >50 HPF (0-5) 01/16/19 14:53 Ur Epithelial Cells Many HPF (Negative) 01/16/19 14:53 Negative HPF (Negative) 01/16/19 14:53 Many HPF (Negative) 01/16/19 14:53 Negative (Negative) 01/16/19 14:53 Ur Culture Indicated? Yes 01/16/19 14:53 Negative mg/dL (Negative) 01/16/19 14:53 Negative (Negative) 01/16/19 14:53 Negative (Negative) 01/16/19 14:53 Ur Barbiturates Screen Negative (Negative) 01/16/19 14:53 Ur Tricyclics Screen Negative (Negative) 01/16/19 14:53 Ur Amphetamines Screen Negative (Negative) 01/16/19 14:53 U Benzodiazepines Scrn Negative (Negative) 01/16/19 14:53 Negative (Negative) 01/16/19 14:53 Ur THC Screen Negative (Negative) 01/16/19 14:53 US kidneys: Apparent left nephrolithiasis. No evidence of right or left hydronephrosis.
[2019-01-18 20:23] VITALS: BP 121/70; PULSE 64; RESP 18; TEMP 36.5; O2SAT 95
[2019-01-18] MEDS: Nystatin POWDER 60 GM JAR TP (21:11)
[2019-01-18] MEDS: Simvastatin 40 MG TAB PO (21:12)
[2019-01-18] MEDS: Acetaminophen 325 MG TAB 650 MG PO (23:46)
[2019-01-19] VITALS (8 sets, daily range): BP systolic 96–137; BP diastolic 41–72; PULSE 60–76; RESP 16–22; TEMP 35.6–37.1; O2SAT 92–98
[2019-01-19] MEDS: PIPERACILLIN/TAZO 3.375 GM in Normal Saline 50 ML IVPB ×4 (02:41→21:26)
[2019-01-19] MEDS: Normal Saline Flush 10 ML SYR IVP ×3 (02:42→21:26)
[2019-01-19 08:05] LABS: Anion Gap 9.9 mmol/L (3-11); BUN 25 mg/dL (7-18); CO2 22.1 mmol/L (21.0-32.0); CREATININE 1.46 mg/dL (0.55-1.02); Calcium 8.1 mg/dL (8.5-10.1); Chloride 107 mmol/L (98-107); Glucose 68 mg/dL (70-100); Magnesium 2.1 mg/dL (1.8-2.4); Potassium 3.6 mmol/L (3.5-5.1); Sodium 139 mmol/L (136-145)
[2019-01-19 08:10] LABS: Abs Immature Grans 0.25 k/cumm (0.0-0.09); HCT 38.3 % (36.0-46.0); HGB 12.6 g/dL (12.0-15.5); Mean Corp. HGB Concentration 32.9 g/dL (32.0-36.0); Mean Corpuscular Hemoglobin 30.4 pg (27.0-33.0); Mean Corpuscular Volume 92.5 fL (80-95); Mean Platelet Volume 9.3 fL (8.0-11.0); RBC 4.14 m/cumm (4.00-5.20); RBC Distribution Width 19.2 % (11.7-14.6); White Blood Cell Count 5.91 k/cumm (4.4-10.8)
[2019-01-19 08:27] LABS: INR 4.5 (0.9-1.1)
[2019-01-19 08:34] LABS: Platelet Count 40 x1000/uL (130-400)
[2019-01-19 08:35] LABS: Absolute Eosinophil Count 0.06 k/cumm (0.0-0.7); Absolute Lymphocyte Count 1.06 k/cumm (1.2-3.4); Absolute Monocyte Count 0.65 k/cumm (0.11-0.7); Absolute Neutrophil Count 3.96 k/cumm (1.2-6.7)
[2019-01-19 08:36] LABS: Anisocytosis 2+; Diff Comment Manual Differential; Poikilocytes 1+
[2019-01-19 08:46] LABS: Procalcitonin 2.1 ng/mL
[2019-01-19] MEDS: Vancomycin 125 MG CAP PO ×4 (08:58→21:26)
[2019-01-19] MEDS: Lactobacillus Acidophilus CAP 1 CAP PO ×3 (08:58→21:25)
[2019-01-19] MEDS: Topiramate 50 MG TAB PO ×2 (08:59→21:26)
[2019-01-19] MEDS: Escitalopram 20 MG TAB PO (08:59)
[2019-01-19] MEDS: Oxybutynin-CR 5 MG TABCR 10 MG PO (08:59)
[2019-01-19] MEDS: guaiFENesin 600 MG TABCR PO ×2 (08:59→21:26)
[2019-01-19] MEDS: Magnesium Oxide 400 MG TAB PO (09:00)
[2019-01-19] MEDS: Budesonide/Formoterol 160/4.5 6 GM 60 PUFF INH IH ×2 (09:15→21:25)
--- NOTE | 2019-01-19 10:26 | PT.INIE ---
PT Notes Inpatient Physical Therapy Evaluation Date: 01/19/2019 Referring Doctor: Maya Whiting MD PT Orders: PT CONSULT: Eval/treat Precautions: Fall. Standard. Activity as tolerated. Patient Profile/Admitting Diagnosis: Patient is a 53-year-old female who presented to the ED on 01/16/2019 with chief complaints of shortness of breath fever headache, fever, cough for 4 to 5 days preceding admission. Patient was diagnosed with pneumonia and is on empiric antibiotic treatment for suspected MANAGER BRIDGE/meningeal involvement. Referral for skilled physical therapy services was received to address impairments in strength, activity tolerance, and mobility level. PMHX: Medical History Asthma (Chronic) Depression (Chronic) Edema extremities (Acute) Hyperlipidemia (Acute) Liver cirrhosis secondary to nonalcoholic steatohepatitis ([place]) (Acute) Morbid obesity (Acute) Osteoarthritis (Chronic) Secondary hypercoagulability disorder (Acute) Surgical History History of bilateral tubal ligation (Acute) Social History/Home Situation: Michelle lives in a mobile home with three steps to enter and a rail on the left going up. She lives with her parents in [place], [place]. She has 2 children who live close by and have been very supportive. Michelle is on disability benefits as she has been unable to work for quite a while now. She states that her parents help take care of her as needed. She states that her mother provides perineal care after toileting as sometimes she is unable to reach her perianeal area due to fatigue and obesity. She reports that she is independent with mobility ADL performance without the need for an assistive ambulatory device indoors. She is able to walk up to 75 feet from her bedroom to the car for medical appointments. Current Functional Limitations: Decreased activity tolerance requiring assistance for all transfer and ambulation task performance Equipment Owned/DME: [employer], [employer] Subjective: Patient is agreeable to a PT consult. She she states that she does not have oxygen at home. She denies any headache and dizziness but admits to continuing to feel short of breath and congested in her chest after walking activity even with oxygen supplementation at 1 L via NC. Objective: General Observation: Patient obese. Oxygen supplementation of 1 L/min via nasal. IV in the right UE. Grade 2 pitting brawny edema on bilateral legs with L>R Mental Status: Alert and oriented x4. Sometimes needed to require repetition of question prior to responding. Pain: Reported discomfort in her chest Vital Signs: Patient desaturated to 86% on 1 L/min walking activity using FWW and required increased to 2 L/min to desaturate back to about 90%. Weight was reduced back down to 1 L/min saturation back to 95% before ending PT session ROM: Right Upper Extremity: Shoulder Flexion WFL. Shoulder abduction WFL. Elbow flexion WFL. Wrist flexion WFL. Functional opening and closing of hand WFL. Left Upper Extremity: Shoulder Flexion WFL. Shoulder abduction WFL. Elbow flexion WFL. Wrist flexion WFL. Functional opening and closing of hand WFL. Right Lower Extremity: Hip flexion allows only to 20 degrees beyond 90 degrees while seated on chair. Hip abduction WFL. Knee flexion allows up to 10 degrees. Ankle dorsiflexion WFL. Ankle plantarflexion WFL. Left Lower Extremity: Hip flexion allows only to 20 degrees beyond 90 degrees while seated on trice. Hip abduction WFL. Knee flexion allows up to 10 degrees. Ankle dorsiflexion WFL. Ankle plantarflexion WFL. Strength: Right Upper Extremity: Shoulder flexors 4/5. Shoulder abductors 4/5. Elbow flexors 4/5. Elbow extensors 4/5. Expense Analyst strong. Left Upper Extremity: Shoulder flexors 4/5. Shoulder abductors 4/5. Elbow flexors 4/5. Elbow extensors 4/5. Expense Analyst strong. Right Lower Extremity: Hip flexors 3-/5. Hip abductors 4/5. Knee flexors 3-/5. Knee extensors 4-/5. Ankle dorsiflexors 4/5. Ankle plantarflexors 4/5. Left Lower Extremity:Hip flexors 3-/5. Hip abductors 4/5. Knee flexors 3-/5. Knee extensors 4-/5. Ankle dorsiflexors 4/5. Ankle plantarflexors 4/5. Sensation: Intact as to pain and pressure on bilateral lower extremities. Bed Mobility/Transfers: Rolling CGA Supine to sit CGA Sit to supine CGA Sit to stand SBA Stand to sit SBA Bed to chair SBA Chair to bed SBA Gait: Patient was able to tolerate level surface ambulation of 25 feet x 2 using FWW with SBA with decrreased gait velocity with 2-minute walk test of 52 feet with FWW with Lou Dyspnea Scale of 3/10 with O2 saturation of 81% on 1.0 L/min to get re-saturated. Balance: Static Sitting: Good Dynamic Sitting: Good Static Standing: Good Dynamic Standing: Fair Special Tests: Mobility Limitations Standardized Measure [facility] AM-PAC 6 clicks Basic Mobility Inpatient Short Form: Raw Score: 21 CMS Score: 29% Informed Consent/Education: Patient instructed in purpose of PT consult and plan of care. Assessment: Patient presents with clinical signs and symptoms consistent with current/admitting diagnoses that have resulted to mobility limitations, gait instability, generalized weakness, and impairment of motor control as demonstrated by the following impairment level findings: 1. Decreased strength to B LE major muscle groups 2. Impaired standing balance 3. Impaired activity tolerance Impairments are contributing to the following functional limitations: 1. Dependent bed mobility skills 2. Increased dependence with transfers 3. Inability to safely ambulate without assistive device and physical assistance 4. Increase completion time for mobility ADL performance 5. Increased fall risk 6. Inability to negotiate steps alone safely Patient is assessed as a 53656 moderate complexity based on the following: History: 53-year-old disabled female living with and cared for by parents with new diagnosis of pneumonia Examination: Demonstrable impairment in strength, balance, and range of motion with underlying impairments and functional limitations as documented above Presentation:Evolving Decision Makin moderate complexity Goals: Goals X1 week 1. Supine-Sit independent 2. Sit-Supine independent 3. Sit-Stand independent 4. Stand-Sit independent 5. Bed-Chair independent 6. Chair-Bed independent 7. Independent gait on level surface with use of least restrictive device for at least 100 feet without report of pain nor dyspnea 8. Independent stair negotiation while holding onto bilateral rails for at least 5 steps without report of pain nor dyspnea 9. Independent with home exercise program 10. Good static and dynamic standing balance/tolerance Plan of Care/Treatment Plan: 1-2x/day, 7 days/week x 1 week. Plan of care has been reviewed with the TRAFFIC COURT REFEREE providing the service under Physical Therapy direction. Initiate Physical Therapy intervention for strengthening, bed mobility, transfers, gait, stairs, balance training, use of assistive device. DISCHARGE RECOMMENDATIONS: Patient will benefit from home health PT services in order to progress mobility level using least restrictive assistive ambulatory device/using no device, assess home safety, identify additional equipment needs, and establish a functional maintenance program that will increase ability of patient to remain at home. TREATMENT CODE/TIME: 07892 x 30 minutes, 35584 x 25 minutes beginning at 9:18 AM. Thank you very much for this referral. iLna Rausch PT, DPT, CLT [facility]
[2019-01-19 11:11] LABS: Result Negative; Specimen Description Feces
[2019-01-19] MEDS: Nystatin POWDER 60 GM JAR TP ×3 (11:21→21:26)
--- NOTE | 2019-01-19 14:45 | PGE_ITS ---
Date of Service Date of service: 01/19/19 Time of Service: 14:45 Assessment and Plan (1) Aspiration pneumonia: Current visit: Yes Status: Acute Continue zosyn (day 3) We spoke about how she must wear CPAP tonight. Encourage IS, ambulation. Cough is no longer productive - I feel that the worsening shortness of breath reported today has more to do with fluid overload. Wean O2 as tolerated. (2) Urinary tract infection: Current visit: No Status: Acute present on admission. Due to E. Coli. Continue zosyn (day 3). (3) Cirrhosis of liver: Current visit: No Status: Chronic PINKY is better - will start lasix gtt to avoid worsening kidney function. Monitor I/O's and daily weights. (4) Diarrhea: Current visit: No Status: Resolved C. 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 Start lasix gtt. (6) LUDY (obstructive sleep apnea): Current visit: No Status: Chronic Continue CPAP (7) GERD (gastroesophageal reflux disease): Current visit: No Status: Chronic Continue ranitidine (8) History of pulmonary embolism: Current visit: No Status: Chronic INR supratherapeutic - hold coumadin (9) Acute kidney injury (nontraumatic): Current visit: No Status: Acute Improved. No evidence of obstructive pathology on US renal. Possible component from UTI and/or mild hepatorenal syndrome (on lasix/aldactone chronically). Will monitor kidney function with very low dose lasix gtt on board. (10) DVT prophylaxis: Current visit: No Status: Acute On coumadin with supratherapeutic INR (11) Discharge planning issues: Current visit: Yes Status: Acute Full code Continues to require hospitalization Subjective Interval history since last seen: Ms Arthur states she is more short of b reath. However, her cough is no longer productive. She denies dizziness, her headache comes and goes. Complains of nausea when coughing. Complains of chronic RUQ pain (her normal). Diarrhea has stopped. C. diff is negative. Did not sleep on CPAP last night. Exam Narrative Exam Narrative: General: obese, very pleasant female, A&Ox3, laying in bed on her left side, looks comfortable HEENT: EOMI, MMM Heart: RRR, no m/r/g Lungs: CTAB with good bilateral aeration. GI: abdomen is soft, nontender, nondistended Extremities: 2+ BLE edema, chronic venous stasis, no c/c Objective Objective Clinical Data: Abnormal lab results 01/19/19 01/19/19 01/19/19 Range/Units 07:00 07:00 07:00 RDW 19.2 H (11.7-14.6) % Plt Count 40 L (130-400) x1000/uL Absolute Lymphocytes 1.06 L (1.2-3.4) k/cumm PT 46.0 H (9.3-11.0) sec INR 4.5 H* (0.9-1.1) BUN 25 H (7-18) mg/dL Creatinine 1.46 H (0.55-1.02) mg/dL Glucose 68 L (70-100) mg/dL Calcium 8.1 L (8.5-10.1) mg/dL Vital Signs Temperature 36.2 C L 01/19/19 13:18 Temperature Source Tympanic 01/19/19 13:18 Pulse 65 01/19/19 13:18 Pulse Rhythm Regular 01/19/19 10:28 Pulse 63 01/16/19 20:20 Respiratory Rate 21 01/19/19 13:18 Respiratory Effort Non-Labored 01/18/19 21:30 Respiratory Depth Normal 01/18/19 21:30 Respiratory Pattern Normal 01/18/19 21:30 Blood Pressure 103/41 L 01/19/19 13:18 Blood Pressure Mean 57 01/16/19 20:16 Blood Pressure Position Supine 01/16/19 13:35 Pulse Oximetry 97 01/19/19 13:18 Oxygen Delivery Method Nasal Cannula 01/19/19 13:18 Oxygen Flow Rate 1 01/19/19 13:18 Pain Level 0 01/19/19 13:18 Comment 01/18/19 03:40 Intake & Output 01/18/19 01/19/19 01/19/19 23:59 11:59 23:59 Intake Total 425 / 688.333 340 / 340 Balance 425 / -111.667 340 / 340 Weight 163.9 kg Intake: IV 125 / 288.333 100 / 100 Oral 300 / 400 240 / 240 Other: Urine Appearance Clear Voiding Methods Toilet Laboratory Results WBC 5.91 k/cumm (4.4-10.8) 01/19/19 07:00 RBC 4.14 m/cumm (4.00-5.20) 01/19/19 07:00 Hgb 12.6 g/dL (12.0-15.5) 01/19/19 07:00 Hct 38.3 % (36.0-46.0) 01/19/19 07:00 MCV 92.5 fL (80-95) 01/19/19 07:00 MCH 30.4 pg (27.0-33.0) 01/19/19 07:00 MCHC 32.9 g/dL (32.0-36.0) 01/19/19 07:00 RDW 19.2 % (11.7-14.6) H 01/19/19 07:00 Plt Count 40 x1000/uL (130-400) L 01/19/19 07:00 MPV 9.3 fL (8.0-11.0) 01/19/19 07:00 Immature Gran % See Differential 01/19/19 07:00 67.0 01/19/19 07:00 3.0 % 01/18/19 06:20 18.0 01/19/19 07:00 Atypical Lymphs % 01/19/19 07:00 11.0 01/19/19 07:00 1.0 01/19/19 07:00 0.0 01/19/19 07:00 3.0 % 01/19/19 07:00 1.0 % 01/18/19 06:20 Absolute Neutrophils 3.96 k/cumm (1.2-6.7) 01/19/19 07:00 Absolute Lymphocytes 1.06 k/cumm (1.2-3.4) L 01/19/19 07:00 Absolute Monocytes 0.65 k/cumm (0.11-0.7) 01/19/19 07:00 Absolute Eosinophils 0.06 k/cumm (0.0-0.7) 01/19/19 07:00 Absolute Basophils 0.00 k/cumm (0.0-0.2) 01/19/19 07:00 Nucleated RBCs 1 /100WBC 01/18/19 06:20 Manual differential 01/19/19 07:00 RBC Morphology See below 01/19/19 07:00 Present 01/18/19 06:20 1+ 01/19/19 07:00 2+ 01/19/19 07:00 PT 46.0 sec (9.3-11.0) H 01/19/19 07:00 INR 4.5 (0.9-1.1) H* 01/19/19 07:00 APTT 59.7 sec (21.0-31.4) H 01/16/19 13:40 Sodium 139 mmol/L (136-145) 01/19/19 07:00 Potassium 3.6 mmol/L (3.5-5.1) 01/19/19 07:00 Chloride 107 mmol/L (98-107) 01/19/19 07:00 Carbon Dioxide 22.1 mmol/L (21.0-32.0) 01/19/19 07:00 9.9 mmol/L (3-11) 01/19/19 07:00 BUN 25 mg/dL (7-18) H 01/19/19 07:00 1.46 mg/dL (0.55-1.02) H 01/19/19 07:00 37.20 (mL/min/1.73m2) 01/19/19 07:00 Glucose 68 mg/dL (70-100) L 01/19/19 07:00 Calcium 8.1 mg/dL (8.5-10.1) L 01/19/19 07:00 Magnesium 2.1 mg/dL (1.8-2.4) 01/19/19 07:00 Cancelled 01/16/19 13:48 AST Cancelled 01/16/19 13:48 ALT Cancelled 01/16/19 13:48 Cancelled 01/16/19 13:48 36 umol/L (11-32) H 01/16/19 14:00 Cancelled 01/16/19 13:48 NT-Pro-B Natriuret Pep Cancelled 01/16/19 13:52 Cancelled 01/16/19 13:48 Cancelled 01/16/19 13:48 2.1 ng/mL 01/19/19 07:00 Yellow (Yellow) 01/16/19 14:53 Clear (Clear) 01/16/19 14:53 5.5 (5-8) 01/16/19 14:53 Ur Specific [place] 1.020 (1.005-1.025) 01/16/19 14:53 100 mg/dL (Negative) H 01/16/19 14:53 Trace mg/dL (Negative) H 01/16/19 14:53 Moderate (Negative) H 01/16/19 14:53 Positive (Negative) H 01/16/19 14:53 Large (Negative) H 01/16/19 14:53 0.2 EU/dL (Up TO 0.2) 01/16/19 14:53 Ur Leukocyte Esterase Small (Negative) H 01/16/19 14:53 (0-2) 01/16/19 14:53 >50 HPF (0-5) 01/16/19 14:53 Ur Epithelial Cells Many HPF (Negative) 01/16/19 14:53 Negative HPF (Negative) 01/16/19 14:53 Many HPF (Negative) 01/16/19 14:53 Negative (Negative) 01/16/19 14:53 Ur Culture Indicated? Yes 01/16/19 14:53 Negative mg/dL (Negative) 01/16/19 14:53 Stl C.difficile Tox PCR Negative 01/18/19 11:31 Negative (Negative) 01/16/19 14:53 Negative (Negative) 01/16/19 14:53 Ur Barbiturates Screen Negative (Negative) 01/16/19 14:53 Ur Tricyclics Screen Negative (Negative) 01/16/19 14:53 Ur Amphetamines Screen Negative (Negative) 01/16/19 14:53 U Benzodiazepines Scrn Negative (Negative) 01/16/19 14:53 Negative (Negative) 01/16/19 14:53 Ur THC Screen Negative (Negative) 01/16/19 14:53 C.difficile Tox Source Feces 01/18/19 11:31 Path Cons Comment See comment 01/18/19 06:20
--- NOTE | 2019-01-19 14:53 | CMPROGNOTE_ITS ---
- If Service Date Differs Date of service: 01/19/19 Time of Service: 14:53 Care Management Progress Note S/O:Michelle was sitting up in a chair when CM entered the room. She was much more animated and talkative today. She shared some details of her personal life and all of the activities that are going on that are contributing to her stress. Michelle states she has been working with PT and is feeling a bit better. She states she is not sure if she will need any help at home when she is discharged. A: Michelle is a 53 year old woman admitted to [facility] on 01/16/19 with pneumonia. P:Michelle continues to receive treatment for pneumonia. She will likely be discharged home with no additional services when ready. Transport will be via private vehicle with family. CM will continue to provide support to patient and family regarding discharge planning needs.
--- NOTE | 2019-01-19 15:33 | PT.INTREAT ---
Date of service: 01/19/19 Time of Service: 15:33 PT Notes Inpatient Physical Therapy Treatment Note [facility] Date: 01/19/19 PRECAUTIONS: Fall SUBJECTIVE: Glory is agreeable to participating in PT. She reports that she gets SOB with activity at home, however does not do much walking at home. OBJECTIVE: PAIN: No complaints of pain BED MOBILITY/TRANSFERS Supine?sit: I with HOB flat Sit?supine: I with HOB flat Sit-stand: S Stand-sit: S GAIT Assistive Device: FWW Weight bearing: Full Assist: SBA Distance: 25' x2 Deviation: Increase respiratory rate and fatigue VITALS: SaO2: 84-97% on 1L via NC with activity and at rest, 89-93% on 2L via NC with activity TOILETING: Patient toileted with assist ASSESSMENT: Patient tolerated session with complaints of increased fatigue and SOB with activity. Patient would benefit from continued general conditioning for improved mobility and improved activity tolerance. PLAN: Continue with PTs POC TREATMENT CODE/TIME: 25 minutes; 67264 x2
[2019-01-19] MEDS: Acetaminophen 325 MG TAB 650 MG PO (18:32)
[2019-01-19] MEDS: Simvastatin 40 MG TAB PO (21:25)
[2019-01-20] VITALS (8 sets, daily range): BP systolic 95–127; BP diastolic 49–81; PULSE 55–78; RESP 18–20; TEMP 35.7–36.6; O2SAT 94–100
[2019-01-20] MEDS: PIPERACILLIN/TAZO 3.375 GM in Normal Saline 50 ML IVPB ×4 (01:45→19:57)
[2019-01-20 07:56] LABS: INR 3.9 (0.9-1.1); Prothrombin Time 39.5 sec (9.3-11.0)
[2019-01-20 07:58] LABS: HCT 34.2 % (36.0-46.0); HGB 11.4 g/dL (12.0-15.5); Mean Corp. HGB Concentration 33.3 g/dL (32.0-36.0); Mean Corpuscular Hemoglobin 31.2 pg (27.0-33.0); Mean Corpuscular Volume 93.7 fL (80-95); RBC 3.65 m/cumm (4.00-5.20); RBC Distribution Width 19.3 % (11.7-14.6); White Blood Cell Count 4.51 k/cumm (4.4-10.8)
[2019-01-20 08:00] LABS: Anion Gap 4.7 mmol/L (3-11); BUN 23 mg/dL (7-18); CO2 25.3 mmol/L (21.0-32.0); CREATININE 1.47 mg/dL (0.55-1.02); Calcium 7.8 mg/dL (8.5-10.1); Chloride 108 mmol/L (98-107); Glucose 75 mg/dL (70-100); Potassium 3.5 mmol/L (3.5-5.1); Sodium 138 mmol/L (136-145)
[2019-01-20 08:27] LABS: Absolute Basophil Count 0.05 k/cumm (0.0-0.2); Absolute Eosinophil Count 0.18 k/cumm (0.0-0.7); Absolute Lymphocyte Count 0.99 k/cumm (1.2-3.4); Absolute Monocyte Count 0.68 k/cumm (0.11-0.7); Absolute Neutrophil Count 2.44 k/cumm (1.2-6.7); Anisocytosis 1+; Diff Comment Manual Differential
[2019-01-20 08:28] LABS: Platelet Count 31 x1000/uL (130-400); Poikilocytes 1+
[2019-01-20] MEDS: Normal Saline Flush 10 ML SYR IVP ×2 (08:51→13:58)
[2019-01-20] MEDS: Topiramate 50 MG TAB PO ×2 (08:52→19:57)
[2019-01-20] MEDS: Vancomycin 125 MG CAP PO ×4 (08:52→19:57)
[2019-01-20] MEDS: guaiFENesin 600 MG TABCR PO ×2 (08:53→19:57)
[2019-01-20] MEDS: Oxybutynin-CR 5 MG TABCR 10 MG PO (08:53)
[2019-01-20] MEDS: Lactobacillus Acidophilus CAP 1 CAP PO ×3 (08:53→19:57)
[2019-01-20] MEDS: Escitalopram 20 MG TAB PO (08:53)
[2019-01-20] MEDS: Magnesium Oxide 400 MG TAB PO (08:53)
[2019-01-20] MEDS: Nystatin POWDER 60 GM JAR TP ×3 (08:54→20:32)
[2019-01-20] MEDS: Budesonide/Formoterol 160/4.5 6 GM 60 PUFF INH IH ×2 (09:57→19:57)
--- NOTE | 2019-01-20 10:27 | PT.INTREAT ---
Date of service: 01/20/19 Time of Service: 10:05 PT Notes Inpatient Physical Therapy Treatment Note [facility] Date: 01/20/19 SUBJECTIVE: Glory states that she is doing better today. She reports that she is getting ready to shower. OBJECTIVE: [] BED MOBILITY/TRANSFERS Sit-stand: S Stand-sit: S GAIT Assistive Device: pushing IV pole Weight bearing: full Assist: SBA Distance: 25'x6 Deviation: deep breathing cues ASSESSMENT: tolerated session very well. Her endurance seems to be improving. Functionally move around room safely and independently. PLAN: will continue to work on her endurance and breathing techniques following PT POC> TREATMENT CODE/TIME: 20 min
[2019-01-20] MEDS: Acetaminophen 325 MG TAB 650 MG PO (11:52)
--- NOTE | 2019-01-20 16:35 | CMPROGNOTE_ITS ---
Care Management Progress Note S/O:Michelle was lying in bed watching TV. Still using oxygen at 1 liter. Says she is feeling better today. A: Michelle is a 53 year old woman admitted to [facility] on 01/16/19 with pneumonia. P: Return home when medically clearedfor discharge. No services needed. Family will transport.
--- NOTE | 2019-01-20 18:09 | W.PM.PROGNOT ---
Date of Service Date of service: 01/20/19 Time of Service: 18:09 Assessment and Plan (1) Pneumonia: Current visit: Yes Status: Acute Presumed aspiration in setting of nausea and vomiting. Patient is now on Day #5 of Pip-Tazo. Continued Complaints of dyspnea. - Consider underlying Asthma as potential source for dyspnea as well. Continue nebs, start oral steroid therapy. - Unsure if acute CHF has any component by today's exam. Discontinue Furosemide gtt, and resume home lasix regimen. - Continue antibiotics for now - if not improving merits repeat imaging. (2) Urinary tract infection: Current visit: No Status: Acute Pansensitive E.Coli. Currently on Pip-Tazo as above. (3) PINKY (acute kidney injury): Current visit: Yes Status: Acute Creatinine improved but not at baseline. Despite overall volume overload, may be intravascularly depleted in setting of illness and diarrhea. - Discontinue lasix gtt as above. Also with Spironolactone on hold. Avoid nephrotoxins and renally dose medications (will check on Zosyn dosing with pharmacy in am). (4) Diarrhea: Current visit: No Status: Resolved C.Diff negative. Remains on PO VAncomycin due to her history of recurrent C. Diff. Will continue to monitor symptoms. (5) Chronic diastolic heart failure: Current visit: No Status: Chronic Continue oral Lasix as above, with Spironolactone on hold. (6) LUDY (obstructive sleep apnea): Current visit: No Status: Chronic Continue CPAP. (7) GERD (gastroesophageal reflux disease): Current visit: No Status: Chronic Continue Ranitidine. Previously on PPI - discontinued in setting of recurrent C.Diff. (8) History of pulmonary embolism: Current visit: No Status: Chronic Monitor daily INR - currently supratherapeutic with coumadin on hold. (9) DVT prophylaxis: Current visit: No Status: Acute On chronic anticoagulation with Coumadin, currently on hold due to supratherapeutic INR levels. (10) Advance directive on file: Current visit: Yes Status: Acute Full Code. Subjective Interval history since last seen: 53 year old woman with a prior history significant for Asthma, admitted from [facility] Emergency Department with a diagnosis of UTI, potential Aspiration Pneumonia, and PINKY. Ms. Arthur has a Past Medical History significant for Diastolic CHF, LUDY on CPAP, GERD, HAYWOOD, Hx PE on chronic Anticoagulation, and Recurrent C.Diff. The patient presented initially with complaints of nausea, vomiting, and diarrhea, along with subjective fevers, cough, dyspnea, and headache. Initial work-up was positive for a potential RLL Pneumonia by CXR, and UTI by urinalysis. She has been maintained on IV Pip-Tazo and oral Vancomycin since admission, with continued complaints of Dyspnea with minimal exertion. Her Urine Culture shows pansensitive E.Coli. No overnight events reported. She remains afebrile. Exam Narrative Exam Narrative: General: Patient appears comfortable, AAOX3, NAD Neck: Supple CV: Regular, nontachycardic, S1S2, No rubs, murmurs, or gallops. Pulmonary: Clear to auscultation bilaterally, no crackles, wheezing, or rhonchi. Good air entry. Exam limited by body habitus. Abdomen: + Bowel Sounds, soft, nontender, nondistended. Obese in contour. Vascular: 2-3+ b/l lower extremity edema, changes consistent with chronic venous stasis noted. Psych: Normal mood and affect. Objective Objective Clinical Data: Abnormal lab results 01/20/19 01/20/19 01/20/19 Range/Units 07:17 07:17 07:17 RBC 3.65 L (4.00-5.20) m/cumm Hgb 11.4 L (12.0-15.5) g/dL Hct 34.2 L (36.0-46.0) % RDW 19.3 H (11.7-14.6) % Plt Count 31 L (130-400) x1000/uL Absolute Lymphocytes 0.99 L (1.2-3.4) k/cumm PT 39.5 H (9.3-11.0) sec INR 3.9 H D (0.9-1.1) Chloride 108 H (98-107) mmol/L BUN 23 H (7-18) mg/dL Creatinine 1.47 H (0.55-1.02) mg/dL Calcium 7.8 L (8.5-10.1) mg/dL Vital Signs Temperature 36.5 C 01/20/19 15:40 Temperature Source Tympanic 01/20/19 15:40 Pulse 62 01/20/19 15:40 Pulse Rhythm Regular 01/20/19 08:25 Pulse 63 01/16/19 20:20 Respiratory Rate 20 01/20/19 15:40 Respiratory Effort Non-Labored 01/20/19 08:25 Respiratory Depth Normal 01/20/19 08:25 Respiratory Pattern Normal 01/20/19 08:25 Blood Pressure 105/54 L 01/20/19 15:40 Blood Pressure Mean 57 01/16/19 20:16 Blood Pressure Position Supine 01/16/19 13:35 Pulse Oximetry 94 L 01/20/19 15:40 Oxygen Delivery Method Nasal Cannula 01/20/19 15:40 Oxygen Flow Rate 1 01/20/19 15:40 Pain Level 2 01/20/19 12:52 Comment 01/20/19 08:18 Intake & Output 01/19/19 01/20/19 01/20/19 23:59 11:59 23:59 Intake Total 340 / 680 1010 / 2280 1270 / 2280 Balance 340 / 680 1010 / 2280 1270 / 2280 Weight 164.6 kg Intake: IV 100 / 200 100 / 100 Oral 240 / 480 910 / 2180 1270 / 2180 Other: Urine Color Yellow Urine Appearance Clear Clear Comment lasix drip. voiding frequently in good amounts. Volumes not being measured. Stool Size Large Large Moderate Stool Characteristics Soft Soft Formed Formed Formed Voiding Methods Toilet Toilet Toilet Laboratory Results WBC 4.51 k/cumm (4.4-10.8) 01/20/19 07:17 RBC 3.65 m/cumm (4.00-5.20) L 01/20/19 07:17 Hgb 11.4 g/dL (12.0-15.5) L 01/20/19 07:17 Hct 34.2 % (36.0-46.0) L 01/20/19 07:17 MCV 93.7 fL (80-95) 01/20/19 07:17 MCH 31.2 pg (27.0-33.0) 01/20/19 07:17 MCHC 33.3 g/dL (32.0-36.0) 01/20/19 07:17 RDW 19.3 % (11.7-14.6) H 01/20/19 07:17 Plt Count 31 x1000/uL (130-400) L 01/20/19 07:17 MPV fL (8.0-11.0) 01/20/19 07:17 Immature Gran % See Differential 01/20/19 07:17 54.0 01/20/19 07:17 3.0 % 01/18/19 06:20 22.0 01/20/19 07:17 Atypical Lymphs % 01/19/19 07:00 15.0 01/20/19 07:17 4.0 01/20/19 07:17 1.0 01/20/19 07:17 4.0 % 01/20/19 07:17 1.0 % 01/18/19 06:20 Absolute Neutrophils 2.44 k/cumm (1.2-6.7) 01/20/19 07:17 Absolute Lymphocytes 0.99 k/cumm (1.2-3.4) L 01/20/19 07:17 Absolute Monocytes 0.68 k/cumm (0.11-0.7) 01/20/19 07:17 Absolute Eosinophils 0.18 k/cumm (0.0-0.7) 01/20/19 07:17 Absolute Basophils 0.05 k/cumm (0.0-0.2) 01/20/19 07:17 Nucleated RBCs 1 /100WBC 01/18/19 06:20 Manual differential 01/20/19 07:17 RBC Morphology See below 01/20/19 07:17 Present 01/18/19 06:20 1+ 01/20/19 07:17 1+ 01/20/19 07:17 PT 39.5 sec (9.3-11.0) H 01/20/19 07:17 INR 3.9 (0.9-1.1) H D 01/20/19 07:17 APTT 59.7 sec (21.0-31.4) H 01/16/19 13:40 Sodium 138 mmol/L (136-145) 01/20/19 07:17 Potassium 3.5 mmol/L (3.5-5.1) 01/20/19 07:17 Chloride 108 mmol/L (98-107) H 01/20/19 07:17 Carbon Dioxide 25.3 mmol/L (21.0-32.0) 01/20/19 07:17 4.7 mmol/L (3-11) 01/20/19 07:17 BUN 23 mg/dL (7-18) H 01/20/19 07:17 1.47 mg/dL (0.55-1.02) H 01/20/19 07:17 36.90 (mL/min/1.73m2) 01/20/19 07:17 Glucose 75 mg/dL (70-100) 01/20/19 07:17 Calcium 7.8 mg/dL (8.5-10.1) L 01/20/19 07:17 Magnesium 2.0 mg/dL (1.8-2.4) 01/20/19 07:17 Cancelled 01/16/19 13:48 AST Cancelled 01/16/19 13:48 ALT Cancelled 01/16/19 13:48 Cancelled 01/16/19 13:48 36 umol/L (11-32) H 01/16/19 14:00 Cancelled 01/16/19 13:48 NT-Pro-B Natriuret Pep Cancelled 01/16/19 13:52 Cancelled 01/16/19 13:48 Cancelled 01/16/19 13:48 2.1 ng/mL 01/19/19 07:00 Yellow (Yellow) 01/16/19 14:53 Clear (Clear) 01/16/19 14:53 5.5 (5-8) 01/16/19 14:53 Ur Specific [place] 1.020 (1.005-1.025) 01/16/19 14:53 100 mg/dL (Negative) H 01/16/19 14:53 Trace mg/dL (Negative) H 01/16/19 14:53 Moderate (Negative) H 01/16/19 14:53 Positive (Negative) H 01/16/19 14:53 Large (Negative) H 01/16/19 14:53 0.2 EU/dL (Up TO 0.2) 01/16/19 14:53 Ur Leukocyte Esterase Small (Negative) H 01/16/19 14:53 (0-2) 01/16/19 14:53 >50 HPF (0-5) 01/16/19 14:53 Ur Epithelial Cells Many HPF (Negative) 01/16/19 14:53 Negative HPF (Negative) 01/16/19 14:53 Many HPF (Negative) 01/16/19 14:53 Negative (Negative) 01/16/19 14:53 Ur Culture Indicated? Yes 01/16/19 14:53 Negative mg/dL (Negative) 01/16/19 14:53 Stl C.difficile Tox PCR Negative 01/18/19 11:31 Negative (Negative) 01/16/19 14:53 Negative (Negative) 01/16/19 14:53 Ur Barbiturates Screen Negative (Negative) 01/16/19 14:53 Ur Tricyclics Screen Negative (Negative) 01/16/19 14:53 Ur Amphetamines Screen Negative (Negative) 01/16/19 14:53 U Benzodiazepines Scrn Negative (Negative) 01/16/19 14:53 Negative (Negative) 01/16/19 14:53 Ur THC Screen Negative (Negative) 01/16/19 14:53 C.difficile Tox Source Feces 01/18/19 11:31 Path Cons Comment See comment 01/18/19 06:20
[2019-01-20] MEDS: Simvastatin 40 MG TAB PO (19:57)
[2019-01-20] MEDS: predniSONE 20 MG TAB 40 MG PO (20:32)
[2019-01-21] VITALS (8 sets, daily range): BP systolic 95–150; BP diastolic 58–81; PULSE 61–63; RESP 20–21; TEMP 36.4–36.6; O2SAT 86–99
[2019-01-21] MEDS: PIPERACILLIN/TAZO 3.375 GM in Normal Saline 50 ML IVPB ×2 (02:15→09:07)
[2019-01-21] MEDS: Normal Saline Flush 10 ML SYR IVP ×3 (02:15→19:30)
[2019-01-21 08:09] LABS: Abs Immature Grans 0.06 k/cumm (0.0-0.09); Absolute Basophil Count 0.01 k/cumm (0.0-0.2); Absolute Eosinophil Count 0.04 k/cumm (0.0-0.7); Absolute Lymphocyte Count 0.66 k/cumm (1.2-3.4); Absolute Monocyte Count 0.21 k/cumm (0.11-0.7); Absolute Neutrophil Count 3.51 k/cumm (1.2-6.7); Basophils % 0.2; Eosinophils % 0.9; HCT 32.6 % (36.0-46.0); HGB 10.7 g/dL (12.0-15.5); Immature Grans % 1.3; Lymphocytes % 14.7; Mean Corp. HGB Concentration 32.8 g/dL (32.0-36.0); Mean Corpuscular Hemoglobin 30.7 pg (27.0-33.0); Mean Corpuscular Volume 93.4 fL (80-95); Mean Platelet Volume 11.2 fL (8.0-11.0); Monocytes % 4.7; Neutrophils % 78.2; RBC 3.49 m/cumm (4.00-5.20); RBC Distribution Width 19.1 % (11.7-14.6); White Blood Cell Count 4.49 k/cumm (4.4-10.8)
[2019-01-21] MEDS: Budesonide/Formoterol 160/4.5 6 GM 60 PUFF INH IH ×2 (08:12→19:29)
[2019-01-21 08:25] LABS: BUN 22 mg/dL (7-18); CREATININE 1.33 mg/dL (0.55-1.02); Calcium 7.9 mg/dL (8.5-10.1); Chloride 107 mmol/L (98-107); Estimated GFR 41.42 (mL/min/1.73m2); Glucose 120 mg/dL (70-100); Potassium 3.8 mmol/L (3.5-5.1); Sodium 138 mmol/L (136-145)
[2019-01-21 08:29] LABS: INR 3.6 (0.9-1.1); Prothrombin Time 36.7 sec (9.3-11.0)
[2019-01-21 08:30] LABS: ALT 112 U/L (12-78); AST 315 U/L (15-37); Albumin 1.1 g/dL (3.4-5.0); Alkaline Phosphatase 167 U/L (46-116); Bilirubin, Direct 2.22 mg/dL (0.00-0.20); Bilirubin, Total 3.5 mg/dL (0.2-1.0); Total Protein 5.7 g/dL (6.4-8.2)
[2019-01-21 08:42] LABS: Platelet Count 40 x1000/uL (130-400)
[2019-01-21 08:43] LABS: Anisocytosis 2+; Diff Comment RBC Morph Reviewed
[2019-01-21 08:44] LABS: Poikilocytes 1+; Polychromasia Present
[2019-01-21] MEDS: Topiramate 50 MG TAB PO ×2 (09:09→19:31)
[2019-01-21] MEDS: Vancomycin 125 MG CAP PO ×4 (09:09→19:32)
[2019-01-21] MEDS: predniSONE 20 MG TAB 40 MG PO ×2 (09:09→17:51)
[2019-01-21] MEDS: Escitalopram 20 MG TAB PO (09:09)
[2019-01-21] MEDS: Oxybutynin-CR 5 MG TABCR 10 MG PO (09:09)
[2019-01-21] MEDS: guaiFENesin 600 MG TABCR PO ×2 (09:10→19:31)
[2019-01-21] MEDS: Furosemide 40 MG TAB PO (09:10)
[2019-01-21] MEDS: Magnesium Oxide 400 MG TAB PO (09:10)
[2019-01-21] MEDS: Nystatin POWDER 60 GM JAR TP ×3 (09:10→19:32)
[2019-01-21] MEDS: Lactobacillus Acidophilus CAP 1 CAP PO ×3 (09:10→19:31)
--- NOTE | 2019-01-21 11:07 | PT.INTREAT ---
Date of service: 01/21/19 Time of Service: 09:15 PT Notes Inpatient Physical Therapy Treatment Note [facility] Date: 01/21/19 SUBJECTIVE: They took my oxygen off to see what I would do without it. OBJECTIVE: [] BED MOBILITY/TRANSFERS Sit-stand: S Stand-sit: S GAIT Assistive Device: none Weight bearing: full Assist: CGA/SBA Distance: 30'x2 Deviation:deep breathing cues. VITALS: O2 sat prior to amb was 97% on RA, and dropped to 87%. 4L of O2 was applied via RT and she recovered to 96% after about 2 min. She was then set to 1 L of O2. ASSESSMENT: SOB noted with ambulation/ activity on RA. Noted panic when she becomes SOB. She was steady on her feet, no LOB noted as she ambulated without an assistive device. PLAN: continue progressing her functional mobility and endurance. RT recommended she stay on O2, especially with activity. Will continue to monitor her sats. TREATMENT CODE/TIME: 12 min. TAx1.
[2019-01-21] MEDS: Potassium Chloride 20 MEQ TABCR PO (12:35)
--- NOTE | 2019-01-21 15:23 | CMPROGNOTE_ITS ---
Care Management Progress Note S/O:Michelle was lying in bed watching TV. Still using oxygen at 1 liter. Says she is feeling better today. A: Michelle is a 53 year old woman admitted to [facility] on 01/16/19 with pneumonia. P: Return home when medically cleared for discharge. May require home O2. Currently has a CPCP at home through [place]. RT will evaluate. Family will transport. cc:
--- NOTE | 2019-01-21 17:50 | W.PM.PROGNOT ---
Date of Service Date of service: 01/21/19 Time of Service: 17:50 Assessment and Plan (1) Pneumonia: Current visit: Yes Status: Acute Presumed aspiration in setting of nausea and vomiting. Patient has received 5 days of Pip-Tazo. Continued Complaints of dyspnea, now improved. - Consider underlying Asthma as potential source for dyspnea as well. Continue nebs, started oral steroid therapy with noted improvement. - Unsure if acute CHF has any component by today's exam. Discontinued Furosemide gtt, and resumed home lasix regimen previously, with continued improvement in creatinine but worsening LE Edema. - Continue antibiotics but change to oral Augmentin. Continue to monitor. (2) Urinary tract infection: Current visit: No Status: Acute Pansensitive E.Coli. Currently on antibiotics as above. (3) PINKY (acute kidney injury): Current visit: Yes Status: Acute Creatinine improved - baseline appears to be at 1.1-1.2, currently improved at 1.33. - Discontinued lasix gtt previously. Also with Spironolactone on hold which will be restarted tomorrow. Avoid nephrotoxins and renally dose medications when appropriate. (4) Diarrhea: Current visit: No Status: Resolved C.Diff negative. Remains on PO VAncomycin due to her history of recurrent C. Diff. Will continue to monitor symptoms. (5) Chronic diastolic heart failure: Current visit: No Status: Chronic Continue oral Lasix as above, with Spironolactone being resumed in the morning. Lasix was discontinued in setting of PINKY and potential intravascular depletion - now with worsening LE Edema which may be as result of that as well as witholding of Spironolactone. Currently with improved pulmonary symptoms, but worsening LE edema. Will monitor closely with reinitiation of Spironolactone. (6) LUDY (obstructive sleep apnea): Current visit: No Status: Chronic Continue CPAP. (7) GERD (gastroesophageal reflux disease): Current visit: No Status: Chronic Continue Ranitidine. Previously on PPI - discontinued in setting of recurrent C.Diff. (8) History of pulmonary embolism: Current visit: No Status: Chronic Monitor daily INR - currently supratherapeutic with coumadin on hold. (9) Elevated LFTs: Current visit: Yes Status: Acute Chronically elevated LFTs with a history of Steatohepatitis / Cirrhosis and Diastolic CHF. However, current values are slightly above baseline - may be on the basis of congestion/CHF, as well as current use of Zosyn. - Pip-Tazo discontinued. Monitor daily LFTs, with further evaluation and treatment if warranted. (10) DVT prophylaxis: Current visit: No Status: Acute On chronic anticoagulation with Coumadin, remains on hold due to supratherapeutic INR levels. (11) Advance directive on file: Current visit: Yes Status: Acute Full Code. Subjective Interval history since last seen: 53 year old woman with a prior history significant for Asthma, admitted from [facility] Emergency Department with a diagnosis of UTI, potential Aspiration Pneumonia, and PINKY. Ms. Arthur has a Past Medical History significant for Diastolic CHF, LUDY on CPAP, GERD, HAYWOOD, Hx PE on chronic Anticoagulation, and Recurrent C.Diff. The patient presented initially with complaints of nausea, vomiting, and diarrhea, along with subjective fevers, cough, dyspnea, and headache. Initial work-up was positive for a potential RLL Pneumonia by CXR, and UTI by urinalysis. She has been maintained on IV Pip-Tazo and oral Vancomycin since admission, with continued complaints of Dyspnea with minimal exertion. Her Urine Culture shows a pansensitive E.Coli. This morning Mrs. Arthur reports improvement in her breathing, but worsening in her lower extremity edema. No overnight events reported. She remains afebrile. Exam Narrative Exam Narrative: General: Patient appears comfortable, AAOX3, NAD Neck: Supple CV: Regular, nontachycardic, S1S2, No rubs, murmurs, or gallops. Pulmonary: Clear to auscultation bilaterally, no crackles, wheezing, or rhonchi. Good air entry. Exam limited by body habitus, but overall improved since prior. Abdomen: + Bowel Sounds, soft, nontender, nondistended. Obese in contour. Vascular: 3+ b/l lower extremity edema, changes consistent with chronic venous stasis noted. Psych: Normal mood and affect. Objective Objective Clinical Data: Abnormal lab results 01/21/19 01/21/19 01/21/19 Range/Units 07:45 07:45 07:45 RBC 3.49 L (4.00-5.20) m/cumm Hgb 10.7 L (12.0-15.5) g/dL Hct 32.6 L (36.0-46.0) % RDW 19.1 H (11.7-14.6) % Plt Count 40 L (130-400) x1000/uL MPV 11.2 H (8.0-11.0) fL Absolute Lymphocytes 0.66 L (1.2-3.4) k/cumm PT 36.7 H (9.3-11.0) sec INR 3.6 H (0.9-1.1) BUN 22 H (7-18) mg/dL Creatinine 1.33 H (0.55-1.02) mg/dL Glucose 120 H (70-100) mg/dL Calcium 7.9 L (8.5-10.1) mg/dL Total Bilirubin (0.2-1.0) mg/dL Conjugated Bilirubin (0.00-0.20) mg/dL AST (15-37) U/L ALT (12-78) U/L Alkaline Phosphatase (46-116) U/L Total Protein (6.4-8.2) g/dL Albumin (3.4-5.0) g/dL 01/21/19 Range/Units 07:45 RBC (4.00-5.20) m/cumm Hgb (12.0-15.5) g/dL Hct (36.0-46.0) % RDW (11.7-14.6) % Plt Count (130-400) x1000/uL MPV (8.0-11.0) fL Absolute Lymphocytes (1.2-3.4) k/cumm PT (9.3-11.0) sec INR (0.9-1.1) BUN (7-18) mg/dL Creatinine (0.55-1.02) mg/dL Glucose (70-100) mg/dL Calcium (8.5-10.1) mg/dL Total Bilirubin 3.5 H (0.2-1.0) mg/dL Conjugated Bilirubin 2.22 H (0.00-0.20) mg/dL AST 315 H (15-37) U/L ALT 112 H (12-78) U/L Alkaline Phosphatase 167 H (46-116) U/L Total Protein 5.7 L (6.4-8.2) g/dL Albumin 1.1 L (3.4-5.0) g/dL Vital Signs Temperature 36.5 C 07/21/19 15:42 Temperature Source Tympanic 01/21/19 15:42 Pulse 62 01/21/19 15:42 Pulse Rhythm Regular 01/21/19 08:20 Pulse 63 01/16/19 20:20 Respiratory Rate 20 01/21/19 15:42 Respiratory Effort Short of Breath 01/21/19 08:20 Respiratory Depth Normal 01/21/19 08:20 Respiratory Pattern Normal 01/21/19 08:20 Blood Pressure 112/68 01/21/19 15:42 Blood Pressure Mean 57 01/16/19 20:16 Blood Pressure Position Supine 01/16/19 13:35 Pulse Oximetry 95 01/21/19 15:42 Oxygen Delivery Method Nasal Cannula 01/21/19 15:42 Oxygen Flow Rate 1 01/21/19 15:42 Pain Level 0 01/21/19 15:42 Comment 01/20/19 08:18 Intake & Output 01/20/19 01/21/19 01/21/19 23:59 11:59 23:59 Intake Total 1918.667 / 2928.667 100 / 940 840 / 940 Balance 1918.667 / 2928.667 100 / 940 840 / 940 Weight 166.5 kg Intake: IV 168.667 / 268.667 100 / 100 Oral 1750 / 2660 840 / 840 Other: Urine Color Yellow Yellow Urine Appearance Clear Clear Stool Size Moderate Stool Characteristics Formed Voiding Methods Toilet Toilet Laboratory Results WBC 4.49 k/cumm (4.4-10.8) 01/21/19 07:45 RBC 3.49 m/cumm (4.00-5.20) L 01/21/19 07:45 Hgb 10.7 g/dL (12.0-15.5) L 01/21/19 07:45 Hct 32.6 % (36.0-46.0) L 01/21/19 07:45 MCV 93.4 fL (80-95) 01/21/19 07:45 MCH 30.7 pg (27.0-33.0) 01/21/19 07:45 MCHC 32.8 g/dL (32.0-36.0) 01/21/19 07:45 RDW 19.1 % (11.7-14.6) H 01/21/19 07:45 Plt Count 40 x1000/uL (130-400) L 01/21/19 07:45 MPV 11.2 fL (8.0-11.0) H 01/21/19 07:45 Immature Gran % 1.3 01/21/19 07:45 78.2 01/21/19 07:45 3.0 % 01/18/19 06:20 14.7 01/21/19 07:45 Atypical Lymphs % 01/19/19 07:00 4.7 01/21/19 07:45 0.9 01/21/19 07:45 0.2 01/21/19 07:45 4.0 % 01/20/19 07:17 1.0 % 01/18/19 06:20 Absolute Neutrophils 3.51 k/cumm (1.2-6.7) 01/21/19 07:45 Absolute Lymphocytes 0.66 k/cumm (1.2-3.4) L 01/21/19 07:45 Absolute Monocytes 0.21 k/cumm (0.11-0.7) 01/21/19 07:45 Absolute Eosinophils 0.04 k/cumm (0.0-0.7) 01/21/19 07:45 Absolute Basophils 0.01 k/cumm (0.0-0.2) 01/21/19 07:45 Nucleated RBCs 1 /100WBC 01/18/19 06:20 Rbc morph reviewed 01/21/19 07:45 RBC Morphology See below 01/21/19 07:45 Present 01/21/19 07:45 1+ 01/21/19 07:45 2+ 01/21/19 07:45 PT 36.7 sec (9.3-11.0) H 01/21/19 07:45 INR 3.6 (0.9-1.1) H 01/21/19 07:45 APTT 59.7 sec (21.0-31.4) H 01/16/19 13:40 Sodium 138 mmol/L (136-145) 01/21/19 07:45 Potassium 3.8 mmol/L (3.5-5.1) 01/21/19 07:45 Chloride 107 mmol/L (98-107) 01/21/19 07:45 Carbon Dioxide 24.0 mmol/L (21.0-32.0) 01/21/19 07:45 7.0 mmol/L (3-11) 01/21/19 07:45 BUN 22 mg/dL (7-18) H 01/21/19 07:45 1.33 mg/dL (0.55-1.02) H 01/21/19 07:45 41.42 (mL/min/1.73m2) 01/21/19 07:45 Glucose 120 mg/dL (70-100) H 01/21/19 07:45 Calcium 7.9 mg/dL (8.5-10.1) L 01/21/19 07:45 Magnesium 2.0 mg/dL (1.8-2.4) 01/21/19 07:45 3.5 mg/dL (0.2-1.0) H 01/21/19 07:45 2.22 mg/dL (0.00-0.20) H 01/21/19 07:45 AST 315 U/L (15-37) H 01/21/19 07:45 ALT 112 U/L (12-78) H 01/21/19 07:45 167 U/L (46-116) H 01/21/19 07:45 36 umol/L (11-32) H 01/16/19 14:00 Cancelled 01/16/19 13:48 NT-Pro-B Natriuret Pep Cancelled 01/16/19 13:52 5.7 g/dL (6.4-8.2) L 01/21/19 07:45 1.1 g/dL (3.4-5.0) L 01/21/19 07:45 2.1 ng/mL 01/19/19 07:00 Yellow (Yellow) 01/16/19 14:53 Clear (Clear) 01/16/19 14:53 5.5 (5-8) 01/16/19 14:53 Ur Specific [place] 1.020 (1.005-1.025) 01/16/19 14:53 100 mg/dL (Negative) H 01/16/19 14:53 Trace mg/dL (Negative) H 01/16/19 14:53 Moderate (Negative) H 01/16/19 14:53 Positive (Negative) H 01/16/19 14:53 Large (Negative) H 01/16/19 14:53 0.2 EU/dL (Up TO 0.2) 01/16/19 14:53 Ur Leukocyte Esterase Small (Negative) H 01/16/19 14:53 (0-2) 01/16/19 14:53 >50 HPF (0-5) 01/16/19 14:53 Ur Epithelial Cells Many HPF (Negative) 01/16/19 14:53 Negative HPF (Negative) 01/16/19 14:53 Many HPF (Negative) 01/16/19 14:53 Negative (Negative) 01/16/19 14:53 Ur Culture Indicated? Yes 01/16/19 14:53 Negative mg/dL (Negative) 01/16/19 14:53 Stl C.difficile Tox PCR Negative 01/18/19 11:31 Negative (Negative) 01/16/19 14:53 Negative (Negative) 01/16/19 14:53 Ur Barbiturates Screen Negative (Negative) 01/16/19 14:53 Ur Tricyclics Screen Negative (Negative) 01/16/19 14:53 Ur Amphetamines Screen Negative (Negative) 01/16/19 14:53 U Benzodiazepines Scrn Negative (Negative) 01/16/19 14:53 Negative (Negative) 01/16/19 14:53 Ur THC Screen Negative (Negative) 01/16/19 14:53 C.difficile Tox Source Feces 01/18/19 11:31 Path Cons Comment See comment 01/18/19 06:20
[2019-01-21] MEDS: Amoxicillin 875/Clav. 125 TAB PO (19:31)
[2019-01-21] MEDS: Spironolactone 50 MG TAB PO (19:37)
[2019-01-21] MEDS: Acetaminophen 325 MG TAB 650 MG PO (19:57)
[2019-01-21] MEDS: Simvastatin 40 MG TAB PO (22:02)
[2019-01-22] VITALS (9 sets, daily range): BP systolic 106–127; BP diastolic 54–72; PULSE 56–62; RESP 18–24; TEMP 36–36.7; O2SAT 92–97
[2019-01-22 08:07] LABS: Abs Immature Grans 0.08 k/cumm (0.0-0.09); Absolute Basophil Count 0.01 k/cumm (0.0-0.2); Absolute Eosinophil Count 0.03 k/cumm (0.0-0.7); Absolute Lymphocyte Count 0.88 k/cumm (1.2-3.4); Absolute Monocyte Count 0.53 k/cumm (0.11-0.7); Basophils % 0.1; Eosinophils % 0.2; HCT 31.4 % (36.0-46.0); HGB 10.6 g/dL (12.0-15.5); Immature Grans % 0.6; Lymphocytes % 6.9; Mean Corp. HGB Concentration 33.8 g/dL (32.0-36.0); Mean Corpuscular Hemoglobin 31.1 pg (27.0-33.0); Mean Corpuscular Volume 92.1 fL (80-95); Mean Platelet Volume 10.2 fL (8.0-11.0); Monocytes % 4.2; RBC 3.41 m/cumm (4.00-5.20); White Blood Cell Count 12.69 k/cumm (4.4-10.8)
[2019-01-22 08:18] LABS: Anion Gap 8.3 mmol/L (3-11); BUN 25 mg/dL (7-18); CO2 21.7 mmol/L (21.0-32.0); CREATININE 1.28 mg/dL (0.55-1.02); Calcium 8.4 mg/dL (8.5-10.1); Chloride 107 mmol/L (98-107); Estimated GFR 43.29 (mL/min/1.73m2); Glucose 101 mg/dL (70-100); Potassium 3.9 mmol/L (3.5-5.1); Sodium 137 mmol/L (136-145)
[2019-01-22 08:23] LABS: INR 3.2 (0.9-1.1); Prothrombin Time 32.2 sec (9.3-11.0)
[2019-01-22 08:30] LABS: ALT 112 U/L (12-78); AST 278 U/L (15-37); Albumin 1.1 g/dL (3.4-5.0); Alkaline Phosphatase 158 U/L (46-116); Bilirubin, Direct 1.89 mg/dL (0.00-0.20); Bilirubin, Total 3.6 mg/dL (0.2-1.0); Magnesium 2.1 mg/dL (1.8-2.4); Total Protein 5.9 g/dL (6.4-8.2)
[2019-01-22] MEDS: Normal Saline Flush 10 ML SYR IVP ×2 (08:35→16:10)
[2019-01-22] MEDS: Amoxicillin 875/Clav. 125 TAB PO ×2 (08:36→19:52)
[2019-01-22] MEDS: Escitalopram 20 MG TAB PO (08:36)
[2019-01-22] MEDS: Nystatin POWDER 60 GM JAR TP ×3 (08:36→19:51)
[2019-01-22] MEDS: guaiFENesin 600 MG TABCR PO ×2 (08:36→19:52)
[2019-01-22] MEDS: Topiramate 50 MG TAB PO ×2 (08:36→19:52)
[2019-01-22] MEDS: Lactobacillus Acidophilus CAP 1 CAP PO ×3 (08:39→19:52)
[2019-01-22] MEDS: Oxybutynin-CR 5 MG TABCR 10 MG PO (08:39)
[2019-01-22] MEDS: Spironolactone 50 MG TAB PO ×2 (08:39→19:52)
[2019-01-22] MEDS: Magnesium Oxide 400 MG TAB PO (08:39)
[2019-01-22] MEDS: Vancomycin 125 MG CAP PO ×4 (08:40→19:52)
[2019-01-22] MEDS: Furosemide 40 MG TAB PO (08:40)
[2019-01-22] MEDS: predniSONE 20 MG TAB 40 MG PO ×2 (08:40→17:29)
[2019-01-22 08:53] LABS: Absolute Neutrophil Count 11.17 k/cumm (1.2-6.7); Platelet Count 49 x1000/uL (130-400)
[2019-01-22 08:54] LABS: Anisocytosis 2+; Diff Comment RBC Morph Reviewed; Poikilocytes 1+; Polychromasia Present
[2019-01-22] MEDS: Budesonide/Formoterol 160/4.5 6 GM 60 PUFF INH IH ×2 (09:35→19:51)
--- NOTE | 2019-01-22 10:05 | PDOC.CMPRO ---
- If Service Date Differs Date of service: 01/22/19 Time of Service: 10:05 Care Management Progress Note S/O: Michelle was sitting up in the chair when CM came to see her. Her Mom was also visiting and her daughter arrived shortly thereafter. Michelle was pleasant and smiling and stated that she feels much better. She is ambulating in the halls with PT. Michelle states she is still not sure when she will be discharged. She also shared that her oxygen levels fall with activity and she believes that she will need oxygen when she goes home. A: Michelle is a 53 year old woman admitted to [facility] on 01/16/19 with pneumonia. P: Michelle will return home when medically cleared for discharge. May require home O2. Currently has a CPCP at home through [place]. RT will evaluate. Family will transport.
--- NOTE | 2019-01-22 11:21 | PT.INTREAT ---
Date of service: 01/22/19 Time of Service: 11:21 PT Notes Inpatient Physical Therapy Treatment Note [facility] Date: 01/22/2019 PRECAUTIONS: Fall, monitor SaO2 SUBJECTIVE: Michelle states that she is feeling much better today. She reports that she feels that she is functionally prepared to return to home, although is worried about returning home without oxygen support. OBJECTIVE: PAIN: Patient complained of right-sided chest discomfort, which she reports happens at baseline and is caused by SOB with activity BED MOBILITY/TRANSFERS Supine?sit: I Sit-stand: S Stand-sit: S GAIT Assistive Device: No AD Weight bearing: Full Assist: SBA Distance: 50' x4 in both a.m. and p.m. Deviation: Seated rest x3, SOB VITALS: SaO2: AM Session: 95-97% on 1L O2 via NC at rest, 88-94% on 1L O2 via NC with gait training and stairs. Patient requires approximately 2 minutes of seated rest to recover to mid-90s following activity PM Session: 95-97% on 1L O2 via NC at rest, 88-97% on 1L O2 via NC with gait training. Patient required less than 1 minute of seated rest to recover to mid-90s following activity STAIRS: Up/down 3?4 and 2?6 using B rails and a step over pattern with supervision ASSESSMENT: Patient tolerated a progression in gait distance without assistive device support with SBA. Patient continues to demonstrate SOB with activity, requiring seated rest for less than 1 minute to recover SaO2 to mid-90s. Patient demonstrates good use of pursed-lip breathing technique with gait training. Patient would benefit from continued gait training and general conditioning for improved activity tolerance. PLAN: Continue with PTs POC TREATMENT CODE/TIME: Session 1: 35 minutes; 10695 x2 Session 2: 20 minutes; 31733 x2
--- NOTE | 2019-01-22 14:40 | PDOC.CMPRO ---
- If Service Date Differs Date of service: 01/22/19 Time of Service: 14:40
[2019-01-22] MEDS: Furosemide 40 MG/4 ML VIAL IVP (16:10)
--- NOTE | 2019-01-22 18:26 | W.PM.PROGNOT ---
Date of Service Date of service: 01/22/19 Time of Service: 18:26 Assessment and Plan (1) Pneumonia: Current visit: Yes Status: Acute Presumed aspiration in setting of nausea and vomiting. Patient has received 5 days of Pip-Tazo, now 2 days of Augmentin. Continued Complaints of dyspnea, now improved. - Consider underlying Asthma as potential source for dyspnea as well. Continue nebs, recently initiated oral steroid therapy with noted improvement. - Unsure if acute CHF has any component by today's exam. Discontinued Furosemide gtt, and resumed home lasix regimen previously, with continued improvement in creatinine and breathing. - Continue antibiotics with change to oral Augmentin. Continue to monitor. (2) Urinary tract infection: Current visit: No Status: Acute Pansensitive E.Coli. Currently on antibiotics as above. (3) PINKY (acute kidney injury): Current visit: Yes Status: Acute Creatinine improved - baseline appears to be at 1.1-1.2, currently improved at 1.28. - Discontinued lasix gtt on 01/21. Also with Spironolactone restarted. Avoid nephrotoxins and renally dose medications when appropriate. (4) Diarrhea: Current visit: No Status: Resolved C.Diff negative. Remains on PO VAncomycin due to her history of recurrent C. Diff. Will continue to monitor symptoms. (5) Chronic diastolic heart failure: Current visit: No Status: Chronic Continue oral Lasix as above, with Spironolactone restarted. Lasix was discontinued in setting of PINKY and potential intravascular depletion - prior worsening LE Edema which may be as result of that as well as witholding of Spironolactone. Currently with improved pulmonary symptoms, and subjectively improved LE edema. Will monitor closely with reinitiation of Spironolactone. (6) LUDY (obstructive sleep apnea): Current visit: No Status: Chronic Continue CPAP. (7) GERD (gastroesophageal reflux disease): Current visit: No Status: Chronic Continue Ranitidine. Previously on PPI - discontinued in setting of recurrent C.Diff. (8) History of pulmonary embolism: Current visit: No Status: Chronic Monitor daily INR - currently supratherapeutic with coumadin on hold. (9) Elevated LFTs: Current visit: Yes Status: Acute Chronically elevated LFTs with a history of Steatohepatitis / Cirrhosis and Diastolic CHF. However, current values are slightly below baseline - may be on the basis of congestion/CHF, as well as current use of Zosyn. - Pip-Tazo discontinued. Current LFTs stable and slightly improved. (10) DVT prophylaxis: Current visit: No Status: Acute On chronic anticoagulation with Coumadin, remains on hold due to supratherapeutic INR levels. (11) Advance directive on file: Current visit: Yes Status: Acute Full Code. Subjective Interval history since last seen: 53 year old woman with a prior history significant for Asthma, admitted from [facility] Emergency Department with a diagnosis of UTI, potential Aspiration Pneumonia, and PINKY. Ms. Arthur has a Past Medical History significant for Diastolic CHF, LUDY on CPAP, GERD, [place], Hx PE on chronic Anticoagulation, and Recurrent C.Diff. The patient presented initially with complaints of nausea, vomiting, and diarrhea, along with subjective fevers, cough, dyspnea, and headache. Initial work-up was positive for a potential RLL Pneumonia by CXR, and UTI by urinalysis. She had been maintained on IV Pip-Tazo and oral Vancomycin since admission, changed to oral Augmentin. Her Urine Culture shows a pansensitive E.Coli. This morning Mrs. Arthur reports continued improvement in her breathing, still with considerable increased work of breathing after ambulation and still requiring supplemental O2, but overall better. Her LE swelling is also noted to be subjectively better. Her platelet count remains low but stable. No overnight events reported. She remains afebrile. Exam Narrative Exam Narrative: General: Patient appears comfortable, AAOX3, NAD Neck: Supple CV: Regular, nontachycardic, S1S2, No rubs, murmurs, or gallops. Pulmonary: Clear to auscultation bilaterally, no crackles, wheezing, or rhonchi. Good air entry, and vastly imprved. Exam somewhat limited by body habitus. Abdomen: + Bowel Sounds, soft, nontender, nondistended. Obese in contour. Vascular: 3+ b/l lower extremity edema, changes consistent with chronic venous stasis noted. Psych: Normal mood and affect. Objective Objective Clinical Data: Abnormal lab results 01/22/19 01/22/19 01/22/19 Range/Units 06:22 06:22 06:22 WBC 12.69 H D (4.4-10.8) k/cumm RBC 3.41 L (4.00-5.20) m/cumm Hgb 10.6 L (12.0-15.5) g/dL Hct 31.4 L (36.0-46.0) % RDW 19.0 H (11.7-14.6) % Plt Count 49 L (130-400) x1000/uL Absolute Neutrophils 11.17 H (1.2-6.7) k/cumm Absolute Lymphocytes 0.88 L (1.2-3.4) k/cumm PT (9.3-11.0) sec INR (0.9-1.1) BUN 25 H (7-18) mg/dL Creatinine 1.28 H (0.55-1.02) mg/dL Glucose 101 H (70-100) mg/dL Calcium 8.4 L (8.5-10.1) mg/dL Total Bilirubin 3.6 H (0.2-1.0) mg/dL Conjugated Bilirubin 1.89 H (0.00-0.20) mg/dL AST 278 H (15-37) U/L ALT 112 H (12-78) U/L Alkaline Phosphatase 158 H (46-116) U/L Total Protein 5.9 L (6.4-8.2) g/dL Albumin 1.1 L (3.4-5.0) g/dL 01/22/19 Range/Units 06:22 WBC (4.4-10.8) k/cumm RBC (4.00-5.20) m/cumm Hgb (12.0-15.5) g/dL Hct (36.0-46.0) % RDW (11.7-14.6) % Plt Count (130-400) x1000/uL Absolute Neutrophils (1.2-6.7) k/cumm Absolute Lymphocytes (1.2-3.4) k/cumm PT 32.2 H (9.3-11.0) sec INR 3.2 H (0.9-1.1) BUN (7-18) mg/dL Creatinine (0.55-1.02) mg/dL Glucose (70-100) mg/dL Calcium (8.5-10.1) mg/dL Total Bilirubin (0.2-1.0) mg/dL Conjugated Bilirubin (0.00-0.20) mg/dL AST (15-37) U/L ALT (12-78) U/L Alkaline Phosphatase (46-116) U/L Total Protein (6.4-8.2) g/dL Albumin (3.4-5.0) g/dL Vital Signs Temperature 36.6 C 01/22/19 16:16 Temperature Source Tympanic 01/22/19 12:14 Pulse 60 01/22/19 16:16 Pulse Rhythm Regular 01/22/19 08:30 Pulse 63 01/16/19 20:20 Respiratory Rate 18 01/22/19 16:55 Respiratory Effort 01/22/19 16:55 Respiratory Depth Normal 01/22/19 16:55 Respiratory Pattern Normal 01/22/19 16:55 Blood Pressure 111/71 01/22/19 16:16 Blood Pressure Mean 57 01/16/19 20:16 Blood Pressure Position Supine 01/16/19 13:35 Pulse Oximetry 92 L 01/22/19 16:16 Oxygen Delivery Method Nasal Cannula 01/22/19 16:16 Oxygen Flow Rate 1 01/22/19 16:54 Pain Level 5 01/22/19 12:14 Comment 01/20/19 08:18 Intake & Output 01/21/19 01/22/19 01/22/19 23:59 11:59 23:59 Intake Total 970 / 1070 490 / 730 240 / 730 Balance 970 / 1070 490 / 730 240 / 730 Weight 166.5 kg 166.3 kg Intake: IV 10 / 110 Oral 960 / 960 490 / 730 240 / 730 Other: Urine Color Yellow Yellow Urine Appearance Clear Clear Urine Odor Normal Normal Comment Voiding independantly Stool Size Large Stool Characteristics Soft Voiding Methods Toilet Toilet Toilet Laboratory Results WBC 12.69 k/cumm (4.4-10.8) H D 01/22/19 06:22 RBC 3.41 m/cumm (4.00-5.20) L 01/22/19 06:22 Hgb 10.6 g/dL (12.0-15.5) L 01/22/19 06:22 Hct 31.4 % (36.0-46.0) L 01/22/19 06:22 MCV 92.1 fL (80-95) 01/22/19 06:22 MCH 31.1 pg (27.0-33.0) 01/22/19 06:22 MCHC 33.8 g/dL (32.0-36.0) 01/22/19 06:22 RDW 19.0 % (11.7-14.6) H 01/22/19 06:22 Plt Count 49 x1000/uL (130-400) L 01/22/19 06:22 MPV 10.2 fL (8.0-11.0) 01/22/19 06:22 Immature Gran % 0.6 01/22/19 06:22 88.0 01/22/19 06:22 3.0 % 01/18/19 06:20 6.9 01/22/19 06:22 Atypical Lymphs % 01/19/19 07:00 4.2 01/22/19 06:22 0.2 01/22/19 06:22 0.1 01/22/19 06:22 4.0 % 01/20/19 07:17 1.0 % 01/18/19 06:20 Absolute Neutrophils 11.17 k/cumm (1.2-6.7) H 01/22/19 06:22 Absolute Lymphocytes 0.88 k/cumm (1.2-3.4) L 01/22/19 06:22 Absolute Monocytes 0.53 k/cumm (0.11-0.7) 01/22/19 06:22 Absolute Eosinophils 0.03 k/cumm (0.0-0.7) 01/22/19 06:22 Absolute Basophils 0.01 k/cumm (0.0-0.2) 01/22/19 06:22 Nucleated RBCs 1 /100WBC 01/18/19 06:20 Rbc morph reviewed 01/22/19 06:22 RBC Morphology See below 01/22/19 06:22 Present 01/22/19 06:22 1+ 01/22/19 06:22 2+ 01/22/19 06:22 PT 32.2 sec (9.3-11.0) H 01/22/19 06:22 INR 3.2 (0.9-1.1) H 01/22/19 06:22 APTT 59.7 sec (21.0-31.4) H 01/16/19 13:40 Sodium 137 mmol/L (136-145) 01/22/19 06:22 Potassium 3.9 mmol/L (3.5-5.1) 01/22/19 06:22 Chloride 107 mmol/L (98-107) 01/22/19 06:22 Carbon Dioxide 21.7 mmol/L (21.0-32.0) 01/22/19 06:22 8.3 mmol/L (3-11) 01/22/19 06:22 BUN 25 mg/dL (7-18) H 01/22/19 06:22 1.28 mg/dL (0.55-1.02) H 01/22/19 06:22 43.29 (mL/min/1.73m2) 01/22/19 06:22 Glucose 101 mg/dL (70-100) H 01/22/19 06:22 Calcium 8.4 mg/dL (8.5-10.1) L 01/22/19 06:22 Magnesium 2.1 mg/dL (1.8-2.4) 01/22/19 06:22 3.6 mg/dL (0.2-1.0) H 01/22/19 06:22 1.89 mg/dL (0.00-0.20) H 01/22/19 06:22 AST 278 U/L (15-37) H 01/22/19 06:22 ALT 112 U/L (12-78) H 01/22/19 06:22 158 U/L (46-116) H 01/22/19 06:22 36 umol/L (11-32) H 01/16/19 14:00 Cancelled 01/16/19 13:48 NT-Pro-B Natriuret Pep Cancelled 01/16/19 13:52 5.9 g/dL (6.4-8.2) L 01/22/19 06:22 1.1 g/dL (3.4-5.0) L 01/22/19 06:22 2.1 ng/mL 01/19/19 07:00 3 ug/dL 01/20/19 07:17 Yellow (Yellow) 01/16/19 14:53 Clear (Clear) 01/16/19 14:53 5.5 (5-8) 01/16/19 14:53 Ur Specific [place] 1.020 (1.005-1.025) 01/16/19 14:53 100 mg/dL (Negative) H 01/16/19 14:53 Trace mg/dL (Negative) H 01/16/19 14:53 Moderate (Negative) H 01/16/19 14:53 Positive (Negative) H 01/16/19 14:53 Large (Negative) H 01/16/19 14:53 0.2 EU/dL (Up TO 0.2) 01/16/19 14:53 Ur Leukocyte Esterase Small (Negative) H 01/16/19 14:53 (0-2) 01/16/19 14:53 >50 HPF (0-5) 01/16/19 14:53 Ur Epithelial Cells Many HPF (Negative) 01/16/19 14:53 Negative HPF (Negative) 01/16/19 14:53 Many HPF (Negative) 01/16/19 14:53 Negative (Negative) 01/16/19 14:53 Ur Culture Indicated? Yes 01/16/19 14:53 Negative mg/dL (Negative) 01/16/19 14:53 Stl C.difficile Tox PCR Negative 01/18/19 11:31 Negative (Negative) 01/16/19 14:53 Negative (Negative) 01/16/19 14:53 Ur Barbiturates Screen Negative (Negative) 01/16/19 14:53 Ur Tricyclics Screen Negative (Negative) 01/16/19 14:53 Ur Amphetamines Screen Negative (Negative) 01/16/19 14:53 U Benzodiazepines Scrn Negative (Negative) 01/16/19 14:53 Negative (Negative) 01/16/19 14:53 Ur THC Screen Negative (Negative) 01/16/19 14:53 C.difficile Tox Source Feces 01/18/19 11:31 Path Cons Comment See comment 01/18/19 06:20
[2019-01-22] MEDS: Simvastatin 40 MG TAB PO (21:37)
[2019-01-23] VITALS (10 sets, daily range): BP systolic 113–149; BP diastolic 67–71; PULSE 54–76; RESP 17–22; TEMP 36.1–37; O2SAT 86–99
[2019-01-23 07:25] LABS: Abs Immature Grans 0.16 k/cumm (0.0-0.09); Absolute Basophil Count 0.01 k/cumm (0.0-0.2); Absolute Eosinophil Count 0.04 k/cumm (0.0-0.7); Absolute Lymphocyte Count 0.87 k/cumm (1.2-3.4); Absolute Monocyte Count 0.83 k/cumm (0.11-0.7); Absolute Neutrophil Count 11.62 k/cumm (1.2-6.7); Basophils % 0.1; Eosinophils % 0.3; HCT 32.8 % (36.0-46.0); HGB 10.7 g/dL (12.0-15.5); Immature Grans % 1.2; Lymphocytes % 6.4; Mean Corp. HGB Concentration 32.6 g/dL (32.0-36.0); Mean Corpuscular Hemoglobin 30.4 pg (27.0-33.0); Mean Corpuscular Volume 93.2 fL (80-95); Mean Platelet Volume 8.9 fL (8.0-11.0); Monocytes % 6.1; Neutrophils % 85.9; RBC 3.52 m/cumm (4.00-5.20); RBC Distribution Width 19.4 % (11.7-14.6); White Blood Cell Count 13.53 k/cumm (4.4-10.8)
[2019-01-23 07:34] LABS: Prothrombin Time 29.9 sec (9.3-11.0)
[2019-01-23 07:41] LABS: ALT 143 U/L (12-78); AST 353 U/L (15-37); Albumin 1.2 g/dL (3.4-5.0); Alkaline Phosphatase 162 U/L (46-116); Bilirubin, Direct 2.65 mg/dL (0.00-0.20); Bilirubin, Total 4.5 mg/dL (0.2-1.0)
[2019-01-23 07:48] LABS: Anion Gap 8.7 mmol/L (3-11); BUN 25 mg/dL (7-18); CO2 23.3 mmol/L (21.0-32.0); CREATININE 1.27 mg/dL (0.55-1.02); Chloride 106 mmol/L (98-107); Estimated GFR 43.69 (mL/min/1.73m2); Glucose 107 mg/dL (70-100); Potassium 3.9 mmol/L (3.5-5.1); Sodium 138 mmol/L (136-145)
[2019-01-23 07:55] LABS: Anisocytosis 2+; Diff Comment RBC Morph Reviewed; Platelet Count 61 x1000/uL (130-400); Poikilocytes 1+
[2019-01-23] MEDS: Budesonide/Formoterol 160/4.5 6 GM 60 PUFF INH IH ×2 (08:21→19:29)
[2019-01-23] MEDS: Lactobacillus Acidophilus CAP 1 CAP PO ×3 (08:25→19:30)
[2019-01-23] MEDS: Topiramate 50 MG TAB PO ×2 (08:25→19:30)
[2019-01-23] MEDS: guaiFENesin 600 MG TABCR PO ×2 (08:25→19:30)
[2019-01-23] MEDS: Oxybutynin-CR 5 MG TABCR 10 MG PO (08:25)
[2019-01-23] MEDS: Amoxicillin 875/Clav. 125 TAB PO ×2 (08:25→19:30)
[2019-01-23] MEDS: predniSONE 20 MG TAB 40 MG PO ×2 (08:26→18:01)
[2019-01-23] MEDS: Spironolactone 50 MG TAB PO ×2 (08:26→19:30)
[2019-01-23] MEDS: Escitalopram 20 MG TAB PO (08:26)
[2019-01-23] MEDS: Vancomycin 125 MG CAP PO ×4 (08:26→19:30)
[2019-01-23] MEDS: Magnesium Oxide 400 MG TAB PO (08:26)
[2019-01-23] MEDS: Furosemide 40 MG TAB PO (08:26)
[2019-01-23] MEDS: Nystatin POWDER 60 GM JAR TP ×3 (09:28→19:29)
--- NOTE | 2019-01-23 11:24 | CMPROGNOTE_ITS ---
- If Service Date Differs Date of service: 01/23/19 Time of Service: 11:24 Care Management Progress Note S/O: Michelle was sitting up in the chair chatting with her mother when CM entered room. Michelle was smiling and animated and relayed that she had done very well with PT today. She stated that she was able to recover her breath and have her oxygen levels return to normal without needing supplemental oxygen. She is to have an ultrasound of her liver this afternoon and hopefully will be ready for discharge tomorrow. Michelle and her Mom described all of the happy events occurring in their family in the next couple of months such as 2 weddings, a [employer] bridal shower and a baby shower. A: Michelle is a 53 year old woman admitted to [facility] on 01/16/19 with pneumonia. P: Michelle will return home when medically cleared for discharge. She may require home O2. Currently has a CPCP at home through [place]. RT will evaluate. Family will transport. CM will continue to support patient, family and discharge planning process.
--- NOTE | 2019-01-23 11:47 | PT.INTREAT ---
Date of service: 01/23/19 Time of Service: 11:47 PT Notes Inpatient Physical Therapy Treatment Note [facility] Date: 01/23/2019 PRECAUTIONS: Fall, monitor SaO2 SUBJECTIVE: Glory reports that she has not been using supplemental oxygen today, which reportedly it makes her feel anxious at times, although she reports she is feeling pretty good overall. OBJECTIVE: PAIN: No complaints of pain BED MOBILITY/TRANSFERS Supine-sit: I Sit-stand: I Stand-sit: I GAIT Assistive Device: No AD Weight bearing: Full Assist: S Distance: 50' x2 in both a.m. and p.m. Deviation: Seated rest x1, SOB VITALS: AM Session: SaO2: 85-96% at rest on RA, 91-96% with gait training on RA. Patient demonstrates good use of pursed lip breathing technique throughout session. PM Session: SaO2: 97-99% at rest on RA, 91-96% with gait training on RA. Patient is requiring approximately 1 minute for recovery. Patient demonstrates good use of percent breathing technique throughout session TOILETING: Patient toileted independently ASSESSMENT: Patient tolerated sessions with complaints of increased SOB with activity. Patient demonstrates good technique with use of pursed lip breathing throughout session. Patient demonstrates independence with bed mobility and transfers, as well as with toileting, and ambulation within room, at this time. Patient would benefit from continued general conditioning for improved cardiovascular endurance and activity tolerance. PLAN: Continue with PTs POC TREATMENT CODE/TIME: Session 1: 25 minutes; 27374 x2 Session 2: 20 minutes; [id number]
[2019-01-23] MEDS: Normal Saline Flush 10 ML SYR IVP ×2 (12:24→19:29)
--- NOTE | 2019-01-23 15:00 | DI.US_ITS ---
SYMPTOMS/DIAGNOSIS: WORSENING LFTS, CIRRHOSIS, OBESITY, DIASTOLIC CHF ABDOMINAL ULTRASOUND: Routine examination. The mid abdominal aorta was visualized and is of normal caliber. The inferior vena cava is unremarkable. The liver has a nodular appearance with an enlarged left lobe consistent with hepatic cirrhosis. There is increased echogenicity of the liver consistent with hepatic steatosis. There are stones seen within the gallbladder. The gallbladder wall is thickened. There is a positive sonographic Perez's sign. No pericholecystic fluid is seen. The common duct is at the upper limits of normal at .6 cm. The pancreas and kidneys are unremarkable. No free fluid is seen in the abdomen. The spleen is enlarged measuring 16.6 cm. IMPRESSION: 1. Cholelithiasis. Gallbladder wall thickening and a positive sonographic Perez's sign. Please correlate to whether this represents acute cholecystitis. 2. Common bile duct upper limits of normal at .6 cm. 3. Splenomegaly and hepatic findings sonographically consistent with hepatic cirrhosis and hepatic steatosis.
--- NOTE | 2019-01-23 15:39 | W.PM.PROGNOT ---
Date of Service Date of service: 01/23/19 Time of Service: 15:39 Assessment and Plan (1) Pneumonia: Current visit: Yes Status: Acute Presumed aspiration in setting of nausea and vomiting. Patient has received 5 days of Pip-Tazo, now 2 days of Augmentin. Continued Complaints of dyspnea, now improved. - Consider underlying Asthma as potential source for dyspnea as well. Continue nebs, recently initiated oral steroid therapy with noted improvement - plan on decreasing tomorrow morning. - Unsure if acute CHF has any component by current exam. Discontinued Furosemide gtt, and resumed home lasix regimen previously, with improvement in creatinine and breathing. - Continue antibiotics with change to oral Augmentin - to end treatment course tomorrow morning as well. Continue to monitor. (2) Urinary tract infection: Current visit: No Status: Acute Pansensitive E.Coli. Currently on antibiotics as above. (3) PINKY (acute kidney injury): Current visit: Yes Status: Acute Creatinine improved - baseline appears to be at 1.1-1.2, currently improved at 1.27. - Discontinued lasix gtt on 01/21. Also with Spironolactone restarted. Avoid nephrotoxins and renally dose medications when appropriate. (4) Diarrhea: Current visit: No Status: Resolved C.Diff negative. Remains on PO VAncomycin due to her history of recurrent C. Diff. Will continue to monitor symptoms. (5) Chronic diastolic heart failure: Current visit: No Status: Chronic Continue oral Lasix as above, with Spironolactone restarted. Lasix was discontinued in setting of PINKY and potential intravascular depletion - prior worsening LE Edema which may be as result of that as well as witholding of Spironolactone. Currently with improved pulmonary symptoms, and subjectively improved LE edema. Will monitor closely with reinitiation of Spironolactone. (6) LUDY (obstructive sleep apnea): Current visit: No Status: Chronic Continue CPAP. (7) GERD (gastroesophageal reflux disease): Current visit: No Status: Chronic Continue Ranitidine. Previously on PPI - discontinued in setting of recurrent C.Diff. (8) History of pulmonary embolism: Current visit: No Status: Chronic Monitor daily INR - currently therapeutic with INR at 3. Resume Coumadin which had been previously on hold. (9) Elevated LFTs: Current visit: Yes Status: Acute Chronically elevated LFTs with a history of Steatohepatitis / Cirrhosis and Diastolic CHF. However, current values are slightly below baseline - may be on the basis of congestion/CHF, as well as current use of Zosyn. - Pip-Tazo discontinued. Current LFTs stable but worse than baseline. Alk Phos 162 (baseline 110-140's in [id number]), AST 353 (100-150), and ALT 143 (40-80). Check Liver Ultrasound. (10) DVT prophylaxis: Current visit: No Status: Acute On chronic anticoagulation with Coumadin - continue to monitor daily INR. (11) Advance directive on file: Current visit: Yes Status: Acute Full Code. Subjective Interval history since last seen: 53 year old woman with a prior history significant for Asthma, admitted from [facility] Emergency Department with a diagnosis of UTI, potential Aspiration Pneumonia, and PINKY. Ms. Arthur has a Past Medical History significant for Diastolic CHF, LUDY on CPAP, GERD, [place]/Cirrhosis, Hx PE on chronic Anticoagulation, and Recurrent C.Diff. The patient presented initially with complaints of nausea, vomiting, and diarrhea, along with subjective fevers, cough, dyspnea, and headache. Initial work-up was positive for a potential RLL Pneumonia by CXR, and UTI by urinalysis. She had been maintained on IV Pip-Tazo and oral Vancomycin since admission, changed to oral Augmentin. Her Urine Culture shows a pansensitive E.Coli. This morning Mrs. Arthur reports continued improvement in her breathing, still with considerable increased work of breathing after ambulation and still requiring supplemental O2 with ambulation but not with rest. Her LE swelling is also noted to be subjectively improved. Her platelet count remains low but improving, but her LFTs remain above baseline. No overnight events reported. She remains afebrile. Exam Narrative Exam Narrative: General: Patient appears comfortable, AAOX3, NAD Neck: Supple CV: Regular, nontachycardic, S1S2, No rubs, murmurs, or gallops. Pulmonary: Clear to auscultation bilaterally, no crackles, wheezing, or rhonchi. Good air entry, and vastly imprved. Exam somewhat limited by body habitus. Abdomen: + Bowel Sounds, soft, nontender, nondistended. Obese in contour. Vascular: 3+ b/l lower extremity edema, changes consistent with chronic venous stasis noted. Psych: Normal mood and affect. Objective Objective Clinical Data: Abnormal lab results 01/23/19 01/23/19 01/23/19 Range/Units 06:35 06:35 06:35 WBC 13.53 H (4.4-10.8) k/cumm RBC 3.52 L (4.00-5.20) m/cumm Hgb 10.7 L (12.0-15.5) g/dL Hct 32.8 L (36.0-46.0) % RDW 19.4 H (11.7-14.6) % Plt Count 61 L (130-400) x1000/uL Absolute Neutrophils 11.62 H (1.2-6.7) k/cumm Absolute Lymphocytes 0.87 L (1.2-3.4) k/cumm Absolute Monocytes 0.83 H (0.11-0.7) k/cumm PT (9.3-11.0) sec INR (0.9-1.1) BUN 25 H (7-18) mg/dL Creatinine 1.27 H (0.55-1.02) mg/dL Glucose 107 H (70-100) mg/dL Calcium 8.0 L (8.5-10.1) mg/dL Total Bilirubin 4.5 H (0.2-1.0) mg/dL Conjugated Bilirubin 2.65 H (0.00-0.20) mg/dL AST 353 H (15-37) U/L ALT 143 H (12-78) U/L Alkaline Phosphatase 162 H (46-116) U/L Total Protein 6.0 L (6.4-8.2) g/dL Albumin 1.2 L (3.4-5.0) g/dL 01/23/19 Range/Units 06:35 WBC (4.4-10.8) k/cumm RBC (4.00-5.20) m/cumm Hgb (12.0-15.5) g/dL Hct (36.0-46.0) % RDW (11.7-14.6) % Plt Count (130-400) x1000/uL Absolute Neutrophils (1.2-6.7) k/cumm Absolute Lymphocytes (1.2-3.4) k/cumm Absolute Monocytes (0.11-0.7) k/cumm PT 29.9 H (9.3-11.0) sec INR 3.0 H (0.9-1.1) BUN (7-18) mg/dL Creatinine (0.55-1.02) mg/dL Glucose (70-100) mg/dL Calcium (8.5-10.1) mg/dL Total Bilirubin (0.2-1.0) mg/dL Conjugated Bilirubin (0.00-0.20) mg/dL AST (15-37) U/L ALT (12-78) U/L Alkaline Phosphatase (46-116) U/L Total Protein (6.4-8.2) g/dL Albumin (3.4-5.0) g/dL Vital Signs Temperature 36.3 C L 01/23/19 11:25 Temperature Source Tympanic 01/23/19 11:25 Pulse 60 01/23/19 11:25 Pulse Rhythm Regular 01/23/19 08:28 Pulse 63 01/16/19 20:20 Respiratory Rate 22 01/23/19 11:25 Respiratory Effort 01/23/19 08:28 Respiratory Depth Normal 01/23/19 08:28 Respiratory Pattern Normal 01/23/19 08:28 Blood Pressure 132/68 01/23/19 11:25 Blood Pressure Mean 57 01/16/19 20:16 Blood Pressure Position Supine 01/16/19 13:35 Pulse Oximetry 99 01/23/19 12:28 Oxygen Delivery Method Nasal Cannula 01/23/19 12:28 Oxygen Flow Rate 1 01/23/19 12:28 Pain Level 0 01/23/19 11:25 Comment 01/23/19 04:10 Intake & Output 01/22/19 01/23/19 01/23/19 23:59 11:59 23:59 Intake Total 480 / 970 440 / 450 Balance 480 / 970 440 / 450 Weight 167 kg Intake: IV Oral 480 / 970 440 / 440 Other: Urine Color Pale Pale Pale Yellow Yellow Straw Urine Appearance Clear Clear Clear Urine Odor None None Normal Comment not measured Stool Size Moderate Small Stool Characteristics Soft Soft Formed Brown Voiding Methods Toilet Toilet Toilet Laboratory Results WBC 13.53 k/cumm (4.4-10.8) H 01/23/19 06:35 RBC 3.52 m/cumm (4.00-5.20) L 01/23/19 06:35 Hgb 10.7 g/dL (12.0-15.5) L 01/23/19 06:35 Hct 32.8 % (36.0-46.0) L 01/23/19 06:35 MCV 93.2 fL (80-95) 01/23/19 06:35 MCH 30.4 pg (27.0-33.0) 01/23/19 06:35 MCHC 32.6 g/dL (32.0-36.0) 01/23/19 06:35 RDW 19.4 % (11.7-14.6) H 01/23/19 06:35 Plt Count 61 x1000/uL (130-400) L 01/23/19 06:35 MPV 8.9 fL (8.0-11.0) 01/23/19 06:35 Immature Gran % 1.2 01/23/19 06:35 85.9 01/23/19 06:35 3.0 % 01/18/19 06:20 6.4 01/23/19 06:35 Atypical Lymphs % 01/19/19 07:00 6.1 01/23/19 06:35 0.3 01/23/19 06:35 0.1 01/23/19 06:35 4.0 % 01/20/19 07:17 1.0 % 01/18/19 06:20 Absolute Neutrophils 11.62 k/cumm (1.2-6.7) H 01/23/19 06:35 Absolute Lymphocytes 0.87 k/cumm (1.2-3.4) L 01/23/19 06:35 Absolute Monocytes 0.83 k/cumm (0.11-0.7) H 01/23/19 06:35 Absolute Eosinophils 0.04 k/cumm (0.0-0.7) 01/23/19 06:35 Absolute Basophils 0.01 k/cumm (0.0-0.2) 01/23/19 06:35 Nucleated RBCs 1 /100WBC 01/18/19 06:20 Rbc morph reviewed 01/23/19 06:35 RBC Morphology See below 01/23/19 06:35 Present 01/22/19 06:22 1+ 01/23/19 06:35 2+ 01/23/19 06:35 PT 29.9 sec (9.3-11.0) H 01/23/19 06:35 INR 3.0 (0.9-1.1) H 01/23/19 06:35 APTT 59.7 sec (21.0-31.4) H 01/16/19 13:40 Sodium 138 mmol/L (136-145) 01/23/19 06:35 Potassium 3.9 mmol/L (3.5-5.1) 01/23/19 06:35 Chloride 106 mmol/L (98-107) 01/23/19 06:35 Carbon Dioxide 23.3 mmol/L (21.0-32.0) 01/23/19 06:35 8.7 mmol/L (3-11) 01/23/19 06:35 BUN 25 mg/dL (7-18) H 01/23/19 06:35 1.27 mg/dL (0.55-1.02) H 01/23/19 06:35 43.69 (mL/min/1.73m2) 01/23/19 06:35 Glucose 107 mg/dL (70-100) H 01/23/19 06:35 Calcium 8.0 mg/dL (8.5-10.1) L 01/23/19 06:35 Magnesium 2.0 mg/dL (1.8-2.4) 01/23/19 06:35 4.5 mg/dL (0.2-1.0) H 01/23/19 06:35 2.65 mg/dL (0.00-0.20) H 01/23/19 06:35 AST 353 U/L (15-37) H 01/23/19 06:35 ALT 143 U/L (12-78) H 01/23/19 06:35 162 U/L (46-116) H 01/23/19 06:35 36 umol/L (11-32) H 01/16/19 14:00 Cancelled 01/16/19 13:48 NT-Pro-B Natriuret Pep Cancelled 01/16/19 13:52 6.0 g/dL (6.4-8.2) L 01/23/19 06:35 1.2 g/dL (3.4-5.0) L 01/23/19 06:35 2.1 ng/mL 01/19/19 07:00 3 ug/dL 01/20/19 07:17 Yellow (Yellow) 01/16/19 14:53 Clear (Clear) 01/16/19 14:53 5.5 (5-8) 01/16/19 14:53 Ur Specific [place] 1.020 (1.005-1.025) 01/16/19 14:53 100 mg/dL (Negative) H 01/16/19 14:53 Trace mg/dL (Negative) H 01/16/19 14:53 Moderate (Negative) H 01/16/19 14:53 Positive (Negative) H 01/16/19 14:53 Large (Negative) H 01/16/19 14:53 0.2 EU/dL (Up TO 0.2) 01/16/19 14:53 Ur Leukocyte Esterase Small (Negative) H 01/16/19 14:53 (0-2) 01/16/19 14:53 >50 HPF (0-5) 01/16/19 14:53 Ur Epithelial Cells Many HPF (Negative) 01/16/19 14:53 Negative HPF (Negative) 01/16/19 14:53 Many HPF (Negative) 01/16/19 14:53 Negative (Negative) 01/16/19 14:53 Ur Culture Indicated? Yes 01/16/19 14:53 Negative mg/dL (Negative) 01/16/19 14:53 Stl C.difficile Tox PCR Negative 01/18/19 11:31 Negative (Negative) 01/16/19 14:53 Negative (Negative) 01/16/19 14:53 Ur Barbiturates Screen Negative (Negative) 01/16/19 14:53 Ur Tricyclics Screen Negative (Negative) 01/16/19 14:53 Ur Amphetamines Screen Negative (Negative) 01/16/19 14:53 U Benzodiazepines Scrn Negative (Negative) 01/16/19 14:53 Negative (Negative) 01/16/19 14:53 Ur THC Screen Negative (Negative) 01/16/19 14:53 C.difficile Tox Source Feces 01/18/19 11:31 Path Cons Comment See comment 01/18/19 06:20
--- NOTE | 2019-01-23 17:48 | DI.VRAD_ITS ---
Addendum created by Iona Thomas MD on 01/23/2019 6:48:44 PM EDT THIS REPORT CONTAINS FINDINGS THAT MAY BE CRITICAL TO PATIENT CARE. The findings were verbally communicated via telephone conference with Dr. Aj at 6:48 PM EDT on 01/23/2019. The findings were acknowledged and understood. Initial report created on 01/23/2019 5:47:57 PM EDT EXAM: US Abdomen Complete EXAM DATE/TIME: 01/23/2019 3:12 PM CLINICAL HISTORY: 53 years old, female; Other: Worsening lft TECHNIQUE: Imaging protocol: Real-time ultrasound of the abdomen with image documentation. COMPARISON: US renal 01/18/2019 12:14 PM FINDINGS: Liver: There is a diffuse increase in hepatic parenchymal echogenicity, consistent with fatty infiltration. Hepatomegaly 17.6 cm Gallbladder: Gallstones in the gallbladder. Mild gallbladder wall thickening 3.3 mm . Positive sonographic Perez sign Common bile duct: Common duct measures 6.4 mm Pancreas: Visualized pancreas is unremarkable. Right kidney: Right kidney measures 12.1 cm. No hydronephrosis Left kidney: Left kidney 12.7 cm. No hydronephrosis. Spleen: Splenomegaly 16.5 cm. Aorta: Mid aorta 2.3 cm Inferior vena cava: Normal IVC Portal venous: Antegrade flow in the portal vein IMPRESSION: 1. Gallstones in the gallbladder. . Gallbladder wall thickening 3.3 mm. Positive sonographic Perez sign. Clinical correlation is recommended as to whether this represents acute cholecystitis 2. Common bile duct is upper limits of normal 6.4 mm 3. Splenomegaly 16.5 cm. Differential diagnosis of splenomegaly is lymphoma/leukemia, mononucleosis, hemolytic anemia, portal hypertension. 4. There is a diffuse increase in hepatic parenchymal echogenicity, consistent with fatty infiltration. Dictated and Authenticated by: Iona Thomas MD. Ordering:RADHA Rico MD
[2019-01-23] MEDS: Simvastatin 40 MG TAB PO (21:34)
[2019-01-24 07:05] VITALS: BP 127/66; PULSE 58; RESP 18; TEMP 36; O2SAT 93
[2019-01-24 07:32] LABS: Abs Immature Grans 0.19 k/cumm (0.0-0.09); Absolute Basophil Count 0.02 k/cumm (0.0-0.2); Absolute Eosinophil Count 0.03 k/cumm (0.0-0.7); Absolute Monocyte Count 0.98 k/cumm (0.11-0.7); Absolute Neutrophil Count 9.46 k/cumm (1.2-6.7); Basophils % 0.2; Eosinophils % 0.3; HCT 31.9 % (36.0-46.0); HGB 10.5 g/dL (12.0-15.5); Immature Grans % 1.6; Lymphocytes % 8.2; Mean Corp. HGB Concentration 32.9 g/dL (32.0-36.0); Mean Corpuscular Hemoglobin 30.7 pg (27.0-33.0); Mean Corpuscular Volume 93.3 fL (80-95); Mean Platelet Volume 9.9 fL (8.0-11.0); Monocytes % 8.4; Neutrophils % 81.3; RBC 3.42 m/cumm (4.00-5.20); RBC Distribution Width 19.4 % (11.7-14.6); White Blood Cell Count 11.64 k/cumm (4.4-10.8)
[2019-01-24 07:40] VITALS: BP 127/69; PULSE 54; RESP 20; TEMP 36.1; O2SAT 95
[2019-01-24] MEDS: guaiFENesin 600 MG TABCR PO (07:40)
[2019-01-24] MEDS: Furosemide 40 MG TAB PO (07:40)
[2019-01-24] MEDS: predniSONE 20 MG TAB 40 MG PO (07:41)
[2019-01-24] MEDS: Magnesium Oxide 400 MG TAB PO (07:41)
[2019-01-24] MEDS: Topiramate 50 MG TAB PO (07:41)
[2019-01-24] MEDS: Escitalopram 20 MG TAB PO (07:41)
[2019-01-24] MEDS: Amoxicillin 875/Clav. 125 TAB PO (07:41)
[2019-01-24] MEDS: Vancomycin 125 MG CAP PO ×2 (07:41→11:48)
[2019-01-24] MEDS: Lactobacillus Acidophilus CAP 1 CAP PO ×2 (07:41→14:02)
[2019-01-24] MEDS: Spironolactone 50 MG TAB PO (07:41)
[2019-01-24] MEDS: Nystatin POWDER 60 GM JAR TP ×2 (07:41→14:03)
[2019-01-24] MEDS: Oxybutynin-CR 5 MG TABCR 10 MG PO (07:41)
[2019-01-24 07:43] LABS: ALT 152 U/L (12-78); AST 325 U/L (15-37); Albumin 1.2 g/dL (3.4-5.0); Alkaline Phosphatase 149 U/L (46-116); Bilirubin, Direct 2.71 mg/dL (0.00-0.20); Bilirubin, Total 4.9 mg/dL (0.2-1.0); Magnesium 1.9 mg/dL (1.8-2.4); Total Protein 5.8 g/dL (6.4-8.2)
[2019-01-24 07:44] LABS: Prothrombin Time 25.7 sec (9.3-11.0)
[2019-01-24 07:45] LABS: Anion Gap 6.9 mmol/L (3-11); BUN 26 mg/dL (7-18); CO2 25.1 mmol/L (21.0-32.0); Chloride 107 mmol/L (98-107); Estimated GFR 46.64 (mL/min/1.73m2); Glucose 112 mg/dL (70-100); Sodium 139 mmol/L (136-145)
[2019-01-24 07:51] LABS: INR 2.5 (0.9-1.1)
[2019-01-24 08:05] LABS: Absolute Lymphocyte Count 0.95 k/cumm (1.2-3.4)
[2019-01-24 08:07] LABS: Platelet Count 64 x1000/uL (130-400)
[2019-01-24 08:08] LABS: Anisocytosis 1+; Diff Comment RBC Morph Reviewed; Polychromasia Present
[2019-01-24 09:14] VITALS: O2SAT 97
[2019-01-24] MEDS: Normal Saline 500 ML 100 ML IV (10:11)
[2019-01-24] MEDS: Normal Saline Flush 10 ML SYR IVP (10:11)
[2019-01-24 11:00] VITALS: BP 127/69; PULSE 54; RESP 21; TEMP 36.1; O2SAT 94
--- NOTE | 2019-01-24 13:45 | CMDISCH_ITS ---
- If Service Date Differs Date of service: 01/24/19 (n) Time of Service: 13:45 LACE Index Scoring Tool - Questions: Length of Stay (in days): 7 - 13 Acuity (Admit via E.D.?): Yes Comorbidities: Congestive Heart Failure, Liver or Renal Disease E.D. Visits: 7 - Answers: Total Score: 17 Risk of Readmission: High Risk Care Management Discharge Reason for Hospitalization: Pneumonia Discharge Plan: Michelle will be discharged home with new home health nursing and PT. She will follow up with her manager hospitality in [place], PCP and discharge plan of care. She will transport via private vehicle with family. Patient/Family Education Needs: Discharge plan, limitations, follow up plan, Ask Me Three. Services Needed at Discharge: Home Health Care Services (Nursing and PT), Oxygen Therapy, Physical Therapy
--- NOTE | 2019-01-24 15:24 | W.PM.DS.N ---
Date of service: 01/24/19 Time of Service: 15:24 DS: Diagnosis Discharge Diagnosis (1) Pneumonia: Status: Acute (2) Urinary tract infection: Status: Acute (3) PINKY (acute kidney injury): Status: Acute (4) Diarrhea: Status: Resolved (5) Chronic diastolic heart failure: Status: Chronic (6) LUDY (obstructive sleep apnea): Status: Chronic (7) GERD (gastroesophageal reflux disease): Status: Chronic (8) History of pulmonary embolism: Status: Chronic (9) Elevated LFTs: Status: Acute Discharge Plan Disposition Patient Disposition: HOME W/HOME HEALTH SERVICE Condition: Stable Discharge Details Chief Complaint: SOB Clinical Impression: Pneumonia, Supratherapeutic INR, Headache, Thrombocytopenia Reason For Visit: PNEUMONIA Admit Date/Time: 01/16/19 19:20 Admit Provider: Aamir Aj Attending Provider: Aamir Aj Primary Care Provider: Gavi Adames ED Provider: Juan Buckner Hospital Course Hospital Course: Chief Complaint: Nausea, Vomiting, Diarrhea, dyspnea HPI: 53 year old woman with a prior history significant for Asthma, admitted from [facility] Emergency Department with a diagnosis of UTI, potential Aspiration Pneumonia, and PINKY. Ms. Arthur has a Past Medical History significant for Diastolic CHF, LUDY on CPAP, GERD, HAYWOOD/Cirrhosis, Hx PE on chronic Anticoagulation, and Recurrent C.Diff. The patient presented initially with complaints of nausea, vomiting, and diarrhea, along with subjective fevers, cough, dyspnea, and headache. Initial work-up was positive for a potential RLL Pneumonia by CXR, and UTI by urinalysis. She had been maintained on IV Pip-Tazo and oral Vancomycin since admission, changed to oral Augmentin. Her Urine Culture shows a pansensitive E.Coli. This morning Mrs. Arthur reports continued improvement in her breathing, still with increased work of breathing after ambulation and still requiring supplemental O2 with ambulation but not with rest. Her LE swelling is also noted to be subjectively improved. Her platelet count remains low but improving, but her LFTs remain above baseline but stable. No overnight events reported. She remains afebrile. Hospital Course: (1) Pneumonia: Presumed aspiration in setting of nausea and vomiting. Patient has received 5 days of Pip-Tazo, now 2 days of Augmentin. Continued Complaints of dyspnea, now improved. - Consider underlying Asthma as potential source for dyspnea as well - started on oral steroid therapy with noted improvement - plan on slow taper at home. - Unsure if acute CHF has any component by current exam. Discontinued Furosemide gtt, and resumed home lasix regimen previously, with improvement in creatinine and breathing. - Completed antibiotic course with change to oral Augmentin. Please note that patient's status was discussed at great length with her and her friend. It appears that she is significantly deconditioned and with pronounced dyspnea with minimal activity. However currently slightly worse, likely in setting of acute infection, but improving daily. Still requiring oxygen with activity but no longer at rest - Home O2 has been arranged for her at home through [facility]. Will schedule patient for follow-up with Pulmonology as well given her history of LUDY, asthma, and current O2 need. (2) Urinary tract infection: Pansensitive E.Coli. Treated with antibiotics as above. (3) PINKY (acute kidney injury): Creatinine improved and appears to be at baseline. (4) Diarrhea: C.Diff negative. Remains on PO Vancomycin due to her history of recurrent C. Diff - follows with Dr. Melquiades Marcelino in [place], and appears that prior attempts at weaning Oral Vancomycin has resulted in return of her infection. Will continue Vanc and monitor symptoms. (5) Chronic diastolic heart failure: Continue oral Lasix as above, with Spironolactone restarted. Lasix was discontinued in setting of PINKY and potential intravascular depletion - prior worsening LE Edema which may be as result of that as well as witholding of Spironolactone. Currently with improved pulmonary symptoms, and subjectively improved LE edema. Exam without any evidence of pulmonary edema, and initial CXR without mention of vascular congestion. (6) LUDY (obstructive sleep apnea): Continue CPAP. (7) GERD (gastroesophageal reflux disease): Continue Ranitidine. Previously on PPI - discontinued in setting of recurrent C.Diff. (8) History of pulmonary embolism: Monitor daily INR - currently therapeutic. (9) Elevated LFTs: Chronically elevated LFTs with a history of Steatohepatitis / Cirrhosis and Diastolic CHF. However, current values are slightly below baseline. - Pip-Tazo discontinued without change in LFTs. - Consideration given to potential congestion in setting of diastolic CHF - does not appear volume overloaded, with LFTs still elevated. - Liver Ultrasound with evidence of Cholelithiasis, gallbladder wall thickening, and positive Perez's. CBD upper limits of normal. Discussed these findings in detail with Dr. Aleman from Surgery. Patient does have mild discomfort on palpation of RUQ, but experiences no nausea or food avoidance, and tolerates PO intake very well without nausea or vomiting. Recommendations were for outpatient follow-up in the surgical offices. Current LFTs stable but worse than baseline. Alk Phos 149 (baseline 110-140's in [id number]), AST 325 (100-150), and ALT 152 (40-80). (10) Low Cortisol: There had been clinic suspicion by admitting physician for potential Adrenal Insufficiency, and an am Cortisol level was checked. Level has returned minimally low at 3 (norm before 10am of 4-23). Unfortunately ACTH was not checked, and results of cortisol returned too late in hospital course for Stim Test. Will aim for a very slow steroid taper, and suggest further outpatient work-up. (10) Advance directive on file: Full Code. (11) Disposition: Patient refused SNF. Home with Home Health for continuation of PT/OT and nursing care. Home Meds and New Rx's Prescriptions: New prednisone 10 mg tablet 10 mg PO DAILY Qty: 35 RF: 0 Continued potassium chloride [Klor-Con M20] 20 MEQ tablet,ER particles/crystals 20 meq PO BID RF: 0 albuterol sulfate 8.5 GM HFA aerosol inhaler 2 puff .Route PRN PRNRF: 0 escitalopram oxalate [Lexapro] 20 MG tablet 20 mg PO DAILY RF: 0 Advair HFA 60 PUFF HFA aerosol inhaler 2 puff .Route BID RF: 0 cholecalciferol (vitamin D3) 1,000 UNITS tablet 2,000 units PO DAILY RF: 0 topiramate 25 MG tablet 50 mg PO BID RF: 0 ibuprofen 400 MG tablet 400 mg PO DAILY AM PRNQty: 0 RF: 0 warfarin 2.5 mg Tablet 2.5 - 5 mg PO DIRECTED RF: 0 miconazole nitrate 2 % Cream 1 applic topical DIRECTED RF: 0 fluticasone propion-salmeterol [Advair Diskus] 500-50 mcg/dose Blister With Device 2 inh Inhalation BID RF: 0 oxybutynin chloride 10 mg Tablet Extended Release 24hr 1 tab PO DAILY RF: 0 triamcinolone acetonide 0.1 % Cream 1 applic TOPICAL BID RF: 0 spironolactone 25 mg Tablet 25 mg PO DAILY RF: 0 vancomycin [Vancocin] 125 mg Capsule 125 mg PO QID RF: 0 simvastatin 40 mg Tablet 40 mg PO QHS RF: 0 magnesium oxide 400 mg Capsule 400 mg PO DAILY RF: 0 melatonin 10 mg Capsule 20 mg PO HS PRNRF: 0 furosemide 40 mg Tablet 40 mg PO DAILY Qty: 30 RF: 0 spironolactone 25 mg Tablet 50 mg PO BID@0830,1600 Qty: 120 RF: 0 ranitidine HCl 150 mg Tablet 150 mg PO BID Qty: 60 RF: 0 acidophilus-pectin, citrus 25 million cell -100 mg Tablet 1 cap PO TID Qty: 90 RF: 0 Discontinued ciprofloxacin HCl 500 mg Tablet 500 mg PO BID Qty: 15 RF: 0 doxycycline hyclate 100 mg capsule 100 mg PO BID Qty: 14 RF: 0 Discharge Instructions Stand Alone Forms: Nursing Discharge Form Referrals: Conchita Stein MD [ [facility] STAFF PHYSICIAN] - 02/05/19 1:00 pm Gavi Adames MD [Primary Care Provider] - 02/01/19 9:10 am Activity:: No strenuous activity Equipment/Supplies:: Oxygen (L/min Below) Diet:: Low Sodium Discharge Orders Discharge Orders: Discharge Order (Routine); Ordered 01/24/19 Ordered By: Jacky Do Exam Narrative Exam Narrative: General: Patient appears comfortable, AAOX3, NAD Neck: Supple CV: Regular, nontachycardic, S1S2, No rubs, murmurs, or gallops. Pulmonary: Clear to auscultation bilaterally, no crackles, wheezing, or rhonchi. Good air entry, and vastly imprved. Exam somewhat limited by body habitus. Abdomen: + Bowel Sounds, soft, nontender, nondistended. Obese in contour. Vascular: 3+ b/l lower extremity edema, changes consistent with chronic venous stasis noted. Psych: Normal mood and affect. DS: Data Vitals/I&O Vitals and I&O: Vital Signs Temperature 36.1 C L 01/24/19 11:00 Temperature Source Tympanic 01/24/19 11:00 Pulse 54 L 01/24/19 11:00 Pulse Rhythm Regular 01/24/19 07:33 Pulse 63 01/16/19 20:20 Respiratory Rate 21 01/24/19 11:00 Respiratory Effort 07/24/19 07:33 Respiratory Depth Normal 01/24/19 07:33 Respiratory Pattern Normal 01/24/19 07:33 Blood Pressure 127/69 01/24/19 11:00 Blood Pressure Mean 57 01/16/19 20:16 Blood Pressure Position Supine 01/16/19 13:35 Pulse Oximetry 94 L 01/24/19 11:00 Oxygen Delivery Method Room Air 01/24/19 11:00 Oxygen Flow Rate 0 01/24/19 11:00 Pain Level 1 01/24/19 11:11 Comment 01/23/19 04:10 Intake & Output 01/23/19 01/24/19 01/24/19 23:59 11:59 23:59 Intake Total 250 / 690 1060.5 / 1310.5 250 / 1310.5 Balance 250 / 690 1060.5 / 1310.5 250 / 1310.5 Weight 167.7 kg Intake: IV 10 60.5 / 60.5 Oral 240 / 680 1000 / 1250 250 / 1250 Other: Urine Color Pale Pale Pale Yellow Yellow Yellow Straw Urine Appearance Clear Clear Clear Urine Odor None None Normal Comment Pt voiding ad meri in toilet. Denies sx. Stool Size Small Large Stool Characteristics Soft Soft Brown Formed Voiding Methods Toilet Toilet Toilet Completed studies during hospitalization [Text1]: Exam(s) a RAD:XR chest 2V PA & lateral SYMPTOMS/DIAGNOSIS: SHORTNESS OF BREATH CHEST: Frontal and lateral views. Comparison 05/19/18. The heart size and pulmonary vasculature are within normal limits. There are increased lung markings in the right base. The left lung is clear. No effusions or pneumothoraces are identified. Degenerative changes are seen in the spine. IMPRESSION: Right basilar infiltrate. This may represent atelectasis or pneumonia. The findings were discussed with Dr. Buckner of the emergency department on the date of the examination. -------- Exam(s) a CT:CT head wo SYMPTOMS/DIAGNOSIS: HEADACHE CT BRAIN: Noncontrast. There are no priors for comparison. The ventricles and sulci are consistent with the patient's age. There is normal reed/white matter differentiation. No evidence of an acute territorial infarct, hemorrhage, midline shift or mass effect is identified. The ventricles are intact. The basilar cisterns are patent. The visualized paranasal sinuses are clear as are the mastoid air cells. The calvarium is intact. IMPRESSION: No acute intracranial process. -------- Exam(s) a US:US renal SYMPTOMS/DIAGNOSIS: PINKY RENAL ULTRASOUND: The left kidney measures 12.9 x 6.3 x 6.7 cm. There are multiple small echogenic foci. The largest measuring approximately 4 mm which are presumably calcifications. There is no evidence of hydronephrosis. The right kidney measures 13 x 5.1 x 5.6 cm and is unremarkable. The bladder is not distended. SUMMARY: Apparent left nephrolithiasis. No evidence of right or left hydronephrosis. -------- Exam(s) a US:US abdomen SYMPTOMS/DIAGNOSIS: WORSENING LFTS, CIRRHOSIS, OBESITY, DIASTOLIC CHF ABDOMINAL ULTRASOUND: Routine examination. The mid abdominal aorta was visualized and is of normal caliber. The inferior vena cava is unremarkable. The liver has a nodular appearance with an enlarged left lobe consistent with hepatic cirrhosis. There is increased echogenicity of the liver consistent with hepatic steatosis. There are stones seen within the gallbladder. The gallbladder wall is thickened. There is a positive sonographic Perez's sign. No pericholecystic fluid is seen. The common duct is at the upper limits of normal at .6 cm. The pancreas and kidneys are unremarkable. No free fluid is seen in the abdomen. The spleen is enlarged measuring 16.6 cm. IMPRESSION: 1. Cholelithiasis. Gallbladder wall thickening and a positive sonographic Perez's sign. Please correlate to whether this represents acute cholecystitis. 2. Common bile duct upper limits of normal at .6 cm. 3. Splenomegaly and hepatic findings sonographically consistent with hepatic cirrhosis and hepatic steatosis. Labs on day of discharge: Labs from last 24 hours 01/24/19 01/24/19 01/24/19 07:00 07:00 07:00 WBC 11.64 H RBC 3.42 L Hgb 10.5 L Hct 31.9 L MCV 93.3 MCH 30.7 MCHC 32.9 RDW 19.4 H Plt Count 64 L MPV 9.9 Immature Gran % 1.6 Neutrophils % 81.3 Lymphocytes % 8.2 Monocytes % 8.4 Eosinophils % 0.3 Basophils % 0.2 Absolute Neutrophils 9.46 H Absolute Lymphocytes 0.95 L Absolute Monocytes 0.98 H Absolute Eosinophils 0.03 Absolute Basophils 0.02 Differential Comment Rbc morph reviewed RBC Morphology See below Polychromasia Present Anisocytosis 1+ PT 25.7 H INR 2.5 H Sodium 139 Potassium 4.0 Chloride 107 Carbon Dioxide 25.1 Anion Gap 6.9 BUN 26 H Creatinine 1.20 H Estimated GFR/1.73 m2 46.64 Glucose 112 H Calcium 8.0 L Magnesium Total Bilirubin Conjugated Bilirubin AST ALT Alkaline Phosphatase Total Protein Albumin 01/24/19 07:00 WBC RBC Hgb Hct MCV MCH MCHC RDW Plt Count MPV Immature Gran % Neutrophils % Lymphocytes % Monocytes % Eosinophils % Basophils % Absolute Neutrophils Absolute Lymphocytes Absolute Monocytes Absolute Eosinophils Absolute Basophils Differential Comment RBC Morphology Polychromasia Anisocytosis PT INR Sodium Potassium Chloride Carbon Dioxide Anion Gap BUN Creatinine Estimated GFR/1.73 m2 Glucose Calcium Magnesium 1.9 Total Bilirubin 4.9 H Conjugated Bilirubin 2.71 H AST 325 H ALT 152 H Alkaline Phosphatase 149 H Total Protein 5.8 L Albumin 1.2 L PFSH Medical History Asthma (Chronic) Depression (Chronic) Edema extremities (Acute) Hyperlipidemia (Acute) Liver cirrhosis secondary to nonalcoholic steatohepatitis (HAYWOOD) (Acute) Morbid obesity (Acute) Osteoarthritis (Chronic) Secondary hypercoagulability disorder (Acute) Surgical History History of bilateral tubal ligation (Acute) Family History Other Diabetes Secondary hypercoagulability disorder Social History Smoking/Tobacco Use Status: Former Tobacco Use Alcohol Intake: never Drug use: Never Substance use type: does not use Household members: other Details: Patient was living with her son and now lives with her parents Number of Children: 3 Do you feel safe at home: Yes Do you feel safe in your relationship?: Yes Additional Social history: 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 She presently is on disability for psychiatric disease mostly but also physical deconditioning from her morbid obesity. Female Reproductive History Menstrual control method: permanent sterilization History History 3 Para Hx # Term Pregnancies Multiple births Hx # Pregnancies Ectopic pregnancies AB induced Hx Number of Living Children AB spontaneous
--- NOTE | 2019-01-24 16:01 | HHF2F_ITS ---
1. Encounter Date and Reason I certify that DAMARIS CAMPOS was seen by Jacky Do on 01/24/19 and that I had a [id number] encounter with this patient that meets the physician face to face encounter requirements. 2. Clinical Findings Supporting Skilled Need and Homebound Status I certify that home health services are medically necessary, include either intermittent penitentiary and/or physical/speech therapy, and that this patient is homebound in that absences from the home require considerable and taxing effort and are infrequent or of short duration, or are attributable to the need to receive medical care. [X] (a) Attached documentation from encounter provides clinical findings supporting skilled need and homebound status (including what assistance patient requires to leave the home). The encounter with the patient was in whole, or in part, for the following medical condition, which is the primary reason for home health care: PNEUMONIA Longterm: Home medication, Oxygen and vital signs checks Physical Therapy/Occupational Therapy: Deconditioning. Prolonged Hospitalization. Speech Therapy: Homebound: 3. Certification and Authentication I certify that I composed the above information based on my clinical judgement relating to this patient's medical condition and, if applicable, clinical findings communicated to me by the NPP or inpatient physician who performed the Home Health Referral. All further orders will be obtained through Gavi Adames ([facility] Based Physician - PCP)
[2019-01-24 16:30] VITALS: BP 138/73; PULSE 57; RESP 35; TEMP 36; O2SAT 94
--- NOTE | 2019-01-25 09:18 | PT.INDS ---
Date of service: 01/25/19 Time of Service: 09:18 PT Notes Inpatient Physical Therapy Discharge Summary Dates: 01/25/2019 Dates of Service: 01/23/2019 through 01/24/2019 This is a clinical summary of care provided on the duration of dates listed above. No charge was made in the completion of this documentation. Referring Doctor: Maya Whiting MD PT Orders: PT CONSULT: Eval/treat Precautions: Fall. Standard. Activity as tolerated. Patient Profile/Admitting Diagnosis: Patient is a 53-year-old female who presented to the ED on 01/16/2019 with chief complaints of shortness of breath fever headache, fever, cough for 4 to 5 days preceding admission. 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 Referral for skilled physical therapy services was received to address impairments in strength, activity tolerance, and mobility level. PMHX: Medical History Asthma (Chronic) Depression (Chronic) Edema extremities (Acute) Hyperlipidemia (Acute) Liver cirrhosis secondary to nonalcoholic steatohepatitis (HAYWOOD) (Acute) Morbid obesity (Acute) Osteoarthritis (Chronic) Secondary hypercoagulability disorder (Acute) Surgical History History of bilateral tubal ligation (Acute) Social History/Home Situation: Michelle lives in a mobile home with three steps to enter and a rail on the left going up. She lives with her parents in [place], [place]. She has 2 children who live close by and have been very supportive. Michelle is on disability benefits as she has been unable to work for quite a while now. She states that her parents help take care of her as needed. She states that her mother provides perineal care after toileting as sometimes she is unable to reach her perianeal area due to fatigue and obesity. She reports that she is independent with mobility ADL performance without the need for an assistive ambulatory device indoors. She is able to walk up to 75 feet from her bedroom to the car for medical appointments. Current Functional Limitations: Decreased activity tolerance requiring assistance for all transfer and ambulation task performance Equipment Owned/DME: [facility] [place] Subjective: NT Objective: General Observation: NT Mental Status:NT Pain: NT Vital Signs: NT ROM: Right Upper Extremity: Shoulder Flexion WFL. Shoulder abduction WFL. Elbow flexion WFL. Wrist flexion WFL. Functional opening and closing of hand WFL. Left Upper Extremity: Shoulder Flexion WFL. Shoulder abduction WFL. Elbow flexion WFL. Wrist flexion WFL. Functional opening and closing of hand WFL. Right Lower Extremity: Hip flexion allows only to 20 degrees beyond 90 degrees while seated on chair. Hip abduction WFL. Knee flexion allows up to 10 degrees. Ankle dorsiflexion WFL. Ankle plantarflexion WFL. Left Lower Extremity: Hip flexion allows only to 20 degrees beyond 90 degrees while seated on trice. Hip abduction WFL. Knee flexion allows up to 10 degrees. Ankle dorsiflexion WFL. Ankle plantarflexion WFL. Strength: Right Upper Extremity: Shoulder flexors 4/5. Shoulder abductors 4/5. Elbow flexors 4/5. Elbow extensors 4/5. Ceo And President strong. Left Upper Extremity: Shoulder flexors 4/5. Shoulder abductors 4/5. Elbow flexors 4/5. Elbow extensors 4/5. Ceo And President strong. Right Lower Extremity: Hip flexors 3-/5. Hip abductors 4/5. Knee flexors 3-/5. Knee extensors 4-/5. Ankle dorsiflexors 4/5. Ankle plantarflexors 4/5. Left Lower Extremity:Hip flexors 3-/5. Hip abductors 4/5. Knee flexors 3-/5. Knee extensors 4-/5. Ankle dorsiflexors 4/5. Ankle plantarflexors 4/5. Sensation: Intact as to pain and pressure on bilateral lower extremities. Bed Mobility/Transfers: Rolling I Supine to sit I Sit to supine I Sit to stand I Stand to sit I Bed to chair I Chair to bed I Gait: Patient was able to tolerate level surface ambulation of 50 feet x 2 without AD with S with decreased gait velocity. Balance: Static Sitting: Good Dynamic Sitting: Good Static Standing: Good Dynamic Standing: Fair Assessment: Patient presents with clinical signs and symptoms consistent with current/admitting diagnoses that have resulted to mobility limitations, gait instability, generalized weakness, and impairment of motor control as demonstrated by the following impairment level findings: 1. Decreased strength to B LE major muscle groups 2. Impaired standing balance 3. Impaired activity tolerance Impairments are contributing to the following functional limitations: 1. Dependent bed mobility skills 2. Increased dependence with transfers 3. Inability to safely ambulate without assistive device and physical assistance 4. Increase completion time for mobility ADL performance 5. Increased fall risk 6. Inability to negotiate steps alone safely Goals: Goals X1 week 1. Supine-Sit independent MET 2. Sit-Supine independent MET 3. Sit-Stand independent MET 4. Stand-Sit independent MET 5. Bed-Chair independent MET 6. Chair-Bed independent MET 7. Independent gait on level surface with use of least restrictive device for at least 100 feet without report of pain nor dyspnea NOT MET 8. Independent stair negotiation while holding onto bilateral rails for at least 5 steps without report of pain nor dyspnea NOT MET 9. Independent with home exercise program NOT MET 10. Good static and dynamic standing balance/tolerance NOT MET DISCHARGE RECOMMENDATIONS: Patient will benefit from home health PT services in order to progress mobility level using least restrictive assistive ambulatory device/using no device, assess home safety, identify additional equipment needs, and establish a functional maintenance program that will increase ability of patient to remain at home. TREATMENT CODE/TIME: NT Thank you very much for this referral. Lina Rausch PT, DPT, CLT [facility]
== END 2019-01-24 16:42 | disposition home health service (06) | DRG 178 ==
LOC: ER 18:27 → MS 20:51
PROVIDERS: Internal Medicine; Physician Assistant; Admitting Provider General Practice; Emergency Provider Student in an Organized Health Care Education/Training Program; PCP Family Medicine; Visit Provider Internal Medicine
DX: J69.0 Pneumonitis due to inhalation of food and vomit (principal); N39.0 Urinary tract infection, site not specified; N17.9 Acute kidney failure, unspecified; I50.32 Chronic diastolic (congestive) heart failure; Z68.43 Body mass index [BMI] 50.0-59.9, adult; R79.1 Abnormal coagulation profile; R11.2 Nausea with vomiting, unspecified; E86.0 Dehydration; B96.20 Unspecified Escherichia coli [E. coli] as the cause of diseases classified elsewhere; G47.33 Obstructive sleep apnea (adult) (pediatric); K21.9 Gastro-esophageal reflux disease without esophagitis; Z86.711 Personal history of pulmonary embolism; Z79.01 Long term (current) use of anticoagulants; R06.09 Other forms of dyspnea; R19.7 Diarrhea, unspecified; T45.515A Adverse effect of anticoagulants, initial encounter; Z86.19 Personal history of other infectious and parasitic diseases; R79.89 Other specified abnormal findings of blood chemistry; K75.81 Nonalcoholic steatohepatitis (NASH); E27.8 Other specified disorders of adrenal gland; D69.6 Thrombocytopenia, unspecified; K74.60 Unspecified cirrhosis of liver; E66.9 Obesity, unspecified; I87.8 Other specified disorders of veins
CPT/HCPCS: 36415; 76770; 80048; 80053; 80076; 80307; 82533; 84145; 87077; 93005; 94618; 94640; 97162; 97530; 99222; 99232; 99233; 99239; 99285; 70450; 71046; 76700; 81003; 81015; 82140; 83735; 83880; 84484; 85025; 85610; 85730; 87070; 87086; 87186; 87205; 87798; 93010; 94660; J1940; J2543; J7512

== ENCOUNTER 2019-02-02 07:03 | Outpatient (CLI) | payer MEDICARE, MEDICAID, SELFPAY ==
--- NOTE | 2019-02-02 10:27 | DI.US_ITS ---
SYMPTOM/DIAGNOSIS: SWELLING LT ARM M79.89 LEFT UPPER EXTREMITY ULTRASOUND: The mid left subclavian vein and mid left bacillic vein were not visualized due to patient body habitus. The remaining deep veins of the upper extremity including the jugular and portions of the subclavian vein were patent. They show normal compression, augmentation and color flow where applicable. No evidence of a deep venous thrombus in the left upper extremity is identified. IMPRESSION: No evidence of a left upper extremity deep venous thrombus.
== END 2019-02-02 07:23 ==
PROVIDERS: PCP Family Medicine; Visit Provider Family Medicine
DX: R22.32 Localized swelling, mass and lump, left upper limb (principal); M79.89 Other specified soft tissue disorders
CPT/HCPCS: 93971

== ENCOUNTER → 2019-02-05 13:00 | Outpatient (BNVA) | payer MEDICARE, MEDICAID, SELFPAY | PROVIDERS: PCP Family Medicine; Referring Provider Family Medicine; Visit Provider Surgery | DX: K82.9 Disease of gallbladder, unspecified (principal); K76.9 Liver disease, unspecified; Z79.01 Long term (current) use of anticoagulants | CPT/HCPCS: 99202; 99213 ==

== ENCOUNTER 2019-02-15 09:14 | Emergency (ER) | payer MEDICARE, MEDICAID, SELFPAY ==
[2019-02-15] VITALS (28 sets, daily range): BP systolic 99–210; BP diastolic 36–182; PULSE 64–155; RESP 1–50; TEMP 36.7–36.9; O2SAT 81–98
[2019-02-15] MEDS: Albuterol/Ipratropium 3 ML UPD VIAL (09:25)
--- NOTE | 2019-02-15 09:27 | ED.GENADUL_ITS ---
Discharge Plan Disposition Patient Disposition: [facility] Condition: Poor Discharge Details Chief Complaint: SOB Clinical Impression: Pulmonary edema Primary Care Provider: Gavi Adames ED Provider: Balta Sharpe Home Meds and New Rx's Prescriptions: No Action potassium chloride [Klor-Con M20] 20 MEQ tablet,ER particles/crystals 20 meq PO BID RF: 0 albuterol sulfate 8.5 GM HFA aerosol inhaler 2 puff .Route Q6H PRNRF: 0 escitalopram oxalate [Lexapro] 20 MG tablet 20 mg PO HS RF: 0 cholecalciferol (vitamin D3) 1,000 UNITS tablet 2,000 units PO DAILY RF: 0 ibuprofen 400 MG tablet 400 mg PO DAILY AM PRNQty: 0 RF: 0 warfarin 2.5 mg Tablet 2.5 - 5 mg PO DIRECTED RF: 0 miconazole nitrate 2 % Cream 1 applic topical DIRECTED RF: 0 fluticasone propion-salmeterol [Advair Diskus] 500-50 mcg/dose Blister With Device 2 inh Inhalation BID RF: 0 oxybutynin chloride 10 mg Tablet Extended Release 24hr 1 tab PO QAM RF: 0 triamcinolone acetonide 0.1 % Cream 1 applic TOPICAL BID RF: 0 spironolactone 25 mg Tablet 25 mg PO QAM RF: 0 vancomycin [Vancocin] 125 mg Capsule 125 mg PO QID RF: 0 simvastatin 40 mg Tablet 40 mg PO QHS RF: 0 magnesium oxide 400 mg Capsule 400 mg PO DAILY RF: 0 melatonin 10 mg Capsule 20 mg PO HS PRNRF: 0 furosemide 40 mg Tablet 40 mg PO QAM Qty: 30 RF: 0 spironolactone 25 mg Tablet 50 mg PO BID@0830,1600 Qty: 120 RF: 0 ranitidine HCl 150 mg Tablet 150 mg PO BID Qty: 60 RF: 0 acidophilus-pectin, citrus 25 million cell -100 mg Tablet 1 cap PO TID Qty: 90 RF: 0 topiramate [Topamax] 50 mg Tablet 50 mg PO BID RF: 0 acetaminophen [Tylenol] 325 mg Tablet 650 mg PO PRN PRNRF: 0 Symbicort 160-4.5 mcg/actuation Hfa Aerosol Inhaler 2 puff INHALATION BID RF: 0 Medical Decision Making 53 yo female with hx of asthma, recent pneumonia this past January, cirrhosis, prior PE on warfarin, who comes in with several days of worsening shortness of breath. EMS put her on cpap and gave solumedrol and duonebs and she does note feeling better after these meds. Denies chest pain or pressure or fevesr but has had a cough. She is tachypneic on exam with diminished breath sounds at the bases. Will continue with duonebs and also evaluate for cardiac infarction though unlikely given the chest pain and given her hx evaluate for possible new PE vs recurrent pna pt labs show troponin barely outside normal level in the intdeterminate range of 0.07, has had 0.06 in the past and imaging shows significant pulmonray edema and ascites, suspect this is demand from the chf/acsites. She is hd stable but still requiring bipap, lasix ordered, no tele or icu beds here. I spoke with Dr. Garnett at [facility] who accepts to their icu. Family agrees with plan, is alert and speaking in full sentences at this time so do not feel intubation indicated. Her urine did have nitrites but she denies any urinary symptoms so abx held Differential Diagnosis asthma, pe, copd Medical Records Medical records reviewed: Yes I reviewed the patient's medical records. Imaging Data Radiologic Study: Attestation: I personally reviewed and interpreted this imaging study as follows: Imaging: CT Scan My impression: significant pulmonary edema Lab Data Lab results reviewed: Yes I reviewed the patient's lab results. ECG Data Attestation: I personally reviewed and interpreted this ECG (s) as follows: Prior ECG tracings: available for review Interpretation: sinus rhythm, rate of 80, pr 150, no acute st t wave ischemic findings HPI General Mode of arrival: EMS . Date/Time Provider Initiated Documentation: 02/15/19 09:22 . Limitations to Documentation: no limitations . Information obtained by: patient . History of Present Illness 53 year old F presents to the emergency department with the chief complaint of shortness of breath, described as moderate, Patient started experiencing this day(s) (4) and it has been constant. No relieving factors improve symptom(s), No exacerbating factors reported . Patient notes cough. Patient did receive the following treatments prior to arrival, none Related Data Home Medications Medication Instructions Recorded Confirmed albuterol sulfate 2 puff .ROUTE Q6H PRN 03/15/15 02/15/19 cholecalciferol (vitamin D3) 2,000 units PO DAILY 03/15/15 02/15/19 escitalopram oxalate [Lexapro] 20 mg PO HS 03/15/15 02/15/19 potassium chloride [Klor-Con M20] 20 meq PO BID 03/15/15 02/15/19 ibuprofen 400 mg PO DAILY AM PRN #0 12/20/17 02/15/19 fluticasone propion-salmeterol 2 inh INHALATION BID 03/04/18 02/15/19 [Advair Diskus] magnesium oxide 400 mg PO DAILY 05/19/18 02/15/19 melatonin 20 mg PO HS PRN 05/19/18 02/15/19 oxybutynin chloride 1 tab PO QAM 05/19/18 02/15/19 simvastatin 40 mg PO QHS 05/19/18 02/15/19 spironolactone 25 mg PO QAM 05/19/18 02/15/19 triamcinolone acetonide 1 applic TOPICAL BID 05/19/18 02/15/19 vancomycin [Vancocin] 125 mg PO QID 05/19/18 02/15/19 acidophilus-pectin, citrus 1 cap PO TID #90 tab 05/27/18 02/15/19 furosemide 40 mg PO QAM #30 tab 05/27/18 02/15/19 ranitidine HCl 150 mg PO BID #60 tab 05/27/18 02/15/19 spironolactone 50 mg PO BID@0830,1600 #120 tab 05/27/18 02/15/19 miconazole nitrate 1 applic TOPICAL DIRECTED 12/08/18 02/15/19 warfarin 2.5 - 5 mg PO DIRECTED 12/08/18 02/15/19 acetaminophen [Tylenol] 650 mg PO PRN PRN 02/15/19 02/15/19 budesonide-formoterol [Symbicort] 2 puff INHALATION BID 02/15/19 02/15/19 topiramate [Topamax] 50 mg PO BID 02/15/19 02/15/19 Previous Rx's Medication Instructions Recorded ibuprofen 400 mg PO DAILY AM PRN #0 12/20/17 acidophilus-pectin, citrus 1 cap PO TID #90 tab 05/27/18 furosemide 40 mg PO QAM #30 tab 05/27/18 ranitidine HCl 150 mg PO BID #60 tab 05/27/18 spironolactone 50 mg PO BID@0830,1600 #120 tab 05/27/18 Allergies Allergy/AdvReac Type Severity Reaction Status Date / Time cephalexin monohydrate AdvReac Diarrhea Verified 02/05/19 13:13 [From Keflex] General RAJAN: 2 Review of Systems Review of Systems All systems reviewed & are unremarkable except as noted in HPI and below Constitutional Denies chills and Denies fever(s) Cardiovascular Denies chest pain and Denies dyspnea Respiratory Denies dyspnea Gastrointestinal Denies abdominal pain, Denies nausea and Denies vomiting Musculoskeletal Denies joint swelling Psychiatric Denies depression [facility] Social History Smoking/Tobacco Use Status: Former Tobacco Use Alcohol Intake: never Drug use: Never Substance use type: does not use Household members: other Details: Patient was living with her son and now lives with her parents Number of Children: 3 Do you feel safe at home: Yes Do you feel safe in your relationship?: Yes Additional Social history: 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 She presently is on disability for psychiatric disease mostly but also physical deconditioning from her morbid obesity. Female Reproductive History Menstrual control method: permanent sterilization History History 3 Para Hx # Term Pregnancies Multiple births Hx # Pregnancies Ectopic pregnancies AB induced Hx Number of Living Children AB spontaneous Exam Const Orientation: alert HENMT Head: normal to inspection Ears: external ears normal General nose exam: external nose normal Mouth: moist mucous membranes Eyes General: appearance normal, both eyes and all related structures Neck Neck: normal visual inspection Resp Effort & Inspection: tachypneic Cardio Rate: regular rate Skin General skin exam: no rashes or lesions noted Neuro General: alert and oriented x3 Extrem General: normal to inspection Psych Mental Status: mental status grossly normal
--- NOTE | 2019-02-15 09:27 | DI.CT_ITS ---
SYMPTOM/DIAGNOSIS: SHORTNESS OF BREATH CT ANGIOGRAPHY CHEST: 02/15 CT angiography was performed with multi slice acquisition and multi planar and 3D reconstruction. CT examination of the chest was performed utilizing CT angiography protocol with injection of 80 cc Omnipaque 350. Images obtained through the upper abdomen show ascites and a small nodular liver and hepatomegaly in a patient with known cirrhosis. There are moderate size bilateral pleural effusions. There is moderate cardiomegaly without pericardial effusion. There are diffuse ground glass perihilar opacities bilaterally, right greater than left. The findings as described are consistent with CHF although other etiologies including infectious process or ARDS are not excluded. There is marked motion on this examination and segmental and subsegmental pulmonary arterial vessels are nonvisualized. No gross central pulmonary embolus identified. Thoracic aorta grossly unremarkable. CONCLUSION: Limited scan shows findings suggesting CHF. Infectious process or ARDS not excluded on the basis of this examination.
[2019-02-15 09:31] LABS: Abs Immature Grans 0.11 k/cumm (0.0-0.09); Absolute Basophil Count 0.03 k/cumm (0.0-0.2); Absolute Lymphocyte Count 1.34 k/cumm (1.2-3.4); Basophils % 0.2; Eosinophils % 2.4; HCT 39.2 % (36.0-46.0); HGB 12.9 g/dL (12.0-15.5); Immature Grans % 0.6; Lymphocytes % 7.9; Mean Corp. HGB Concentration 32.9 g/dL (32.0-36.0); Mean Corpuscular Hemoglobin 31.9 pg (27.0-33.0); Mean Corpuscular Volume 96.8 fL (80-95); Mean Platelet Volume 10.9 fL (8.0-11.0); Neutrophils % 81.9; RBC 4.05 m/cumm (4.00-5.20); RBC Distribution Width 20.5 % (11.7-14.6); White Blood Cell Count 16.96 k/cumm (4.4-10.8)
[2019-02-15] MEDS: methylPREDNISolone SUCC 125 MG VIAL IVP (09:34)
[2019-02-15] MEDS: Normal Saline Flush 10 ML SYR IVP (09:34)
[2019-02-15 09:46] LABS: INR 3.3 (0.9-1.1); PTT Activated 45.6 sec (21.0-31.4); Prothrombin Time 33.2 sec (9.3-11.0)
[2019-02-15] MEDS: LORazepam 2 MG/ML VIAL 0.5 MG IVP (09:47)
[2019-02-15 09:51] LABS: ALT 203 U/L (12-78); AST 191 U/L (15-37); Albumin 1.3 g/dL (3.4-5.0); Alkaline Phosphatase 167 U/L (46-116); Anion Gap 9.9 mmol/L (3-11); BUN 28 mg/dL (7-18); Bilirubin, Total 5.7 mg/dL (0.2-1.0); CO2 20.1 mmol/L (21.0-32.0); CREATININE 1.64 mg/dL (0.55-1.02); Chloride 106 mmol/L (98-107); Estimated GFR 32.53 (mL/min/1.73m2); Glucose 62 mg/dL (70-100); Lipase 89 U/L (73-393); Magnesium 1.6 mg/dL (1.8-2.4); NT-proBNP 428 pg/mL; Potassium 4.5 mmol/L (3.5-5.1); Sodium 136 mmol/L (136-145); Total Protein 5.8 g/dL (6.4-8.2)
[2019-02-15 09:52] LABS: Absolute Eosinophil Count 0.41 k/cumm (0.0-0.7); Absolute Monocyte Count 1.19 k/cumm (0.11-0.7); Absolute Neutrophil Count 13.89 k/cumm (1.2-6.7); Platelet Count 63 x1000/uL (130-400)
[2019-02-15 09:53] LABS: Anisocytosis 1+; Diff Comment RBC Morph Reviewed; Polychromasia Present
[2019-02-15 09:57] LABS: Troponin I 0.07 ng/mL (0.00-0.06)
[2019-02-15] MEDS: Omnipaque 350 MG/ML 100 ML BTL IJ (10:47)
[2019-02-15] MEDS: Furosemide 100 MG/10 ML VIAL 80 MG IVP (10:53)
[2019-02-15 11:32] LABS: Bilirubin Moderate (Negative); Blood Moderate (Negative); Clarity Cloudy (Clear); Glucose Negative (Negative); Ketones Trace mg/dL (Negative); Leukocyte Esterase Small (Negative); Nitrite Positive (Negative); Specific Gravity 1.015 (1.005-1.025); Urobilinogen 0.2 EU/dL (Up TO 0.2)
[2019-02-15 12:00] LABS: Bacteria Many HPF (Negative); Epithelial Cells Few HPF (Negative); RBC >50 (0-2); WBC >50 HPF (0-5)
[2019-02-15 12:01] LABS: C & S Indicated? Yes; Casts Negative LPF (Negative); Crystals Other HPF (Negative); Mucus Trace (Negative)
[2019-02-15 15:22] LABS: Other Cells Moderate Renal (Negative)
--- NOTE | 2019-02-15 15:31 | NUR.NOTE ---
Nursing Note: Faxed to [facility] the UA result. Lili Navarrete.
--- NOTE | 2019-02-18 08:01 | NUR.NOTE ---
Patient tx's to [facility], has been dicharged. Faxed culture results to PCP Dr Adames.Nursing Note:
== END 2019-02-15 12:02 | disposition short-term general hospital (02) ==
LOC: ER 13:36
PROVIDERS: Emergency Provider Emergency Medicine; PCP Family Medicine
DX: I50.1 Left ventricular failure, unspecified; Z86.711 Personal history of pulmonary embolism
CPT/HCPCS: 36415; 51702; 71275; 80053; 83690; 87077; 93005; 94640; 96374; 96375; 99285; 81003; 81015; 83735; 83880; 84484; 85025; 85610; 85730; 87086; 87186; 93010; J1940; J2060; J2930; J3490; J7620